=== PATIENT | male | born 1965 | race Caucasian/White ===

== ENCOUNTER → 2020-03-18 10:10 | Outpatient (BNVA) | payer MEDICARE, MEDICAID, SELFPAY | PROVIDERS: PCP Internal Medicine; Visit Provider Internal Medicine | DX: G47.33 Obstructive sleep apnea (adult) (pediatric) (principal); G47.34 Idiopathic sleep related nonobstructive alveolar hypoventilation; E66.9 Obesity, unspecified | CPT/HCPCS: 99212 ==

== ENCOUNTER → 2020-09-15 10:13 | Outpatient (BNVA) | payer MEDICARE, MEDICAID, SELFPAY | PROVIDERS: PCP Internal Medicine; Visit Provider Internal Medicine | DX: G47.34 Idiopathic sleep related nonobstructive alveolar hypoventilation (principal); G47.33 Obstructive sleep apnea (adult) (pediatric); E66.9 Obesity, unspecified | CPT/HCPCS: 99212 ==

== ENCOUNTER 2020-12-09 20:39 | Observation (INO) | payer MEDICARE, MEDICAID, SELFPAY ==
--- NOTE | 2020-12-09 | ECG_ITS ---
Test Reason : SOB Blood Pressure : / mmHG Vent. Rate : 066 BPM Atrial Rate : 066 BPM P-R Int : 150 ms QRS Dur : 092 ms QT Int : 414 ms P-R-T Axes : 001 -05 008 degrees QTc Int : 434 ms Normal sinus rhythm Normal ECG When compared with ECG of 29-JUN-2016 08:23, No significant change was found Referred By: Generic ED Physician Electronically Signed By:HAKAN HOLLAND
--- NOTE | ~2020-12-09 | CT_ITS ---
EXAMINATION: CT CHEST WITHOUT CONTRAST CLINICAL INFORMATION: Hypoxia COMPARISON: Chest radiograph 12/09/2020 TECHNIQUE: Multidetector volumetric CT imaging of the chest was done. Axial MIP volume rendering provided. Sagittal and coronal reformatted images were obtained. This CT examination was performed using dose optimization techniques as appropriate, variously including the following: *Automated exposure control *Adjustment of mA and/or kV according to patient size (this includes techniques or standardized protocols for targeted exams where dose is matched to indication/reason for exam; i.e. extremities or head) *Use of iterative reconstruction technique There is considerable motion artifact from respiration. DLP: 448 mGy-cm FINDINGS: LUNGS: Bibasilar atelectasis is present. The lungs are otherwise clear with no evidence of inflammation or nodules. MEDIASTINUM: The mediastinum is normal. PLEURA: There is no pleural effusion. No pleural mass or thickening. AXILLA: No lymphadenopathy. UPPER ABDOMEN: Unremarkable. OSSEOUS STRUCTURES: Unremarkable. CT/CT chest wo con IMPRESSION: No acute intrathoracic disease. No significant intrathoracic abnormality is detected.
--- NOTE | ~2020-12-09 | XR_ITS ---
EXAMINATION: XR CHEST CLINICAL INFORMATION: Shortness of breath. COMPARISON: 06/29/2016 TECHNIQUE: Frontal view of the chest was obtained. FINDINGS: Lungs are well expanded. Minimal linear opacity of atelectasis or minimal scarring at each base. No evidence of pulmonary edema, consolidation or pleural effusion. No pneumothorax. Cardiac silhouette has normal size and contour. The visualized bones are intact. XR/XR chest 1V IMPRESSION: No acute pulmonary disease compared to 06/29/2016.
[2020-12-09 20:41] VITALS: BP 151/79; PULSE 69; O2SAT 90
[2020-12-09 20:46] VITALS: BP 154/78; PULSE 72; RESP 16; TEMP 36.6; O2SAT 94; BMI 35.7
[2020-12-09 21:21] LABS: MANUAL DIFF FLAG NO
[2020-12-09 21:23] LABS: Basophils Percent Auto 0.4 % (0-2); Eosinophils Absolute Auto 0.1 X10*3/uL (0.0-0.4); Eosinophils Percent Auto 1.8 % (0-4); Hematocrit 39.1 % (42-52); Imm Gran Abs Auto 0.07 X10*3/uL (0.00-0.03); Imm Gran Pct Auto 0.9 % (0.0-0.4); Lymphocytes Percent Auto 26.5 % (20-40); Mean Corpuscular HGB Conc 33.2 g/dl (31.0-36.0); Mean Corpuscular Hemoglobin 29.5 pg (27.0-33.0); Mean Corpuscular Volume 88.9 fL (80-98); Mean Platelet Volume 8.4 fL (9.4-12.4); Monocytes Absolute Auto 0.7 X10*3/uL (0.1-1.2); Monocytes Percent Auto 9.7 % (2-11); Neutrophils Absolute Auto 4.7 X10*3/uL (2.0-8.3); Neutrophils Percent Auto 60.7 % (45-73); Platelet Count 267 X10*3/uL (160-400); Red Cell Distribution Width 12.6 % (11.0-16.0); White Blood Count 7.7 X10*3/uL (4.8-10.8)
[2020-12-09 21:37] LABS: Anion Gap 15 (12-20); Blood Urea Nitrogen 10 mg/dL (9-16); Calcium 9.5 mg/dL (8.4-10.2); Carbon Dioxide 28 mmol/L (22-29); Chloride 103 mmol/L (96-108); Creatinine Clr Calc Pharmacy 89.4; Estimated Glomerular Filt Rate > 60; Glucose Random 174 mg/dL (60-115); Potassium 4.4 mmol/L (3.3-5.1); Sodium 142 mmol/L (135-145)
[2020-12-09 21:38] LABS: COVID-19 Test Negative (Negative); IDNOW Serial# 9DD0AD1C
--- NOTE | 2020-12-09 21:39 | ED.SOB ---
HPI - SOB/Dyspnea General Chief Complaint: Dyspnea Stated Complaint: SOB Time Seen by Provider: 12/09/20 21:39 Source: patient and other Mode of arrival: EMS History of Present Illness HPI Narrative: 55-year-old male with history of diabetes and nocturnal hypoxemia for which he is on supplemental nasal cannula at night is brought in by EMS after staff members notice that he appeared to be short of breath with lip discoloration for approximately 2 hours prior to calling EMS. As per EMS patient was 88% on room air and so patient was transported on 3 L nasal cannula. Patient denies any current discomfort to include denying any shortness of breath, chest pain/palpitations, nausea, vomiting, diarrhea, abdominal pain. As per patient he has not had COVID-19 vaccination and is followed by Dr. Fenrando of pulmonology. Patient has healthcare aide at the bedside. Related Data Home Medications Medication Instructions Recorded Confirmed acetaminophen 325 mg tablet (Mapap 650 mg PO Q6H PRN 03/02/20 07/07/20 (acetaminophen)) bacitracin 500 unit/gram topical 1 appl TOPICAL DAILY 03/02/20 07/07/20 ointment emollient combination no.92 1 appl TOPICAL DAILY 03/02/20 09/24/20 (Lubriderm Daily Moisture) peg [id number] 1 1 drp OPHTHALMIC (EYE) BID-QID PRN 03/02/20 07/07/20 %-0.2 %-0.2 % eye drops (Visine Tears) risperidone 4 mg tablet (Risperdal) 4 mg PO BID 03/02/20 09/24/20 escitalopram oxalate 20 mg tablet 30 mg PO DAILY tab 03/18/20 07/07/20 (Lexapro) flu vac qs 2019(4 yr up)CD(PF) ml IM 03/18/20 07/07/20 blood sugar diagnostic #10 ea 09/15/20 09/24/20 Previous Rx's Medication Instructions Recorded aspirin 81 mg tablet,delayed 81 mg PO QAM #30 tab 02/13/20 release alcohol swabs 1 pad TOPICAL QIDACHS #100 ea 02/15/20 ketoconazole 2 % shampoo 1 appl TOPICAL 2XW #120 ml 03/05/20 atorvastatin 80 mg tablet 80 mg PO BEDTIME #30 tab 04/30/20 ascorbate calcium (vitamin C) 500 500 mg PO DAILY #90 tab 05/07/20 mg tablet insulin degludec 100 unit/mL (3 10 unit SUBCUT DAILY #15 ml 08/19/20 mL) subcutaneous pen (Tresiba FlexTouch U-100 insulin) ferrous fumarate 324 mg (106 mg 324 mg PO DAILY 90 Days #90 tab 08/25/20 iron) tablet pen needle, diabetic 31 gauge x #1200 ea 09/14/2008/16 cephalexin 500 mg capsule 500 mg PO QID 7 Days #28 cap 09/24/20 prednisone 20 mg tablet 20 mg PO .COMPLEX #18 tab 09/24/20 cholecalciferol (vitamin D3) 25 25 mcg PO DAILY 90 Days #90 cap 11/11/20 mcg (1,000 unit) capsule omeprazole 20 mg capsule,delayed 20 mg PO DAILY #90 cap 11/11/20 release multivitamin-iron 9 mg-folic acid 1 tab PO DAILY #90 tab 11/19/20 400 mcg-calcium and minerals tablet lancets 30 gauge #100 ea 12/09/20 albuterol sulfate 90 mcg/actuation 2 puff INHALATION Q4-6H PRN #6.7 g 12/10/20 aerosol inhaler (Ventolin HFA) Allergies Allergy/AdvReac Type Severity Reaction Status Date / Time lisinopril [LISINOPRIL] Allergy Intermediate HYPOTENSION Verified 09/24/20 13:58 Review of Systems Review of Systems: Pertinent positives and negatives as stated in HPI 10 point review of systems is otherwise negative. [facility] Past Medical History Source: nursing notes reviewed Medical History Anxiety and depression Fatty liver GERD (gastroesophageal reflux disease) Hypercholesterolemia Hypoventilation syndrome Insomnia Mental and behavioral problem Nocturnal hypoxemia Obesity (BMI 30-39.9) Obstructive sleep apnea Type 2 diabetes mellitus with hyperglycemia Vitamin D deficiency Surgical History H/O basal cell carcinoma excision History of cataract surgery Family History Family History Father Medical history unknown Mother Lung cancer Brain aneurysm Maternal Grandmother Uterine cancer Maternal Grandfather Lung cancer Social History Social History Alcohol intake: never Advance Directives: No Advance Directives Information Provided: Yes Physical Exam Vital Signs: Vital Signs: Last Vital Signs Temp 97.8 F 12/10/20 01:01 Pulse 72 12/10/20 01:01 Resp 16 12/10/20 01:01 BP 115/68 12/10/20 01:01 Pulse Ox 96 12/10/20 01:01 Oxygen Flow Rate 3 12/09/20 20:46 Body Mass Index 35.7 VITAL SIGNS: Reviewed. GENERAL: Well developed, well nourished, in no acute distress. HEAD: Normocephalic/atraumatic EYES: PERRLA, EOMI intact without pain OROPHARYNX: no oral lesions noted, posterior pharynx clear, moist mucosa NECK: Supple, no adenopathy LUNGS: Normal breath sounds. No adventitious sounds or accessory muscle use. SpO2<97> on 3 L nasal cannula CARDIOVASCULAR: Regular rate and rhythm without noted murmurs, no JVD or lower extremity edema. ABDOMEN: Obese, Soft, non-tender, non-distended with bowel sounds. MUSCULOSKELETAL: No tenderness, deformities, or effusions noted on gross inspection. EXTREMITIES: No cyanosis, clubbing or edema. SKIN: Inspection of the skin reveals no rashes NEUROLOGIC: Alert and oriented x 4. Strength and sensation to light touch were grossly intact x 4. Course Course Course Narrative: 55-year-old male with history and clinical presentation suggestive of possible COVID-19 infection as patient does not have any apparent respiratory distress, there is no evidence of central cyanosis and he is oxygenating at 97% on 3 L of nasal cannula. As there are no other clinical or objective findings noted will evaluate for possible pneumonia/CHF/viral infection. Low clinical suspicion for PE and no history of COPD. Review of all investigations negative for acute findings to better demonstrate patient's etiology for hypoxia, however on obtaining a VBG it was noted that patient's pCO2 was elevated suggesting the possibility of an obstructive respiratory pattern. On ambulation without oxygen patient was noted to dip down into the low 80s. Patient received DuoNeb, Solu-Medrol, and albuterol. COVID-19 is negative and patient will be admitted to the hospitalist team for undifferentiated hypoxia. Remaining investigations reviewed without acute findings and case was discussed with inpatient hospitalist who accepts admission. MDM - SOB/Dyspnea Lab Data Result diagrams: 12/09/20 21:14 12/09/20 21:14 Labs: Lab Results 12/09/20 12/09/20 12/09/20 Range/Units 21:14 21:14 21:14 WBC 7.7 (4.8-10.8) X10*3/uL RBC 4.40 L (4.60-5.80) X10*6/uL Hgb 13.0 L (14.0-18.0) g/dl Hct 39.1 L (42-52) % MCV 88.9 (80-98) fL MCH 29.5 (27.0-33.0) pg MCHC 33.2 (31.0-36.0) g/dl RDW 12.6 (11.0-16.0) % Plt Count 267 (160-400) X10*3/uL MPV 8.4 L (9.4-12.4) fL Immature Gran % (Auto) 0.9 H (0.0-0.4) % Neut % (Auto) 60.7 (45-73) % Lymph % (Auto) 26.5 (20-40) % [place] % (Auto) 9.7 (2-11) % Eos % (Auto) 1.8 (0-4) % Baso % (Auto) 0.4 (0-2) % Lymph # (Auto) 2.0 (1.2-4.9) X10*3/uL [place] # (Auto) 0.7 (0.1-1.2) X10*3/uL Eos # (Auto) 0.1 (0.0-0.4) X10*3/uL Baso # (Auto) 0.0 (0.0-0.2) X10*3/uL Abs Immat Gran (auto) 0.07 H (0.00-0.03) X10*3/uL Absolute Neuts (auto) 4.7 (2.0-8.3) X10*3/uL Absolute Nucleated RBC 0.000 (0.0-0.012) X10*3/uL Nucleated RBC % (auto) 0.0 (0.0-0.2) /100WBC VBG pH (7.32-7.43) VBG pCO2 mmHg VBG pO2 mmHg VBG HCO3 (22-26) mmol/L VBG O2 Saturation % VBG Base Excess mmol/L Sodium 142 (135-145) mmol/L Potassium 4.4 (3.3-5.1) mmol/L Chloride 103 (96-108) mmol/L Carbon Dioxide 28 (22-29) mmol/L Anion Gap 15 (12-20) BUN 10 (9-16) mg/dL Creatinine 1.16 (0.5-1.4) mg/dL Estim Creat Clear Calc 89.4 Estimated GFR > 60 Random Glucose 174 H (60-115) mg/dL Calcium 9.5 (8.4-10.2) mg/dL Troponin I High Sens < 3.5 (<3.5-35.0) ng/L B-Natriuretic Peptide 19 (<100) pg/mL Urine Color Urine Appearance Urine pH (5.0-8.0) Ur Specific [place] (1.005-1.025) Urine Protein (NEG-TRACE) MG/DL Urine Glucose (UA) (NEG) MG/DL Urine Ketones (NEG) MG/DL Urine Blood (NEG) Urine Nitrite (NEG) Ur Leukocyte Esterase (NEG) COVID-19 ([facility]) (Negative) COVID-19 Clin Com 12/09/20 12/09/20 12/09/20 Range/Units 21:14 21:49 21:54 WBC (4.8-10.8) X10*3/uL RBC (4.60-5.80) X10*6/uL Hgb (14.0-18.0) g/dl Hct (42-52) % MCV (80-98) fL MCH (27.0-33.0) pg MCHC (31.0-36.0) g/dl RDW (11.0-16.0) % Plt Count (160-400) X10*3/uL MPV (9.4-12.4) fL Immature Gran % (Auto) (0.0-0.4) % Neut % (Auto) (45-73) % Lymph % (Auto) (20-40) % [place] % (Auto) (2-11) % Eos % (Auto) (0-4) % Baso % (Auto) (0-2) % Lymph # (Auto) (1.2-4.9) X10*3/uL [place] # (Auto) (0.1-1.2) X10*3/uL Eos # (Auto) (0.0-0.4) X10*3/uL Baso # (Auto) (0.0-0.2) X10*3/uL Abs Immat Gran (auto) (0.00-0.03) X10*3/uL Absolute Neuts (auto) (2.0-8.3) X10*3/uL Absolute Nucleated RBC (0.0-0.012) X10*3/uL Nucleated RBC % (auto) (0.0-0.2) /100WBC VBG pH 7.31 L (7.32-7.43) VBG pCO2 62 mmHg VBG pO2 40 mmHg VBG HCO3 31 H (22-26) mmol/L VBG O2 Saturation 51.0 % VBG Base Excess 3.6 mmol/L Sodium (135-145) mmol/L Potassium (3.3-5.1) mmol/L Chloride (96-108) mmol/L Carbon Dioxide (22-29) mmol/L Anion Gap (12-20) BUN (9-16) mg/dL Creatinine (0.5-1.4) mg/dL Estim Creat Clear Calc Estimated GFR Random Glucose (60-115) mg/dL Calcium (8.4-10.2) mg/dL Troponin I High Sens (<3.5-35.0) ng/L B-Natriuretic Peptide (<100) pg/mL Urine Color YELLOW Urine Appearance CLEAR Urine pH 7.0 (5.0-8.0) Ur Specific [place] <= 1.005 (1.005-1.025) Urine Protein NEG (NEG-TRACE) MG/DL Urine Glucose (UA) NEG (NEG) MG/DL Urine Ketones NEG (NEG) MG/DL Urine Blood NEG (NEG) Urine Nitrite NEG (NEG) Ur Leukocyte Esterase NEG (NEG) COVID-19 ([facility]) Negative (Negative) COVID-19 Clin Com See Note Discharge Plan Discharge Clinical Impression: Dyspnea, Elevated pCO2 on arterial blood gas, Hypoxemia Patient Disposition: Admitted As Inpatient
[2020-12-09 21:42] LABS: B Type Natriuretic Peptide 19 pg/mL (<100); Troponin-I High Sensitivity < 3.5 ng/L (<3.5-35.0)
[2020-12-09 21:59] LABS: Appearance Urine CLEAR; Color Urine YELLOW; Glucose Urine UA NEG (NEG); Leukocyte Esterase Urine NEG (NEG); Nitrite Urine NEG (NEG); Specific Gravity - Urine <= 1.005 (1.005-1.025); Urine Blood NEG (NEG); Urine Ketones NEG (NEG); Urine Protein NEG (NEG-TRACE); Venous Blood Gas Refer to POC result
[2020-12-09 22:00] LABS: VBG Base Excess 3.6 mmol/L; VBG HCO3 31 mmol/L (22-26); VBG pCO2 62 mmHg; VBG pH 7.31 (7.32-7.43); VBG pO2 40 mmHg
[2020-12-09 22:22] VITALS: BP 126/73; PULSE 73; RESP 16; O2SAT 92
[2020-12-10] VITALS (10 sets, daily range): BP systolic 97–143; BP diastolic 52–74; PULSE 64–93; RESP 15–20; TEMP 36.1–37.4; O2SAT 91–96
[2020-12-10] MEDS: Albuterol/Iprat 2.5/0.5MG 3 ML AMPUL.NEB INHALE (00:11)
--- NOTE | 2020-12-10 01:05 | PC.NURSE ---
patient had a ham sandwich and a carton of milk .
--- NOTE | 2020-12-10 01:06 | PC.NURSE ---
patient out put is 1000ml
[2020-12-10] MEDS: methylPREDNISolone Sod Succ 125 MG/2 ML VIAL IVPUSH (02:08)
--- NOTE | 2020-12-10 03:07 | PC.NURSE ---
Walk test, pt destats into the 80's. provider is aware. Respiratory in to assess pt. no sign of distress or retractions.
[2020-12-10] MEDS: Albuterol Sulfate (0.083%) 2.5 MG/3 ML VIAL.NEB 5 MG INHALE (04:20)
--- NOTE | 2020-12-10 06:35 | P.HPHOSP_ITS ---
History of Present Illness Date of Service: 12/10/20 Chief Complaint: Hypoxic 55-year-old male with past medical history type 2 diabetes, HLD, anxiety and depression, mental and behavioral problems?, insomnia, nocturnal hypoxemia on 2 L of oxygen at night pre ECT, obstructive sleep apnea on CPAP who presents to [facility] because his environmental monitoring specialist noted him to have a drop in oxygen from 92% to 90%. When I ask questions from patient he refers me to his caregiver and denies any symptoms at this time. Recruiter Coordinator reports that she has not noticed patient coughing, she is no sputum production, but has seemed to have trouble breathing otherwise no headache, no change in vision, she has no chest pain, no palpitatio ns, no abdominal pain. He denies any diarrhea or constipation. No urinary symptoms and no lower extremity edema. According to the ED staff patient desats to the mid to high 80s on ambulation and has a habit of holding his breath but when asked to take deep breaths his oxygen does,. Patient is currently on non-rebreather satting 95% Vitals on arrival unremarkable VBG on arrival shows a pH of 7.31 with a CO2 of 62 and a bicarb of 28. Labs Otherwise unremarkable Chest CT showed no acute intrathoracic disease Review of Systems Review of Systems: Yes all other systems are reviewed and are negative [facility] Medical History Anxiety and depression Fatty liver GERD (gastroesophageal reflux disease) Hypercholesterolemia Hypoventilation syndrome Insomnia Mental and behavioral problem Nocturnal hypoxemia Obesity (BMI 30-39.9) Obstructive sleep apnea Type 2 diabetes mellitus with hyperglycemia Vitamin D deficiency Family History Father Medical history unknown Mother Lung cancer Brain aneurysm Maternal Grandmother Uterine cancer Maternal Grandfather Lung cancer Surgical History H/O basal cell carcinoma excision History of cataract surgery Social History Alcohol intake: never Advance Directives: No Advance Directives Information Provided: Yes Meds Allergies Allergy/AdvReac Type Severity Reaction Status Date / Time lisinopril [LISINOPRIL] Allergy Intermediate HYPOTENSION Verified 09/24/20 13:58 Home Medications Medication Instructions Recorded Confirmed Last Taken Type acetaminophen 325 mg tablet (Mapap 650 mg PO Q6H PRN 03/02/20 12/10/20 Unknown History (acetaminophen)) emollient combination no.92 1 appl TOPICAL DAILY 03/02/20 12/10/20 Unknown History (Lubriderm Daily Moisture) flu vac qs 2019(4 yr up)CD(PF) ml IM 03/18/20 07/07/20 Unknown History aspirin 81 mg tablet,delayed 1 tab PO DAILY 12/10/20 12/10/20 Unknown History release atorvastatin 80 mg tablet 1 tab PO DAILY 12/10/20 12/10/20 Unknown History blood sugar diagnostic (Contour 12/10/20 12/10/20 Unknown History Next Test Strips) cephalexin 500 mg capsule 1 cap PO QID 12/10/20 12/10/20 Unknown History escitalopram oxalate 10 mg tablet 1 tab PO DAILY 12/10/20 12/10/20 Unknown History escitalopram oxalate 10 mg tablet 1 tab PO QAM 12/10/20 12/10/20 Unknown History (Lexapro) escitalopram oxalate 20 mg tablet 1 tab PO DAILY 12/10/20 12/10/20 Unknown History escitalopram oxalate 20 mg tablet 1 tab PO QAM 12/10/20 12/10/20 Unknown History (Lexapro) insulin degludec 100 unit/mL (3 10 unit SUBCUT QAM 12/10/20 12/10/20 Unknown History mL) subcutaneous pen (Tresiba FlexTouch U-100 insulin) ketoconazole 2 % shampoo 1 applic TOPICAL 2XW 12/10/20 12/10/20 Unknown History lancets 30 gauge (TRUEplus Lancets) 12/10/20 12/10/20 Unknown History multivitamin-iron 9 mg-folic acid 1 tab PO DAILY 12/10/20 12/10/20 Unknown History 400 mcg-calcium and minerals tablet (Thera-M) omeprazole 20 mg capsule,delayed 1 cap PO DAILY 12/10/20 12/10/20 Unknown History release pen needle, diabetic 31 gauge x 12/10/20 12/10/20 Unknown History 16 (Advocate Pen Needle) prednisone 20 mg tablet 1 tab PO BID 12/10/20 12/10/20 Unknown History risperidone 4 mg tablet 1 tab PO BEDTIME 12/10/20 12/10/20 Unknown History Physical Exam Vital Signs and Narrative: Vital Signs: Last Vital Signs Temp 99.4 F 12/10/20 06:09 Pulse 91 12/10/20 06:09 Resp 15 12/10/20 06:09 BP 128/63 12/10/20 06:09 Pulse Ox 95 12/10/20 06:09 Oxygen Flow Rate 3 12/09/20 20:46 Body Mass Index 35.7 Const: General: cooperative and no acute distress Orientation/consciousness: patient oriented x3 Eyes: General: appearance normal, both eyes and all related structures Pupils: Equal, round and reactive pupils present Resp: Effort & Inspection: normal respiratory effort Auscultation: clear to auscultation bilaterally Cardio: Rate: regular rate Rhythm: regular rhythm GI: Palpation (GI): Soft to palpation Auscultation: normal bowel sounds Skin: General skin exam: no rashes or lesions noted Neuro: General: patient oriented x3 Cranial nerves: Yes Equal, round and reactive pupils present Cognition (Neuro): normal cognition Extrem: General: Yes normal to inspection and Yes no pedal edema Results Labs CBC and Chem 7: 12/09/20 21:14 12/09/20 21:14 Labs: Laboratory Results - last 24 hr 12/09/20 12/09/20 12/09/20 21:14 21:14 21:14 MCV 88.9 MCH 29.5 MCHC 33.2 RDW 12.6 Plt Count 267 MPV 8.4 L Immature Gran % (Auto) 0.9 H Neut % (Auto) 60.7 Lymph % (Auto) 26.5 [place] % (Auto) 9.7 Eos % (Auto) 1.8 Baso % (Auto) 0.4 Lymph # (Auto) 2.0 [place] # (Auto) 0.7 Eos # (Auto) 0.1 Baso # (Auto) 0.0 Abs Immat Gran (auto) 0.07 H Absolute Neuts (auto) 4.7 Absolute Nucleated RBC 0.000 Nucleated RBC % (auto) 0.0 VBG pH VBG pCO2 VBG pO2 VBG HCO3 VBG O2 Saturation VBG Base Excess Anion Gap 15 Estim Creat Clear Calc 89.4 Estimated GFR > 60 Random Glucose 174 H Calcium 9.5 Troponin I High Sens < 3.5 B-Natriuretic Peptide 19 Urine Color Urine Appearance Urine pH Ur Specific [place] Urine Protein Urine Glucose (UA) Urine Ketones Urine Blood Urine Nitrite Ur Leukocyte Esterase COVID-19 ([facility]) COVID-19 Clin Com 12/09/20 12/09/20 12/09/20 21:14 21:49 21:54 MCV MCH MCHC RDW Plt Count MPV Immature Gran % (Auto) Neut % (Auto) Lymph % (Auto) [place] % (Auto) Eos % (Auto) Baso % (Auto) Lymph # (Auto) [place] # (Auto) Eos # (Auto) Baso # (Auto) Abs Immat Gran (auto) Absolute Neuts (auto) Absolute Nucleated RBC Nucleated RBC % (auto) VBG pH 7.31 L VBG pCO2 62 VBG pO2 40 VBG HCO3 31 H VBG O2 Saturation 51.0 VBG Base Excess 3.6 Anion Gap Estim Creat Clear Calc Estimated GFR Random Glucose Calcium Troponin I High Sens B-Natriuretic Peptide Urine Color YELLOW Urine Appearance CLEAR Urine pH 7.0 Ur Specific [place] <= 1.005 Urine Protein NEG Urine Glucose (UA) NEG Urine Ketones NEG Urine Blood NEG Urine Nitrite NEG Ur Leukocyte Esterase NEG COVID-19 ([facility]) Negative COVID-19 Clin Com See Note Imaging Radiologist's Impressions: Impressions Chest X-Ray 12/09/20 21:09 IMPRESSION: No acute pulmonary disease compared to 06/29/2016. Chest CT 12/10/20 01:55 IMPRESSION: No acute intrathoracic disease. No significant intrathoracic abnormality is detected. Assessment and Plan (1) Dyspnea: Status: Acute (2) Elevated pCO2 on arterial blood gas: Status: Acute (3) Hypoxemia: Status: Acute This is a 55-year-old male with past medical history of sleep apnea as well as nocturnal hypoxia on 2 L at bedtime presents to the hospital with complaints of dyspnea as well as hypoxia # dyspnea with hypoxia - unclear etiology possibly secondary to his sleep apnea as well as underlying obesity hypoventilation syndrome - patient denies history of COPD , denies any cough or sputum production - at this time will admit for monitoring - start Solu-Medrol 40 IV b.i.d. # respiratory acidosis - has elevated CO2 with pH of 7.31 no history of COPD - at this time will treat for COPD with Solu-Medrol IV b.i.d. - monitor for any change in mentation, repeat VBG if necessary and placed on BiPAP # sleep after - CPAP at bedtime # diabetes - continue home insulin - will add low sliding scales - diabetic diet # hyperlipidemia - continue statin # mood disorder - continue home medications DVT prophylaxis: Lovenox Quality Stroke Does the patient have a stroke diagnosis?: No VTE Prior VTE?: No VTE Risk Level:: Medical - moderate - high VTE Device Contraindication: Treatment Not Indicated VTE Drug Contraindication: N/A - Med Ordered
[2020-12-10 07:00] LABS: Glucose, Whole Blood 274 mg/dL (60-115)
--- NOTE | 2020-12-10 07:01 | PC.NURSE ---
Called Pharmacy to verify medications. pt is in be in respiratory.
[2020-12-10] MEDS: Insulin Lispro 100 UNIT/ML 3 ML VIAL SUBCUT ×4 (08:08→22:14)
[2020-12-10] MEDS: Insulin Glargine,Hum.rec.anlog 100 UNIT/ML 10 ML VIAL 7 UNIT SUBCUT (08:10)
[2020-12-10] MEDS: Cholecalciferol (Vitamin D3) 25 MCG TABLET PO (08:13)
[2020-12-10] MEDS: Aspirin Enteric Coated 81 MG TABLET.DR PO (08:13)
[2020-12-10] MEDS: Omeprazole 20 MG CAPSULE.DR PO (08:13)
[2020-12-10] MEDS: Escitalopram Oxalate 20 MG TABLET PO (08:13)
[2020-12-10] MEDS: Escitalopram Oxalate 10 MG TABLET PO (08:13)
[2020-12-10] MEDS: Ascorbic Acid 500 MG TABLET PO (08:13)
--- NOTE | 2020-12-10 09:00 | PC.NURSE ---
lungs - diminished all lobes.
--- NOTE | 2020-12-10 09:35 | PC.NURSE ---
hosp at bedside, pt aware of plan of care.
[2020-12-10 11:38] LABS: Glucose, Whole Blood 278 mg/dL (60-115)
--- NOTE | 2020-12-10 11:58 | PC.NURSE ---
darrel wilburn) from pt's custodial called for an update on pt status. pt/darrel marcum (cara) is aware of plan of care for admission.
--- NOTE | 2020-12-10 11:59 | PC.NURSE ---
darrel marcum (rn, longterm) [phone].
--- NOTE | 2020-12-10 14:16 | PC.NURSE ---
pt ate 100% of lunch
--- NOTE | 2020-12-10 16:57 | PC.NURSE ---
PT HAS BEEN RESTING QUIETLY ON STRETCHER. NO DISTRESS NOTED. RESP EVEN, EASY AND UNLABORED. SATS MAINTAINING 93-94% ON 3LNC. DENIES PAIN. PT AWARE AND AGREEABLE TO PLAN
[2020-12-10 17:47] LABS: Glucose, Whole Blood 266 mg/dL (60-115)
[2020-12-10] MEDS: 0.9 % Sodium Chloride Flush 3 ML SYRINGE IVFLUSH ×2 (17:53→22:18)
[2020-12-10] MEDS: Enoxaparin Sodium 40 MG/0.4 ML SYRINGE SUBCUT (17:53)
[2020-12-10] MEDS: methylPREDNISolone Sod Succ 40 MG/ML VIAL IVPUSH (19:49)
[2020-12-10 20:42] LABS: Glucose, Whole Blood 266 mg/dL (60-115)
[2020-12-10] MEDS: Atorvastatin Calcium 80 MG TABLET PO (22:13)
[2020-12-10] MEDS: risperiDONE 2 MG TABLET 4 MG PO (22:13)
[2020-12-11 03:48] VITALS: BP 118/58; PULSE 63; RESP 16; TEMP 37; O2SAT 94
[2020-12-11] MEDS: methylPREDNISolone Sod Succ 40 MG/ML VIAL IVPUSH (06:10)
[2020-12-11] MEDS: Omeprazole 20 MG CAPSULE.DR PO (06:10)
[2020-12-11 06:26] LABS: MANUAL DIFF FLAG NO
[2020-12-11 06:39] LABS: Basophils Percent Auto 0.1 % (0-2); Hematocrit 39.7 % (42-52); Hemoglobin 13.1 g/dl (14.0-18.0); Imm Gran Abs Auto 0.08 X10*3/uL (0.00-0.03); Imm Gran Pct Auto 0.6 % (0.0-0.4); Lymphocytes Percent Auto 7.9 % (20-40); Mean Corpuscular Hemoglobin 29.7 pg (27.0-33.0); Mean Platelet Volume 8.8 fL (9.4-12.4); Monocytes Absolute Auto 0.5 X10*3/uL (0.1-1.2); Monocytes Percent Auto 3.7 % (2-11); Neutrophils Absolute Auto 11.3 X10*3/uL (2.0-8.3); Neutrophils Percent Auto 87.7 % (45-73); Platelet Count 289 X10*3/uL (160-400); Red Blood Count 4.41 X10*6/uL (4.60-5.80); Red Cell Distribution Width 12.9 % (11.0-16.0); White Blood Count 12.9 X10*3/uL (4.8-10.8)
[2020-12-11 06:48] LABS: Anion Gap 15 (12-20); Blood Urea Nitrogen 15 mg/dL (9-16); Calcium 9.7 mg/dL (8.4-10.2); Carbon Dioxide 27 mmol/L (22-29); Chloride 104 mmol/L (96-108); Creatinine Clr Calc Pharmacy 109.2; Estimated Glomerular Filt Rate > 60; Glucose Random 227 mg/dL (60-115); Potassium 4.6 mmol/L (3.3-5.1); Sodium 141 mmol/L (135-145)
[2020-12-11 08:00] VITALS: BP 147/56; PULSE 64; RESP 18; TEMP 36.3; O2SAT 93
[2020-12-11 08:08] LABS: Glucose, Whole Blood 309 mg/dL (60-115)
[2020-12-11 08:15] VITALS: BP 118/58; PULSE 63; O2SAT 94
[2020-12-11] MEDS: Insulin Lispro 100 UNIT/ML 3 ML VIAL SUBCUT ×2 (08:35→12:01)
[2020-12-11] MEDS: Insulin Glargine,Hum.rec.anlog 100 UNIT/ML 10 ML VIAL 7 UNIT SUBCUT (08:35)
[2020-12-11] MEDS: 0.9 % Sodium Chloride Flush 3 ML SYRINGE IVFLUSH (08:35)
[2020-12-11] MEDS: Cholecalciferol (Vitamin D3) 25 MCG TABLET PO (08:36)
[2020-12-11] MEDS: Ascorbic Acid 500 MG TABLET PO (08:36)
[2020-12-11] MEDS: Escitalopram Oxalate 20 MG TABLET PO (08:36)
[2020-12-11] MEDS: Aspirin Enteric Coated 81 MG TABLET.DR PO (08:36)
[2020-12-11] MEDS: Escitalopram Oxalate 10 MG TABLET PO (08:36)
--- NOTE | 2020-12-11 10:27 | PC.NURSE ---
skin assessment completed today. No skin issues noted at this time.
[2020-12-11 11:20] VITALS: BP 121/63; PULSE 62; RESP 18; TEMP 36.1; O2SAT 96
--- NOTE | 2020-12-11 11:21 | P.DS_ITS ---
DS: Providers Provider Date of Service: 12/11/20 Date of admission: 12/10/20 06:53 Primary care physician: Unknown Physician DS: Diagnosis Discharge Diagnosis (1) Dyspnea: Status: Acute (2) Obstructive sleep apnea: Status: Acute DS: Summary Hospital Course Hospital Course: Admission note HPI 55-year-old male with past medical history type 2 diabetes, HLD, anxiety and depression, mental and behavioral problems?, insomnia, nocturnal hypoxemia on 2 L of oxygen at night pre ECT, obstructive sleep apnea on CPAP who presents to the hospital because his liquor tester noted him to have a drop in oxygen from 92% to 90%.? When I ask questions from patient he refers me to his caregiver and denies any symptoms at this time.? Mathematical Technician reports that she has not noticed patient coughing, she is no sputum production, but has seemed to have trouble breathing otherwise no headache, no change in vision, she has no chest pain, no palpitations, no abdominal pain.? He denies any diarrhea or constipation.? No urinary symptoms and no lower extremity edema. According to the ED staff patient desats to the mid to high 80s on ambulation and has a habit of holding his breath but when asked to take deep breaths his oxygen does,.? Patient is currently on non-rebreather satting 95% Vitals on arrival unremarkable VBG on arrival shows a pH of 7.31 with a CO2 of 62 and a bicarb of 28. Labs Otherwise unremarkable Chest CT showed no acute intrathoracic disease Hospital course The patient was admitted to the hospital for evaluation of difficulty breathing. Images were done including chest x-ray and CT scan were both negative for any acute findings. His oxygen level remained stable on 2 L of oxygen. Blood work was consistent with very mild respiratory acidosis improved with usage of CPAP. Treated with steroids and placed on CPAP for history of sleep apnea with good response as he maintain his oxygen level stable on 2 L of oxygen. Evaluated by physical therapy team and was able to ambulate with assistance. Will need to use oxygen during daytime with exercise/activity as well as night time. To start albuterol inhaler as needed Time Spent with Patient Time attestation: Total time spent providing and/or coordinating discharge services: Discharge coordination time: Greater than 30 minutes Quality: Stroke Does the patient have a stroke diagnosis?: No Physical Exam Vital Signs: Vital Signs: Last Vital Signs Temp 97.3 F 12/11/20 08:00 Pulse 63 12/11/20 08:15 Resp 18 12/11/20 08:00 BP 118/58 L 12/11/20 08:15 Pulse Ox 94 12/11/20 08:15 Oxygen Flow Rate 3 12/09/20 20:46 Body Mass Index 35.7 Const: Other: Constitutional : Alert, oriented, not in distress Neck : Normal inspection, Supple Cardiovascular : RRR, S1 S2, no lower extremity edema Respiratory : Decrease bilateral air entry, no crackles, wheezes or rhonchi Gastrointestinal: soft, lax, Normal bowel sounds, Non tender Skin : Warm, Dry Neurological : Alert & oriented x3, No focal deficit DS: Data Data Completed and Pending Labs on day of discharge: Laboratory Results - last 24 hr 12/10/20 12/10/20 12/10/20 11:33 17:44 20:32 WBC RBC Hgb Hct MCV MCH MCHC RDW Plt Count MPV Immature Gran % (Auto) Neut % (Auto) Lymph % (Auto) [place] % (Auto) Eos % (Auto) Baso % (Auto) Lymph # (Auto) [place] # (Auto) Eos # (Auto) Baso # (Auto) Abs Immat Gran (auto) Absolute Neuts (auto) Absolute Nucleated RBC Nucleated RBC % (auto) Sodium Potassium Chloride Carbon Dioxide Anion Gap BUN Creatinine Estim Creat Clear Calc Estimated GFR POC Glucose 278 H 266 H 266 H Random Glucose Calcium 12/11/20 12/11/20 12/11/20 06:02 06:02 07:57 WBC 12.9 H RBC 4.41 L Hgb 13.1 L Hct 39.7 L MCV 90.0 MCH 29.7 MCHC 33.0 RDW 12.9 Plt Count 289 MPV 8.8 L Immature Gran % (Auto) 0.6 H Neut % (Auto) 87.7 H Lymph % (Auto) 7.9 L [place] % (Auto) 3.7 Eos % (Auto) 0.0 Baso % (Auto) 0.1 Lymph # (Auto) 1.0 L [place] # (Auto) 0.5 Eos # (Auto) 0.0 Baso # (Auto) 0.0 Abs Immat Gran (auto) 0.08 H Absolute Neuts (auto) 11.3 H Absolute Nucleated RBC 0.000 Nucleated RBC % (auto) 0.0 Sodium 141 Potassium 4.6 Chloride 104 Carbon Dioxide 27 Anion Gap 15 BUN 15 Creatinine 0.95 Estim Creat Clear Calc 109.2 Estimated GFR > 60 POC Glucose 309 H Random Glucose 227 H Calcium 9.7 Discharge Plan Discharge Patient Disposition: Home, Self-Care Discharge Diagnosis: Dyspnea Referrals: Toan Fernando MD [Physician] - 2 days (Evaluation for possible development of COPD, VBG with PCO2-62 and staff stating that patient appeared to be hypoxemic. Staff report 90% oxygenation on room air while up walking around, otherwise workup was negative. Discharged with Ventolin inhaler.) Physician,Unknown [Primary Care Provider] - 1 Week Discharge Medications: New albuterol sulfate [Ventolin HFA] 90 mcg/actuation HFA aerosol inhaler 2 puff inhalation Q4-6H PRN (Reason: shortness of breath or wheezing) Qty: 6.7 RF: 0 Continued ascorbate calcium (vitamin C) 500 mg tablet 500 mg PO DAILY Qty: 90 RF: 3 cholecalciferol (vitamin D3) 25 mcg (1,000 unit) capsule 25 mcg PO DAILY 90 Days Qty: 90 RF: 3 (DME) Contour Next Test Strips Strip MISCELLANEOUS Qty: 300 RF: 3 Tresiba FlexTouch U-100 100 unit/mL (3 mL) insulin pen 10 unit subcut QAM RF: 0 atorvastatin 80 mg tablet 1 tab PO DAILY RF: 0 ketoconazole 2 % shampoo 1 applic topical 2XW RF: 0 risperidone 4 mg tablet 1 tab PO BEDTIME RF: 0 aspirin 81 mg tablet,delayed release (DR/EC) 1 tab PO DAILY RF: 0 omeprazole 20 mg capsule,delayed release(DR/EC) 1 cap PO DAILY RF: 0 (DME) pen needle, diabetic [Advocate Pen Needle] 31 gauge x 5/16 needle MISCELLANEOUS RF: 0 escitalopram oxalate 10 mg tablet 1 tab PO DAILY RF: 0 escitalopram oxalate 20 mg tablet 1 tab PO DAILY RF: 0 Thera-M 9 mg iron-400 mcg tablet 1 tab PO DAILY RF: 0 (DME) lancets [TRUEplus Lancets] 30 gauge misc MISCELLANEOUS RF: 0 Lubriderm Daily Moisture Lotion 1 appl topical DAILY RF: 0 acetaminophen [Mapap (acetaminophen)] 325 mg tablet 650 mg PO Q6H PRN (Reason: Pain) RF: 0 Discharge Orders: Discharge Order (Routine); Ordered 12/11/20 Ordered By: Huber Fleming Diet: advance to usual diet Activity on Discharge: As tolerated Stand Alone Forms: Patient Portal Discharge page Care Plan Goals: Read below Health Concerns: Read below Plan of Treatment: Admitted for evaluation and treatment of difficulties breathing. Images were negative for any acute findings. treated with steroids with fair response as your oxygen level remained stable on 2L O2 at rest. Assessment: You will need Oxygen supplement with activities Use Albuterol inhalor as needed Discharge Date/Time: 12/11/20 15:55
[2020-12-11 11:46] VITALS: PULSE 65; O2SAT 89
[2020-12-11 11:55] LABS: Glucose, Whole Blood 312 mg/dL (60-115)
--- NOTE | 2020-12-11 13:02 | MHC.CM.PN ---
PT DISCHARGING BACK TO [place] [facility], AND NEW O2 2L NC W/EXERCISE AND RESUMP OF 2L O2 AT [facility], STAFF HAS FAXED ORDER FORMS FOR HOSPITALIST TO SIGN AND STAFF WILL BE HERE AT 4PM TO TRANSPORT PT. ARGUELLES 12/11/20, EMR REVIEWED, PT ADMITTED W/DYSPNEA, PT LIVES AT A [facility] AND HAS ASSISTANCE W/CARE, PT USES O2 VIA NC AT [facility], PER STAFF HE DOES NOT TOLERATE CPAP, PT HAS 24HR CARE AT [facility], PT ANXIOUS ABOUT HIS BREATHING AND WAS INITIALLY REPORTING HE DID NOT WANT TO GO HOME HOWEVER CM SPOKE W/PT AND REVIEWED HIS PLAN AND PT OK W/D/C HOME TODAY, PER [facility] NURSE AND STAFF PT IS ANXIOUS/NERVOUS AT BASELINE. PCP IS PATTI MENDOZA, PT DOES NOT HAVE A HCP HOWEVER PT DOES HAVE A GUARDIAN ATTYusra HERRMANN [phone]. PT NOT INTERESTED IN HCP AT THIS TIME. O2 COMPANY- [employer]
== END 2020-12-11 15:55 | disposition home or self-care (01) ==
LOC: HO.ED 12-10 02:53 → HO.EDOVER 12-10 10:25 → HO.S3 12-10 15:52
PROVIDERS: Admitting Provider Internal Medicine; Emergency Provider Student in an Organized Health Care Education/Training Program; Visit Provider Student in an Organized Health Care Education/Training Program
DX: R06.00 Dyspnea, unspecified (principal); G47.33 Obstructive sleep apnea (adult) (pediatric); R79.81 Abnormal blood-gas level; R09.02 Hypoxemia; E11.9 Type 2 diabetes mellitus without complications; E78.5 Hyperlipidemia, unspecified; F41.8 Other specified anxiety disorders; Z99.81 Dependence on supplemental oxygen; Z99.89 Dependence on other enabling machines and devices; Z79.4 Long term (current) use of insulin; Z79.899 Other long term (current) drug therapy; Z20.822 Contact with and (suspected) exposure to COVID-19
CPT/HCPCS: 36415; 71045; 71250; 80048; 81003; 82803; 82947; 83880; 84484; 85025; 87635; 93005; 94640; 96372; 96374; 96375; 96376; 97162; 99218; 99285; J1650; J2920; J2930

== ENCOUNTER → 2020-12-23 13:07 | Outpatient (BNVA) | payer MEDICARE, MEDICAID, SELFPAY | PROVIDERS: PCP Internal Medicine; Visit Provider Internal Medicine | DX: E66.9 Obesity, unspecified (principal); G47.33 Obstructive sleep apnea (adult) (pediatric); G47.34 Idiopathic sleep related nonobstructive alveolar hypoventilation | CPT/HCPCS: 99212 ==

== ENCOUNTER → 2021-01-19 10:46 | Outpatient (BNVA) | payer MEDICARE, MEDICAID, SELFPAY | PROVIDERS: PCP Internal Medicine; Visit Provider Internal Medicine | DX: E66.9 Obesity, unspecified (principal); G47.33 Obstructive sleep apnea (adult) (pediatric); G47.34 Idiopathic sleep related nonobstructive alveolar hypoventilation; Z68.37 Body mass index [BMI] 37.0-37.9, adult | CPT/HCPCS: 99212 ==

== ENCOUNTER → 2021-06-22 09:17 | Outpatient (BNVA) | payer MEDICARE, MEDICAID, SELFPAY | PROVIDERS: PCP Internal Medicine; Visit Provider Internal Medicine | DX: G47.33 Obstructive sleep apnea (adult) (pediatric) (principal); G47.34 Idiopathic sleep related nonobstructive alveolar hypoventilation; E66.9 Obesity, unspecified; Z68.36 Body mass index [BMI] 36.0-36.9, adult | CPT/HCPCS: 99212 ==

== ENCOUNTER 2021-10-06 15:50 | Outpatient (REF) | payer MEDICARE, MEDICAID, SELFPAY ==
[2021-10-06 16:04] LABS: MANUAL DIFF FLAG NO
[2021-10-06 16:14] LABS: Basophils Percent Auto 0.4 % (0-2); Eosinophils Absolute Auto 0.1 X10*3/uL (0.0-0.4); Eosinophils Percent Auto 1.3 % (0-4); Hemoglobin 14.2 g/dl (14.0-18.0); Imm Gran Abs Auto 0.06 X10*3/uL (0.00-0.03); Imm Gran Pct Auto 0.8 % (0.0-0.4); Lymphocytes Absolute Auto 2.1 X10*3/uL (1.2-4.9); Lymphocytes Percent Auto 26.6 % (20-40); Mean Corpuscular HGB Conc 33.8 g/dl (31.0-36.0); Mean Corpuscular Volume 88.8 fL (80.0-98.0); Mean Platelet Volume 8.5 fL (9.4-12.4); Monocytes Absolute Auto 0.7 X10*3/uL (0.1-1.2); Monocytes Percent Auto 8.3 % (2-11); Neutrophils Absolute Auto 4.9 x10*3/uL (2.0-8.3); Neutrophils Percent Auto 62.6 % (45-73); Platelet Count 296 X10*3/uL (160-400); Red Blood Count 4.73 X10*6/uL (4.60-5.80); Red Cell Distribution Width 12.6 % (11.0-16.0); White Blood Count 7.9 X10*3/uL (4.8-10.8)
[2021-10-06 16:36] LABS: Alanine Aminotransferase 49 U/L (0-40); Albumin Level 4.5 g/dL (3.5-5.0); Alkaline Phosphatase 81 U/L (39-117); Anion Gap 12 (12-20); Aspartate Amino Transferase 22 U/L (5-37); Bilirubin Total 0.5 mg/dL (0.0-1.0); Blood Urea Nitrogen 12 mg/dL (9-16); Calcium 9.5 mg/dL (8.4-10.2); Carbon Dioxide 31 mmol/L (22-29); Chloride 103 mmol/L (96-108); Cholesterol 159 mg/dL; Estimated Glomerular Filt Rate > 60; Glucose Random 109 mg/dL (60-115); HDL Cholesterol 35 mg/dL; LDL Cholesterol Calculated 93 mg/dl; Potassium 4.2 mmol/L (3.3-5.1); Sodium 142 mmol/L (135-145); Total Protein 7.3 g/dL (6.5-8.0); Triglycerides 156 mg/dL
[2021-10-06 16:59] LABS: Free T4 (Free Thyroxine) 0.91 ng/dL (0.71-1.85); Prostate Specific Antigen 0.14 ng/mL (<0.05-4.0); Thyroid Stimulating Hormone 3.65 uIU/mL (0.32-4.0)
[2021-10-06 17:15] LABS: Folate > 20.0 ng/mL (> or = 4.0); Vitamin B12 373 pg/mL (200-900)
[2021-10-06 18:28] LABS: Microalbumin Urine < 5.0 mg/L
[2021-10-07 05:36] LABS: Estimated Average Glucose 146 mg/dL; Hemoglobin A1c % 6.7 %
== END 2021-10-06 15:51 | disposition home or self-care (01) ==
LOC: HO.LAB 15:50
PROVIDERS: PCP Internal Medicine; Visit Provider Internal Medicine
DX: Z12.5 Encounter for screening for malignant neoplasm of prostate (principal); E11.65 Type 2 diabetes mellitus with hyperglycemia; E78.00 Pure hypercholesterolemia, unspecified; Z79.4 Long term (current) use of insulin
CPT/HCPCS: 36415; 80053; 80061; 82043; 82607; 82746; 83036; 84153; 84439; 84443; 85025

== ENCOUNTER → 2021-12-20 13:45 | Outpatient (BNVA) | payer MEDICARE, MEDICAID, SELFPAY | PROVIDERS: PCP Internal Medicine; Visit Provider Internal Medicine | DX: E66.9 Obesity, unspecified (principal); G47.33 Obstructive sleep apnea (adult) (pediatric); G47.34 Idiopathic sleep related nonobstructive alveolar hypoventilation; Z68.37 Body mass index [BMI] 37.0-37.9, adult | CPT/HCPCS: 99212 ==

== ENCOUNTER → 2022-06-27 13:52 | Outpatient (BNVA) | payer MEDICARE, MEDICAID, SELFPAY | PROVIDERS: PCP Internal Medicine; Visit Provider Internal Medicine | DX: G47.33 Obstructive sleep apnea (adult) (pediatric) (principal); G47.34 Idiopathic sleep related nonobstructive alveolar hypoventilation; E66.9 Obesity, unspecified | CPT/HCPCS: 99212 ==

== ENCOUNTER 2022-12-19 13:15 | Outpatient (AMB) | payer MEDICARE, MEDICAID, SELFPAY ==
[2022-12-19 13:19] VITALS: BP 110/70; PULSE 80; O2SAT 93; BMI 36.0
--- NOTE | 2022-12-19 13:19 | A.OFFVIS_ITS ---
Intake Vital Signs 12/19/22 13:19 Height 5 ft 10 in Weight 251 lb BMI 36.0 BP 110/70 Blood Pressure Location Lt brachial Position Sitting Pulse 80 Pulse Source Pulse Oximeter Pulse Oximetry (%) 93 Oxygen Delivery Method Room Air Intake Visit Reasons: griselda Intake Note: pt is here for follow up and states he is just tired. 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 Required: No Allergies lisinopril [LISINOPRIL] Allergy (Intermediate, Verified 12/19/22 13:33) HYPOTENSION Medication List - Last Reconciled 12/19/22 by Toan Fernando MD acetaminophen (Mapap (acetaminophen)) 650 mg (2 x 325 mg) PO Q6H PRN ascorbate calcium (vitamin C) 500 mg PO DAILY atorvastatin 80 mg PO QPM blood sugar diagnostic (Contour Next Test Strips) Check blood sugar 3 times a day cholecalciferol (vitamin D3) 25 mcg PO DAILY 90 days clotrimazole 1% 1 appl topical BID 4 weeks escitalopram oxalate 1 tab PO DAILY escitalopram oxalate 1 tab PO DAILY ferrous fumarate 324 mg PO DAILY inhalational spacing device (Aerochamber MV spacer) As directed insulin degludec (Tresiba FlexTouch U-100 insulin) 10 units (0.1 mL) subcut QAM ketoconazole 2% 1 appl topical 2XW lancets (TRUEplus Lancets) Check blood sugars metformin 500 mg PO BIDWMEAL miconazole nitrate 2% (Zeasorb AF) 1 appl topical BID 3 months qpidjzue-gliv-LS-calcium-mins 9 mg iron-400 mcg (Thera-M) 1 tab PO DAILY 90 days omeprazole 20 mg PO DAILY pen needle, diabetic (Advocate Pen Needle) Use as directed risperidone 1 tab PO BEDTIME Do you need a note to return to daycare/school/sports/work: No HPI griselda HPI Details Humphrey is the 57 years old gentleman a case of bipolar disorder , lives in a fci, he is grossly obese, has diagnosis of obstructive sleep apnea/nocturnal hypoxemia. He could not tolerate the CPAP so basically being treated with oxygen 2 L/minute at night. His sleep is interrupted because he watches TV late at night, and wakes up frequently. But anyway he does catch up with sleep for about 6-7 hours every day. He remains grossly obese. Not physically very active. Complains of getting tired easily. But has no specific symptoms such as cough or wheezing. [facility] Medical History Adult general medical exam Screening for prostate cancer Folliculitis Nocturnal hypoxemia Hypoventilation syndrome Obstructive sleep apnea Type 2 diabetes mellitus with hyperglycemia Fatty liver GERD (gastroesophageal reflux disease) Insomnia Hypercholesterolemia Anxiety and depression Obesity (BMI 30-39.9) Vitamin D deficiency Mental and behavioral problem Surgical History History of colonoscopy H/O basal cell carcinoma excision History of cataract surgery Family History Father Medical history unknown Myocardial infarct Mother Lung cancer Brain aneurysm Maternal Grandmother Uterine cancer Maternal Grandfather Lung cancer Social History Housing: House Housing Other:: [facility] Alcohol intake: never Patient Tobacco Use Status: Never used Tobacco e-Cigarette/Vaping Use: Never Used Second Hand Smoke Exposure: No service: No Current occupational status: unemployed and disabled Cognitive needs: Yes Hearing needs: No Vision needs: No Review of Systems Const All systems reviewed & are unremarkable except as noted in HPI and below Eyes Reports no additional complaints ENT Reports no additional complaints Card Denies chest pain, Denies irregular heart rhythm and Denies leg edema Resp Reports as per HPI GI Reports no additional complaints Reports no additional complaints Musc Reports no additional complaints and Reports abnormal gait (Slow, but steady) Skin/Breast Reports system reviewed and no additional complaints, except as documented Neuro Reports abnormal gait (Slow, but steady) Psych Details: Chronic Schizophrenic Disorder Endo Reports no additional complaints Physical Exam Vital Signs: Last Vital Signs Pulse 80 12/19/22 13:19 BP 110/70 12/19/22 13:19 Pulse Ox 93 12/19/22 13:19 Oxygen Delivery Method Room Air 12/19/22 13:19 BMI result Body Mass Index 36.0 Const Other: Grossly obese. General: comfortable, no acute distress, alert and awake Orientation/consciousness: patient oriented x3 HEENT Head: Yes normal to inspection General nose exam: No nasal polyps present and No nasal discharge present Face and sinus: Yes sinuses nontender Mouth: oropharynx normal Throat: Yes posterior oropharynx normal Eyes General: appearance normal, both eyes and all related structures Neck Neck: Yes normal visual inspection, Yes no lymphadenopathy, Yes trachea midline and Yes no JVD Thyroid: Thyroid normal Chest Chest palpation & inspection: normal inspection of the chest, normal palpation of entire chest wall and no tenderness Resp Other: Percussion note resonant, breath sounds are slightly distant but equal on both sides. No wheezes rhonchi or crepitations are heard. Cardio Palpation: normal PMI Rate: regular rate Rhythm: regular rhythm Heart sounds: no gallops and no murmurs GI Palpation (GI): Soft to palpation, nontender, No hepatosplenomegaly present, no masses and Other GI palpation findings present (Abdomen is grossly obese and protuberant) Auscultation: normal bowel sounds Back/Spine/Pelvis Thoracic/Lumbar Spine: thoracic and lumbar spine normal to inspection and thoraco-lumbar ROM limited Skin General skin exam: no rashes or lesions noted and Excoriation (Multiple on the scalp due to self scratching) Neuro General: patient oriented x3 and no focal motor deficits Cranial nerves: Yes CN's II-XII intact bilaterally Extrem General: Yes normal to inspection, Yes no clubbing, cyanosis or edema and Yes no calf tenderness Psych Appearance: grossly normal and other (Slow in answering questions) Speech and movement: Normal speech and movement present Assessment & Plan Assessment & Plan (1) Obesity (BMI 30-39.9): Comment: This is a chronic problem. Considering his chronic , mental disorder, it is difficult to expect any weight reduction in his case. Code(s): E66.9 - Obesity, unspecified (2) Obstructive sleep apnea: Comment: PER sleep study , GRISELDA was mild, patient is not able to use CPAP. Just using O 2 at night. Code(s): G47.33 - Obstructive sleep apnea (adult) (pediatric) (3) Nocturnal hypoxemia: Comment: Nocturnal hypoxemia is part of obstructive sleep apnea and sleep-related hypoventilation syndrome. [place]: O2 2 L/MT AT NIGHT . Advised to use regularly. * patient does not need to use oxygen during the daytime. He is advised to do deep breathing exercises 2 or 3 times a day. This is difficult for him to comply because of his challenged mental status. Code(s): G47.34 - Idiopathic sleep related nonobstructive alveolar hypoventilation Coding Level of Care Code Est Pt Level 3 (38963) Diagnoses Obesity (BMI 30-39.9) E66.9 Obstructive sleep apnea G47.33 Nocturnal hypoxemia G47.34
== END 2022-12-19 13:34 | disposition home or self-care (01) ==
PROVIDERS: PCP Internal Medicine; Visit Provider Internal Medicine
DX: E66.9 Obesity, unspecified (principal); G47.33 Obstructive sleep apnea (adult) (pediatric); G47.34 Idiopathic sleep related nonobstructive alveolar hypoventilation
CPT/HCPCS: 99213

== ENCOUNTER → 2022-12-19 13:15 | Outpatient (BNVA) | payer MEDICARE, MEDICAID, SELFPAY | PROVIDERS: PCP Internal Medicine; Visit Provider Internal Medicine | DX: G47.33 Obstructive sleep apnea (adult) (pediatric) (principal); G47.34 Idiopathic sleep related nonobstructive alveolar hypoventilation; E66.9 Obesity, unspecified; Z68.36 Body mass index [BMI] 36.0-36.9, adult | CPT/HCPCS: 99212 ==

== ENCOUNTER 2022-12-23 10:45 | Outpatient (REF) | payer MEDICARE, MEDICAID, SELFPAY ==
[2022-12-23 11:21] LABS: MANUAL DIFF FLAG NO
[2022-12-23 11:45] LABS: Basophils Percent Auto 0.4 % (0-2); Eosinophils Absolute Auto 0.1 X10*3/uL (0.0-0.4); Eosinophils Percent Auto 1.5 % (0-4); Hematocrit 41.3 % (42.0-52.0); Hemoglobin 13.8 g/dl (14.0-18.0); Imm Gran Abs Auto 0.03 X10*3/uL (0.00-0.03); Imm Gran Pct Auto 0.4 % (0.0-0.4); Lymphocytes Absolute Auto 1.3 X10*3/uL (1.2-4.9); Lymphocytes Percent Auto 19.1 % (20-40); Mean Corpuscular HGB Conc 33.4 g/dl (31.0-36.0); Mean Corpuscular Hemoglobin 29.9 pg (27.0-33.0); Mean Corpuscular Volume 89.6 fL (80.0-98.0); Mean Platelet Volume 8.9 fL (9.4-12.4); Monocytes Absolute Auto 0.6 X10*3/uL (0.1-1.2); Monocytes Percent Auto 9.2 % (2-11); Neutrophils Absolute Auto 4.8 x10*3/uL (2.0-8.3); Neutrophils Percent Auto 69.4 % (45-73); Platelet Count 281 X10*3/uL (160-400); Red Blood Count 4.61 X10*6/uL (4.60-5.80); Red Cell Distribution Width 12.4 % (11.0-16.0); White Blood Count 6.9 X10*3/uL (4.8-10.8)
[2022-12-23 11:53] LABS: Estimated Average Glucose 126 mg/dL
[2022-12-23 12:34] LABS: Alanine Aminotransferase 27 U/L (0-40); Albumin Level 4.3 g/dL (3.5-5.0); Alkaline Phosphatase 76 U/L (39-117); Anion Gap 13 (12-20); Aspartate Amino Transferase 17 U/L (5-37); Bilirubin Total 0.3 mg/dL (0.0-1.0); Blood Urea Nitrogen 14 mg/dL (9-16); Calcium 9.6 mg/dL (8.4-10.2); Carbon Dioxide 28 mmol/L (22-29); Chloride 105 mmol/L (96-108); Cholesterol 145 mg/dL (<200); Estimated Glomerular Filt Rate > 60; Folate 17.8 ng/mL (> or = 4.0); Free T4 (Free Thyroxine) 0.76 ng/dL (0.71-1.85); Glucose Random 123 mg/dL (60-115); HDL Cholesterol 32 mg/dL (>40); LDL Cholesterol Calculated 82 mg/dL (<100); Potassium 4.2 mmol/L (3.3-5.1); Sodium 142 mmol/L (135-145); Thyroid Stimulating Hormone 3.92 uIU/mL (0.32-4.0); Total Protein 7.1 g/dL (6.5-8.0); Triglycerides 155 mg/dL (<150); Vitamin B12 385 pg/mL (200-900)
[2022-12-23 14:30] LABS: Creatinine Urine 16.99 mg/dL; Microalbumin Urine < 5.0 mg/L
== END 2022-12-23 10:46 | disposition home or self-care (01) ==
LOC: HO.LAB 10:45
PROVIDERS: PCP Internal Medicine; Visit Provider Internal Medicine
DX: E11.65 Type 2 diabetes mellitus with hyperglycemia (principal); E78.00 Pure hypercholesterolemia, unspecified; Z79.4 Long term (current) use of insulin
CPT/HCPCS: 36415; 80053; 80061; 82043; 82570; 82607; 82746; 83036; 84439; 84443; 85025

== ENCOUNTER 2022-12-26 14:39 | Outpatient (AMB) | payer MEDICARE, MEDICAID, SELFPAY ==
--- NOTE | 2022-12-26 14:45 | A.OFFPC_ITS ---
Vital Signs 12/26/22 14:46 Height 5 ft 10 in Weight 253 lb BMI 36.3 BP 116/64 Blood Pressure Location Lt brachial Position Sitting Pulse 64 Pulse Source Pulse Oximeter Temp Source Skin Pulse Oximetry (%) 94 Oxygen Delivery Method Room Air Intake Visit Reasons: Diabetes mellitus, hypercholesterolemia Allergies lisinopril [LISINOPRIL] Allergy (Intermediate, Verified 12/19/22 13:33) HYPOTENSION Tobacco use date assessed: 06/08/22 Dental Screening Dental Screen Date: 12/26/22 Did you have a dental visit in the last 12 months?: Yes Did you have a dental problem in the last 6 months where you did not have access to dental care?: No Was dental information given to patient?: Patient has dentist HPI Diabetes mellitus, hypercholesterolemia HPI Details 57-year-old obese male with mental and b ehavioral problem having diagnosis of diabetes mellitus GERD hypercholesterolemia coming in for follow- up. Last seen in June 2022 review of the notes follows up with Pulmonary for the obstructive sleep apnea but this is mild. Has hypoventilation syndrome and was on O2 [facility] Medical History Adult general medical exam Screening for prostate cancer Folliculitis Nocturnal hypoxemia Hypoventilation syndrome Obstructive sleep apnea Type 2 diabetes mellitus with hyperglycemia Fatty liver GERD (gastroesophageal reflux disease) Insomnia Hypercholesterolemia Anxiety and depression Obesity (BMI 30-39.9) Vitamin D deficiency Mental and behavioral problem Surgical History History of colonoscopy H/O basal cell carcinoma excision History of cataract surgery Family History Father Medical history unknown Myocardial infarct Mother Lung cancer Brain aneurysm Maternal Grandmother Uterine cancer Maternal Grandfather Lung cancer Social History Housing: House Housing Other:: [facility] Alcohol intake: never Patient Tobacco Use Status: Never used Tobacco e-Cigarette/Vaping Use: Never Used Second Hand Smoke Exposure: No service: No Current occupational status: unemployed and disabled Cognitive needs: Yes Hearing needs: No Vision needs: No Questionnaire Thrive Questionnaire Date Thrive assessed: 06/08/22 AUDIT C Alcohol Use Questionnaire (AUDIT-C) 1. How often do you have a drink containing alcohol?: Never 3. How often do you have six or more drinks on one occasion?: Never Total Score: 0 Score Reviewed/Action Taken: No AMBER-7 AMB Questionnaire AMBER-7 Date AMBER - 7 assessed: 06/08/22 Source: Developed by Drs. Oleg Torres, Tomeka Bacon, Ranjan Jacob and colleagues, with an educational javier from [employer]. Physical exam (Primary Care) Vital Signs: Last Vital Signs Pulse 64 12/26/22 14:46 BP 116/64 12/26/22 14:46 Pulse Ox 94 12/26/22 14:46 Oxygen Delivery Method Room Air 12/26/22 14:46 BMI result Body Mass Index 36.3 Tobacco/Smoking Status: Tobacco use Status Tobacco use date assessed 06/08/22 12/26/22 14:46 Patient Tobacco Use Status Never used Tobacco 12/26/22 14:46 e-Cigarette/Vaping Use Never Used 12/26/22 14:46 Thrive Assessment: Date of Thrive Assessment Date Thrive assessed 06/08/22 12/26/22 14:46 Const General: alert; No acute distress Eyes Conjunctivae: conjunctivae normal Resp Auscultation: clear to auscultation bilaterally Cardio Rate: regular rate Rhythm: regular rhythm GI Inspection: Yes normal to inspection Extrem General: Yes normal to inspection and No edema Assessment and Plan Assessment & Plan (1) Mental and behavioral problem: Comment: Impulse control disorder Code(s): F48.9 - Nonpsychotic mental disorder, unspecified; F69 - Unspecified disorder of adult personality and behavior Plan: Continue with psychiatry follow-up (2) Obesity (BMI 30-39.9): Comment: This is a chronic problem. Considering his chronic , mental disorder, it is difficult to expect any weight reduction in his case. Code(s): E66.9 - Obesity, unspecified Plan: Diet and exercise (3) Hypercholesterolemia: Code(s): E78.00 - Pure hypercholesterolemia, unspecified Plan: Avoid fried foods, chicken skin, eggs, butter margarine, pastries and meat. Be it pork or beef they have a lot of cholesterol LDL goal of less than 100 and triglyceride of less than 150 patient is on atorvastatin 80 mg once a day (4) Type 2 diabetes mellitus with hyperglycemia: Code(s): E11.65 - Type 2 diabetes mellitus with hyperglycemia Qualifiers: Diabetes mellitus assisted insulin use: with equipment operator intermodal yard use Qualified Code(s): E11.65 - Type 2 diabetes mellitus with hyperglycemia; Z79.4 - MCFP (current) use of insulin Plan: Decrease the amount of carbohydrate intake, pasta, bread, rice and potatoes are all sugar and that is aside from all the sweet stuff, remember that fruits are good but they are Sweet also. Hemoglobin A1c goal of less than 6.5 patient takes insulin Tresiba 10 units once a day metformin 500 mg twice a day (5) Nocturnal hypoxemia: Comment: Nocturnal hypoxemia is part of obstructive sleep apnea and sleep-related hypoventilation syndrome. [place]: O2 2 L/MT AT NIGHT . Advised to use regularly. * patient does not need to use oxygen during the daytime. He is advised to do deep breathing exercises 2 or 3 times a day. This is difficult for him to comply because of his challenged mental status. Code(s): G47.34 - Idiopathic sleep related nonobstructive alveolar hypoventilation Plan: Continue with O2 follows up with Pulmonary (6) GERD (gastroesophageal reflux disease): Code(s): K21.9 - Gastro-esophageal reflux disease without esophagitis Qualifiers: Esophagitis presence: without esophagitis Qualified Code(s): K21.9 - Gastro-esophageal reflux disease without esophagitis Plan: Avoid the foods that causes that usually spicy foods, tomato products, juices, coffee, soda and foods that your sensitive to. After eating do not lie down, allow 3-4 hours before in lie down. And keep the head of bed above 30 degrees to avoid the acid from going up. Medications: New glucose (Dex4 Glucose) until symptoms of low blood sugar are controlled BS < 80 4 grams PO Q15M PRN 60 tabs 0RF hypoglycemia Coding Level of Care Code Est Pt Level 4 (95997) Diagnoses Mental and behavioral problem F48.9; F69 Obesity (BMI 30-39.9) E66.9 Hypercholesterolemia E78.00 Type 2 diabetes mellitus with hyperglycemia, with long-term current use of insulin E11.65; Z79.4 Diabetes mellitus equipment operator intermodal yard insulin use: with equipment operator intermodal yard use Nocturnal hypoxemia G47.34 Gastroesophageal reflux disease without esophagitis K21.9 Esophagitis presence: without esophagitis
[2022-12-26 14:46] VITALS: BP 116/64; PULSE 64; O2SAT 94; BMI 36.3
== END 2022-12-26 15:58 | disposition home or self-care (01) ==
PROVIDERS: PCP Internal Medicine; Visit Provider Internal Medicine
DX: E11.65 Type 2 diabetes mellitus with hyperglycemia (principal); Z79.4 Long term (current) use of insulin; K21.9 Gastro-esophageal reflux disease without esophagitis; F48.9 Nonpsychotic mental disorder, unspecified; F69 Unspecified disorder of adult personality and behavior; E66.9 Obesity, unspecified; E78.00 Pure hypercholesterolemia, unspecified; G47.34 Idiopathic sleep related nonobstructive alveolar hypoventilation
CPT/HCPCS: 99214

== ENCOUNTER 2023-01-24 15:56 | Outpatient (AMB) | payer MEDICARE, MEDICAID, SELFPAY ==
[2023-01-24 16:12] VITALS: BP 120/62; PULSE 69; O2SAT 89; BMI 35.7
--- NOTE | 2023-01-24 16:12 | MHC.PC.OV ---
Vital Signs 01/24/23 16:12 Height 5 ft 10 in Weight 249 lb BMI 35.7 BP 120/62 Blood Pressure Location Lt brachial Position Sitting Pulse 69 Pulse Source Pulse Oximeter Pulse Oximetry (%) 89 L Oxygen Delivery Method Room Air Intake Visit Reasons: physical Intake Note: Patient is here today for a physical. Head Operator Sulfide Required: No Allergies lisinopril [LISINOPRIL] Allergy (Intermediate, Verified 01/24/23 16:27) HYPOTENSION Medication List - Last Reconciled 01/24/23 by Lindsay Archibald MD acetaminophen (Mapap (acetaminophen)) 650 mg (2 x 325 mg) PO Q6H PRN ascorbate calcium (vitamin C) 500 mg PO DAILY atorvastatin 80 mg PO QPM blood sugar diagnostic (Contour Next Test Strips) Check blood sugar 3 times a day cholecalciferol (vitamin D3) 25 mcg PO DAILY 90 days clotrimazole 1% 1 appl topical BID 4 weeks dextromethorphan polistirex ER (Delsym 12 hour) 10 mL PO Q12H PRN escitalopram oxalate 1 tab PO DAILY escitalopram oxalate 1 tab PO DAILY ferrous fumarate 324 mg PO DAILY glucose (Dex4 Glucose) 4 grams PO Q15M PRN inhalational spacing device (Aerochamber MV spacer) As directed insulin degludec (Tresiba FlexTouch U-100 insulin) 10 units (0.1 mL) subcut QAM ketoconazole 2% 1 appl topical 2XW lancets (TRUEplus Lancets) Check blood sugars metformin 500 mg PO BIDWMEAL miconazole nitrate 2% (Zeasorb AF) 1 appl topical BID 3 months djprttzl-ilsw-WS-calcium-mins 9 mg iron-400 mcg (Thera-M) 1 tab PO DAILY 90 days omeprazole 20 mg PO DAILY pen needle, diabetic (Advocate Pen Needle) Use as directed risperidone (Risperdal) 3 mg PO DAILY Tobacco use date assessed: 01/24/23 Dental Screening Dental Screen Date: 01/24/23 Did you have a dental visit in the last 12 months?: Yes Did you have a dental problem in the last 6 months where you did not have access to dental care?: No Was dental information given to patient?: Patient has dentist HPI physical HPI Details 57-year-old obese male with mental and behavioral problem having GERD hypercholesterolemia obstructive sleep apnea coming in for follow-up. Patient last seen in December 2022. Patient's colonoscopy 2019 tubular adenoma 3-5 years. Patient just had blood work done December 2019 [facility] Medical History (Updated 01/24/23 @ 17:20 by Lindsay Archibald MD) Hypoxemia Adult general medical exam Screening for prostate cancer Folliculitis Nocturnal hypoxemia Hypoventilation syndrome Obstructive sleep apnea Type 2 diabetes mellitus with hyperglycemia Fatty liver GERD (gastroesophageal reflux disease) Insomnia Hypercholesterolemia Anxiety and depression Obesity (BMI 30-39.9) Vitamin D deficiency Mental and behavioral problem Surgical History History of colonoscopy H/O basal cell carcinoma excision History of cataract surgery Family History Father Medical history unknown Myocardial infarct Mother Lung cancer Brain aneurysm Maternal Grandmother Uterine cancer Maternal Grandfather Lung cancer Social History Housing: House Housing Other:: retirement Alcohol intake: never Patient Tobacco Use Status: Never used Tobacco e-Cigarette/Vaping Use: Never Used Second Hand Smoke Exposure: No service: No Current occupational status: unemployed and disabled Cognitive needs: Yes Hearing needs: No Vision needs: No Questionnaire PHQ-9 Over the last 2 weeks, how often have you been bothered by any of the following problems? 1. Little interest or pleasure in doing things: not at all 2. Feeling down, depressed, or hopeless: not at all 3. Trouble falling or staying asleep, or sleeping too much: not at all 4. Feeling tired or having little energy: not at all 5. Poor appetite or overeating: not at all 6. Feeling bad about yourself - or that you are a failure or have let yourself or your family down: not at all 7. Trouble concentrating on things, such as reading the newspaper or watching television: not at all 8. Moving or speaking so slowly that other people could have noticed. Or the opposite - being so fidgety or restless that you have been moving around a lot more than usual: more than half the days 9. Thoughts that you would be better off or of hurting yourself in some way: not at all Total score: 2 Depression Screening Interpretation: Positive Depression Screening Done: Yes Source: Developed by Drs. Oleg Torres, Tomeka Bacon, Ranjan Jacob and colleagues, with an educational javier from [employer]. Thrive Questionnaire Date Thrive assessed: 06/08/22 AUDIT C Alcohol Use Questionnaire (AUDIT-C) 1. How often do you have a drink containing alcohol?: Never 3. How often do you have six or more drinks on one occasion?: Never Total Score: 0 AMBER-7 AMB Questionnaire AMBER-7 Date AMBER - 7 assessed: 01/24/23 Feeling nervous, anxious, or on edge: 0 = Not at all Not being able to stop or control worryin = Not at all Worrying too much about different things: 0 = Not at all Trouble relaxin = Not at all Being so restless that it is hard to sit still: 0 = Not at all Becoming easily annoyed or irritable: 0 = Not at all Feeling afraid as if something awful might happen: 0 = Not at all Total AMBER-7 score (0-4 normal; 5-9 mild; 10-14 moderate; 15-21 severe): 0 Source: Developed by Drs. Oleg Torres, Tomeka Bacon, Ranjan Jacob and colleagues, with an educational javier from [employer]. Review of Systems Const Denies poor appetite and Denies weakness Eyes Denies no additional complaints ENT Reports Normal hearing present, Denies dizziness, Denies nasal congestion, Denies tinnitus and Denies sore throat Card Denies chest pain, Denies syncope, Denies rapid heart rate and Denies dyspnea Resp Denies cough and Denies dyspnea GI Denies change in stool character, Reports constipation, Denies diarrhea, Denies nausea and Denies vomiting Denies dysuria and Denies urinary frequency Neuro Reports Normal hearing present, Denies confusion, Denies dizziness, Denies syncope and Denies weakness Psych Denies confusion Physical exam (Primary Care) Vital Signs: Last Vital Signs Pulse 69 01/24/23 16:12 BP 120/62 01/24/23 16:12 Pulse Ox 89 L 01/24/23 16:12 Oxygen Delivery Method Room Air 01/24/23 16:12 BMI result Body Mass Index 35.7 Tobacco/Smoking Status: Tobacco use Status Tobacco use date assessed 01/24/23 01/24/23 16:15 Patient Tobacco Use Status Never used Tobacco 01/24/23 16:15 e-Cigarette/Vaping Use Never Used 01/24/23 16:15 PHQ-9: PHQ-9 Score PHQ-9: Total score 2 01/24/23 16:32 Depression Screening Interpretation: Positive Thrive Assessment: Date of Thrive Assessment Date Thrive assessed 06/08/22 01/24/23 16:15 Const General: No confusion Orientation/consciousness: No confusion HENMT Head: Yes normocephalic Ears: external ears normal and TM's normal bilaterally Face and sinus: Yes normal facial exam Mouth: moist mucous membranes Throat: Yes tonsils normal Eyes Conjunctivae: conjunctivae normal Pupils: Equal, round and reactive pupils present and Pupil accommodation reflex normal Direct Ophthalmoscopy: normal light reflex Neck Neck: No lymphadenopathy Thyroid: Thyroid normal Chest Chest palpation & inspection: normal inspection of the chest Resp Effort & Inspection: normal respiratory effort and no audible wheezes Auscultation: clear to auscultation bilaterally, no crackles, no wheezes and lung sounds not diminished Cardio Rate: regular rate Rhythm: regular rhythm Peripheral pulses: radial pulses present and dorsalis pedis present GI Other: declined Palpation (GI): no masses Auscultation: normal bowel sounds and normoactive bowel sounds Rectal Exam - Male: Yes deferred Other: xdeclined Skin Other: pedal pulse good but the pin prick states cannot feel General skin exam: no rashes or lesions noted Rashes: no rashes Neuro General: No confusion Cranial nerves: Yes Equal, round and reactive pupils present and Yes Normal hearing present Cognition (Neuro): normal cognition Gait exam (Neuro): Normal gait present Motor exam (neuro): 5/5 motor strength present throughout Deep tendon reflexes (DTR's): Right brachioradialis reflex intensity grade: 2+, Left brachioradialis reflex intensity grade: 2+, Right patellar reflex intensity grade: 2+ and Left patellar reflex intensity grade: 2+ Extrem General: No edema Assessment and Plan Assessment & Plan (1) Annual physical exam: Code(s): Z00.00 - Encounter for general adult medical examination without abnormal findings (2) Obesity (BMI 30-39.9): Comment: This is a chronic problem. Considering his chronic , mental disorder, it is difficult to expect any weight reduction in his case. Code(s): E66.9 - Obesity, unspecified Plan: Diet and exercise (3) Type 2 diabetes mellitus with hyperglycemia: Code(s): E11.65 - Type 2 diabetes mellitus with hyperglycemia Qualifiers: Diabetes mellitus exterminator helper insulin use: with alf use Qualified Code(s): E11.65 - Type 2 diabetes mellitus with hyperglycemia; Z79.4 - parts counterman (current) use of insulin Plan: Decrease the amount of carbohydrate intake, pasta, bread, rice and potatoes are all sugar and that is aside from all the sweet stuff, remember that fruits are good but they are Sweet also. Hemoglobin A1c goal of less than 6.5. December 2022 hemoglobin A1c of 6.0 (4) Hypercholesterolemia: Code(s): E78.00 - Pure hypercholesterolemia, unspecified Plan: Avoid fried foods, chicken skin, eggs, butter margarine, pastries and meat. Be it pork or beef they have a lot of cholesterol LDL goal of less than 100 and triglyceride [id number] patient is on atorvastatin 80 mg once a day (5) GERD (gastroesophageal reflux disease): Code(s): K21.9 - Gastro-esophageal reflux disease without esophagitis Qualifiers: Esophagitis presence: without esophagitis Qualified Code(s): K21.9 - Gastro-esophageal reflux disease without esophagitis Plan: Avoid the foods that causes that usually spicy foods, tomato products, juices, coffee, soda and foods that your sensitive to. After eating do not lie down, allow 3-4 hours before in lie down. And keep the head of bed above 30 degrees to avoid the acid from going up. (6) Mental and behavioral problem: Comment: Impulse control disorder Code(s): F48.9 - Nonpsychotic mental disorder, unspecified; F69 - Unspecified disorder of adult personality and behavior Plan: Continue to follow up psychiatry and counseling (7) Hypoxemia: Code(s): R09.02 - Hypoxemia Plan: Concern about O2 sat measured in office. Patient is sitting comfortably and the O2 sat is going to 88-89. Patient was encouraged to breathe deep and the sats would go to 93. advised to do chest xray and remind about deep breathing (8) Impacted cerumen of both ears: Code(s): H61.23 - Impacted cerumen, bilateral Plan: Can make a schedule for ear flushing p.r.n. (9) Tinea pedis: Code(s): B35.3 - Tinea pedis Plan: Continue with the use of anti fungal specially in the interdigital areas Orders: Orders XR chest 2V Today G47.34 - Idiopathic sleep related nonobstructive alveolar hypoventilation Prostate Specific Antigen Scr Today G47.34 - Idiopathic sleep related nonobstructive alveolar hypoventilation Coding Level of Care Code Est Pt Prev Care 40-64y(60593) Diagnoses Annual physical exam Z00.00 Obesity (BMI 30-39.9) E66.9 Type 2 diabetes mellitus with hyperglycemia, with long-term current use of insulin E11.65; Z79.4 Diabetes mellitus exterminator helper insulin use: with exterminator helper use Hypercholesterolemia E78.00 Gastroesophageal reflux disease without esophagitis K21.9 Esophagitis presence: without esophagitis Mental and behavioral problem F48.9; F69 Hypoxemia R09.02 Impacted cerumen of both ears H61.23 Tinea pedis B35.3
== END 2023-01-24 17:35 | disposition home or self-care (01) ==
PROVIDERS: Visit Provider Internal Medicine
DX: Z00.00 Encounter for general adult medical examination without abnormal findings (principal); E11.65 Type 2 diabetes mellitus with hyperglycemia; Z79.4 Long term (current) use of insulin; E66.9 Obesity, unspecified; Z68.35 Body mass index [BMI] 35.0-35.9, adult; E78.00 Pure hypercholesterolemia, unspecified; K21.9 Gastro-esophageal reflux disease without esophagitis; F48.9 Nonpsychotic mental disorder, unspecified; F69 Unspecified disorder of adult personality and behavior; R09.02 Hypoxemia; H61.23 Impacted cerumen, bilateral; B35.3 Tinea pedis
CPT/HCPCS: 99396

== ENCOUNTER 2023-02-22 10:54 | Outpatient (REF) | payer MEDICARE, MEDICAID, SELFPAY ==
--- NOTE | ~2023-02-22 | XR_ITS ---
EXAMINATION: XR CHEST CLINICAL INFORMATION: Idiopathic sleep related nonobstructive alveolar hypoventilation COMPARISON: Chest radiograph from 12/09/2020, CT chest from 12/10/2020 TECHNIQUE: 2 views of the chest were obtained. FINDINGS: Streaky opacities of the bilateral lung bases may reflect atelectasis, right greater than left. No pneumothorax. Trachea is midline. Cardiac mediastinal silhouette is stable. No large pleural effusion. Degenerative changes of the thoracolumbar spine. Soft tissues are unremarkable. XR/XR chest 2V IMPRESSION: Streaky opacities of the bilateral lung bases may reflect atelectasis, right greater than left.
== END 2023-02-22 10:55 | disposition home or self-care (01) ==
LOC: HO.XRAY 10:54
PROVIDERS: PCP Internal Medicine; Visit Provider Internal Medicine
DX: G47.34 Idiopathic sleep related nonobstructive alveolar hypoventilation (principal)
CPT/HCPCS: 71046

== ENCOUNTER 2023-06-19 10:32 | Outpatient (AMB) | payer MEDICARE, MEDICAID, SELFPAY ==
[2023-06-19 10:38] VITALS: BP 110/68; PULSE 61; O2SAT 94; BMI 34.3
--- NOTE | 2023-06-19 10:38 | A.OFFVIS_ITS ---
Intake Vital Signs 06/19/23 10:38 Height 5 ft 10 in Weight 239 lb 3.225 oz BMI 34.3 BP 110/68 Blood Pressure Location Lt brachial Position Sitting Pulse 61 Pulse Source Pulse Oximeter Pulse Oximetry (%) 94 Oxygen Delivery Method Room Air Intake Visit Reasons: griselda Intake Note: pt is here for follow up and states he is using the oxygen at night, and he states he feels okay. Allergies lisinopril [LISINOPRIL] Allergy (Intermediate, Verified 06/19/23 10:55) HYPOTENSION Medication List - Last Reconciled 06/19/23 by Toan Fernando MD acetaminophen (Mapap (acetaminophen)) 650 mg (2 x 325 mg) PO Q6H PRN ascorbate calcium (vitamin C) 500 mg PO DAILY atorvastatin 80 mg PO QPM blood sugar diagnostic (Contour Next Test Strips) Check blood sugar 3 times a day cholecalciferol (vitamin D3) 25 mcg PO DAILY 90 days clotrimazole 1% 1 appl topical BID 4 weeks dextromethorphan polistirex ER (Delsym 12 hour) 10 mL PO Q12H PRN escitalopram oxalate 1 tab PO DAILY escitalopram oxalate 1 tab PO DAILY ferrous fumarate 324 mg PO DAILY glucose (Dex4 Glucose) 4 grams PO Q15M PRN inhalational spacing device (Aerochamber MV spacer) As directed insulin glargine (Lantus Solostar U-100 Insulin) 10 units (0.1 mL) subcut QAM ketoconazole 2% 1 appl topical 2XW lancets (TRUEplus Lancets) Check blood sugars metformin 500 mg PO BIDWMEAL miconazole nitrate 2% (Zeasorb AF) 1 appl topical BID 3 months bwslmaoj-snat-QE-calcium-mins 9 mg iron-400 mcg (Thera-M) 1 tab PO DAILY 90 days omeprazole 20 mg PO DAILY pen needle, diabetic (Advocate Pen Needle) Use as directed risperidone (Risperdal) 1 mg PO DAILY Do you need a note to return to daycare/school/sports/work: No HPI griselda HPI Details 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 HE HAS NOT BEEN ABLE TO USE CPAP BUT USES OXYGEN 2 L/MINUTE AT NIGHT. HE CLAIMS THAT HE SLEEPS WELL. HE DENIES ANY DAYTIME SLEEPINESS. HE DENIES COUGH OR WHEEZING, DOES NOT HAVE TO USE ANY INHALERS. HE IS HAPPY TO TELL ME THAT HE LOST ABOUT 10 LB OF WEIGHT IN THE LAST 6 MONTHS. [facility] Medical History Hypoxemia Adult general medical exam Screening for prostate cancer Folliculitis Nocturnal hypoxemia Hypoventilation syndrome Obstructive sleep apnea Type 2 diabetes mellitus with hyperglycemia Fatty liver GERD (gastroesophageal reflux disease) Insomnia Hypercholesterolemia Anxiety and depression Obesity (BMI 30-39.9) Vitamin D deficiency Mental and behavioral problem Surgical History History of colonoscopy H/O basal cell carcinoma excision History of cataract surgery Family History Father Medical history unknown Myocardial infarct Mother Lung cancer Brain aneurysm Maternal Grandmother Uterine cancer Maternal Grandfather Lung cancer Social History Housing: House Housing Other:: penitentiary Alcohol intake: never Patient Tobacco Use Status: Never used Tobacco e-Cigarette/Vaping Use: Never Used Second Hand Smoke Exposure: No service: No Current occupational status: unemployed and disabled Cognitive needs: Yes Hearing needs: No Vision needs: No Review of Systems Const All systems reviewed & are unremarkable except as noted in HPI and below Eyes Reports no additional complaints ENT Reports no additional complaints Card Denies chest pain, Denies irregular heart rhythm and Denies leg edema Resp Reports as per HPI GI Reports no additional complaints Reports no additional complaints Musc Reports no additional complaints and Reports abnormal gait (Slow, but steady) Skin/Breast Reports system reviewed and no additional complaints, except as documented Neuro Reports abnormal gait (Slow, but steady) Psych Details: Chronic Schizophrenic Disorder Endo Reports no additional complaints Physical Exam Vital Signs: Last Vital Signs Pulse 61 06/19/23 10:38 BP 110/68 06/19/23 10:38 Pulse Ox 94 06/19/23 10:38 Oxygen Delivery Method Room Air 06/19/23 10:38 BMI result Body Mass Index 34.3 Const Other: Grossly obese. General: comfortable, no acute distress, alert and awake Orientation/consciousness: patient oriented x3 HEENT Head: Yes normal to inspection General nose exam: No nasal polyps present and No nasal discharge present Face and sinus: Yes sinuses nontender Mouth: oropharynx normal Throat: Yes posterior oropharynx normal Eyes General: appearance normal, both eyes and all related structures Neck Neck: Yes normal visual inspection, Yes no lymphadenopathy, Yes trachea midline and Yes no JVD Thyroid: Thyroid normal Chest Chest palpation & inspection: normal inspection of the chest, normal palpation of entire chest wall and no tenderness Resp Other: Percussion note resonant, breath sounds are slightly distant but equal on both sides. No wheezes rhonchi or crepitations are heard. Cardio Palpation: normal PMI Rate: regular rate Rhythm: regular rhythm Heart sounds: no gallops and no murmurs GI Palpation (GI): Soft to palpation, nontender, No hepatosplenomegaly present, no masses and Other GI palpation findings present (Abdomen is grossly obese and protuberant) Auscultation: normal bowel sounds Back/Spine/Pelvis Thoracic/Lumbar Spine: thoracic and lumbar spine normal to inspection and thoraco-lumbar ROM limited Skin General skin exam: no rashes or lesions noted and Excoriation (Multiple on the scalp due to self scratching) Neuro General: patient oriented x3 and no focal motor deficits Cranial nerves: Yes CN's II-XII intact bilaterally Extrem General: Yes normal to inspection, Yes no clubbing, cyanosis or edema and Yes no calf tenderness Psych Appearance: grossly normal and other (Slow in answering questions) Speech and movement: Normal speech and movement present Assessment & Plan Assessment & Plan (1) Nocturnal hypoxemia: Comment: Nocturnal hypoxemia is part of obstructive sleep apnea and sleep-related hypoventilation syndrome. TX: O2 2 L/MT AT NIGHT . Code(s): G47.34 - Idiopathic sleep related nonobstructive alveolar hypoventilation Plan: Advised to continue using O2 2 L/minute at night. He does not need to use oxygen during the daytime. He is advised to do deep breathing exercises 2 or 3 times a day. This is difficult for him to comply because of his challenged mental status. (2) Obstructive sleep apnea: Comment: PER sleep study , GRISELDA was mild, patient is not able to use CPAP. Code(s): G47.33 - Obstructive sleep apnea (adult) (pediatric) Plan: Just keep on using O2 2 L/minute at night (3) Obesity (BMI 30-39.9): Comment: This is a chronic problem. Considering his chronic , mental disorder, it is difficult to expect any weight reduction in his case. Yet he has lost 10 lb in the last 6 months. Code(s): E66.9 - Obesity, unspecified Plan: Commended for losing weight. Advised to continue watching his diet and also continue walking during the daytime. Coding Level of Care Code Est Pt Level 3 (18831) Diagnoses Nocturnal hypoxemia G47.34 Obstructive sleep apnea G47.33 Obesity (BMI 30-39.9) E66.9
== END 2023-06-19 10:55 | disposition home or self-care (01) ==
LOC: HO.HPS 10:45
PROVIDERS: PCP Internal Medicine; Visit Provider Internal Medicine
DX: G47.34 Idiopathic sleep related nonobstructive alveolar hypoventilation (principal); G47.33 Obstructive sleep apnea (adult) (pediatric); E66.9 Obesity, unspecified
CPT/HCPCS: 99213

== ENCOUNTER → 2023-06-19 10:45 | Outpatient (BNVA) | payer MEDICARE, MEDICAID, SELFPAY | PROVIDERS: PCP Internal Medicine; Visit Provider Internal Medicine | DX: G47.34 Idiopathic sleep related nonobstructive alveolar hypoventilation (principal); G47.33 Obstructive sleep apnea (adult) (pediatric); E66.9 Obesity, unspecified | CPT/HCPCS: 99212 ==

== ENCOUNTER 2024-01-03 13:17 | Outpatient (AMB) | payer MEDICARE, MEDICAID, SELFPAY ==
[2024-01-03 13:21] VITALS: BP 110/54; PULSE 87; O2SAT 92; BMI 33.8
--- NOTE | 2024-01-03 13:21 | MHC.OFFVIS ---
Vital Signs 01/03/24 13:21 Height 5 ft 10 in Weight 235 lb 7.259 oz BMI 33.8 BP 110/54 L Blood Pressure Location Lt brachial Position Sitting Pulse 87 Pulse Source Pulse Oximeter Pulse Oximetry (%) 92 Oxygen Delivery Method Room Air Intake Visit Reasons: maciej Intake Note: pt is here for follow up and states he is feeling good. using oxygen at night. 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 Allergies lisinopril [LISINOPRIL] Allergy (Intermediate, Verified 01/03/24 13:36) HYPOTENSION Medication List - Last Reconciled 01/03/24 by Toan Fernando MD acetaminophen 650 mg (2 x 325 mg) PO Q6H PRN ascorbate calcium (vitamin C) 500 mg PO DAILY atorvastatin 80 mg PO QPM blood sugar diagnostic (Contour Next Test Strips) Check blood sugar 3 times a day cholecalciferol (vitamin D3) 25 mcg PO DAILY 90 days clotrimazole 1% 1 appl topical BID 4 weeks dextromethorphan polistirex ER (Delsym 12 hour) 10 mL PO Q12H PRN escitalopram oxalate 1 tab PO DAILY escitalopram oxalate 1 tab PO DAILY ferrous fumarate 324 mg PO DAILY glucose (Dex4 Glucose) 4 grams PO Q15M PRN inhalational spacing device (Aerochamber MV spacer) As directed insulin glargine (Lantus Solostar U-100 Insulin) 10 units (0.1 mL) subcut QAM ketoconazole 2% 1 appl topical 2XW lancets (TRUEplus Lancets) Check blood sugars metformin 500 mg PO BIDWMEAL miconazole nitrate 2% (Zeasorb AF) 1 appl topical BID 3 months dlhkymgx-kquk-YR-calcium-mins 9 mg iron-400 mcg (Thera-M) 1 tab PO DAILY 90 days omeprazole 20 mg PO DAILY pen needle, diabetic (Advocate Pen Needle) Use as directed risperidone (Risperdal) 1 mg PO DAILY Do you need a note to return to daycare/school/sports/work: No HPI HPI maciej: Details: This 58 years old gentleman with chronic behavior/mental disorder in [facility] and depression, is grossly obese, and has sleep apnea with nocturnal hypoxemia. He was not able to use CPAP but does use O2 2 L/minute at nighttime. He claims to be sleeping very well and wakes refreshed. He denies daytime sleepiness. He gets short of breath which is mainly due to his obesity. He has been watching his diet and has been gradually losing some weight. [facility] Medical History Hypoxemia Adult general medical exam Screening for prostate cancer Folliculitis Nocturnal hypoxemia Hypoventilation syndrome Obstructive sleep apnea Type 2 diabetes mellitus with hyperglycemia Fatty liver GERD (gastroesophageal reflux disease) Insomnia Hypercholesterolemia Anxiety and depression Obesity (BMI 30-39.9) Vitamin D deficiency Mental and behavioral problem Surgical History History of colonoscopy H/O basal cell carcinoma excision History of cataract surgery Family History Father Medical history unknown Myocardial infarct Mother Lung cancer Brain aneurysm Maternal Grandmother Uterine cancer Maternal Grandfather Lung cancer Social History Housing: House Housing Other:: jail Alcohol intake: never Patient Tobacco Use Status: Never used Tobacco e-Cigarette/Vaping Use: Never Used Second Hand Smoke Exposure: No service: No Current occupational status: unemployed and disabled Cognitive needs: Yes Hearing needs: No Vision needs: No Review of Systems Const All systems reviewed & are unremarkable except as noted in HPI and below Eyes Reports no additional complaints ENT Reports no additional complaints Card Denies chest pain, Denies irregular heart rhythm and Denies leg edema Resp Reports as per HPI GI Reports no additional complaints Reports no additional complaints Musc Reports no additional complaints and Reports abnormal gait (Slow, but steady) Skin/Breast Reports system reviewed and no additional complaints, except as documented Neuro Reports abnormal gait (Slow, but steady) Psych Details: Chronic Schizophrenic Disorder Endo Reports no additional complaints Physical Exam Vital Signs: Last Vital Signs Pulse 87 01/03/24 13:21 BP 110/54 L 01/03/24 13:21 Pulse Ox 92 01/03/24 13:21 Oxygen Delivery Method Room Air 01/03/24 13:21 BMI result Body Mass Index 33.8 Const Other: Grossly obese. General: comfortable, no acute distress, alert and awake Orientation/consciousness: patient oriented x3 HEENT Head: Yes normal to inspection General nose exam: No nasal polyps present and No nasal discharge present Face and sinus: Yes sinuses nontender Mouth: oropharynx normal Throat: Yes posterior oropharynx normal Eyes General: appearance normal, both eyes and all related structures Neck Neck: Yes normal visual inspection, Yes no lymphadenopathy, Yes trachea midline and Yes no JVD Thyroid: Thyroid normal Chest Chest palpation & inspection: normal inspection of the chest, normal palpation of entire chest wall and no tenderness Resp Other: Percussion note resonant, breath sounds are slightly distant but equal on both sides. No wheezes rhonchi or crepitations are heard. Cardio Palpation: normal PMI Rate: regular rate Rhythm: regular rhythm Heart sounds: no gallops and no murmurs GI Palpation (GI): Soft to palpation, nontender, No hepatosplenomegaly present, no masses and Other GI palpation findings present (Abdomen is grossly obese and protuberant) Auscultation: normal bowel sounds Back/Spine/Pelvis Thoracic/Lumbar Spine: thoracic and lumbar spine normal to inspection and thoraco-lumbar ROM limited Skin General skin exam: no rashes or lesions noted and Excoriation (Multiple on the scalp due to self scratching) Neuro General: patient oriented x3 and no focal motor deficits Cranial nerves: Yes CN's II-XII intact bilaterally Extrem General: Yes normal to inspection, Yes no clubbing, cyanosis or edema and Yes no calf tenderness Psych Appearance: grossly normal and other (Slow in answering questions) Speech and movement: Normal speech and movement present Assessment & Plan Assessment & Plan (1) Obstructive sleep apnea: Comment: PER sleep study , MACIEJ was mild, patient is not able to use CPAP. Code(s): G47.33 - Obstructive sleep apnea (adult) (pediatric) Category: Medical Plan: Continue using O2 2 L/minute at nighttime (2) Nocturnal hypoxemia: Comment: Nocturnal hypoxemia is part of obstructive sleep apnea and sleep-related hypoventilation syndrome. He is doing well with use of O2 at night. Code(s): G47.34 - Idiopathic sleep related nonobstructive alveolar hypoventilation Category: Medical Plan: O2 2 L/minute at night, while sleeping. (3) Obesity (BMI 30-39.9): Comment: This is a chronic problem. Considering his chronic , mental disorder, it is difficult to expect any weight reduction in his case. Yet he has lost another 4 lb in the last 6 months. Code(s): E66.9 - Obesity, unspecified Category: Medical Plan: Commended for losing weight and encouraged to keep on doing physical exercise as well as deep breathing exercises. Coding Level of Care Code Est Pt Level 3 (81647) Diagnoses Obstructive sleep apnea G47.33 Nocturnal hypoxemia G47.34 Obesity (BMI 30-39.9) E66.9
== END 2024-01-03 13:38 | disposition home or self-care (01) ==
PROVIDERS: PCP Internal Medicine; Visit Provider Internal Medicine
DX: G47.33 Obstructive sleep apnea (adult) (pediatric) (principal); G47.34 Idiopathic sleep related nonobstructive alveolar hypoventilation; E66.9 Obesity, unspecified
CPT/HCPCS: 99213

== ENCOUNTER → 2024-01-03 13:17 | Outpatient (BNVA) | payer MEDICARE, MEDICAID, SELFPAY | PROVIDERS: PCP Internal Medicine; Visit Provider Internal Medicine | DX: G47.33 Obstructive sleep apnea (adult) (pediatric) (principal); G47.34 Idiopathic sleep related nonobstructive alveolar hypoventilation; E66.9 Obesity, unspecified; Z68.33 Body mass index [BMI] 33.0-33.9, adult | CPT/HCPCS: 99212 ==

== ENCOUNTER 2024-01-22 06:38 | Outpatient (REF) | payer MEDICARE, MEDICAID, SELFPAY ==
[2024-01-22 06:49] LABS: MANUAL DIFF FLAG NO
[2024-01-22 07:42] LABS: Basophils Percent Auto 0.2 % (0-2); Eosinophils Absolute Auto 0.1 X10*3/uL (0.0-0.4); Eosinophils Percent Auto 1.4 % (0-4); Hematocrit 40.5 % (42.0-52.0); Hemoglobin 13.7 g/dl (14.0-18.0); Imm Gran Abs Auto 0.04 X10*3/uL (0.00-0.03); Imm Gran Pct Auto 0.5 % (0.0-0.4); Lymphocytes Absolute Auto 1.8 X10*3/uL (1.2-4.9); Lymphocytes Percent Auto 21.9 % (20-40); Mean Corpuscular HGB Conc 33.8 g/dl (31.0-36.0); Mean Corpuscular Hemoglobin 30.3 pg (27.0-33.0); Mean Corpuscular Volume 89.6 fL (80.0-98.0); Monocytes Absolute Auto 0.6 X10*3/uL (0.1-1.2); Monocytes Percent Auto 7.8 % (2-11); Neutrophils Absolute Auto 5.5 x10*3/uL (2.0-8.3); Neutrophils Percent Auto 68.2 % (45-73); Platelet Count 318 X10*3/uL (160-400); Red Blood Count 4.52 X10*6/uL (4.60-5.80); White Blood Count 8.1 X10*3/uL (4.8-10.8)
[2024-01-22 07:50] LABS: Estimated Average Glucose 117 mg/dL; Hemoglobin A1C 138.6094 umol/L; Hemoglobin A1c % 5.7 % (<6.0); Total Hemoglobin (HGBA1C) 3541.0161 umol/L
[2024-01-22 08:13] LABS: Alanine Aminotransferase 27 U/L (0-40); Albumin Level 4.3 g/dL (3.5-5.0); Alkaline Phosphatase 74 U/L (39-117); Anion Gap 11 (12-20); Aspartate Amino Transferase 16 U/L (5-37); Bilirubin Total 0.5 mg/dL (0.0-1.0); Blood Urea Nitrogen 9 mg/dL (9-16); Calcium 9.4 mg/dL (8.4-10.2); Carbon Dioxide 31 mmol/L (22-29); Chloride 104 mmol/L (96-108); Cholesterol 120 mg/dL (<200); Estimated Glomerular Filt Rate > 60; Glucose Random 126 mg/dL (60-115); HDL Cholesterol 34 mg/dL (>40); LDL Cholesterol Calculated 72 mg/dL (<100); Potassium 3.7 mmol/L (3.3-5.1); Sodium 142 mmol/L (135-145); Total Protein 6.9 g/dL (6.5-8.0); Triglycerides 72 mg/dL (<150)
[2024-01-22 08:15] LABS: Creatinine Urine 60.09 mg/dL; Microalbumin Urine < 5.0 mg/L
[2024-01-22 08:31] LABS: Free T4 (Free Thyroxine) 0.84 ng/dL (0.71-1.85); Thyroid Stimulating Hormone 3.84 uIU/mL (0.32-4.0)
[2024-01-22 08:39] LABS: Folate 14.7 ng/mL (> or = 4.0); Prostate Specific Antigen Scr 0.23 ng/mL (<0.05-4.0); Vitamin B12 477 pg/mL (200-900)
== END 2024-01-22 06:39 | disposition home or self-care (01) ==
LOC: HO.LAB 06:38
PROVIDERS: PCP Internal Medicine; Visit Provider Internal Medicine
DX: E11.65 Type 2 diabetes mellitus with hyperglycemia (principal); Z79.4 Long term (current) use of insulin; E78.00 Pure hypercholesterolemia, unspecified; G47.34 Idiopathic sleep related nonobstructive alveolar hypoventilation; Z12.5 Encounter for screening for malignant neoplasm of prostate
CPT/HCPCS: 36415; 80053; 80061; 82043; 82570; 82607; 82746; 83036; 84153; 84439; 84443; 85025

== ENCOUNTER 2024-01-26 16:15 | Outpatient (AMB) | payer MEDICARE, MEDICAID, SELFPAY ==
[2024-01-26 16:45] VITALS: BP 142/86; PULSE 73; O2SAT 97; BMI 32.7
--- NOTE | 2024-01-26 16:45 | MHC.PC.OV ---
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: No Accompanied by: Self / Same As Patient Allergies lisinopril [LISINOPRIL] Allergy (Intermediate, Verified 01/26/24 16:47) HYPOTENSION Medication List - Last Reconciled 01/26/24 by Lindsay Archibald MD acetaminophen 650 mg (2 x 325 mg) PO Q6H PRN ascorbate calcium (vitamin C) 500 mg PO DAILY atorvastatin 80 mg PO QPM blood sugar diagnostic (Contour Next Test Strips) Check blood sugar 3 times a day cholecalciferol (vitamin D3) 25 mcg PO DAILY 90 days clotrimazole 1% 1 appl topical BID 4 weeks dextromethorphan polistirex ER (Delsym 12 hour) 10 mL PO Q12H PRN escitalopram oxalate 40 mg PO DAILY ferrous fumarate 324 mg PO DAILY glucose (Dex4 Glucose) 4 grams PO Q15M PRN inhalational spacing device (Aerochamber MV spacer) As directed insulin glargine (Lantus Solostar U-100 Insulin) 10 units (0.1 mL) subcut QAM ketoconazole 2% 1 appl topical 2XW lancets (TRUEplus Lancets) Check blood sugars metformin 500 mg PO BIDWMEAL miconazole nitrate 2% (Zeasorb AF) 1 appl topical BID 3 months ttyveisi-zyvv-WQ-calcium-mins 9 mg iron-400 mcg (Thera-M) 1 tab PO DAILY 90 days omeprazole 20 mg PO DAILY Oxygen Home Use As directed peg 400-propylene glycol (PF) 0.4-0.3 % (Systane (PF)) 2 drps ophthalmic (eye) QID PRN pen needle, diabetic (Advocate Pen Needle) Use as directed promethazine 25 mg orally pre med PRN; risperidone (Risperdal) 2 mg PO DAILY Tobacco use date assessed: 01/26/24 Dental Screening Dental Screen Date: 01/26/24 Did you have a dental visit in the last 12 months?: Yes Did you have a dental problem in the last 6 months where you did not have access to dental care?: No Was dental information given to patient?: Patient has dentist HPI pe HPI Details 58-year-old obese male(noted 7 lb weight loss) with diabetes mellitus hypercholesterolemia GERD hypoxemia on oxygen coming in for physical exam patient has a mental behavioral problem. Patient's colonoscopy 2020 and advised to repeat in 3-5 years. Patient has seen Pulmonary in January 02 for obstructive sleep apnea mild not on CPAP nocturnal hypoxemia and advised oxygen 2 L nasal cannula at nighttime sleep-related hypoventilation syndrome PFSH Medical History Hypoxemia Adult general medical exam Screening for prostate cancer Folliculitis Nocturnal hypoxemia Hypoventilation syndrome Obstructive sleep apnea Type 2 diabetes mellitus with hyperglycemia Fatty liver GERD (gastroesophageal reflux disease) Insomnia Hypercholesterolemia Anxiety and depression Obesity (BMI 30-39.9) Vitamin D deficiency Mental and behavioral problem Surgical History History of colonoscopy H/O basal cell carcinoma excision History of cataract surgery Family History Father Medical history unknown Myocardial infarct Mother Lung cancer Brain aneurysm Maternal Grandmother Uterine cancer Maternal Grandfather Lung cancer Social History Housing: House Housing Other:: shelter Alcohol intake: never Patient Tobacco Use Status: Never used Tobacco Tobacco use type: Cigarette e-Cigarette/Vaping Use: Never Used Second Hand Smoke Exposure: No service: No Current occupational status: unemployed and disabled Cognitive needs: Yes Hearing needs: No Vision needs: No Questionnaire PHQ-9 Over the last 2 weeks, how often have you been bothered by any of the following problems? 1. Little interest or pleasure in doing things: more than half the days 2. Feeling down, depressed, or hopeless: more than half the days 3. Trouble falling or staying asleep, or sleeping too much: more than half the days 4. Feeling tired or having little energy: nearly every day 5. Poor appetite or overeating: not at all 6. Feeling bad about yourself - or that you are a failure or have let yourself or your family down: nearly every day 7. Trouble concentrating on things, such as reading the newspaper or watching television: not at all 8. Moving or speaking so slowly that other people could have noticed. Or the opposite - being so fidgety or restless that you have been moving around a lot more than usual: not at all 9. Thoughts that you would be better off or of hurting yourself in some way: not at all Total score: 12 Source: Developed by Drs. Oleg Torres, Tomeka Bacon, Ranjan Jacob and colleagues, with an educational javier from [employer]. Thrive Questionnaire Date Thrive assessed: 01/26/24 I am a: Patient What is your living situation today?: I choose not to answer this question Within the past 12 months, did the food you bought not last and you didn't have the money to get more?: Never true Within the past 12 months, did you worry whether your food would run out before you got money to buy more?: Never true Do you have trouble paying for medicines?: No Do you have trouble getting transportation to medical appointments?: No Do you have trouble paying your heating and electricity bill?: No Do you have trouble taking care of your child, family member or friend?: I choose not to answer this question Do you have trouble with day-to-day activities such as bathing, preparing meals, shopping, managing finances, etc.?: I choose not to answer this question Are you currently unemployed and looking for a job?: No Are you interested in more education?: I choose not to answer this question Please select the resources that you would like help with: None Currently or been in a relationship where the following occur: I choose not to answer THRIVE Score: 0 AUDIT C Alcohol Use Questionnaire (AUDIT-C) 1. How often do you have a drink containing alcohol?: Never Total Score: 0 AMBER-7 AMB Questionnaire AMBER-7 Date AMBER - 7 assessed: 01/26/24 Feeling nervous, anxious, or on edge: 0 = Not at all Not being able to stop or control worryin = More than half the days Worrying too much about different things: 1 = Several days Trouble relaxin = Several days Being so restless that it is hard to sit still: 0 = Not at all Becoming easily annoyed or irritable: 1 = Several days Feeling afraid as if something awful might happen: 2 = More than half the days Total AMBER-7 score (0-4 normal; 5-9 mild; 10-14 moderate; 15-21 severe): 7 Source: Developed by Drs. Oleg Torres, Tomeka Bacon, Ranjan Jacob and colleagues, with an educational javier from [employer]. Review of Systems Const Denies poor appetite and Denies weakness Eyes Denies no additional complaints ENT Reports Normal hearing present, Denies dizziness, Denies nasal congestion, Denies tinnitus and Denies sore throat Card Denies chest pain, Denies syncope, Denies rapid heart rate and Denies dyspnea Resp Denies cough and Denies dyspnea GI Denies change in stool character, Reports constipation, Denies diarrhea, Denies nausea and Denies vomiting Denies dysuria and Denies urinary frequency Neuro Reports Normal hearing present, Denies confusion, Denies dizziness, Denies syncope and Denies weakness Psych Denies confusion Physical exam (Primary Care) Vital Signs: Last Vital Signs Pulse 73 01/26/24 16:45 BP 142/86 H 01/26/24 16:45 Pulse Ox 97 01/26/24 16:45 Oxygen Delivery Method Room Air 01/26/24 16:45 BMI result Body Mass Index 32.7 Tobacco/Smoking Status: Tobacco use Status Tobacco use date assessed 01/26/24 01/26/24 16:51 Patient Tobacco Use Status Never used Tobacco 01/26/24 16:47 Tobacco use type Cigarette 01/26/24 16:51 e-Cigarette/Vaping Use Never Used 01/26/24 16:47 PHQ-9: PHQ-9 Score PHQ-9: Total score 12 01/26/24 17:04 Thrive Assessment: Date of Thrive Assessment Date Thrive assessed 01/26/24 01/26/24 16:51 Currently or been in a relationship where the following occur: I choose not to answer Const General: No confusion Orientation/consciousness: No confusion HENMT Other: scaly skin on the scalp and face, impacted cerumen bilateral Head: Yes normocephalic Ears: external ears normal Face and sinus: Yes normal facial exam Mouth: moist mucous membranes Throat: Yes tonsils normal Eyes Conjunctivae: conjunctivae normal Pupils: Equal, round and reactive pupils present and Pupil accommodation reflex normal Direct Ophthalmoscopy: normal light reflex Neck Neck: No lymphadenopathy Thyroid: Thyroid normal Chest Chest palpation & inspection: normal inspection of the chest Resp Effort & Inspection: normal respiratory effort and no audible wheezes Auscultation: clear to auscultation bilaterally, no crackles, no wheezes and lung sounds not diminished Cardio Rate: regular rate Rhythm: regular rhythm Peripheral pulses: radial pulses present and dorsalis pedis present GI Palpation (GI): no masses Auscultation: normal bowel sounds and normoactive bowel sounds Rectal Exam - Male: Yes deferred Skin General skin exam: no rashes or lesions noted Rashes: no rashes Neuro General: No confusion Cranial nerves: Yes Equal, round and reactive pupils present and Yes Normal hearing present Cognition (Neuro): normal cognition Gait exam (Neuro): Normal gait present Motor exam (neuro): 5/5 motor strength present throughout Deep tendon reflexes (DTR's): Right brachioradialis reflex intensity grade: 2+, Left brachioradialis reflex intensity grade: 2+, Right patellar reflex intensity grade: 2+ and Left patellar reflex intensity grade: 2+ Extrem General: No edema Office Procedures Flu Questionnaire Does the patient have a severe egg allergy?: No Does the patient have severe life threatening allergies?: No Does the patient have a fever or illness today?: No Has the patient ever had Guillain-Murrieta Syndrome?: No Has the patient ever had any past reaction to a flu shot?: No Immunizations Fluarix Triv 3557-7870 (PF) 45 mcg (15 mcg x 3)/0.5 mL IM syringe Performing Provider: Lindsay Archibald MD [facility] Administered by: Andreia Soliman LPN on 01/26/24 17:03 Dose Route Admin Location Dispensed Lot Number Expiration Date NDC Catering Chef 0.5 mL IM Left Deltoid 0.5 mL [id number] 09/30/24 82726-719-17 [employer] VIS Given Date VIS Provided VIS Publication Date 01/26/24 Single Vaccine 20 Eligibility Eligibility Date Funding Source Not [facility] Eligible 01/26/24 Private Coding Level of Care Code Est Pt Prev Care 40-64y(78981) Diagnoses Annual physical exam Z00.00 Nocturnal hypoxemia G47.34 Type 2 diabetes mellitus with hyperglycemia, with long-term current use of insulin E11.65; Z79.4 Diabetes mellitus [facility] insulin use: with [facility] use Gastroesophageal reflux disease without esophagitis K21.9 Esophagitis presence: without esophagitis Hypercholesterolemia E78.00 Obesity (BMI 30-39.9) E66.9 Mental and behavioral problem F48.9; F69 Tubular adenoma of colon D12.6 Oropharyngeal dysphagia R13.12 Dysphagia type: oropharyngeal phase Tinea pedis of both feet B35.3 Laterality: bilateral Seborrhea L21.9 Impacted cerumen of both ears H61.23 Assessment & Plan Assessment & Plan (1) Annual physical exam: Code(s): Z00.00 - Encounter for general adult medical examination without abnormal findings Category: Medical Plan: Patient is advised to eat healthy, keep well hydrated, keep active and have adequate sleep. (2) Nocturnal hypoxemia: Comment: Nocturnal hypoxemia is part of obstructive sleep apnea and sleep-related hypoventilation syndrome. He is doing well with use of O2 at night. 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 Hemoglobin A1c goal of less than 6.5. Patient is on Lantus 10 units once a day metformin 500 mg twice a day (4) GERD (gastroesophageal reflux disease): Code(s): K21.9 - Gastro-esophageal reflux disease without esophagitis Category: Medical Qualifiers: Esophagitis presence: without esophagitis Qualified Code(s): K21.9 - Gastro-esophageal reflux disease without esophagitis Plan: Avoid the foods that causes that usually spicy foods, tomato products, juices, coffee, soda and foods that your sensitive to. After eating do not lie down, allow 3-4 hours before in lie down. And keep the head of bed above 30 degrees to avoid the acid from going up. (5) Hypercholesterolemia: Code(s): E78.00 - Pure hypercholesterolemia, unspecified Category: Medical Plan: Avoid fried foods, chicken skin, eggs, butter margarine, pastries and meat. Be it pork or beef they have a lot of cholesterol LDL goal of less than 100 and triglyceride of less than 150 patient on atorvastatin 80 mg at bedtime (6) Obesity (BMI 30-39.9): Comment: This is a chronic problem. Considering his chronic , mental disorder, it is difficult to expect any weight reduction in his case. Yet he has lost another 4 lb in the last 6 months. Code(s): E66.9 - Obesity, unspecified Category: Medical Plan: Diet and exercise (7) Mental and behavioral problem: Comment: Impulse control disorder Code(s): F48.9 - Nonpsychotic mental disorder, unspecified; F69 - Unspecified disorder of adult personality and behavior Category: Medical Plan: Continue to follow-up with psychiatry (8) Tubular adenoma of colon: Comment: 2019 3-5 years Code(s): D12.6 - Benign neoplasm of colon, unspecified Category: Medical Plan: Patient is reminded about colonoscopy (9) Dysphagia: Code(s): R13.10 - Dysphagia, unspecified Category: Medical Qualifiers: Dysphagia type: oropharyngeal phase Qualified Code(s): R13.12 - Dysphagia, oropharyngeal phase Plan: Barium swallow requested (10) Tinea pedis: Code(s): B35.3 - Tinea pedis Category: Medical Qualifiers: Laterality: bilateral Qualified Code(s): B35.3 - Tinea pedis Plan: Clotrimazole prescription sent in advised to place the cream specially in the interdigital area of the feet (11) Seborrhea: Code(s): L21.9 - Seborrheic dermatitis, unspecified Category: Medical Plan: Referral to dermatology done (12) Impacted cerumen of both ears: Code(s): H61.23 - Impacted cerumen, bilateral Category: Medical Plan: Will schedule for ear irrigation Orders: Orders Influenza [id number] Immunization Today Z23 - Encounter for immunization [place] barium swallow Today R13.10 - Dysphagia, unspecified [place] upper GI series Today R13.10 - Dysphagia, unspecified Referrals Gastroenterology Referral D12.6 - Benign neoplasm of colon, unspecified Dermatology Referral L21.9 - Seborrheic dermatitis, unspecified Nutrition/Dietitian Referral E11.65 - Type 2 diabetes mellitus with hyperglycemia, Z79.4 - group home (current) use of insulin Medications: New clotrimazole 1% apply to feet especially interdigital area 1 appl topical BID 4 weeks 45 grams 2RF B35.3 - Tinea pedis
[2024-01-26 17:12] VITALS: BP 110/70
== END 2024-01-26 18:04 | disposition home or self-care (01) ==
PROVIDERS: PCP Internal Medicine; Visit Provider Internal Medicine
DX: Z00.00 Encounter for general adult medical examination without abnormal findings (principal); E11.65 Type 2 diabetes mellitus with hyperglycemia; Z79.4 Long term (current) use of insulin; G47.34 Idiopathic sleep related nonobstructive alveolar hypoventilation; K21.9 Gastro-esophageal reflux disease without esophagitis; E78.00 Pure hypercholesterolemia, unspecified; E66.9 Obesity, unspecified; F48.9 Nonpsychotic mental disorder, unspecified; F69 Unspecified disorder of adult personality and behavior; D12.6 Benign neoplasm of colon, unspecified; R13.12 Dysphagia, oropharyngeal phase; Z23 Encounter for immunization

== ENCOUNTER → 2024-01-26 16:15 | Outpatient (BNVA) | payer MEDICARE, MEDICAID, SELFPAY | PROVIDERS: PCP Internal Medicine; Visit Provider Internal Medicine | DX: Z00.01 Encounter for general adult medical examination with abnormal findings (principal); Z23 Encounter for immunization; G47.34 Idiopathic sleep related nonobstructive alveolar hypoventilation; E11.65 Type 2 diabetes mellitus with hyperglycemia; K21.9 Gastro-esophageal reflux disease without esophagitis; E78.00 Pure hypercholesterolemia, unspecified; E66.9 Obesity, unspecified; F48.9 Nonpsychotic mental disorder, unspecified; F69 Unspecified disorder of adult personality and behavior; D12.6 Benign neoplasm of colon, unspecified; B35.3 Tinea pedis; L21.9 Seborrheic dermatitis, unspecified; H61.23 Impacted cerumen, bilateral; Z79.4 Long term (current) use of insulin | CPT/HCPCS: 90471; 90656; 96127; 99396 ==

== ENCOUNTER 2024-02-09 09:32 | Outpatient (AMB) | payer MEDICARE, MEDICAID, SELFPAY ==
[2024-02-09 09:35] VITALS: BP 112/64; BMI 32.3
--- NOTE | 2024-02-09 09:35 | MHC.PC.OV ---
Vital Signs 02/09/24 09:35 Height 5 ft 10 in Weight 225 lb BMI 32.3 BP 112/64 Blood Pressure Location Lt brachial Position Sitting Pulse Source Pulse Oximeter Oxygen Delivery Method Room Air Intake Visit Reasons: ear cleaning Allergies lisinopril [LISINOPRIL] Allergy (Intermediate, Verified 02/09/24 09:38) HYPOTENSION Tobacco use date assessed: 01/26/24 Dental Screening Dental Screen Date: 01/26/24 HPI ear cleaning HPI Details 58-year-old male with diabetes mellitus, hypercholesterolemia, GERD, and mental behavioral problem last seen by Dr. Archibald coming in for ear cleaning. [facility] Medical History (Updated 01/26/24 @ 18:02 by Lindsay Archibald MD) Tinea pedis Hypoxemia Adult general medical exam Screening for prostate cancer Folliculitis Nocturnal hypoxemia Hypoventilation syndrome Obstructive sleep apnea Type 2 diabetes mellitus with hyperglycemia Fatty liver GERD (gastroesophageal reflux disease) Insomnia Hypercholesterolemia Anxiety and depression Obesity (BMI 30-39.9) Vitamin D deficiency Mental and behavioral problem Surgical History History of colonoscopy H/O basal cell carcinoma excision History of cataract surgery Family History Father Medical history unknown Myocardial infarct Mother Lung cancer Brain aneurysm Maternal Grandmother Uterine cancer Maternal Grandfather Lung cancer Social History Housing: House Housing Other:: longterm Alcohol intake: never Patient Tobacco Use Status: Never used Tobacco Tobacco use type: Cigarette e-Cigarette/Vaping Use: Never Used Second Hand Smoke Exposure: No service: No Current occupational status: unemployed and disabled Cognitive needs: Yes Hearing needs: No Vision needs: No Questionnaire Thrive Questionnaire Date Thrive assessed: 01/26/24 I am a: Patient What is your living situation today?: I choose not to answer this question Within the past 12 months, did the food you bought not last and you didn't have the money to get more?: Never true Within the past 12 months, did you worry whether your food would run out before you got money to buy more?: Never true Do you have trouble paying for medicines?: No Do you have trouble getting transportation to medical appointments?: No Do you have trouble paying your heating and electricity bill?: No Do you have trouble taking care of your child, family member or friend?: I choose not to answer this question Do you have trouble with day-to-day activities such as bathing, preparing meals, shopping, managing finances, etc.?: I choose not to answer this question Are you currently unemployed and looking for a job?: No Are you interested in more education?: I choose not to answer this question Please select the resources that you would like help with: None Currently or been in a relationship where the following occur: I choose not to answer THRIVE Score: 0 AUDIT C Alcohol Use Questionnaire (AUDIT-C) 1. How often do you have a drink containing alcohol?: Never 3. How often do you have six or more drinks on one occasion?: Never Total Score: 0 AMBER-7 AMB Questionnaire AMBER-7 Date AMBER - 7 assessed: 01/26/24 Source: Developed by Drs. Oleg Torres, Tomeka Bacon, Ranjan Jacob and colleagues, with an educational javier from [employer]. Review of Systems Const Denies body aches, Denies chills and Denies fever(s) ENT Details: Blocked ear sensation and decreased hearing Card Reports no additional complaints Resp Reports no additional complaints Physical exam (Primary Care) Vital Signs: Last Vital Signs BP 112/64 02/09/24 09:35 Oxygen Delivery Method Room Air 02/09/24 09:35 BMI result Body Mass Index 32.3 Tobacco/Smoking Status: Tobacco use Status Tobacco use date assessed 01/26/24 02/09/24 09:39 Patient Tobacco Use Status Never used Tobacco 02/09/24 09:39 Tobacco use type Cigarette 02/09/24 09:39 e-Cigarette/Vaping Use Never Used 02/09/24 09:39 Thrive Assessment: Date of Thrive Assessment Date Thrive assessed 01/26/24 02/09/24 09:39 Currently or been in a relationship where the following occur: I choose not to answer Const General: cooperative, healthy appearing, comfortable and no acute distress HENMT Head: Yes normocephalic Ears: hearing grossly normal bilaterally and Abnormal EAC present cerumen impaction bilateral General nose exam: Normal external nose present Resp Effort & Inspection: normal respiratory effort Psych Affect: normal affect Attitude: cooperative Insight: Good insight present (Psych) Judgement: Good judgement present (Psych) Coding Level of Care Code Est Pt Level 3 (12526) Diagnoses Impacted cerumen of both ears H61.23 Assessment & Plan Assessment & Plan (1) Impacted cerumen of both ears: Code(s): H61.23 - Impacted cerumen, bilateral Category: Medical Plan: Cerumen was successfully reviewed with irrigation and lighted curette. Patient tolerated procedure well both ear canals were clear and TMs visualized as intact with well aerated middle ear spaces. Advised patient to follow up as needed for this concern. Plan This note was constructed using voice recognition software. While every effort has been made to ensure accuracy and ball racker, still areas may have been included sometimes these areas may affect the content or meeting of the given symptoms. Total time spent caring for the patient today was 20 minutes. This includes time spent before the visit reviewing the chart, time spent during the visit, and time spent after the visit and documentation.
== END 2024-02-09 10:02 | disposition home or self-care (01) ==
PROVIDERS: PCP Internal Medicine
DX: H61.23 Impacted cerumen, bilateral (principal)

== ENCOUNTER → 2024-02-09 09:32 | Outpatient (BNVA) | payer MEDICARE, MEDICAID, SELFPAY | PROVIDERS: PCP Internal Medicine | DX: H61.23 Impacted cerumen, bilateral (principal) | CPT/HCPCS: 99212 ==

== ENCOUNTER 2024-02-15 10:04 | Outpatient (AMB) | payer MEDICARE, MEDICAID, SELFPAY ==
[2024-02-15 10:06] VITALS: BMI 32.6
--- NOTE | 2024-02-15 10:06 | A.OFFVIS_ITS ---
VS Expanded 02/15/24 10:06 02/15/24 10:16 Height 5 ft 10 in 5 ft 10 in Weight 227 lb 8.273 oz 227 lb BMI 32.6 32.6 Intake Visit Reasons: T2DM/LVM Allergies lisinopril [LISINOPRIL] Allergy (Intermediate, Verified 02/09/24 09:38) HYPOTENSION Nutrition Presentation Details: Pt presents for MNT for T2DM on long acting insulinonce a da y. Pt was referred by PCP [facility] and [facility] with [facility] staff Pt reports starting walking program, 15 min , 3 times a week Pt working on reducing on donut or sugary foods. food frequency water: 4 x/d fruits: 3+ vegetables 3/d starches >20 /d protein: 4 oz 2x/d BS Monitoring Most Recent Diabetes Results: Microalb/Creat Ratio TNP 01/22/24 Cholesterol 120 mg/dL (<200) 01/22/24 HDL Cholesterol 34 mg/dL (>40) L 01/22/24 Triglycerides 72 mg/dL (<150) 01/22/24 Creatinine 0.86 mg/dL (0.5-1.4) 01/22/24 Blood Urea Nitrogen 9 mg/dL (9-16) 01/22/24 Sodium 142 mmol/L (135-145) 01/22/24 Potassium 3.7 mmol/L (3.3-5.1) 01/22/24 Chloride 104 mmol/L (96-108) 01/22/24 Carbon Dioxide 31 mmol/L (22-29) H 01/22/24 Calcium 9.4 mg/dL (8.4-10.2) 01/22/24 AST 16 U/L (5-37) 01/22/24 ALT 27 U/L (0-40) 01/22/24 Total Protein 6.9 g/dL (6.5-8.0) 01/22/24 Albumin 4.3 g/dL (3.5-5.0) 01/22/24 TEA-Mictofv-Aw.Jeor Equation Height: 5 ft 10 in Weight: 227 lb Resting Metabolic Rate: 1854.60 Calculated Activity Level: Sedentary Calories Needed to Maintain Weight: 2225.52 Diagnosis Nutrition problem #1: excessive energy intake and food nutri know defi As related to (etiology) #1: diagnosis As evidenced by (sign/symptom) #1: high BMI (32.6 (02/24)) and knowledge deficit of diet [facility] Medical History (Updated 01/26/24 @ 18:02 by Lindsay Archibald MD) Tinea pedis Hypoxemia Adult general medical exam Screening for prostate cancer Folliculitis Nocturnal hypoxemia Hypoventilation syndrome Obstructive sleep apnea Type 2 diabetes mellitus with hyperglycemia Fatty liver GERD (gastroesophageal reflux disease) Insomnia Hypercholesterolemia Anxiety and depression Obesity (BMI 30-39.9) Vitamin D deficiency Mental and behavioral problem Surgical History History of colonoscopy H/O basal cell carcinoma excision History of cataract surgery Family History Father Medical history unknown Myocardial infarct Mother Lung cancer Brain aneurysm Maternal Grandmother Uterine cancer Maternal Grandfather Lung cancer Social History Housing: House Housing Other:: intermediate Alcohol intake: never Patient Tobacco Use Status: Never used Tobacco Tobacco use type: Cigarette e-Cigarette/Vaping Use: Never Used Second Hand Smoke Exposure: No service: No Current occupational status: unemployed and disabled Cognitive needs: Yes Hearing needs: No Vision needs: No Assessment & Plan Assessment & Plan (1) Type 2 diabetes mellitus with hyperglycemia: Code(s): E11.65 - Type 2 diabetes mellitus with hyperglycemia Category: Medical Qualifiers: Diabetes mellitus fdc insulin use: with [facility] use Qualified Code(s): E11.65 - Type 2 diabetes mellitus with hyperglycemia; Z79.4 - residential (current) use of insulin Plan: Wt: 103 Kg ( 02/24 ) Est kcal needs as per MSJ: 2200 (40% carb, 30% protein/fat) Est fluid needs as per 25-30 ml/d: 3100 Est prot per day as per 1 g/kg bw: 103 Recommend fiber intake : 8-10 g per day and gradually increase to 25-28 g per day for women and 35-38 g for men or as tolerated Recommend sodium intake per day : l less than 2300 mg Educated patient on: ( R = reviewed V = verbalizes understanding N/R = needs review N/A = not applicable * Food sources of carbohydrate, adequate serving sizes and its role in various health conditions: R V N/R * Differences between complex carbohydrates a simple carbohydrates, role of fiber in diet: R * Lean protein sources of foods: R * Differences between types of fats and role in diet (mono on saturated fat fatty acids, saturated fatty acids, trans fats): R V N/R * Food sources of sodium in salt and healthy modifications for heart health in kidney health: R V R/V * Vitamins and minerals: R V N/R * Healthy plate method concept: R V N/R * Physical activity: Benefits a precaution: R * Hypoglycemia protocol (rule of 15): R V N/R * Dietary prevention of Hyperglycemia: R Patient Instructions: Work on reducing sugary foods (pastries/cookies ice cream and the like ) and sugary beverages Reduce portion of starches at dinner to 1 cup serving , include a cup o milk , 1/2 cup of fruit, 3-4 oz of lean protein , non starchy vegetables Coding Level of Care Code Nutr Indiv Intake (88838) Diagnoses Type 2 diabetes mellitus with hyperglycemia, with long-term current use of insulin E11.65; Z79.4 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
[2024-02-15 10:16] VITALS: BMI 32.6
== END 2024-02-15 10:43 | disposition home or self-care (01) ==
PROVIDERS: PCP Internal Medicine; Visit Provider Dietitian, Registered
DX: E11.65 Type 2 diabetes mellitus with hyperglycemia (principal); Z79.4 Long term (current) use of insulin

== ENCOUNTER → 2024-02-15 10:04 | Outpatient (BNVA) | payer MEDICARE, MEDICAID, SELFPAY | PROVIDERS: PCP Internal Medicine; Visit Provider Dietitian, Registered | DX: E11.65 Type 2 diabetes mellitus with hyperglycemia (principal); Z79.4 Long term (current) use of insulin | CPT/HCPCS: 97802 ==

== ENCOUNTER 2024-03-20 11:39 | Outpatient (AMB) | payer MEDICARE, MEDICAID, SELFPAY ==
[2024-03-20 11:43] VITALS: BMI 32.0
--- NOTE | 2024-03-20 11:43 | A.OFFVIS_ITS ---
VS Expanded 03/20/24 11:43 Height 5 ft 10 in Weight 223 lb 1.725 oz BMI 32.0 Intake Visit Reasons: Obesity/T2DM/Confirmed Allergies lisinopril [LISINOPRIL] Allergy (Intermediate, Verified 02/09/24 09:38) HYPOTENSION Nutrition Presentation Details: Pt presents for MNT f/u for T2DM, obesity Pt reports walking on treadmill at 2.5 and gets tired and thus stops at 10 min Eats out 2-3 x/wk and choosing the larger portion offered when eating out BS Monitoring Most Recent Diabetes Results: Microalb/Creat Ratio TNP 01/22/24 Cholesterol 120 mg/dL (<200) 01/22/24 HDL Cholesterol 34 mg/dL (>40) L 01/22/24 Triglycerides 72 mg/dL (<150) 01/22/24 Creatinine 0.86 mg/dL (0.5-1.4) 01/22/24 Blood Urea Nitrogen 9 mg/dL (9-16) 01/22/24 Sodium 142 mmol/L (135-145) 01/22/24 Potassium 3.7 mmol/L (3.3-5.1) 01/22/24 Chloride 104 mmol/L (96-108) 01/22/24 Carbon Dioxide 31 mmol/L (22-29) H 01/22/24 Calcium 9.4 mg/dL (8.4-10.2) 01/22/24 AST 16 U/L (5-37) 01/22/24 ALT 27 U/L (0-40) 01/22/24 Total Protein 6.9 g/dL (6.5-8.0) 01/22/24 Albumin 4.3 g/dL (3.5-5.0) 01/22/24 [facility] Medical History (Updated 01/26/24 @ 18:02 by Lindsay Archibald MD) Tinea pedis Hypoxemia Adult general medical exam Screening for prostate cancer Folliculitis Nocturnal hypoxemia Hypoventilation syndrome Obstructive sleep apnea Type 2 diabetes mellitus with hyperglycemia Fatty liver GERD (gastroesophageal reflux disease) Insomnia Hypercholesterolemia Anxiety and depression Obesity (BMI 30-39.9) Vitamin D deficiency Mental and behavioral problem Surgical History History of colonoscopy H/O basal cell carcinoma excision History of cataract surgery Family History Father Medical history unknown Myocardial infarct Mother Lung cancer Brain aneurysm Maternal Grandmother Uterine cancer Maternal Grandfather Lung cancer Social History Housing: House Housing Other:: [facility] Alcohol intake: never Patient Tobacco Use Status: Never used Tobacco Tobacco use type: Cigarette e-Cigarette/Vaping Use: Never Used Second Hand Smoke Exposure: No service: No Current occupational status: unemployed and disabled Cognitive needs: Yes Hearing needs: No Vision needs: No Assessment & Plan Assessment & Plan (1) Type 2 diabetes mellitus with hyperglycemia: Code(s): E11.65 - Type 2 diabetes mellitus with hyperglycemia Category: Medical Qualifiers: Diabetes mellitus 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 insulin use: with [facility] use Qualified Code(s): E11.65 - Type 2 diabetes mellitus with hyperglycemia; Z79.4 - custodial (current) use of insulin Plan: Wt: 103 Kg ( 02/24 ), 101 kg (03/26) Est kcal needs as per MSJ: 2200 (40% carb, 30% protein/fat) Est fluid needs as per 25-30 ml/d: 3100 Est prot per day as per 1 g/kg bw: 103 Recommend fiber intake : 8-10 g per day and gradually increase to 25-28 g per day for women and 35-38 g for men or as tolerated Recommend sodium intake per day : l less than 2300 mg Educated patient on: ( R = reviewed V = verbalizes understanding N/R = needs review N/A = not applicable * Food sources of carbohydrate, adequate serving sizes and its role in various health conditions: R * Differences between complex carbohydrates a simple carbohydrates, role of fiber in diet: R * Lean protein sources of foods: R * Differences between types of fats and role in diet (mono on saturated fat fatty acids, saturated fatty acids, trans fats): R V N/R * Food sources of sodium in salt and healthy modifications for heart health in kidney health: R V R/V * Vitamins and minerals: R V N/R * Healthy plate method concept: R V N/R * Physical activity: Benefits a precaution: R * Hypoglycemia protocol (rule of 15): R V N/R * Dietary prevention of Hyperglycemia: R Patient Instructions: Walk 20 minutes at a speed you can tolerate try (2 vs 2.5) Do not ask for supersize (decline supersize) at fast foods , Ask for smaller portion of starch (noodles, rice) at restaurants Get 6 napper grinder with chips and diet soda instead of 12 inch, chips and diet soda Coding Level of Care Code Nutr Indiv Subseq (25776) Diagnoses Type 2 diabetes mellitus with hyperglycemia, with long-term current use of insulin E11.65; Z79.4 Diabetes mellitus 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 insulin use: with 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 use Time Spent (min) 30
== END 2024-03-20 12:15 | disposition home or self-care (01) ==
PROVIDERS: PCP Internal Medicine; Visit Provider Dietitian, Registered
DX: E11.65 Type 2 diabetes mellitus with hyperglycemia (principal); Z79.4 Long term (current) use of insulin

== ENCOUNTER → 2024-03-20 11:39 | Outpatient (BNVA) | payer MEDICARE, MEDICAID, SELFPAY | PROVIDERS: PCP Internal Medicine; Visit Provider Dietitian, Registered | DX: E11.65 Type 2 diabetes mellitus with hyperglycemia (principal); Z79.4 Long term (current) use of insulin | CPT/HCPCS: 97803 ==

== ENCOUNTER 2024-04-18 11:22 | Outpatient (AMB) | payer MEDICARE, MEDICAID, SELFPAY ==
[2024-04-18 11:33] VITALS: BP 128/78; PULSE 65; O2SAT 98; BMI 32.9
--- NOTE | 2024-04-18 11:33 | A.OFFPC_ITS ---
Vital Signs 04/18/24 11:33 Height 5 ft 10 in Weight 229 lb BMI 32.9 BP 128/78 Blood Pressure Location Lt brachial Position Sitting Pulse 65 Pulse Source Pulse Oximeter Pulse Oximetry (%) 98 Oxygen Delivery Method Room Air Intake Visit Reasons: Diabetes mellitus Allergies lisinopril [LISINOPRIL] Allergy (Intermediate, Verified 04/18/24 11:33) HYPOTENSION Tobacco use date assessed: 04/18/24 Dental Screening Dental Screen Date: 04/18/24 Did you have a dental visit in the last 12 months?: Yes Did you have a dental problem in the last 6 months where you did not have access to dental care?: No Was dental information given to patient?: Patient has dentist HPI Diabetes mellitus HPI Details 58-year-old obese male noted weight gain of 6 lb with mental and behavioral problem generalized anxiety disorder hypercholesterolemia GERD diabetes mellitus obstructive sleep apnea seborrheic dermatitis coming in for follow-up. Review of the notes last colonoscopy was done in 2019 and was advised to have a repeat. This is due. February 13 received a note blood work was done in 04/22/2023 revealing mild anemia at 13.7 and 40.5. Electrolytes are normal with normal renal function blood sugar at that time was 01:26 but hemoglobin A1c is normal at 5.6. Patient's liver function is good LDL is 72 prostate numbers normal folic PFSH Medical History (Updated 01/26/24 @ 18:02 by Lindsay Archibald MD) Tinea pedis Hypoxemia Adult general medical exam Screening for prostate cancer Folliculitis Nocturnal hypoxemia Hypoventilation syndrome Obstructive sleep apnea Type 2 diabetes mellitus with hyperglycemia Fatty liver GERD (gastroesophageal reflux disease) Insomnia Hypercholesterolemia Anxiety and depression Obesity (BMI 30-39.9) Vitamin D deficiency Mental and behavioral problem Surgical History History of colonoscopy H/O basal cell carcinoma excision History of cataract surgery Family History Father Medical history unknown Myocardial infarct Mother Lung cancer Brain aneurysm Maternal Grandmother Uterine cancer Maternal Grandfather Lung cancer Social History Housing: House 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 1. Little interest or pleasure in doing things: more than half the days 2. Feeling down, depressed, or hopeless: more than half the days 3. Trouble falling or staying asleep, or sleeping too much: more than half the days 4. Feeling tired or having little energy: nearly every day 5. Poor appetite or overeating: not at all 6. Feeling bad about yourself - or that you are a failure or have let yourself or your family down: nearly every day 7. Trouble concentrating on things, such as reading the newspaper or watching television: not at all 8. Moving or speaking so slowly that other people could have noticed. Or the opposite - being so fidgety or restless that you have been moving around a lot more than usual: not at all 9. Thoughts that you would be better off or of hurting yourself in some way: not at all Total score: 12 Depression Screening Interpretation: Positive Depression Screening Done: Yes Source: Developed by Drs. Oleg Torres, Tomeka Bacon, Ranjan Jacob and colleagues, with an educational javier from [employer]. Thrive Questionnaire Date Thrive assessed: 04/18/24 I am a: Parent/Caregiver What is your living situation today?: I choose not to answer this question Within the past 12 months, did the food you bought not last and you didn't have the money to get more?: Never true Within the past 12 months, did you worry whether your food would run out before you got money to buy more?: Never true Do you have trouble paying for medicines?: No Do you have trouble getting transportation to medical appointments?: No Do you have trouble paying your heating and electricity bill?: No Do you have trouble taking care of your child, family member or friend?: I choose not to answer this question Do you have trouble with day-to-day activities such as bathing, preparing meals, shopping, managing finances, etc.?: I choose not to answer this question Are you currently unemployed and looking for a job?: No Are you interested in more education?: I choose not to answer this question Please select the resources that you would like help with: None Currently or been in a relationship where the following occur: I choose not to answer THRIVE Score: 0 AUDIT C Alcohol Use Questionnaire (AUDIT-C) 1. How often do you have a drink containing alcohol?: Never 3. How often do you have six or more drinks on one occasion?: Never Total Score: 0 AMBER-7 AMB Questionnaire AMBER-7 Date AMBER - 7 assessed: 04/18/24 Feeling nervous, anxious, or on edge: 0 = Not at all Not being able to stop or control worryin = Not at all Worrying too much about different things: 0 = Not at all Trouble relaxin = Not at all Being so restless that it is hard to sit still: 0 = Not at all Becoming easily annoyed or irritable: 0 = Not at all Feeling afraid as if something awful might happen: 0 = Not at all Total AMBER-7 score (0-4 normal; 5-9 mild; 10-14 moderate; 15-21 severe): 0 Source: Developed by Drs. Oleg Torres, Tomeka Bacon, Ranjan Jacob and colleagues, with an educational javier from [employer]. Physical exam (Primary Care) Vital Signs: Last Vital Signs Pulse 65 04/18/24 11:33 BP 128/78 04/18/24 11:33 Pulse Ox 98 04/18/24 11:33 Oxygen Delivery Method Room Air 04/18/24 11:33 BMI result Body Mass Index 32.9 Tobacco/Smoking Status: Tobacco use Status Tobacco use date assessed 04/18/24 04/18/24 11:34 Patient Tobacco Use Status Never used Tobacco 04/18/24 11:34 Tobacco use type Cigarette 04/18/24 11:34 e-Cigarette/Vaping Use Never Used 04/18/24 11:34 PHQ-9: PHQ-9 Score PHQ-9: Total score 12 04/18/24 11:57 Depression Screening Interpretation: Positive Thrive Assessment: Date of Thrive Assessment Date Thrive assessed 04/18/24 04/18/24 11:34 Currently or been in a relationship where the following occur: I choose not to answer Const General: alert; No acute distress Eyes Conjunctivae: conjunctivae normal Resp Auscultation: clear to auscultation bilaterally Cardio Rate: regular rate Rhythm: regular rhythm GI Inspection: Yes normal to inspection Extrem General: Yes normal to inspection and No edema Results AMB Hemoglobin A1c AMB Hemoglobin A1c 5.6 % Last Edit by Sondra Steve CMA on 04/18/24 11 :58 Results Reviewed Results Reviewed: Laboratory Last Values Hgb A1c (Clinic) 5.6 % (4.0-6.0) 04/18/24 11:34 Coding Level of Care Code Est Pt Level 4 (32950) Complex EM visit Add On G2211 Diagnoses Type 2 diabetes mellitus with hyperglycemia, with long-term current use of insulin E11.65; Z79.4 Diabetes mellitus terminal operations supervisor insulin use: with terminal operations supervisor use Hypercholesterolemia E78.00 Obesity (BMI 30-39.9) E66.9 Tubular adenoma of colon D12.6 Assessment & Plan Assessment & Plan (1) Type 2 diabetes mellitus with hyperglycemia: Code(s): E11.65 - Type 2 diabetes mellitus with hyperglycemia Category: Medical Qualifiers: Diabetes mellitus detention insulin use: with detention use Qualified Code(s): E11.65 - Type 2 diabetes mellitus with hyperglycemia; Z79.4 - intermediate card tender (current) use of insulin Plan: Decrease the amount of carbohydrate intake, pasta, bread, rice and potatoes are all sugar and that is aside from all the sweet stuff, remember that fruits are good but they are Sweet also. Hemoglobin A1c goal of less than 6.5. Patient is on Lantus at 8 units once a day with metformin 500 mg twice a day (2) Hypercholesterolemia: Code(s): E78.00 - Pure hypercholesterolemia, unspecified Category: Medical Plan: Avoid fried foods, chicken skin, eggs, butter margarine, pastries and meat. Be it pork or beef they have a lot of cholesterol LDL goal of less than 100 and triglyceride of less than 150. Blood work done (3) Obesity (BMI 30-39.9): Comment: This is a chronic problem. Considering his chronic , mental disorder, it is difficult to expect any weight reduction in his case. Yet he has lost another 4 lb in the last 6 months. Code(s): E66.9 - Obesity, unspecified Category: Medical Plan: In January at goal. Diet and exercise (4) Tubular adenoma of colon: Comment: 2019 3-5 years Code(s): D12.6 - Benign neoplasm of colon, unspecified Category: Medical Plan: Reminded about colon cancer screening that patient is due Orders: Orders Ferritin 3 Months E11.65 - Type 2 diabetes mellitus with hyperglycemia, Z79.4 - intermediate card tender (current) use of insulin Reticulocyte Count 3 Months E11.65 - Type 2 diabetes mellitus with hyperglycemia, Z79.4 - detention (current) use of insulin Vitamin B12 and Folate 3 Months E11.65 - Type 2 diabetes mellitus with hyperglycemia, Z79.4 - intermediate card tender (current) use of insulin Free T4 (Free Thyroxine) 3 Months E11.65 - Type 2 diabetes mellitus with hyperglycemia, Z79.4 - detention (current) use of insulin Creatinine Urine 3 Months E11.65 - Type 2 diabetes mellitus with hyperglycemia, Z79.4 - detention (current) use of insulin Prostate Specific Antigen Scr 3 Months E11.65 - Type 2 diabetes mellitus with hyperglycemia, Z79.4 - detention (current) use of insulin Uric Acid 3 Months E11.65 - Type 2 diabetes mellitus with hyperglycemia, Z79.4 - detention (current) use of insulin AMB Hemoglobin A1c Today Z13.9 - Encounter for screening, unspecified Complete Blood Count Auto Diff 3 Months E11.65 - Type 2 diabetes mellitus with hyperglycemia, Z79.4 - intermediate card tender (current) use of insulin Comprehensive Met. Panel 3 Months E11.65 - Type 2 diabetes mellitus with hyperglycemia, Z79.4 - intermediate card tender (current) use of insulin Lipid Panel 3 Months E11.65 - Type 2 diabetes mellitus with hyperglycemia, E78.00 - Pure hypercholesterolemia, unspecified, Z79.4 - detention (current) use of insulin IRON PROFILE 3 Months E11.65 - Type 2 diabetes mellitus with hyperglycemia, Z79.4 - intermediate card tender (current) use of insulin Thyroid Stimulating Hormone 3 Months E11.65 - Type 2 diabetes mellitus with hyperglycemia, Z79.4 - detention (current) use of insulin Hemoglobin A1c 3 Months E11.65 - Type 2 diabetes mellitus with hyperglycemia, Z79.4 - detention (current) use of insulin Microalbumin, Random (w Creat) 3 Months E11.65 - Type 2 diabetes mellitus with hyperglycemia, Z79.4 - intermediate card tender (current) use of insulin
== END 2024-04-18 12:31 | disposition home or self-care (01) ==
PROVIDERS: PCP Internal Medicine; Visit Provider Internal Medicine
DX: E11.65 Type 2 diabetes mellitus with hyperglycemia (principal); Z79.4 Long term (current) use of insulin; E66.811 Obesity, class 1; Z68.32 Body mass index [BMI] 32.0-32.9, adult; E78.00 Pure hypercholesterolemia, unspecified; D12.6 Benign neoplasm of colon, unspecified

== ENCOUNTER → 2024-04-18 11:22 | Outpatient (BNVA) | payer MEDICARE, MEDICAID, SELFPAY | PROVIDERS: PCP Internal Medicine; Visit Provider Internal Medicine | DX: E11.65 Type 2 diabetes mellitus with hyperglycemia (principal); E78.00 Pure hypercholesterolemia, unspecified; E66.9 Obesity, unspecified; D12.6 Benign neoplasm of colon, unspecified; Z79.4 Long term (current) use of insulin | CPT/HCPCS: 83036; 99212 ==

== ENCOUNTER 2024-05-01 09:33 | Outpatient (AMB) | payer MEDICARE, MEDICAID, SELFPAY ==
--- NOTE | 2024-05-01 09:37 | A.OFFVIS_ITS ---
VS Expanded 05/01/24 09:38 Height 5 ft 10 in Weight 225 lb 8.526 oz BMI 32.4 Intake Visit Reasons: t2dm Allergies lisinopril [LISINOPRIL] Allergy (Intermediate, Verified 04/18/24 11:33) HYPOTENSION Nutrition Presentation Details: Pt presents for MNT f/u for T2DM Pt reports walking 20 minutes 3 times a week (treadmill ) Today will discuss meal choices when eating out - comparing calories , nutrients BS Monitoring Most Recent Diabetes Results: No Data to Display [facility] Medical History (Updated 01/26/24 @ 18:02 by Lindsay Archibald MD) Tinea pedis Hypoxemia Adult general medical exam Screening for prostate cancer Folliculitis Nocturnal hypoxemia Hypoventilation syndrome Obstructive sleep apnea Type 2 diabetes mellitus with hyperglycemia Fatty liver GERD (gastroesophageal reflux disease) Insomnia Hypercholesterolemia Anxiety and depression Obesity (BMI 30-39.9) Vitamin D deficiency Mental and behavioral problem Surgical History History of colonoscopy H/O basal cell carcinoma excision History of cataract surgery Family History Father Medical history unknown Myocardial infarct Mother Lung cancer Brain aneurysm Maternal Grandmother Uterine cancer Maternal Grandfather Lung cancer Social History Housing: House Housing Other:: half-way Alcohol intake: never Patient Tobacco Use Status: Never used Tobacco Tobacco use type: Cigarette e-Cigarette/Vaping Use: Never Used Second Hand Smoke Exposure: No service: No Current occupational status: unemployed and disabled Cognitive needs: Yes Hearing needs: No Vision needs: No Assessment & Plan Assessment & Plan (1) Type 2 diabetes mellitus with hyperglycemia: Code(s): E11.65 - Type 2 diabetes mellitus with hyperglycemia Category: Medical Qualifiers: Diabetes mellitus mcfp insulin use: with terminal make up operator use Qualified Code(s): E11.65 - Type 2 diabetes mellitus with hyperglycemia; Z79.4 - jail (current) use of insulin Plan: Wt: 103 Kg ( 02/24 ), 101 kg (03/26), 102 kg (04/27) Est kcal needs as per MSJ: 2200 (40% carb, 30% protein/fat) Est fluid needs as per 25-30 ml/d: 3100 Est prot per day as per 1 g/kg bw: 103 Recommend fiber intake : 8-10 g per day and gradually increase to 25-28 g per day for women and 35-38 g for men or as tolerated Recommend sodium intake per day : l less than 2300 mg Educated patient on: ( R = reviewed V = verbalizes understanding N/R = needs review N/A = not applicable * Food sources of carbohydrate, adequate serving sizes and its role in various health conditions: R * Differences between complex carbohydrates a simple carbohydrates, role of fiber in diet: R * Lean protein sources of foods: R * Differences between types of fats and role in diet (mono on saturated fat fatty acids, saturated fatty acids, trans fats): R * EAting out food choices (choosing protein , lower calorie option) : R * Food sources of sodium in salt and healthy modifications for heart health in kidney health: R V R/V * Vitamins and minerals: R V N/R * Healthy plate method concept: R V N/R * Physical activity: Benefits a precaution: R * Hypoglycemia protocol (rule of 15): R V N/R * Dietary prevention of Hyperglycemia: R Patient Instructions: Choose chicken and salad (700 anita) vs 2000 anita for fried vegetables (cactus blossom ) Choose burger meal option from [employer] walk 30 minutes, 3 times a week Coding Level of Care Code Nutr Indiv Subseq (66213) Diagnoses Type 2 diabetes mellitus with hyperglycemia, with long-term current use of insulin E11.65; Z79.4 Diabetes mellitus terminal make up operator insulin use: with mcfp use Time Spent (min) 30
[2024-05-01 09:38] VITALS: BMI 32.4
--- OUTSIDE RECORDS SUMMARY | 2024-05-01 11:07 | XMS_ITS | Clinical Summary ---
Author Organization [address] [facility] Address [address] [place] [address] Phone Care Team Providers Care Liner Installer Name Role Phone Lindsay Archibald MD Primary Care Provider [phone] Allergies Active Allergy Reactions Criticality Noted Date Comments Lisinopril 01/05/2024 [facility] staff unsure how long he has had a reaction to the medication Medications Medication Sig Dispensed Refills Start Date End Date Status miconazole (Lotrimin AF) 2 % powder Apply powder to feet daily for 12 weeks 11/23/2022 Active escitalopram (LEXAPRO) 10 mg tablet Take 1 tablet (10 mg total) by mouth 1 (one) time each day. Active atorvastatin (LIPITOR) 80 mg tablet Take 1 tablet (80 mg total) by mouth 1 (one) time each day. Active metFORMIN (GLUCOPHAGE) 500 mg tablet Take 1 tablet (500 mg total) by mouth 2 (two) times a day with meals. Active insulin glargine (LANTUS) 100 unit/mL injection Inject 15 Units under the skin 1 (one) time each day in the morning. Active aspirin 81 mg EC tablet Take 1 tablet (81 mg total) by mouth 1 (one) time each day. Active omeprazole (PriLOSEC) [address] capsule Take 1 capsule (20 mg total) by mouth 1 (one) time each day. Active escitalopram (LEXAPRO) 20 mg tablet Take 2 tablets (40 mg total) by mouth 1 (one) time each day. Active cholecalciferol (VITAMIN D-3) 25 mcg (1,000 unit) tablet Take 2 Tabs by mouth every morning. Active peg 400/hypromellose/glyc willie (VISINE TEARS OPHT) apply 1 Drop to the eye 4 times daily as needed. In each eye Active ketoconazole (NIZORAL) 2 % shampoo Apply topically. 2x per week Active multivitamin liquid TAKE ONE TABLET BY MOUTH AT 8 AM DAILY 01/26/2007 Active insulin syringe-needle U-100 1/2 mL 28 gauge syringe 120 07/18/2006 Active risperiDONE (RisperDAL) 4 mg tablet 1 tab daily Active bismuth subsalicylate (KAOPECTATE, BISMUTH SUBSALICY, ORAL) 20 mg prn Active acetaminophen (TylenoL) 325 mg tablet 2 TABLETS EVERY 4 HOURS NEEDED Active simethicone (MAALOX ANTI-GAS ORAL) take 1 to 2 teaspoonfuls before meals prn acidity Active gly/oat/hb103/peg-6/p etrolatum (LUBRIDERM SKIN NOURISHING TOP) apply to damp skin bid Active FreeStyle Test test strip test tid 01/23/2006 Active FREESTYLE LANCETS MISC test tid 01/23/2006 Active Active Problems Problem Noted Date Diagnosed Date Basal cell carcinoma of left side of neck 2018 Type 1 diabetes mellitus with vascular disease 0 10/10/2017 Obesity, unspecified 03/31/2006 Schizophreniform disorder in remission 5 Overview (01/05/2024): IMO update Type 1 diabetes mellitus 02/23/2005 Encounters Date Type Department Care Team Description 02/14/2024 3:30 PM EST Office Visit Orthopedic Surgery - [address] [address] Ross Rosenbaum, DPM Dermatophytosis of nail (Primary Dx); Tinea pedis of both feet; Type II diabetes mellitus with peripheral circulatory disorder (CMS/HCC); Acquired hammer toe of right foot from Last 3 Months Immunizations Name Administration Dates Next Due Influenza trivalent, with pr eservative (Fluzone; Afluria) 6mo and older 02/12/2005 Pneumococcal polysaccharide 23 valent (Pneumovax 23) 2yo and older 01/15/2003 Td Tetanus diptheria (Tdvax) 7yo and older 04/08 Social History Tobacco Use Types Packs/Day Years Used Date Smoking Tobacco: Never Smokeless Tobacco: Never Alcohol Use Standard Drinks/Week Comments No 0 (1 standard drink = 0.6 oz pur e alcohol) Sex and Gender Information Value Date Recorded Sex Assigned at Not on file Gender Identity Not on file Sexual Orientation Not on file Job Start Date Occupation Industry Not on file Not on file Not on file Obstetrics History Last Filed Vital Signs Vital Sign Reading Time Taken Comments Blood Pressure 130/76 03/23/2022 2:22 PM EST Pulse 85 03/23/2022 2:22 PM EST Temperature - - Respiratory Rate - - Oxygen Saturation - - Inhaled Oxygen Concentration - - Weight 121 kg (267 lb) 02/14/2024 3:30 PM EST Height 177.8 cm (5' 10 ) 11/14/2023 3:21 PM EDT Body Mass Index 38.31 11/14/2023 3:21 PM EDT Plan of Treatment Upcoming Encounters Date Type Department Care Team (Late st Contact Info) Description 05/16/2024 3:30 PM EST Office Visit Orthopedic Surgery - [place] [id number] [address] Ross Rosenbaum, DPM [address] [address] Health Maintenance Due Date Last Done Comments Diabetes: Annual Foot Exam 1974 Diabetes: Annual Retina Eye Exam 1974 Hepatitis B Vaccines (1 of 3 - 19+ 3-dose series) 08/21/1983 Zoster Vaccines (1 of 2) 08/21/1983 Diabetes: Annual GFR (Glomerular Filtration Rate) 06/27/2006 06/27/2005 DTaP,Tdap,and Td Vaccines (2 - Td or Tdap) 04/08/2013 04/08/2003 Pneumococcal Vaccine: Pediatrics (0 to 5 Years) and At-Risk Patients (6 to 64 Years) (3 of 3 - PCV) 04/14/2017 04/14/2016, 01/15/2003 Cholesterol Screening (Lipid Panel) 03/13/2022 06/27/2005 Colorectal Cancer Screening: Colonoscopy 03/13/2022 Depression Screening 03/13/2022 HIV Screening 03/13/2022 Hepatitis C Screening 03/13/2022 Medicare Annual Wellness Visit 03/13/2022 Social Influencers of Health Screening 03/13/2022 Diabetes: Annual Urine Albumin-Creatinine Ratio (uACR) 03/17/2022 08/04/2004 Diabetes: Blood Sugar Control Test (HGBA1C) 03/17/2022 02/24/2005 COVID-19 Vaccine ( season) 2023 05/12/2023, 08/26/2021, 05/08/2020, Additional history exists RSV Immunization Patients 60+ Years Old (1 - 1-dose 75+ series) 08/21/2039 Influenza Vaccine Completed 01/26/2024, , 01/03/2022, Additional history exists HIB Vaccines Aged Out No longer eligi ble based on patient's age to complete this topic HPV Vaccines Aged Out No longer eligi ble based on patient's age to complete this topic Hepatitis A Vaccines Aged Out No long er eligible based on patient's age to complete this topic IPV Vaccines Aged Out No longer eligi ble based on patient's age to complete this topic MMR Vaccines Aged Out No longer eligi ble based on patient's age to complete this topic Meningococcal ACWY Vaccine Aged Out N o longer eligible based on patient's age to complete this topic RSV Immunization Patients Under 20 months Aged Out No longer eligible based on patient's age to complete this topic Varicella Vaccines Aged Out No longer eligible based on patient's age to complete this topic Procedures Procedure Name Priority Date/Time Associated Diagnosis Comments ANNUAL BMP BLOOD TEST Routine 06/27/2005 LIPID PANEL Routine 06/27/2005 HEMOGLOBIN A1C Routine 02/24/2005 URINE ALBUMIN CREATININE RATIO Routine 08/04/2004 from Last 3 Months or Most Recently Relevant to Health Maintenance Results * Annual BMP Blood Test (06/27/2005) Pathologist [facility] Annual BMP Blood Test abstracted Historical Provider MD KIA Powers * (ABNORMAL) Lipid panel (06/27/2005) Pathologist [facility] LDL/HDL Ratio 4 0 - 4 Triglycerides 223(A) 0 - 150 mg/dL Cholesterol 192 0 - 200 mg/dL HDL 44 40 mg/dL LDL Cholesterol 104(A) 0 - 100 mg/dL Blood Venous blood specimen / Unknown Historical Provider LAB BLOOD ORDERAB LES * Hemoglobin A1c (02/24/2005) Hemoglobin A1C 5.5 4.0 - 6.0 % Blood Venous blood specimen / Unknown Historical Provider LAB BLOOD ORDERAB LES * HM Urine Albumin Creatinine Ratio (08/04/2004) HM Urine Albumin Creatinine Ratio abstracted Historical Provider HEALTH MAINTENANC E from Last 3 Months or Most Recently Relevant to Health Maintenance Care Teams Liner Installer Relationship Specialty Start Date End Date Lindsay Archibald MD [address] [place] [address] [address] [facility] [place] [address] PCP - General Internal Medicine 01/29/16
== END 2024-05-01 10:15 | disposition home or self-care (01) ==
PROVIDERS: PCP Internal Medicine; Visit Provider Dietitian, Registered
DX: E11.65 Type 2 diabetes mellitus with hyperglycemia (principal); Z79.4 Long term (current) use of insulin

== ENCOUNTER → 2024-05-01 09:33 | Outpatient (BNVA) | payer MEDICARE, MEDICAID, SELFPAY | PROVIDERS: PCP Internal Medicine; Visit Provider Dietitian, Registered | DX: E11.65 Type 2 diabetes mellitus with hyperglycemia (principal); Z79.4 Long term (current) use of insulin | CPT/HCPCS: 97803 ==

== ENCOUNTER 2024-05-16 11:45 | Outpatient (AMB) | payer MEDICARE, MEDICAID, SELFPAY ==
[2024-05-16 11:51] VITALS: BP 114/62; PULSE 74; O2SAT 97; BMI 34.1
--- NOTE | 2024-05-16 11:51 | A.OFFPC_ITS ---
Vital Signs 05/16/24 11:51 Height 5 ft 8 in Weight 224 lb BMI 34.1 BP 114/62 Blood Pressure Location Lt brachial Position Sitting Pulse 74 Pulse Source Pulse Oximeter Pulse Oximetry (%) 97 Oxygen Delivery Method Room Air Intake Visit Reasons: Headache and Cough Allergies lisinopril [LISINOPRIL] Allergy (Intermediate, Verified 05/16/24 11:51) HYPOTENSION Tobacco use date assessed: 04/18/24 Dental Screening Dental Screen Date: 04/18/24 HPI Headache and Cough HPI Details 2 days sickcough,no chills, , runny nose ,, no sobThe patient is a 58-year-old male presenting with a follow-up visit for the management of chronic conditions and preventive care scheduling. He has a history of obesity and generalized anxiety disorder. His hypercholesterolemia is managed with atorvasta tin at 80 mg daily, achieving an LDL cholesterol level of 72 mg/dL. His GERD is currently stable. The patient's Type 2 Diabetes Mellitus is controlled with a regimen of Lantus 8 units in the morning and metformin twice daily, achieving a hemoglobin A1c of 5.6% as measured in April 2022. He has obstructive sleep apnea with associated mild nocturnal hypoxemia and uses supplemental oxygen as part of his management. Anemia was noted as mild and chronic based on the patient's last bloodwork completed in January 2022, with normal sodium and potassium levels and good renal function. The patient was last seen in April 2022, and his most recent colonoscopy was in December 2019. He is scheduled for a gastroenterology appointment in June 2024 for further evaluation. The patient's thyroid function is normal. There are no recent reports of coronary artery disease or electrolyte imbalance. [facility] Medical History (Updated 05/16/24 @ 12:18 by Lindsay Archibald MD) Tinea pedis Hypoxemia Adult general medical exam Screening for prostate cancer Folliculitis Nocturnal hypoxemia Hypoventilation syndrome Obstructive sleep apnea Type 2 diabetes mellitus with hyperglycemia Fatty liver GERD (gastroesophageal reflux disease) Insomnia Hypercholesterolemia Anxiety and depression Obesity (BMI 30-39.9) Vitamin D deficiency Mental and behavioral problem Surgical History History of colonoscopy H/O basal cell carcinoma excision History of cataract surgery Family History Father Medical history unknown Myocardial infarct Mother Lung cancer Brain aneurysm Maternal Grandmother Uterine cancer Maternal Grandfather Lung cancer Social History Housing: House Housing Other:: [facility] Alcohol intake: never Patient Tobacco Use Status: Never used Tobacco Tobacco use type: Cigarette e-Cigarette/Vaping Use: Never Used Second Hand Smoke Exposure: No service: No Current occupational status: unemployed and disabled Cognitive needs: Yes Hearing needs: No Vision needs: No Questionnaire PHQ-9 Over the last 2 weeks, how often have you been bothered by any of the following problems? 1. Little interest or pleasure in doing things: more than half the days 2. Feeling down, depressed, or hopeless: more than half the days 3. Trouble falling or staying asleep, or sleeping too much: more than half the days 4. Feeling tired or having little energy: nearly every day 5. Poor appetite or overeating: not at all 6. Feeling bad about yourself - or that you are a failure or have let yourself or your family down: nearly every day 7. Trouble concentrating on things, such as reading the newspaper or watching television: not at all 8. Moving or speaking so slowly that other people could have noticed. Or the opposite - being so fidgety or restless that you have been moving around a lot more than usual: not at all 9. Thoughts that you would be better off or of hurting yourself in some way: not at all Total score: 12 Depression Screening Interpretation: Positive Depression Screening Done: Yes Source: Developed by Drs. Oleg Torres, Tomeka Bacon, Ranjan Jacob and colleagues, with an educational javier from [employer]. Thrive Questionnaire Date Thrive assessed: 04/18/24 AMBER-7 AMB Questionnaire AMBER-7 Date AMBER - 7 assessed: 04/18/24 Source: Developed by Drs. Oleg Torres, Tomeka Bacon, Ranjan Jacob and colleagues, with an educational javier from [employer]. Physical exam (Primary Care) Vital Signs: Last Vital Signs Pulse 74 05/16/24 11:51 BP 114/62 05/16/24 11:51 Pulse Ox 97 05/16/24 11:51 Oxygen Delivery Method Room Air 05/16/24 11:51 BMI result Body Mass Index 34.1 Tobacco/Smoking Status: Tobacco use Status Tobacco use date assessed 04/18/24 05/16/24 11:56 Patient Tobacco Use Status Never used Tobacco 05/16/24 11:56 Tobacco use type Cigarette 05/16/24 11:56 e-Cigarette/Vaping Use Never Used 05/16/24 11:56 PHQ-9: PHQ-9 Score PHQ-9: Total score 12 05/16/24 11:56 Depression Screening Interpretation: Positive Thrive Assessment: Date of Thrive Assessment Date Thrive assessed 04/18/24 05/16/24 11:56 Const General: alert; No acute distress Eyes Conjunctivae: conjunctivae normal Resp Auscultation: clear to auscultation bilaterally Cardio Rate: regular rate Rhythm: regular rhythm GI Inspection: Yes normal to inspection Extrem General: Yes normal to inspection and No edema Coding Level of Care Code Est Pt Level 4 (35715) Complex EM visit Add On G2211 Diagnoses Type 2 diabetes mellitus with hyperglycemia, with long-term current use of insulin E11.65; Z79.4 Diabetes mellitus manager intermediate insulin use: with manager intermediate use Gastroesophageal reflux disease without esophagitis K21.9 Esophagitis presence: without esophagitis Insomnia G47.00 Hypercholesterolemia E78.00 Obesity (BMI 30-39.9) E66.9 Tubular adenoma of colon D12.6 Nocturnal hypoxemia G47.34 Upper respiratory infection J06.9 Assessment & Plan Assessment & Plan (1) Type 2 diabetes mellitus with hyperglycemia: Code(s): E11.65 - Type 2 diabetes mellitus with hyperglycemia Category: Medical Qualifiers: Diabetes mellitus longterm insulin use: with longterm use Qualified Code(s): E11.65 - Type 2 diabetes mellitus with hyperglycemia; Z79.4 - termination clerk (current) use of insulin Plan: Decrease the amount of carbohydrate intake, pasta, bread, rice and potatoes are all sugar and that is aside from all the sweet stuff, remember that fruits are good but they are Sweet also. Hemoglobin A1c goal of less than 6.5 patient is on Lantus at 8 units in the morning metformin 500 mg twice a day (2) GERD (gastroesophageal reflux disease): Code(s): K21.9 - Gastro-esophageal reflux disease without esophagitis Category: Medical Qualifiers: Esophagitis presence: without esophagitis Qualified Code(s): K21.9 - Gastro-esophageal reflux disease without esophagitis Plan: Avoid the foods that causes that usually spicy foods, tomato products, juices, coffee, soda and foods that your sensitive to. After eating do not lie down, allow 3-4 hours before in lie down. And keep the head of bed above 30 degrees to avoid the acid from going up. (3) Insomnia: Code(s): G47.00 - Insomnia, unspecified Category: Medical (4) Hypercholesterolemia: Code(s): E78.00 - Pure hypercholesterolemia, unspecified Category: Medical Plan: Avoid fried foods, chicken skin, eggs, butter margarine, pastries and meat. Be it pork or beef they have a lot of cholesterol LDL goal of less than 100 and triglyceride of less than 150 on atorvastatin 80 mg once a day (5) Obesity (BMI 30-39.9): Comment: This is a chronic problem. Considering his chronic , mental disorder, it is difficult to expect any weight reduction in his case. Yet he has lost another 4 lb in the last 6 months. Code(s): E66.9 - Obesity, unspecified Category: Medical Plan: Diet and exercise (6) Tubular adenoma of colon: Comment: 2020 3-5 years Code(s): D12.6 - Benign neoplasm of colon, unspecified Category: Medical Plan: Patient's colonoscopy is due and has a schedule in June to see the core man. (7) Nocturnal hypoxemia: Comment: Nocturnal hypoxemia is part of obstructive sleep apnea and sleep-related hypoventilation syndrome. He is doing well with use of O2 at night. Code(s): G47.34 - Idiopathic sleep related nonobstructive alveolar hypoventilation Category: Medical Plan: Patient has nocturnal hypoxemia and is supposed to be on oxygen. (8) Upper respiratory infection: Code(s): J06.9 - Acute upper respiratory infection, unspecified Category: Medical Plan: resolved Plan - Continue the current dosage of atorvastatin to manage hypercholesterolemia. - Maintain the diabetes management regimen with Lantus and metformin. - Encourage continuation of the current treatment for obstructive sleep apnea, including the usage of supplemental oxygen. - Follow-up with gastroenterology in June 2024 for colonoscopy scheduling. - Continue monitoring anemia, with further evaluation if necessary. Hematol ogical parameters should be re-assessed periodically. - Support ongoing management and monitoring of generalized anxiety disorder as per previous interventions. Adjustments will be made based on subsequent evaluations. - Promote weight management strategies and lifestyle modifications to address obesity. - Monitor GERD symptoms and adjust treatment if any exacerbations occur. - Reinforce adherence to health maintenance schedules and preventive care recommendations. Medications: Changed From insulin glargine (Lantus Solostar U-100 Insulin) 8 units (0.08 mL) subcut QAM 15 mL 3RF E11.65 - Type 2 diabetes mellitus with hyperglycemia, Z79.4 - termination clerk (current) use of insulin To insulin glargine (Lantus Solostar U-100 Insulin) 5 units (0.05 mL) subcut QAM 15 mL 3RF E11.65 - Type 2 diabetes mellitus with hyperglycemia, Z79.4 - termination clerk (current) use of insulin
--- OUTSIDE RECORDS SUMMARY | 2024-05-16 12:13 | XMS_ITS | Clinical Summary ---
Author Organization 175 [facility] Address [address] [place] [address] Phone Care Team Providers Care Rn Or Lpn Name Role Phone Lindsay Archibald MD Primary Care Provider [phone] Allergies Active Allergy Reactions Criticality Noted Date Comments Lisinopril 01/05/2024 [facility] staff unsure how long he has had a reaction to the medication Medications miconazole (Lotrimin AF) 2 % powder Apply powder to feet daily for 12 weeks 11/24/19 23 Active escitalopram (LEXAPRO) 10 mg tablet Take [...] Tabs by mouth every morning. Active peg 400/hypromellose/ glycerin (VISINE TEARS OPHT) apply 1 Drop to the eye 4 times daily as needed. In each eye Active ketoconazole (NIZORAL) 2 % shampoo Apply topically. 2x per week Active multivitamin liquid TAKE ONE TABLET BY MOUTH AT 8 AM DAILY 01/27/20 07 Active insulin syringe-needle U-100 1/2 mL 28 gauge syringe 120 07/19/19 07 Active risperiDONE (RisperDAL) 4 mg tablet 1 tab daily Active bismuth subsalicylate (KAOPECTATE, BISMUTH SUBSALICY, ORAL) 20 mg prn Act harmeet acetaminophen (TylenoL) 325 mg tablet 2 TABLETS EVERY 4 HOURS NEEDED Active simethicone (MAALOX ANTI-GAS ORAL) take 1 to 2 teaspoonfuls before meals prn acidity Active gly/oat/hb103/peg -6/petrolatum (LUBRIDERM SKIN NOURISHING TOP) apply to damp skin bid Active FreeStyle Test test strip test tid 01/24/20 06 Active FREESTYLE LANCETS MISC test tid 01/24/20 06 Active Active Problems Problem Noted Date Diagnosed Date Basal cell carcinoma of left side of neck 2018 Type 1 diabetes mellitus with vascular disease 0 10/10/2017 Obesity, unspecified 03/31/2006 Schizophreniform disorder in remission 5 Overview (01/05/2024): IMO update Type 1 diabetes mellitus 02/23/2005 Encounters Date Type Department Care Team Description 02/14/2024 3:30 PM EST Office Visit Orthopedic Surgery - [address] [address] Ross Rosenbaum, DPM Dermatophytosis of [...] Recorded Sex Assigned at Not on file Legal Sex Male 5:51 PM EST Gender Identity Not on file Sexual Orientation Not on file Obstetrics History Last Filed [...] PM EST Office Visit Orthopedic Surgery - [place] [address] [address] Ross Rosenbaum, DPM [address] [address] Health Maintenance Due Date Last Done Comments Diabetes: Annual Foot Exam 1974 Diabetes: Annual Retina Eye Exam 1974 Hepatitis B Vaccines (1 of 3 - 19+ 3-dose series) 08/21/1983 Zoster Vaccines (1 of 2) 08/21/1983 DTaP,Tdap,and Td Vaccines (2 - Td or Tdap) 05/06/2003 04/08/2003 Diabetes: Annual GFR (Glomerular Filtration Rate) 06/27/2006 06/27/2005 Pneumococcal Vaccine: 50+ Years (3 of 3 - PCV) 04/14/2017 04/14/2016, 01/15/2003 Pneumococcal Vaccine: Pediatrics (0 to 5 Years) [...] patient's age to complete this topic Meningococcal B Vacine Aged Out No lo nger eligible based on patient's age to complete [...] Results * Annual BMP Blood Test (06/27/2005) Annual BMP Blood Test abstracted us Historical Provider HEALTH MAINTENANCE Final Result * (ABNORMAL) Lipid panel (06/27/2005) LDL/HDL Ratio 4 0 - 4 Triglycerides 223(A) 0 - 150 mg/dL Cholesterol 192 0 - 200 mg/dL HDL 44 >=40 mg/dL LDL Cholesterol 104(A) 0 - 100 mg/dL Blood Venous blood specimen / Unknown Result [facility] Historical Provider LAB BLOOD ORDERABLES Carito l Result * Hemoglobin A1c (02/24/2005) Hemoglobin A1C 5.5 4.0 - 6.0 % Blood Venous blood specimen / Unknown Result [facility] Provider LAB BLOOD ORDERABLES Carito l Result * HM Urine Albumin Creatinine Ratio (08/04/2004) HM Urine Albumin Creatinine Ratio abstracted Result [facility] Provider HEALTH MAINTENANCE Final Result from Last 3 Months or Most Recently Relevant to Health Maintenance Insurance [place]ICA[place] - [place] MEDICARE Care Teams Rn Or Lpn Relationship Specialty Start Date End Date Lindsay Archibald MD [address] [place] [address] [address] [facility] [place] [address] PCP - General Internal Medicine 01/29/16
== END 2024-05-16 12:20 | disposition home or self-care (01) ==
PROVIDERS: PCP Internal Medicine; Visit Provider Internal Medicine
DX: E11.65 Type 2 diabetes mellitus with hyperglycemia (principal); Z79.4 Long term (current) use of insulin; E66.9 Obesity, unspecified; Z68.34 Body mass index [BMI] 34.0-34.9, adult; K21.9 Gastro-esophageal reflux disease without esophagitis; G47.00 Insomnia, unspecified; E78.00 Pure hypercholesterolemia, unspecified; D12.6 Benign neoplasm of colon, unspecified; G47.34 Idiopathic sleep related nonobstructive alveolar hypoventilation; J06.9 Acute upper respiratory infection, unspecified

== ENCOUNTER → 2024-05-16 11:45 | Outpatient (BNVA) | payer MEDICARE, MEDICAID, SELFPAY | PROVIDERS: PCP Internal Medicine; Visit Provider Internal Medicine | DX: E11.65 Type 2 diabetes mellitus with hyperglycemia (principal); K21.9 Gastro-esophageal reflux disease without esophagitis; G47.00 Insomnia, unspecified; E66.9 Obesity, unspecified; D12.6 Benign neoplasm of colon, unspecified; G47.34 Idiopathic sleep related nonobstructive alveolar hypoventilation; J06.9 Acute upper respiratory infection, unspecified; Z79.4 Long term (current) use of insulin | CPT/HCPCS: 99212 ==

== ENCOUNTER 2024-06-19 09:30 | Outpatient (AMB) | payer MEDICARE, MEDICAID, SELFPAY ==
[2024-06-19 09:39] VITALS: BMI 33.4
--- NOTE | 2024-06-19 09:39 | A.OFFVIS_ITS ---
VS Expanded 06/19/24 09:39 Height 5 ft 8 in Weight 219 lb 12.814 oz BMI 33.4 Intake Visit Reasons: t2dm Allergies lisinopril [LISINOPRIL] Allergy (Intermediate, Verified 05/16/24 11:51) HYPOTENSION Nutrition Presentation Details: Pt presents for MNT f/u Pt reports walking 1.8 on treadmill for 20 min everyoother day (Sat, Tues/Thurs) (takes breaks in between) Working on chooing lower calorie options when eating out Has 3 meals/day and sometimes has snacks in between B: sausage/lopez/waffles, coffeewith cream L/D; starches/veg/prot fruits in between BS Monitoring Most Recent Diabetes Results: No Data to Display [facility] Medical History (Updated 05/16/24 @ 12:18 by Lindsay Archibald MD) Tinea pedis Hypoxemia Adult general medical exam Screening for prostate cancer Folliculitis Nocturnal hypoxemia Hypoventilation syndrome Obstructive sleep apnea Type 2 diabetes mellitus with hyperglycemia Fatty liver GERD (gastroesophageal reflux disease) Insomnia Hypercholesterolemia Anxiety and depression Obesity (BMI 30-39.9) Vitamin D deficiency Mental and behavioral problem Surgical History History of colonoscopy H/O basal cell carcinoma excision History of cataract surgery Family History Father Medical history unknown Myocardial infarct Mother Lung cancer Brain aneurysm Maternal Grandmother Uterine cancer Maternal Grandfather Lung cancer Social History Housing: House Housing Other:: [facility] Alcohol intake: never Patient Tobacco Use Status: Never used Tobacco Tobacco use type: Cigarette e-Cigarette/Vaping Use: Never Used Second Hand Smoke Exposure: No service: No Current occupational status: unemployed and disabled Cognitive needs: Yes Hearing needs: No Vision needs: No Assessment & Plan Assessment & Plan (1) Type 2 diabetes mellitus with hyperglycemia: Code(s): E11.65 - Type 2 diabetes mellitus with hyperglycemia Category: Medical Qualifiers: Diabetes mellitus half-way insulin use: with half-way use Qualified Code(s): E11.65 - Type 2 diabetes mellitus with hyperglycemia; Z79.4 - termite control servicer (current) use of insulin Plan: Wt: 103 Kg ( 11/24 ), 101 kg (03/26), 102 kg (04/27), 100 kg (06/25) Est kcal needs as per MSJ: 2200 (40% carb, 30% protein/fat) Est fluid needs as per 25-30 ml/d: 3100 Est prot per day as per 1 g/kg bw: 103 Recommend fiber intake : 8-10 g per day and gradually increase to 25-28 g per day for women and 35-38 g for men or as tolerated Recommend sodium intake per day : l less than 2300 mg Educated patient on: ( R = reviewed V = verbalizes understanding N/R = needs review N/A = not applicable * Food sources of carbohydrate, adequate serving sizes and its role in various health conditions: R * Differences between complex carbohydrates a simple carbohydrates, role of fiber in diet: R * Lean protein sources of foods: R * Differences between types of fats and role in diet (mono on saturated fat fatty acids, saturated fatty acids, trans fats): R * EAting out food choices (choosing protein , lower calorie option) : R * Food sources of sodium in salt and healthy modifications for heart health in kidney health: R V R/V * Vitamins and minerals: R V N/R * Healthy plate method concept: R V N/R * Physical activity: Benefits a precaution: R * Hypoglycemia protocol (rule of 15): R V N/R * Dietary prevention of Hyperglycemia: R Patient Instructions: Have a meal replacement (3 times a week ) with a fruit at breakfast Coding Level of Care Code Nutr Indiv Subseq (37647) Diagnoses Type 2 diabetes mellitus with hyperglycemia, with long-term current use of insulin E11.65; Z79.4 Diabetes mellitus bed bug exterminator insulin use: with bed bug exterminator use Time Spent (min) 20
--- OUTSIDE RECORDS SUMMARY | 2024-06-19 10:31 | XMS_ITS | Clinical Summary ---
Author Organization 175 [facility] Address [address] [place] [address] Phone Care Team Providers Care Servicer Travel Trailers Name Role Phone Lindsay Archibald MD Primary Care Provider [phone] Allergies Active Allergy Reactions Criticality Noted Date [...] IMO update Type 1 diabetes mellitus 02/23/2005 Immunizations Name Administration Dates Next Due Influenza [...] 11/14/2023 3:21 PM EDT Plan of Treatment Health Maintenance Due Date Last Done Comments Diabetes: Annual Foot Exam 1974 Diabetes: Annual Retina Eye Exam 1974 Hepatitis B Vaccines (1 of 3 - 19+ 3-dose series) 08/21/1983 Zoster Vaccines (1 of 2) 08/21/1983 Diabetes: Annual GFR (Glomerular Filtration Rate) 06/27/2006 06/27/2005 DTaP,Tdap,and Td Vaccines (2 - Td or Tdap) 04/08/2013 04/08/2003 Pneumococcal Vaccine: 50+ Years (3 of 3 [...] BMP Blood Test (06/27/2005) Pathologist [facility] Annual BMP Blood Test abstracted [facility] Provider HEALTH MAINTENANCE Final Result * (ABNORMAL) Lipid panel (06/27/2005) Pathologist [facility] LDL/HDL Ratio 4 0 - 4 Triglycerides 223(A) 0 - 150 mg/dL Cholesterol 192 0 - 200 mg/dL HDL 44 >=40 mg/dL LDL Cholesterol 104(A) 0 - 100 mg/dL Blood Venous blood specimen / Unknown Historical Provider LAB BLOOD ORDERABLES Carito l Result * Hemoglobin A1c (02/24/2005) [facility] Hemoglobin A1C 5.5 4.0 - 6.0 % Blood Venous blood specimen / Unknown Historical Provider LAB BLOOD ORDERABLES Carito l Result * Urine Albumin Creatinine Ratio (08/04/2004) Urine Albumin Creatinine Ratio abstracted us Historical Provider HEALTH MAINTENANCE Final Result from Last 3 Months or Most Recently Relevant to Health Maintenance Insurance [place] - [place]ICARE Care Teams Servicer Travel Trailers Relationship Specialty Start Date End Date Lindsay Archibald MD [address] [place] [address] [address] [facility] [place] [address] PCP - General Internal Medicine 01/29/16
== END 2024-06-19 10:07 | disposition home or self-care (01) ==
LOC: HO.ENCR 09:31
PROVIDERS: PCP Internal Medicine; Visit Provider Dietitian, Registered
DX: E11.65 Type 2 diabetes mellitus with hyperglycemia (principal); Z79.4 Long term (current) use of insulin

== ENCOUNTER → 2024-06-19 09:30 | Outpatient (BNVA) | payer MEDICARE, MEDICAID, SELFPAY | PROVIDERS: PCP Internal Medicine; Visit Provider Dietitian, Registered | DX: E11.65 Type 2 diabetes mellitus with hyperglycemia (principal); Z79.4 Long term (current) use of insulin | CPT/HCPCS: 97803 ==

== ENCOUNTER 2024-06-26 10:24 | Outpatient (AMB) | payer MEDICARE, MEDICAID, SELFPAY ==
--- NOTE | 2024-06-26 10:31 | A.OFFVIS_ITS ---
Vital Signs 06/26/24 10:34 Height 5 ft 10 in Weight 219 lb 2.232 oz BMI 31.4 BP 115/61 Blood Pressure Location Rt brachial Position Sitting Pulse 74 Intake Visit Reasons: Benign neoplasm of colon Intake Note: Patient in office today for colonoscopy screening. CC: He denies having any GI symptoms or concerns today. Loop Cutter Required: No Accompanied by: [employer] security program specialist Allergies lisinopril [LISINOPRIL] Allergy (Intermediate, Verified 06/26/24 10:37) HYPOTENSION HPI HPI Benign neoplasm of colon: Details: 58-year-old male here for preprocedural meeting to discuss a screening colonoscopy. He is referred by Lindsay Archibald. PMX Obesity GRISELDA Diabetes High cholesterol Hepatic steatosis Dysphagia Anxiety/depression/insomnia/impulse control disorder GERD Seborrhea * SURGICAL HISTORY Colonoscopy-2019= TA Basal cell carcinoma excision Cataract surgery * ALLERGIES Lisinopril * [employer] LABS: None since 01/2024 TODAY'S VISIT He is here today with a staff member who is supportive. He had a prior scope in 2019 with a TAOdin. He denies any upper stomach or stooling problems. He has GRISELDA but not other respiratory problems and no cardiac problems. No prior problems with anesthesia or sedation. No ID problems. FHX is unknown as he is from a snf and has some developmental delay. [facility] Medical History Tinea pedis Hypoxemia Adult general medical exam Screening for prostate cancer Folliculitis Nocturnal hypoxemia Hypoventilation syndrome Obstructive sleep apnea Type 2 diabetes mellitus with hyperglycemia Fatty liver GERD (gastroesophageal reflux disease) Insomnia Hypercholesterolemia Anxiety and depression Obesity (BMI 30-39.9) Vitamin D deficiency Mental and behavioral problem Surgical History History of colonoscopy H/O basal cell carcinoma excision History of cataract surgery Family History Father Medical history unknown Myocardial infarct Mother Lung cancer Brain aneurysm Maternal Grandmother Uterine cancer Maternal Grandfather Lung cancer Social History Housing: House Housing Other:: longterm Alcohol intake: never Patient Tobacco Use Status: Never used Tobacco Tobacco use type: Cigarette e-Cigarette/Vaping Use: Never Used Second Hand Smoke Exposure: No service: No Current occupational status: unemployed and disabled Cognitive needs: Yes Hearing needs: No Vision needs: No Review of Systems Const Denies fatigue, Denies fever(s), Denies night sweats, Denies poor appetite and Denies weight loss ENT Reports Normal hearing present, Denies dental pain, Denies dysphagia, Denies hearing loss, Denies mouth pain, Denies odynophagia, Denies throat swelling, Denies tongue swelling and Reports other (Dentition adequate) Card Reports no additional complaints Resp Reports no additional complaints GI Details: Denies abdominal pain, Denies melena, Denies bloating, Denies hematochezia, Denies constipation, Denies GI cramping, Denies dysphagia, Denies excessive flatus, Denies early satiety, Denies heartburn, Denies diarrhea, Denies nausea, Denies odynophagia, Denies vomiting and Denies hematemesis Skin/Breast Denies pruritus, Denies lesions, Denies rash and Denies jaundice Neuro Reports Normal hearing present and Denies Abnormal speech present Psych Reports anxiety Endo Denies fatigue Aller/Immun Denies throat swelling and Denies tongue swelling Physical Exam Vital Signs: Last Vital Signs Pulse 74 06/26/24 10:34 BP 115/61 06/26/24 10:34 BMI result Body Mass Index 31.4 Const General: cooperative, no acute distress, well developed and well groomed Nutritional Appearance: well nourished and obese Orientation/consciousness: oriented to person, oriented to place and oriented to time Limitations: No language barrier and other limitations HEENT Head: Yes normocephalic and Yes atraumatic Eyes General: appearance normal, both eyes and all related structures Pupils: Equal, round and reactive pupils present Neck Neck: Yes normal visual inspection and Yes no lymphadenopathy Thyroid: Thyroid normal Resp Effort & Inspection: normal respiratory effort and able to speak in complete sentences Auscultation: clear to auscultation bilaterally Cardio Rate: regular rate Rhythm: regular rhythm Heart sounds: Normal, physiologic split S2 sound present Peripheral pulses: radial pulses present and posterior tibial pulses present GI Inspection: No distended, No Abdominal panniculus present and Yes obesity Palpation (GI): Soft to palpation, nontender, no guarding, not rigid and No he patosplenomegaly present Percussion: Yes normal to percussion Auscultation: normal bowel sounds Rectal Exam - Male: Yes deferred Skin General skin exam: no rashes or lesions noted, turgor normal, skin not dry, no jaundice, No spider nevi and no striae Rashes: no rashes Nails: normal Neuro General: oriented to person, oriented to place and oriented to time Cranial nerves: Yes Equal, round and reactive pupils present and Yes Normal hearing present Speech: No Abnormal speech present Extrem General: Yes normal to inspection, No clubbing, No cyanosis and No edema Psych Appearance: grossly normal and well kempt Mental Status: mental status grossly normal Speech and movement: Normal speech and movement present Affect: normal affect Attitude: cooperative Thought process: not confabulating and Loose association thought process present Thought content: Normal thought content present Insight: Limited insight present (Psych) Judgement: Limited judgement present (Psych) Assessment & Plan Assessment & Plan (1) Tubular adenoma of colon: Comment: 2019 3-5 years Code(s): D12.6 - Benign neoplasm of colon, unspecified Category: Medical (2) Pre-op examination: Code(s): Z01.818 - Encounter for other preprocedural examination Category: Medical Plan He is here today with a staff member who is supportive. He had a prior scope in 2019 with a Odin CLEMONS. He denies any upper stomach or stooling problems. He has GRISELDA but not other respiratory problems and no cardiac problems. No prior problems with anesthesia or sedation. No ID problems. FHX is unknown as he is from a snf and has some developmental delay. Orders: Orders Colonoscopy - GI Use Only Today D12.6 - Benign neoplasm of colon, unspecified, Z01.818 - Encounter for other preprocedural examination Comprehensive Met. Panel Today D12.6 - Benign neoplasm of colon, unspecified, Z01.818 - Encounter for other preprocedural examination Complete Blood Count Auto Diff Today D12.6 - Benign neoplasm of colon, unspecified, Z01.818 - Encounter for other preprocedural examination Medications: New peg 3350-electrolytes 236-22.74-6.74 -5.86 gram (Golytely) until fecal effluent is clear; do not exceed a total volume of 2,000 mL 240 mL PO Q10M 1 day 4,000 mL 0RF Z12.11 - Encounter for screening for malignant neoplasm of colon bisacodyl (Dulcolax (bisacodyl)) 10 mg (2 x 5 mg) PO BEDTIME 2 days 4 tabs 0RF Coding Level of Care Code New Pt Level 3 (22968) Diagnoses Tubular adenoma of colon D12.6 Pre-op examination Z01.818
[2024-06-26 10:34] VITALS: BP 115/61; PULSE 74; BMI 31.4
--- OUTSIDE RECORDS SUMMARY | 2024-06-26 12:12 | XMS_ITS | Clinical Summary ---
Author Organization [address] [facility] Address [address] [place] [address] Phone Care Team Providers Care Toolman Name Role Phone Lindsay Archibald MD Primary Care Provider [phone] Allergies Active Allergy Reactions Criticality Noted Date Comments Lisinopril 01/05/2024 custodial staff unsure how long he has had [...] * Annual BMP Blood Test (06/27/2005) Pathologist [facility] Annual BMP Blood Test abstracted [facility] Provider HEALTH MAINTENANCE Final Result * (ABNORMAL) Lipid panel (06/27/2005) Pathologist [facility] LDL/HDL Ratio 4 0 - 4 Triglycerides 223(A) 0 - 150 mg/dL Cholesterol 192 0 - 200 mg/dL HDL 44 >=40 mg/dL LDL Cholesterol 104(A) 0 - 100 mg/dL Blood Venous blood specimen / Unknown Historical Provider LAB BLOOD ORDERABLES Carito l Result * Hemoglobin A1c (02/24/2005) [facility] Hemoglobin A1C 5.5 4.0 - 6.0 % Blood Venous blood specimen / Unknown Historical Provider LAB BLOOD ORDERABLES Carito l Result * Urine Albumin Creatinine Ratio (08/04/2004) Urine Albumin Creatinine Ratio abstracted us Historical Provider HEALTH MAINTENANCE Final Result from Last 3 Months or Most Recently Relevant to Health Maintenance Insurance MEDICAID - [place] MEDICARE Care Teams Toolman Relationship Specialty Start Date End Date Lindsay Archibald MD [address] [place] [address] [address] [facility] [place] [address] PCP - General Internal Medicine 01/29/16
== END 2024-06-26 11:06 | disposition home or self-care (01) ==
LOC: HO.HGI 10:25
PROVIDERS: PCP Internal Medicine; Visit Provider Nurse Practitioner
DX: Z01.818 Encounter for other preprocedural examination (principal); Z12.11 Encounter for screening for malignant neoplasm of colon; Z86.0101 Personal history of adenomatous and serrated colon polyps
CPT/HCPCS: 99024

== ENCOUNTER 2024-06-26 10:24 | Outpatient (REF) | payer MEDICARE, MEDICAID, SELFPAY ==
[2024-06-26 11:42] LABS: MANUAL DIFF FLAG NO
[2024-06-26 12:07] LABS: Basophils Absolute Auto 0.1 X10*3/uL (0.0-0.2); Basophils Percent Auto 0.7 % (0-2); Eosinophils Absolute Auto 0.1 X10*3/uL (0.0-0.4); Eosinophils Percent Auto 1.6 % (0-4); Hematocrit 40.6 % (42.0-52.0); Hemoglobin 13.5 g/dl (14.0-18.0); Imm Gran Abs Auto 0.02 X10*3/uL (0.00-0.03); Imm Gran Pct Auto 0.3 % (0.0-0.4); Lymphocytes Absolute Auto 1.7 X10*3/uL (1.2-4.9); Lymphocytes Percent Auto 24.2 % (20-40); Mean Corpuscular HGB Conc 33.3 g/dl (31.0-36.0); Mean Corpuscular Hemoglobin 29.7 pg (27.0-33.0); Mean Corpuscular Volume 89.4 fL (80.0-98.0); Monocytes Absolute Auto 0.7 X10*3/uL (0.1-1.2); Monocytes Percent Auto 9.5 % (2-11); Neutrophils Absolute Auto 4.4 x10*3/uL (2.0-8.3); Neutrophils Percent Auto 63.7 % (45-73); Platelet Count 267 X10*3/uL (160-400); Red Blood Count 4.54 X10*6/uL (4.60-5.80); Red Cell Distribution Width 12.4 % (11.0-16.0)
[2024-06-26 12:34] LABS: Alanine Aminotransferase 31 U/L (0-40); Albumin Level 4.3 g/dL (3.5-5.0); Anion Gap 9 (12-20); Aspartate Amino Transferase 19 U/L (5-37); Bilirubin Total 0.4 mg/dL (0.0-1.0); Blood Urea Nitrogen 12 mg/dL (9-16); Calcium 9.5 mg/dL (8.4-10.2); Carbon Dioxide 31 mmol/L (22-29); Chloride 105 mmol/L (96-108); Estimated Glomerular Filt Rate > 60; Glucose Random 92 mg/dL (60-115); Potassium 4.2 mmol/L (3.3-5.1); Sodium 141 mmol/L (135-145); Total Protein 6.9 g/dL (6.5-8.0)
[2024-06-26 12:54] LABS: Alkaline Phosphatase 76 U/L (39-117)
== END 2024-06-26 10:25 | disposition home or self-care (01) ==
LOC: HO.LAB 10:24
PROVIDERS: PCP Internal Medicine; Visit Provider Nurse Practitioner
DX: Z01.818 Encounter for other preprocedural examination (principal); D12.6 Benign neoplasm of colon, unspecified
CPT/HCPCS: 36415; 80053; 85025; 99212

== ENCOUNTER 2024-07-09 15:15 | Outpatient (AMB) | payer MEDICARE, MEDICAID, SELFPAY ==
--- NOTE | 2024-07-09 15:21 | A.OFFPC_ITS ---
Vital Signs 07/09/24 15:23 Height 5 ft 10 in Weight 223 lb 6 oz BMI 32.0 BP 130/66 Blood Pressure Location Lt brachial Position Sitting Pulse 76 Pulse Source Pulse Oximeter Temp 97.5 F Temp Source Temporal Artery Scan Pulse Oximetry (%) 95 Oxygen Delivery Method Room Air Intake Visit Reasons: (R) thigh pain Intake Note: Patient is here to follow up on Right thigh pain. Complaint of right outer ear pain Special Events Assistant Required: No Filling Technician: Present Accompanied by: Staff Allergies lisinopril [LISINOPRIL] Allergy (Intermediate, Verified 07/09/24 15:49) HYPOTENSION Medication List - Last Reconciled 07/09/24 by Ashley Bowling PA-C acetaminophen 650 mg (2 x 325 mg) PO Q6H PRN ascorbate calcium (vitamin C) 500 mg PO DAILY atorvastatin 80 mg PO QPM bisacodyl (Dulcolax (bisacodyl)) 10 mg (2 x 5 mg) PO BEDTIME 2 days blood sugar diagnostic (Contour Next Test Strips) Check blood sugar 3 times a day cholecalciferol (vitamin D3) 25 mcg PO DAILY 90 days dextromethorphan polistirex ER (Delsym 12 hour) 60 mg orally every 12 hours PRN; emollient combination no.92 (Lubriderm Daily Moisture lotion) 1 appl topical DAILY escitalopram oxalate 40 mg PO DAILY ferrous fumarate 324 mg PO DAILY glucose (Dex4 Glucose) 4 grams PO Q15M PRN inhalational spacing device (Aerochamber MV spacer) As directed insulin glargine (Lantus Solostar U-100 Insulin) 5 units (0.05 mL) subcut QAM ketoconazole 2% 1 appl topical 2XW lancets (TRUEplus Lancets) Check blood sugars metformin 500 mg PO BIDWMEAL miconazole nitrate 2% (Zeasorb AF) 1 appl topical BID 3 months omeprazole 20 mg PO DAILY Oxygen Home Use As directed peg 3350-electrolytes 236-22.74-6.74 -5.86 gram (Golytely) 240 mL PO Q10M 1 day peg 400-propylene glycol (PF) 0.4-0.3 % (Systane (PF)) 2 drps ophthalmic (eye) QID PRN pen needle, diabetic (Advocate Pen Needle) Use as directed promethazine 25 mg orally pre med PRN; risperidone (Risperdal) 2 mg PO DAILY Tobacco use date assessed: 07/09/24 Dental Screening Dental Screen Date: 04/18/24 HPI (R) thigh pain HPI Details 58-year-old male with diabetes mellitus, hypercholesterolemia, GERD, and mental behavioral problem last seen by Dr. Archibald coming in for acute problem. Presenting with thigh pain and dry skin. Thigh pain, identified as muscular, initiated about a year prior, originally without any known cause. The pain is described as persistent yet consistent without exacerbation due to external activities, other than gym workouts, and stays localized primarily to the leg area. The patient reports no accompanying knee or back pain and denies any ass ociated swelling or prior trauma to the affected leg. Dry skin is noted on the facial and ear regions, with itching and occasional scabbing being predominant issues. The condition lacks any noted pattern for exacerbation, but there is a recommendation to avoid prolonged exposure to hot water during showers to prevent further drying. [facility] Medical History Tinea pedis Hypoxemia Adult general medical exam Screening for prostate cancer Folliculitis Nocturnal hypoxemia Hypoventilation syndrome Obstructive sleep apnea Type 2 diabetes mellitus with hyperglycemia Fatty liver GERD (gastroesophageal reflux disease) Insomnia Hypercholesterolemia Anxiety and depression Obesity (BMI 30-39.9) Vitamin D deficiency Mental and behavioral problem Surgical History History of colonoscopy H/O basal cell carcinoma excision History of cataract surgery Family History Father Medical history unknown Myocardial infarct Mother Lung cancer Brain aneurysm Maternal Grandmother Uterine cancer Maternal Grandfather Lung cancer Social History Housing: House Housing Other:: retirement Alcohol intake: never Patient Tobacco Use Status: Never used Tobacco Tobacco use type: Cigarette e-Cigarette/Vaping Use: Never Used Second Hand Smoke Exposure: No service: No Current occupational status: unemployed and disabled Cognitive needs: Yes Hearing needs: No Vision needs: No Questionnaire Thrive Questionnaire Date Thrive assessed: 04/18/24 AMBER-7 AMB Questionnaire AMBER-7 Date AMBER - 7 assessed: 04/18/24 Source: Developed by Drs. Oleg Torres, Tomeka Bacon, Ranjan Jacob and colleagues, with an educational javier from [employer]. Review of Systems Const Denies body aches, Denies chills and Denies fever(s) Eyes Reports no additional complaints ENT Denies dizziness Card Denies chest pain and Denies dyspnea Resp Denies dyspnea Reports no additional complaints Musc Details: Right lower extremity pain Skin/Breast Details: Dry skin and itching right ear Reports system reviewed and no additional complaints, except as documented Neuro Denies dizziness Psych Reports no additional complaints Physical exam (Primary Care) Vital Signs: Last Vital Signs Temp 97.5 F 07/09/24 15:23 Pulse 76 07/09/24 15:23 BP 130/66 07/09/24 15:23 Pulse Ox 95 07/09/24 15:23 Oxygen Delivery Method Room Air 07/09/24 15:23 BMI result Body Mass Index 32.0 Tobacco/Smoking Status: Tobacco use Status Tobacco use date assessed 07/09/24 07/09/24 15:30 Patient Tobacco Use Status Never used Tobacco 07/09/24 15:22 Tobacco use type Cigarette 07/09/24 15:22 e-Cigarette/Vaping Use Never Used 07/09/24 15:22 Thrive Assessment: Date of Thrive Assessment Date Thrive assessed 04/18/24 07/09/24 15:22 Const General: cooperative, healthy appearing, comfortable and no acute distress Orientation/consciousness: patient oriented x3 HENMT Head: Yes normocephalic Ears: hearing grossly normal bilaterally General nose exam: Normal external nose present Eyes General: appearance normal, both eyes and all related structures Conjunctivae: conjunctivae normal Neck Neck: Yes full ROM and Yes no lymphadenopathy Resp Effort & Inspection: normal respiratory effort Auscultation: clear to auscultation bilaterally, no crackles, no rales, no rhonchi and no wheezes Cardio Rate: regular rate Rhythm: regular rhythm Skin Other: Dry, flaky skin on bilateral ears. Small excoriation of the posterior aspect of the right ear without signs of infection. Neuro General: patient oriented x3 Gait exam (Neuro): Normal gait present Extrem Other: Pain to palpation over the lower, anterior aspect of the right lower extremity. No tenderness to palpation over the right knee, right thigh or right calf. No swelling, warmth or erythema of right calf. General: Yes normal to inspection, Yes full ROM and No edema Psych Affect: normal affect Attitude: cooperative Insight: Good insight present (Psych) Judgement: Good judgement present (Psych) Coding Level of Care Code Est Pt Level 3 (33877) Diagnoses Right leg pain M79.604 Dry skin dermatitis L85.3 Assessment & Plan Assessment & Plan (1) Right leg pain: Code(s): M79.604 - Pain in right leg Category: Medical Plan: Patient having anterior lower extremity pain without pain or swelling to the calf. No swelling on exam and tenderness to palpation over anterior aspect of right lower extremity. Likely muscular in nature as there was no inciting injury or event. Recommend warm compress, Tylenol as needed and gentle stretching. Continue to monitor symptoms at this time and can consider physical therapy or x-ray for further workup if symptoms persist. (2) Dry skin dermatitis: Code(s): L85.3 - Xerosis cutis Category: Medical Plan: Patient having dry flaking skin on the scalp and behind the ears. Recommended use of Lubriderm daily primarily after showers. Avoid hot showers as this can dry out the skin and avoid strongly sent in creams or shampoos. At this time no sign of infection advised patient to avoid scratching the area. Plan This note was constructed using voice recognition software. While every effort has been made to ensure accuracy and plastic worker, still areas may have been included sometimes these areas may affect the content or meeting of the given symptoms. Total time spent caring for the patient today was 20 minutes. This includes time spent before the visit reviewing the chart, time spent during the visit, and time spent after the visit and documentation. Patient was informed and verbally consented to the use of an ambient scribe for clinic note documentation during this visit. Medications: Refilled acetaminophen 650 mg (2 x 325 mg) PO Q6H PRN 90 tabs 4RF Pain
[2024-07-09 15:23] VITALS: BP 130/66; PULSE 76; TEMP 36.4; O2SAT 95; BMI 32.0
--- OUTSIDE RECORDS SUMMARY | 2024-07-09 18:14 | XMS_ITS | Clinical Summary ---
Author Organization 175 [facility] Address [address] [place] [address] Phone Care Team Providers Care Pulp Roller Name Role Phone Lindsay Archibald MD Primary Care Provider [phone] Allergies Active Allergy Reactions Criticality Noted Date Comments Lisinopril 01/05/2024 half-way staff unsure how long he has had [...] 08/26/2021, 05/08/2020, Additional history exists RSV Immunization Adult Patients (1 - 1-dose 75+ series) 08/21/2039 Influenza [...] age to complete this topic Meningococcal B Vaccine Aged Out No l onger eligible based on patient's age to complete [...] * Annual BMP Blood Test (06/27/2005) Pathologist [facility] Annual BMP Blood Test abstracted Result [facility] Provider HEALTH MAINTENANCE Final Result * (ABNORMAL) Lipid panel (06/27/2005) Pathologist [facility] LDL/HDL Ratio 4 0 - 4 Triglycerides 223(A) 0 - 150 mg/dL Cholesterol 192 0 - 200 mg/dL HDL 44 >=40 mg/dL LDL Cholesterol 104(A) 0 - 100 mg/dL Blood Venous blood specimen / Unknown Historical Provider LAB BLOOD ORDERABLES Carito l Result * Hemoglobin A1c (02/24/2005) Pathologist [facility] Hemoglobin A1C 5.5 4.0 - 6.0 % Blood Venous blood specimen / Unknown Historical Provider LAB BLOOD ORDERABLES Carito l Result * Urine Albumin Creatinine Ratio (08/04/2004) Urine Albumin Creatinine Ratio abstracted Historical Provider HEALTH MAINTENANCE Final Result from Last 3 Months or Most Recently Relevant to Health Maintenance Insurance MEDICA[place] - [place] MEDICARE Care Teams Pulp Roller Relationship Specialty Start Date End Date Lindsay Archibald MD [address] [place] [address] [address] [facility] [place] [address] PCP - General Internal Medicine 01/29/16
== END 2024-07-09 16:11 | disposition home or self-care (01) ==
LOC: HO.HMCH 15:17
PROVIDERS: PCP Internal Medicine
DX: M79.604 Pain in right leg (principal); L85.3 Xerosis cutis

== ENCOUNTER → 2024-07-09 15:15 | Outpatient (BNVA) | payer MEDICARE, MEDICAID, SELFPAY | PROVIDERS: PCP Internal Medicine | DX: M79.604 Pain in right leg (principal); L85.3 Xerosis cutis | CPT/HCPCS: 99212 ==

== ENCOUNTER 2024-07-12 13:24 | Outpatient (AMB) | payer MEDICARE, MEDICAID, SELFPAY ==
--- NOTE | 2024-07-12 13:28 | A.OFFPC_ITS ---
Vital Signs 07/12/24 13:29 Height 5 ft 10 in Weight 224 lb 4 oz BMI 32.2 BP 100/64 Blood Pressure Location Lt brachial Position Sitting Pulse 70 Pulse Source Pulse Oximeter Temp 97.5 F Temp Source Temporal Artery Scan Pulse Oximetry (%) 94 Oxygen Delivery Method Room Air Intake Visit Reasons: Right leg pain Intake Note: Patient complains of right leg pain. Electrical Maintenance Engineer Required: No Records And Tape Recordings Engineer: Present Accompanied by: automobile club membership sales agent Allergies lisinopril [LISINOPRIL] Allergy (Intermediate, Verified 07/12/24 13:31) HYPOTENSION Medication List - Last Reconciled 07/12/24 by Ashley Bowling PA-C acetaminophen 650 mg (2 x 325 mg) PO Q6H PRN ascorbate calcium (vitamin C) 500 mg PO DAILY atorvastatin 80 mg PO QPM bisacodyl (Dulcolax (bisacodyl)) 10 mg (2 x 5 mg) PO BEDTIME 2 days blood sugar diagnostic (Contour Next Test Strips) Check blood sugar 3 times a day cholecalciferol (vitamin D3) 25 mcg PO DAILY 90 days dextromethorphan polistirex ER (Delsym 12 hour) 60 mg orally every 12 hours PRN; emollient combination no.92 (Lubriderm Daily Moisture lotion) 1 appl topical DAILY escitalopram oxalate 40 mg PO DAILY ferrous fumarate 324 mg PO DAILY glucose (Dex4 Glucose) 4 grams PO Q15M PRN inhalational spacing device (Aerochamber MV spacer) As directed insulin glargine (Lantus Solostar U-100 Insulin) 5 units (0.05 mL) subcut QAM ketoconazole 2% 1 appl topical 2XW lancets (TRUEplus Lancets) Check blood sugars metformin 500 mg PO BIDWMEAL miconazole nitrate 2% (Zeasorb AF) 1 appl topical BID 3 months omeprazole 20 mg PO DAILY Oxygen Home Use As directed peg 3350-electrolytes 236-22.74-6.74 -5.86 gram (Golytely) 240 mL PO Q10M 1 day peg 400-propylene glycol (PF) 0.4-0.3 % (Systane (PF)) 2 drps ophthalmic (eye) QID PRN pen needle, diabetic (Advocate Pen Needle) Use as directed promethazine 25 mg orally pre med PRN; risperidone (Risperdal) 2 mg PO DAILY Tobacco use date assessed: 07/09/24 Dental Screening Dental Screen Date: 04/18/24 HPI Right leg pain HPI Details 58-year-old male with past medical histo ry of diabetes mellitus, hypercholesterolemia, GERD and mental behavior problems last seen 07/09/2024 coming in for acute problem. Presenting with musculoskeletal pain in the thigh region. The complaint started roughly two weeks ago following gym exercise. The pain is specific to one leg with no history of injury or fall. No associated symptoms such as redness, swelling, or warmth are reported. Experiences no pain during gym activities but does report pain at rest. Tylenol has relieved the pain, and there have been no known precipitating factors related to any changes in medication or recent activity. No involvement of the hip or knee in terms of pain or discomfort. [facility] Medical History Tinea pedis Hypoxemia Adult general medical exam Screening for prostate cancer Folliculitis Nocturnal hypoxemia Hypoventilation syndrome Obstructive sleep apnea Type 2 diabetes mellitus with hyperglycemia Fatty liver GERD (gastroesophageal reflux disease) Insomnia Hypercholesterolemia Anxiety and depression Obesity (BMI 30-39.9) Vitamin D deficiency Mental and behavioral problem Surgical History History of colonoscopy H/O basal cell carcinoma excision History of cataract surgery Family History Father Medical history unknown Myocardial infarct Mother Lung cancer Brain aneurysm Maternal Grandmother Uterine cancer Maternal Grandfather Lung cancer Social History Housing: House Housing Other:: assisted Alcohol intake: never Patient Tobacco Use Status: Never used Tobacco Tobacco use type: Cigarette e-Cigarette/Vaping Use: Never Used Second Hand Smoke Exposure: No service: No Current occupational status: unemployed and disabled Cognitive needs: Yes Hearing needs: No Vision needs: No Questionnaire Thrive Questionnaire Date Thrive assessed: 04/18/24 AMBER-7 AMB Questionnaire AMBER-7 Date AMBER - 7 assessed: 04/18/24 Source: Developed by Drs. Oleg Torres, Tomeka Bacon, Ranjan Jacob and colleagues, with an educational javier from [employer]. Review of Systems Const Denies body aches, Denies chills and Denies fever(s) Eyes Reports no additional complaints ENT Denies dizziness Card Denies chest pain and Denies dyspnea Resp Denies dyspnea Reports no additional complaints Musc Details: Right lower extremity pain Skin/Breast Details: Dry skin and itching right ear Reports system reviewed and no additional complaints, except as documented Neuro Denies dizziness Psych Reports no additional complaints Physical exam (Primary Care) Tobacco/Smoking Status: Tobacco use Status Tobacco use date assessed 07/09/24 07/09/24 15:30 Patient Tobacco Use Status Never used Tobacco 07/09/24 15:22 Tobacco use type Cigarette 07/09/24 15:22 e-Cigarette/Vaping Use Never Used 07/09/24 15:22 Thrive Assessment: Date of Thrive Assessment Date Thrive assessed 04/18/24 07/09/24 15:22 Const General: cooperative, healthy appearing, comfortable and no acute distress Orientation/consciousness: patient oriented x3 HENMT Head: Yes normocephalic Ears: hearing grossly normal bilaterally General nose exam: Normal external nose present Eyes General: appearance normal, both eyes and all related structures Conjunctivae: conjunctivae normal Neck Neck: Yes full ROM and Yes no lymphadenopathy Resp Effort & Inspection: normal respiratory effort Auscultation: clear to auscultation bilaterally, no crackles, no rales, no rhonchi and no wheezes Cardio Rate: regular rate Rhythm: regular rhythm Skin Other: Dry, flaky skin on bilateral ears. Small excoriation of the posterior aspect of the right ear without signs of infection. Neuro General: patient oriented x3 Gait exam (Neuro): Normal gait present Extrem Other: Pain to palpation over the anterior aspect of the right lower extremity. No tenderness to palpation over the right knee, right hip, right thigh or right calf. No swelling, warmth or erythema of right calf. No visualized rashes General: Yes normal to inspection, Yes full ROM and No edema Psych Affect: normal affect Attitude: cooperative Insight: Good insight present (Psych) Judgement: Good judgement present (Psych) Coding Level of Care Code Est Pt Level 3 (60665) Diagnoses Right leg pain M79.604 Assessment & Plan Assessment & Plan (1) Right leg pain: Code(s): M79.604 - Pain in right leg Category: Medical Plan: Management of the patient's thigh muscle pain is centered on conservative treatment and symptomatic relief. We are holding off on obtaining an x-ray of the femur, based on the current assessment indicating a muscular rather than a skeletal issue. The patient is directed to start a tailored physical therapy regimen aimed at strengthening and stretching the muscle, thereby reducing discomfort. In addition, lidocaine patches are prescribed to provide localized analgesia. Follow-up with Dr. Archibald is scheduled to evaluate the effectiveness of the treatment and adjust the management plan as necessary. Plan This note was constructed using voice recognition software. While every effort has been made to ensure accuracy and switchboard troubleshooter, still areas may have been included sometimes these areas may affect the content or meeting of the given symptoms. Total time spent caring for the patient today was 20 minutes. This includes time spent before the visit reviewing the chart, time spent during the visit, and time spent after the visit and documentation. Patient was informed and verbally consented to the use of an ambient scribe for clinic note documentation during this visit. Orders: Orders PT Evaluation and Treatment Today M79.604 - Pain in right leg Medications: New lidocaine 5% leave on most painful area for up to 12 hrs 1 patch topical DAILY 15 ea 1RF
[2024-07-12 13:29] VITALS: BP 100/64; PULSE 70; TEMP 36.4; O2SAT 94; BMI 32.2
--- OUTSIDE RECORDS SUMMARY | 2024-07-12 13:45 | XMS_ITS | Clinical Summary ---
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 ([facility] V24, [facility] V28) 10/10/2017 Obesity, unspecified 03/31/2006 Schizophreniform disorder in remission ([facility] V24, [facility] V28) 02/23/2005 Overview (01/05/2024): IMO update Type 1 diabetes mellitus ([facility] V24, [facility] V 28) 02/23/2005 Immunizations Name Administration Dates Next Due [...] Results * Annual BMP Blood Test (06/27/2005) [facility] Annual BMP Blood Test abstracted Historical Provider HEALTH MAINTENANCE Final Result * (ABNORMAL) Lipid panel (06/27/2005) [facility] LDL/HDL Ratio 4 0 - 4 Triglycerides 223(A) 0 - 150 mg/dL Cholesterol 192 0 - 200 mg/dL HDL 44 >=40 mg/dL LDL Cholesterol 104(A) 0 - 100 mg/dL Blood Venous blood specimen / Unknown Historical Provider LAB BLOOD ORDERABLES Carito l Result * Hemoglobin A1c (02/24/2005) [facility] Hemoglobin A1C 5.5 4.0 - 6.0 % Blood Venous blood specimen / Unknown Historical Provider LAB BLOOD ORDERABLES Carito l Result * Urine Albumin Creatinine Ratio (08/04/2004) Urine Albumin Creatinine Ratio abstracted Historical Provider HEALTH MAINTENANCE Final Result from Last 3 Months or Most Recently Relevant to Health Maintenance Insurance MEDICAID - [place] MEDICARE Care Teams Field Clinical Engineer Relationship Specialty Start Date End Date Lindsay Archibald MD [address] [place] [address] Dr [phone] [facility] [place] [address] PCP - General Internal Medicine 01/29/16
== END 2024-07-12 13:51 | disposition home or self-care (01) ==
LOC: HO.HMCH 13:25
PROVIDERS: PCP Internal Medicine
DX: M79.604 Pain in right leg (principal)

== ENCOUNTER → 2024-07-12 13:24 | Outpatient (BNVA) | payer MEDICARE, MEDICAID, SELFPAY | PROVIDERS: PCP Internal Medicine | DX: M79.651 Pain in right thigh (principal); K21.9 Gastro-esophageal reflux disease without esophagitis; E78.00 Pure hypercholesterolemia, unspecified | CPT/HCPCS: 99212 ==

== ENCOUNTER 2024-07-18 09:19 | Outpatient (AMB) | payer MEDICARE, MEDICAID, SELFPAY ==
--- NOTE | 2024-07-18 09:32 | MHC.PC.OV ---
Vital Signs 07/18/24 09:34 Height 5 ft 10 in Weight 223 lb BMI 32.0 BP 112/62 Blood Pressure Location Lt brachial Position Sitting Pulse 84 Pulse Source Pulse Oximeter Pulse Oximetry (%) 98 Oxygen Delivery Method Room Air Intake Visit Reasons: 3 month f/u Intake Note: right ear discomfort Allergies lisinopril [LISINOPRIL] Allergy (Intermediate, Verified 07/18/24 09:34) HYPOTENSION Medication List - Last Reconciled 07/18/24 by Lindsay Archibald MD acetaminophen 650 mg (2 x 325 mg) PO Q6H PRN ascorbate calcium (vitamin C) 500 mg PO DAILY atorvastatin 80 mg PO QPM bacitracin zinc (Antibiotic (bacitracin zinc)) 1 appl topical TID 7 days bisacodyl (Dulcolax (bisacodyl)) 10 mg (2 x 5 mg) PO BEDTIME 2 days blood sugar diagnostic (Contour Next Test Strips) Check blood sugar 3 times a day cholecalciferol (vitamin D3) 25 mcg PO DAILY 90 days dextromethorphan polistirex ER (Delsym 12 hour) 60 mg orally every 12 hours PRN; emollient combination no.92 (Lubriderm Daily Moisture lotion) 1 appl topical DAILY escitalopram oxalate 40 mg PO DAILY ferrous fumarate 324 mg PO DAILY glucose (Dex4 Glucose) 4 grams PO Q15M PRN inhalational spacing device (Aerochamber MV spacer) As directed insulin glargine (Lantus Solostar U-100 Insulin) 5 units (0.05 mL) subcut QAM ketoconazole 2% 1 appl topical 2XW lancets (TRUEplus Lancets) Check blood sugars lidocaine 5% 1 patch topical DAILY metformin 500 mg PO BIDWMEAL miconazole nitrate 2% (Zeasorb AF) 1 appl topical BID 3 months omeprazole 20 mg PO DAILY Oxygen Home Use As directed peg 3350-electrolytes 236-22.74-6.74 -5.86 gram (Golytely) 240 mL PO Q10M 1 day peg 400-propylene glycol (PF) 0.4-0.3 % (Systane (PF)) 2 drps ophthalmic (eye) QID PRN pen needle, diabetic (Advocate Pen Needle) Use as directed promethazine 25 mg orally pre med PRN; risperidone (Risperdal) 2 mg PO DAILY Tobacco use date assessed: 07/09/24 Dental Screening Dental Screen Date: 04/18/24 [facility] Medical History Tinea pedis Hypoxemia Adult general medical exam Screening for prostate cancer Folliculitis Nocturnal hypoxemia Hypoventilation syndrome Obstructive sleep apnea Type 2 diabetes mellitus with hyperglycemia Fatty liver GERD (gastroesophageal reflux disease) Insomnia Hypercholesterolemia Anxiety and depression Obesity (BMI 30-39.9) Vitamin D deficiency Mental and behavioral problem Surgical History History of colonoscopy H/O basal cell carcinoma excision History of cataract surgery Family History Father Medical history unknown Myocardial infarct Mother Lung cancer Brain aneurysm Maternal Grandmother Uterine cancer Maternal Grandfather Lung cancer Social History Housing: House Housing Other:: detention Alcohol intake: never Patient Tobacco Use Status: Never used Tobacco Tobacco use type: Cigarette e-Cigarette/Vaping Use: Never Used Second Hand Smoke Exposure: No service: No Current occupational status: unemployed and disabled Cognitive needs: Yes Hearing needs: No Vision needs: No Questionnaire PHQ-9 Over the last 2 weeks, how often have you been bothered by any of the following problems? 1. Little interest or pleasure in doing things: more than half the days 2. Feeling down, depressed, or hopeless: more than half the days 3. Trouble falling or staying asleep, or sleeping too much: more than half the days 4. Feeling tired or having little energy: nearly every day 5. Poor appetite or overeating: not at all 6. Feeling bad about yourself - or that you are a failure or have let yourself or your family down: nearly every day 7. Trouble concentrating on things, such as reading the newspaper or watching television: not at all 8. Moving or speaking so slowly that other people could have noticed. Or the opposite - being so fidgety or restless that you have been moving around a lot more than usual: not at all 9. Thoughts that you would be better off or of hurting yourself in some way: not at all Total score: 12 Depression Screening Interpretation: Positive Depression Screening Done: Yes Source: Developed by Drs. Oleg Torres, Ranjan Batista and colleagues, with an educational javier from [employer]. Thrive Questionnaire Date Thrive assessed: 04/18/24 AUDIT C Alcohol Use Questionnaire (AUDIT-C) 1. How often do you have a drink containing alcohol?: Never 3. How often do you have six or more drinks on one occasion?: Never Total Score: 0 AMBER-7 AMB Questionnaire AMBER-7 Date AMBER - 7 assessed: 04/18/24 Source: Developed by Tomeka Bauman Kurt Kroenke and colleagues, with an educational javier from [employer]. Physical exam (Primary Care) Vital Signs: Last Vital Signs Pulse 84 07/18/24 09:34 BP 112/62 07/18/24 09:34 Pulse Ox 98 07/18/24 09:34 Oxygen Delivery Method Room Air 07/18/24 09:34 BMI result Body Mass Index 32.0 Tobacco/Smoking Status: Tobacco use Status Tobacco use date assessed 07/09/24 07/18/24 09:35 Patient Tobacco Use Status Never used Tobacco 07/18/24 09:35 Tobacco use type Cigarette 07/18/24 09:35 e-Cigarette/Vaping Use Never Used 07/18/24 09:35 PHQ-9: PHQ-9 Score PHQ-9: Total score 12 07/18/24 09:52 Depression Screening Interpretation: Positive Thrive Assessment: Date of Thrive Assessment Date Thrive assessed 04/18/24 07/18/24 09:35 Const General: alert; No acute distress Eyes Conjunctivae: conjunctivae normal Resp Auscultation: clear to auscultation bilaterally Cardio Rate: regular rate Rhythm: regular rhythm GI Inspection: Yes normal to inspection Extrem General: Yes normal to inspection and No edema Results AMB Hemoglobin A1c AMB Hemoglobin A1c 5.8 % Last Edit by Sondra Steve CMA on 07/18/24 09:53 Results Reviewed Results Reviewed: Laboratory Last Values Hgb A1c (Clinic) 5.8 % (4.0-6.0) 07/18/24 09:36 Coding Level of Care Code Est Pt Level 4 (28644) Complex EM visit Add On G2211 Diagnoses Type 2 diabetes mellitus with hyperglycemia, with long-term current use of insulin E11.65; Z79.4 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 Hypercholesterolemia E78.00 Obesity (BMI 30-39.9) E66.9 Gastroesophageal reflux disease without esophagitis K21.9 Esophagitis presence: without esophagitis Obstructive sleep apnea G47.33 Tubular adenoma of colon D12.6 Open wound of right ear S01.301A Assessment & Plan Assessment & Plan (1) Type 2 diabetes mellitus with hyperglycemia: Code(s): E11.65 - Type 2 diabetes mellitus with hyperglycemia Category: Medical Qualifiers: 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 Hemoglobin A1c goal of less than 6.5. Patient on metformin Lantus at 5 units once a day. Controlled hemoglobin A1c (2) Hypercholesterolemia: Code(s): E78.00 - Pure hypercholesterolemia, unspecified Category: Medical Plan: Avoid fried foods, chicken skin, eggs, butter margarine, pastries and meat. Be it pork or beef they have a lot of cholesterol LDL goal of less than 100 and triglyceride of less than 150 patient on atorvastatin 80 mg once a day January last blood work (3) Obesity (BMI 30-39.9): Comment: This is a chronic problem. Considering his chronic , mental disorder, it is difficult to expect any weight reduction in his case. Yet he has lost another 4 lb in the last 6 months. Code(s): E66.9 - Obesity, unspecified Category: Medical Plan: Diet and exercise (4) GERD (gastroesophageal reflux disease): Code(s): K21.9 - Gastro-esophageal reflux disease without esophagitis Category: Medical Qualifiers: Esophagitis presence: without esophagitis Qualified Code(s): K21.9 - Gastro-esophageal reflux disease without esophagitis Plan: Avoid the foods that causes that usually spicy foods, tomato products, juices, coffee, soda and foods that your sensitive to. After eating do not lie down, allow 3-4 hours before in lie down. And keep the head of bed above 30 degrees to avoid the acid from going up. (5) Obstructive sleep apnea: Comment: PER sleep study , GRISELDA was mild, patient is not able to use CPAP. Code(s): G47.33 - Obstructive sleep apnea (adult) (pediatric) Category: Medical Plan: Patient follows up with Pulmonary and using the CPAP Q night and benefits patient (6) Tubular adenoma of colon: Comment: 2019 3-5 years Code(s): D12.6 - Benign neoplasm of colon, unspecified Category: Medical Plan: Patient has met with Gastroenterology and planned colonoscopy (7) Open wound of right ear: Comment: 5 mm scabbed on the ear pinna Code(s): S01.301A - Unspecified open wound of right ear, initial encounter Category: Medical Plan History of Present Illness The patient is a 58-year-old male presenting with chronic right leg pain. The pain reportedly began upon increased activity using a treadmill, associated with muscle strain in the right leg but not involving the knee. The patient denies having experienced any direct trauma or falls contributing to this condition. Increased physical activity exacerbates the pain, yet continued exercise is suggested for adaptation. The patient reports chronic conditions including Type 2 diabetes, for which he is currently managing with metformin and Lantus, resulting in a stable A1c of 5.8. Additionally, his GERD, hypercholesterolemia, and a history of tubular adenoma are noted. His hyperlipidemia is controlled with atorvastatin, and current levels are favorable. The patient experiences challenges with CPAP therapy for obstructive sleep apnea and has chronic anemia, with stable hemoglobin levels at 13.5. The report mentions foot swelling, recommending continued physical activity to alleviate symptoms. Health Maintenance - Anemia is being monitored with stable hemoglobin levels reported. - Cholesterol levels checked in January 2024, with LDL at 72, and management includes atorvastatin. - Hemoglobin A1c is 5.8, diabetes managed under target level with metformin and Lantus. - Gastroenterology follow-up planned for colonoscopy due to history of tubular adenoma. - Regular walking advised for weight management and addressing foot swelling. - CPAP use for obstructive sleep apnea is challenging; regular follow-up suggested. - Pneumonia and tetanus vaccinations are current. Consider shingles vaccine via pharmacy. - Nutritional counseling and exercise discussed for obesity management. Social History - Engages in physical exercise, including treadmill walking, with recent challenges due to pain. - Struggles with CPAP therapy compliance for sleep apnea management. - Family celebrates traditional holidays, which is a factor in nutritional habits. - Saw a shop supervisor for diabetes management guidance. - Recent weight management is an ongoing effort without recent substantial progress noted. Review of Systems - Musculoskeletal: Reports chronic right leg pain linked to physical activity, specifically treadmill use. Reports foot swelling. - Cardiovascular: Denies recent chest pain or palpitations. - Endocrine: Stable blood sugar levels; reports effective diabetes management. - Sleep: Difficulty using CPAP consistently for obstructive sleep apnea. - General: Reports no significant weight loss despite active efforts; discusses ongoing obesity management. - Gastrointestinal: Reports GERD; under management. - Hematological: Awareness of chronic anemia, stable without intervention. Physical Exam - Respiratory- Breath sounds clear, with regular pulse. - Cardiovascular- Regular pulse. - Extremities- Right foot swelling observed. - Skin- Noted lesions behind the ear and on the back of the head; scratching reported, advised use of topical antibiotics. Results - Labs: - Hemoglobin A1c at 5.8 - LDL cholesterol at 72 - Hemoglobin at 13.5 indicating stable anemia - Test for colon screening had poor prep in December 2019; follow-up in 5 years recommended. Plan To manage chronic right leg pain, I recommend adjusting physical activity, starting with short intervals to prevent pain exacerbation, aiming towards muscular adaptation. The current diabetes regimen with metformin and Lantus achieves good control, and I will continue this approach. The hyperlipidemia treatment with atorvastatin is effective, making cholesterol re-evaluation unnecessary immediately. The stable anemia requires no intervention presently but will be monitored. Despite obstructive sleep apnea device challenges, continued patient effort with CPAP is recommended. Topical antibiotics are advised for skin lesions noted. A three-month follow-up is provided to review exercise progress, weight, and anemia status. Patient was informed and verbally consented to the use of an ambient scribe for clinic note documentation during this visit. Discussion Notes During today's visit, the patient and I discussed the management of chronic right leg pain through a gradual increase in physical activity to mitigate exacerbation while promoting muscle strength. The patient understood the rationale and necessity of continued exercise within pain tolerance. Diabetes and hyperlipidemia management regimens are effectively maintaining target levels without the need for immediate changes; the risks of medication adherence were discussed. The need for vigilant monitoring of chronic anemia without current intervention was understood due to stable blood results. Difficulties with CPAP adherence were acknowledged, advising continued efforts for sleep apnea management. Suggested applying topical antibiotics. The anticipated follow-up in three months was agreed upon to assess progress and any needed adjustments. Patient Instructions - Gradually increase treadmill walking starting at five minutes, then move to ten minutes as tolerable without pain. - Continue taking metformin and Lantus as prescribed; maintain current diabetes management plan. - Maintain atorvastatin for cholesterol management; continue monitoring diet. - Apply topical antibiotics on skin lesions as instructed. - Make efforts to consistently use CPAP at night, even if challenging, for sleep apnea management. - Follow up in three months to assess improvements and adjustments in management plans. - Engage in regular physical activity and maintain a healthy diet for weight management. - Watch for any changes or non-healing lesions on the skin, and consult as needed. Orders: Orders AMB Hemoglobin A1c Today Z13.9 - Encounter for screening, unspecified Medications: New bacitracin zinc (Antibiotic (bacitracin zinc)) R ear wound and to the scalp wounds 1 appl topical TID 7 days 14 grams 0RF S01.301A - Unspecified open wound of right ear, initial encounter
[2024-07-18 09:34] VITALS: BP 112/62; PULSE 84; O2SAT 98; BMI 32.0
--- OUTSIDE RECORDS SUMMARY | 2024-07-18 10:30 | XMS_ITS | Clinical Summary ---
Author Organization [address] [facility] Address [address] [place] [address] Phone Care Team Providers Care Engineering And Scientific Programmer Name Role Phone Lindsay Archibald MD Primary Care Provider [phone] Allergies Active Allergy Reactions Criticality Noted Date Comments Lisinopril 01/05/2024 alf staff unsure how long he has had [...] 1 diabetes mellitus wit h vascular disease ([facility] V24, [facility] V28) 10/10/2017 Obesity, unspecified 03/31/2006 Schizophreniform disorder in remission ([facility] V24, [facility] V28) 02/23/2005 Overview (01/05/2024): IMO update Type 1 diabetes mellitus ([facility] V24, [facility] V 28) 02/23/2005 Immunizations Name Administration Dates [...] Results * Annual BMP Blood Test (06/27/2005) [facility] Annual BMP Blood Test abstracted Historical Provider HEALTH MAINTENANCE Final Result * (ABNORMAL) Lipid panel (06/27/2005) [facility] LDL/HDL Ratio 4 0 - 4 Triglycerides 223(A) 0 - 150 mg/dL Cholesterol 192 0 - 200 mg/dL HDL 44 >=40 mg/dL LDL Cholesterol 104(A) 0 - 100 mg/dL Blood Venous blood specimen / Unknown Historical Provider LAB BLOOD ORDERABLES Carito l Result * Hemoglobin A1c (02/24/2005) [facility] Hemoglobin A1C 5.5 4.0 - 6.0 % Blood Venous blood specimen / Unknown Historical Provider LAB BLOOD ORDERABLES Carito l Result * Urine Albumin Creatinine Ratio (08/04/2004) Urine Albumin Creatinine Ratio abstracted Historical Provider HEALTH MAINTENANCE Final Result from Last 3 Months or Most Recently Relevant to Health Maintenance Insurance MEDICAID - [place] MEDICARE Care Teams Engineering And Scientific Programmer Relationship Specialty Start Date End Date Lindsay Archibald MD [address] [place] [address] [address] [facility] [place] [address] PCP - General Internal Medicine 01/29/16
== END 2024-07-18 10:17 | disposition home or self-care (01) ==
LOC: HO.HMCH 09:20
PROVIDERS: PCP Internal Medicine; Visit Provider Internal Medicine
DX: E11.65 Type 2 diabetes mellitus with hyperglycemia (principal); Z79.4 Long term (current) use of insulin; E66.9 Obesity, unspecified; Z68.32 Body mass index [BMI] 32.0-32.9, adult; E78.00 Pure hypercholesterolemia, unspecified; K21.9 Gastro-esophageal reflux disease without esophagitis; G47.33 Obstructive sleep apnea (adult) (pediatric); D12.6 Benign neoplasm of colon, unspecified; S01.301A Unspecified open wound of right ear, initial encounter

== ENCOUNTER → 2024-07-18 09:19 | Outpatient (BNVA) | payer MEDICARE, MEDICAID, SELFPAY | PROVIDERS: PCP Internal Medicine; Visit Provider Internal Medicine | DX: E11.65 Type 2 diabetes mellitus with hyperglycemia (principal); E78.00 Pure hypercholesterolemia, unspecified; E66.9 Obesity, unspecified; Z68.32 Body mass index [BMI] 32.0-32.9, adult; K21.9 Gastro-esophageal reflux disease without esophagitis; G47.33 Obstructive sleep apnea (adult) (pediatric); S01.301D Unspecified open wound of right ear, subsequent encounter; Z86.0101 Personal history of adenomatous and serrated colon polyps; Z79.4 Long term (current) use of insulin | CPT/HCPCS: 83036; 96127; 99212 ==

== ENCOUNTER 2024-07-29 09:53 | Outpatient (AMB) | payer MEDICARE, MEDICAID, SELFPAY ==
[2024-07-29 09:57] VITALS: BP 114/68; PULSE 72; O2SAT 94; BMI 31.6
--- NOTE | 2024-07-29 09:57 | MHC.PC.OV ---
Vital Signs 07/29/24 09:57 Height 5 ft 10 in Weight 220 lb BMI 31.6 BP 114/68 Blood Pressure Location Lt brachial Position Sitting Pulse 72 Pulse Source Pulse Oximeter Pulse Oximetry (%) 94 Oxygen Delivery Method Room Air Intake Visit Reasons: 6 month-needs 30 mins Allergies lisinopril [LISINOPRIL] Allergy (Intermediate, Verified 07/29/24 09:58) HYPOTENSION Tobacco use date assessed: 07/09/24 Dental Screening Dental Screen Date: 04/18/24 [facility] Medical History Tinea pedis Hypoxemia Adult general medical exam Screening for prostate cancer Folliculitis Nocturnal hypoxemia Hypoventilation syndrome Obstructive sleep apnea Type 2 diabetes mellitus with hyperglycemia Fatty liver GERD (gastroesophageal reflux disease) Insomnia Hypercholesterolemia Anxiety and depression Obesity (BMI 30-39.9) Vitamin D deficiency Mental and behavioral problem Surgical History History of colonoscopy H/O basal cell carcinoma excision History of cataract surgery Family History Father Medical history unknown Myocardial infarct Mother Lung cancer Brain aneurysm Maternal Grandmother Uterine cancer Maternal Grandfather Lung cancer Social History Housing: House Housing Other:: penitentiary Alcohol intake: never Patient Tobacco Use Status: Never used Tobacco Tobacco use type: Cigarette e-Cigarette/Vaping Use: Never Used Second Hand Smoke Exposure: No service: No Current occupational status: unemployed and disabled Cognitive needs: Yes Hearing needs: No Vision needs: No Questionnaire PHQ-9 Over the last 2 weeks, how often have you been bothered by any of the following problems? 1. Little interest or pleasure in doing things: more than half the days 2. Feeling down, depressed, or hopeless: more than half the days 3. Trouble falling or staying asleep, or sleeping too much: more than half the days 4. Feeling tired or having little energy: nearly every day 5. Poor appetite or overeating: not at all 6. Feeling bad about yourself - or that you are a failure or have let yourself or your family down: nearly every day 7. Trouble concentrating on things, such as reading the newspaper or watching television: not at all 8. Moving or speaking so slowly that other people could have noticed. Or the opposite - being so fidgety or restless that you have been moving around a lot more than usual: not at all 9. Thoughts that you would be better off or of hurting yourself in some way: not at all Total score: 12 Depression Screening Interpretation: Positive Depression Screening Done: Yes Source: Developed by Drs. Oleg Torres, Tomeka Bacon, Ranjan Jacob and colleagues, with an educational javier from [employer]. Thrive Questionnaire Date Thrive assessed: 04/18/24 AUDIT C Alcohol Use Questionnaire (AUDIT-C) 3. How often do you have six or more drinks on one occasion?: Never Total Score: 0 AMBER-7 AMB Questionnaire AMBER-7 Date AMBER - 7 assessed: 04/18/24 Source: Developed by Drs. Oleg Torres, Tomeka Bacon, Ranjan Jacob and colleagues, with an educational javier from [employer]. Physical exam (Primary Care) Vital Signs: Last Vital Signs Pulse 72 07/29/24 09:57 BP 114/68 07/29/24 09:57 Pulse Ox 94 07/29/24 09:57 Oxygen Delivery Method Room Air 07/29/24 09:57 BMI result Body Mass Index 31.6 Tobacco/Smoking Status: Tobacco use Status Tobacco use date assessed 07/09/24 07/18/24 09:35 Patient Tobacco Use Status Never used Tobacco 07/18/24 09:35 Tobacco use type Cigarette 07/18/24 09:35 e-Cigarette/Vaping Use Never Used 07/18/24 09:35 Depression Screening Interpretation: Positive Thrive Assessment: Date of Thrive Assessment Date Thrive assessed 04/18/24 07/22/24 22:52 Const General: alert; No acute distress Eyes Conjunctivae: conjunctivae normal Resp Auscultation: clear to auscultation bilaterally Cardio Rate: regular rate Rhythm: regular rhythm GI Inspection: Yes normal to inspection Extrem General: Yes normal to inspection and No edema Coding Level of Care Code Est Pt Level 4 (24173) Diagnoses Type 2 diabetes mellitus with hyperglycemia, with long-term current use of insulin E11.65; Z79.4 Diabetes mellitus superintendent container terminal insulin use: with superintendent container terminal use Gastroesophageal reflux disease without esophagitis K21.9 Esophagitis presence: without esophagitis Hypercholesterolemia E78.00 Obesity (BMI 30-39.9) E66.9 Tubular adenoma of colon D12.6 Assessment & Plan Assessment & Plan (1) Type 2 diabetes mellitus with hyperglycemia: Code(s): E11.65 - Type 2 diabetes mellitus with hyperglycemia Category: Medical Qualifiers: Diabetes mellitus long-term insulin use: with long-term use Qualified Code(s): E11.65 - Type 2 diabetes mellitus with hyperglycemia; Z79.4 - superintendent container terminal (current) use of insulin Plan: Decrease the amount of carbohydrate intake, pasta, bread, rice and potatoes are all sugar and that is aside from all the sweet stuff, remember that fruits are good but they are Sweet also. Hemoglobin A1c goal of less than 6.5. Patient on insulin at 5 units in the morning metformin 500 mg twice a day (2) GERD (gastroesophageal reflux disease): Code(s): K21.9 - Gastro-esophageal reflux disease without esophagitis Category: Medical Qualifiers: Esophagitis presence: without esophagitis Qualified Code(s): K21.9 - Gastro-esophageal reflux disease without esophagitis Plan: Avoid the foods that causes that usually spicy foods, tomato products, juices, coffee, soda and foods that your sensitive to. After eating do not lie down, allow 3-4 hours before in lie down. And keep the head of bed above 30 degrees to avoid the acid from going up. (3) Hypercholesterolemia: Code(s): E78.00 - Pure hypercholesterolemia, unspecified Category: Medical Plan: Avoid fried foods, chicken skin, eggs, butter margarine, pastries and meat. Be it pork or beef they have a lot of cholesterol LDL goal of less than 100 and triglyceride of less than 150 patient on atorvastatin 80 mg once a day (4) Obesity (BMI 30-39.9): Comment: This is a chronic problem. Considering his chronic , mental disorder, it is difficult to expect any weight reduction in his case. Yet he has lost another 4 lb in the last 6 months. Code(s): E66.9 - Obesity, unspecified Category: Medical Plan: Diet and exercise (5) Tubular adenoma of colon: Comment: 2020 3-5 years Code(s): D12.6 - Benign neoplasm of colon, unspecified Category: Medical Plan: Patient has a scheduled colonoscopy in September 2024 Plan History of Present Illness The patient is a 58-year-old male presenting with a need for follow-up regarding his chronic conditions and scheduled screenings. Last evaluated in July 2024, the patient had reported leg pain. His medical history includes diabetes mellitus, hypercholesterolemia, GERD, and insomnia. Blood work in June showed anemia but no issues with platelets, electrolytes, or liver and renal functions. Hemoglobin A1c was well-managed at 5.8, indicating effective diabetes control. The target ranges for blood glucose levels are set to prevent hypoglycemia, especially given insulin use. The ophthalmologic assessment in June 2024 showed no diabetic retinopathy, indicating stable eye health under current diabetes treatment. The patient is on atorvastatin for cholesterol management with recent LDL levels at 72 mg/dL, aligning with treatment goals. He is unable to use CPAP effectively, impacting his insomnia management. The patient is working on weight management, having lost 3 pounds recently. Health maintenance includes a scheduled colonoscopy in September 2024. Overall, the patient?s conditions are being managed with medications and lifestyle adjustments with regular monitoring and adjustments to therapy as needed. Health Maintenance - Scheduled colonoscopy in September 2024 - Blood work indicating Anemia in June 2024 - Last ophthalmology visit in June 2024: No retinopathy detected - Cholesterol management: LDL goal <100 mg/dL, most recent level 72 mg/dL - Diabetes management plan aiming for HbA1c <6.5%; recent HbA1c of 5.8 - Weight management encouraged alongside diet and exercise Social History - Difficulty using CPAP for sleep apnea, impacting compliance - Weight management effort ongoing; recent weight loss of 3 pounds Review of Systems - General: Reports weight being slightly high; recent weight loss of 3 pounds - Cardiovascular: Denies recent low blood sugars - Endocrine: Reports diabetes mellitus; current treatment includes insulin and metformin - Psychiatric: Reports insomnia difficulty related to the CPAP use - Gastrointestinal: Reports GERD; involved in active management Physical Exam Results - Labs: Anemia identified in June 2024; Hemoglobin A1c 5.8; LDL 72 mg/dL as of January 2024 - Tests and Diagnostics: Ophthalmology evaluation: No retinopathy as of June 2024 Plan During this visit, I have focused on optimizing the management of the patient's chronic conditions, with a particular emphasis on diabetes and cholesterol regulation. The patient's insulin and metformin dosage continue as current management ensures hemoglobin A1c targets are effectively met. Hypoglycemia prevention is prioritized due to insulin therapy. For hypercholesterolemia, treatment with atorvastatin remains unchanged due to favorable LDL levels. Attention to GERD maintenance and insomnia, particularly around CPAP usage challenges, was advised. Encouragement towards effective weight management is provided, recognizing the recent loss of 3 pounds. Upcoming cholesterol re-assessment and a colonoscopy are planned, underlining the importance of continued health surveillance. Patient was informed and verbally consented to the use of an ambient scribe for clinic note documentation during this visit. Discussion Notes During our discussion, I emphasized the importance of maintaining diabetes and cholesterol under control while addressing potential medication side effects like hypoglycemia. We reviewed the continued use of insulin and metformin, understanding their role in achieving hemoglobin A1c goals. The discussion included the benefits of preventing episodes of low blood sugar and maintaining safe blood glucose levels. I advised on the necessity of atorvastatin for hypercholesterolemia despite the lack of recent cholesterol testing, considering the patient's LDL levels were last optimal. The patient voiced concerns regarding CPAP tolerability for sleep apnea, and we discussed its implications on heart health. Weight management efforts were noted, and I endorsed further efforts to ensure better overall health. A follow-up blood test for lipid profile and a planned colonoscopy were reviewed for upcoming health maintenance. The patient agreed to this comprehensive management plan. Patient Instructions - Continue using insulin and metformin as prescribed to manage diabetes. - Take atorvastatin daily for cholesterol management. - Monitor blood sugar levels regularly, especially for signs of low blood sugar. - Engage in regular physical activity and maintain a balanced diet to aid weight management. - Make an effort to use CPAP to improve sleep-related health. - Prepare for the scheduled colonoscopy in September. - Follow up for routine blood work before the next appointment in January. Orders: Orders Complete Blood Count Auto Diff 6 Months E11.65 - Type 2 diabetes mellitus with hyperglycemia, Z79.4 - [facility] (current) use of insulin Comprehensive Met. Panel 6 Months E11.65 - Type 2 diabetes mellitus with hyperglycemia, Z79.4 - [facility] (current) use of insulin Prostate Specific Antigen Scr 6 Months E11.65 - Type 2 diabetes mellitus with hyperglycemia, Z79.4 - superintendent container terminal (current) use of insulin Vitamin B12 and Folate 6 Months E11.65 - Type 2 diabetes mellitus with hyperglycemia, Z79.4 - [facility] (current) use of insulin Lipid Panel 6 Months E11.65 - Type 2 diabetes mellitus with hyperglycemia, E78.00 - Pure hypercholesterolemia, unspecified, Z79.4 - [facility] (current) use of insulin IRON PROFILE 6 Months E11.65 - Type 2 diabetes mellitus with hyperglycemia, Z79.4 - superintendent container terminal (current) use of insulin Free T4 (Free Thyroxine) 6 Months E11.65 - Type 2 diabetes mellitus with hyperglycemia, Z79.4 - superintendent container terminal (current) use of insulin Hemoglobin A1c 6 Months E11. - Type 2 diabetes mellitus with hyperglycemia, Z79.4 - superintendent container terminal (current) use of insulin Thyroid Stimulating Hormone 6 Months E11. - Type 2 diabetes mellitus with hyperglycemia, Z79.4 - [facility] (current) use of insulin Creatinine Urine 6 Months E11. - Type 2 diabetes mellitus with hyperglycemia, Z79.4 - [facility] (current) use of insulin Microalbumin, Random (w Creat) 6 Months E11. - Type 2 diabetes mellitus with hyperglycemia, Z79.4 - superintendent container terminal (current) use of insulin Reticulocyte Count 6 Months E11. - Type 2 diabetes mellitus with hyperglycemia, Z79.4 - superintendent container terminal (current) use of insulin UA CC w/rflx Micro + Cult 6 Months E11.65 - Type 2 diabetes mellitus with hyperglycemia, R30.0 - Dysuria, Z79.4 - [facility] (current) use of insulin
--- OUTSIDE RECORDS SUMMARY | 2024-07-29 11:21 | XMS_ITS | Clinical Summary ---
Author Organization 175 [facility] Address [address] [place] [address] Phone Care Team Providers Care Tire Sorter Name Role Phone Lindsay Archibald MD Primary Care Provider [phone] Allergies Active Allergy Reactions Criticality Noted Date Comments Lisinopril 01/05/2024 care home staff unsure how long he has had [...] 1 diabetes mellitus wit h vascular disease ([facility] V24, [facility] V28) 10/10/2017 Obesity, unspecified 03/31/2006 Schizophreniform disorder in remission ([facility] V24, [facility] V28) 02/23/2005 Overview (01/05/2024): IMO update Type 1 diabetes mellitus ([facility] V24, [facility] V 28) 02/23/2005 Immunizations Name Administration Dates [...] Results * Annual BMP Blood Test (06/27/2005) [facility] Annual BMP Blood Test abstracted Historical Provider HEALTH MAINTENANCE Final Result * (ABNORMAL) Lipid panel (06/27/2005) [facility] LDL/HDL Ratio 4 0 - 4 Triglycerides 223(A) 0 - 150 mg/dL Cholesterol 192 0 - 200 mg/dL HDL 44 >=40 mg/dL LDL Cholesterol 104(A) 0 - 100 mg/dL Blood Venous blood specimen / Unknown Historical Provider LAB BLOOD ORDERABLES Carito l Result * Hemoglobin A1c (02/24/2005) [facility] Hemoglobin A1C 5.5 4.0 - 6.0 % Blood Venous blood specimen / Unknown Historical Provider LAB BLOOD ORDERABLES Carito l Result * Urine Albumin Creatinine Ratio (08/04/2004) Urine Albumin Creatinine Ratio abstracted Historical Provider HEALTH MAINTENANCE Final Result from Last 3 Months or Most Recently Relevant to Health Maintenance Insurance MEDICAID - [place] MEDICARE Care Teams Tire Sorter Relationship Specialty Start Date End Date Lindsay Archibald MD [address] [place] [address] [address] [facility] [place] [address] PCP - General Internal Medicine 01/29/16
== END 2024-07-29 13:41 | disposition home or self-care (01) ==
LOC: HO.HMCH 09:54
PROVIDERS: PCP Internal Medicine; Visit Provider Internal Medicine
DX: E11.65 Type 2 diabetes mellitus with hyperglycemia (principal); Z79.4 Long term (current) use of insulin; E66.9 Obesity, unspecified; Z68.31 Body mass index [BMI] 31.0-31.9, adult; K21.9 Gastro-esophageal reflux disease without esophagitis; E78.00 Pure hypercholesterolemia, unspecified; D12.6 Benign neoplasm of colon, unspecified

== ENCOUNTER → 2024-07-29 09:53 | Outpatient (BNVA) | payer MEDICARE, MEDICAID, SELFPAY | PROVIDERS: PCP Internal Medicine; Visit Provider Internal Medicine | DX: E11.65 Type 2 diabetes mellitus with hyperglycemia (principal); K21.9 Gastro-esophageal reflux disease without esophagitis; E78.00 Pure hypercholesterolemia, unspecified; E66.9 Obesity, unspecified; D12.6 Benign neoplasm of colon, unspecified; Z79.4 Long term (current) use of insulin | CPT/HCPCS: 99212 ==

== ENCOUNTER 2024-07-31 08:44 | Outpatient (AMB) | payer MEDICARE, MEDICAID, SELFPAY ==
--- OUTSIDE RECORDS SUMMARY | 2024-07-31 09:01 | XMS_ITS | Clinical Summary ---
Author Organization 175 [facility] Address [address] [place] [address] Phone Care Team Providers Care Dry Cleaner Name Role Phone Lindsay Archibald MD Primary Care Provider [phone] Allergies Active Allergy Reactions Criticality Noted Date Comments Lisinopril 01/05/2024 [facility] staff unsure how long he has had [...] 1 diabetes mellitus wit h vascular disease ([facility] V24, [facility] V28) 10/10/2017 Obesity, unspecified 03/31/2006 Schizophreniform disorder in remission ([facility] V24, [facility] V28) 02/23/2005 Overview (01/05/2024): IMO update Type 1 diabetes mellitus ([facility] V24, [facility] V 28) 02/23/2005 Immunizations Name Administration [...] Results * Annual BMP Blood Test (06/27/2005) [facility] Annual BMP Blood Test abstracted Historical Provider HEALTH MAINTENANCE Final Result * (ABNORMAL) Lipid panel (06/27/2005) [facility] LDL/HDL Ratio 4 0 - 4 Triglycerides 223(A) 0 - 150 mg/dL Cholesterol 192 0 - 200 mg/dL HDL 44 >=40 mg/dL LDL Cholesterol 104(A) 0 - 100 mg/dL Blood Venous blood specimen / Unknown Historical Provider LAB BLOOD ORDERABLES Carito l Result * Hemoglobin A1c (02/24/2005) [facility] Hemoglobin A1C 5.5 4.0 - 6.0 % Blood Venous blood specimen / Unknown Historical Provider LAB BLOOD ORDERABLES Carito l Result * Urine Albumin Creatinine Ratio (08/04/2004) Urine Albumin Creatinine Ratio abstracted Historical Provider HEALTH MAINTENANCE Final Result from Last 3 Months or Most Recently Relevant to Health Maintenance Insurance [place] - [place] Care Teams Dry Cleaner Relationship Specialty Start Date End Date Lindsay Archibald MD [address] [place] [address] [address] [facility] [place] [address] PCP - General Internal Medicine 01/29/16
[2024-07-31 09:11] VITALS: BMI 31.6
--- NOTE | 2024-07-31 09:11 | MHC.AMNUTRGE ---
VS Expanded 07/31/24 09:11 Height 5 ft 10 in Weight 220 lb 7.396 oz BMI 31.6 Intake Visit Reasons: T2DM Allergies lisinopril [LISINOPRIL] Allergy (Intermediate, Verified 08/05/24 07:37) HYPOTENSION Nutrition Presentation Details: Pt presents for MNT f/u for T2DM Pt reports doing well having 3 meals/day, following healthy plate method noted A1c at 5.8% on 07/26 Pt reports no signs or symptoms of hypoglycemia. BS Monitoring Most Recent Diabetes Results: Microalb/Creat Ratio 16.6 ug/mg cr (<30) 08/03/24 Cholesterol 120 mg/dL (<200) 08/03/24 HDL Cholesterol 39 mg/dL (>40) L 08/03/24 Triglycerides 74 mg/dL (<150) 08/03/24 Creatinine 0.84 mg/dL (0.5-1.4) 08/05/24 Blood Urea Nitrogen 13 mg/dL (9-16) 08/05/24 Sodium 144 mmol/L (135-145) 08/05/24 Potassium 3.8 mmol/L (3.3-5.1) 08/05/24 Chloride 106 mmol/L (96-108) 08/05/24 Carbon Dioxide 29 mmol/L (22-29) 08/05/24 Calcium 9.3 mg/dL (8.4-10.2) 08/05/24 AST 36 U/L (5-37) 08/05/24 ALT 32 U/L (0-40) 08/05/24 Total Protein 6.8 g/dL (6.5-8.0) 08/05/24 Albumin 4.2 g/dL (3.5-5.0) 08/05/24 [facility] Medical History Tinea pedis Hypoxemia Adult general medical exam Screening for prostate cancer Folliculitis Nocturnal hypoxemia Hypoventilation syndrome Obstructive sleep apnea Type 2 diabetes mellitus with hyperglycemia Fatty liver GERD (gastroesophageal reflux disease) Insomnia Hypercholesterolemia Anxiety and depression Obesity (BMI 30-39.9) Vitamin D deficiency Mental and behavioral problem Surgical History History of colonoscopy H/O basal cell carcinoma excision History of cataract surgery Family History Father Medical history unknown Myocardial infarct Mother Lung cancer Brain aneurysm Maternal Grandmother Uterine cancer Maternal Grandfather Lung cancer Social History Housing: House Housing Other:: [facility] Alcohol intake: never Patient Tobacco Use Status: Never used Tobacco Tobacco use type: Cigarette e-Cigarette/Vaping Use: Never Used Second Hand Smoke Exposure: No service: No Current occupational status: unemployed and disabled Cognitive needs: Yes Hearing needs: No Vision needs: No Assessment & Plan Assessment & Plan (1) Type 2 diabetes mellitus with hyperglycemia: Code(s): E11.65 - Type 2 diabetes mellitus with hyperglycemia Category: Medical Qualifiers: Diabetes mellitus long term care phlebotomist insulin use: with nursing home use Qualified Code(s): E11.65 - Type 2 diabetes mellitus with hyperglycemia; Z79.4 - detention (current) use of insulin Plan: Wt: 103 Kg ( 02/24 ), 101 kg (03/26), 102 kg (04/27), 100 kg (06/25), 07/26 Est kcal needs as per MSJ: 2200 (40% carb, 30% protein/fat) Est fluid needs as per 25-30 ml/d: 3100 Est prot per day as per 1 g/kg bw: 103 Recommend fiber intake : 8-10 g per day and gradually increase to 25-28 g per day for women and 35-38 g for men or as tolerated Recommend sodium intake per day : l less than 2300 mg Educated patient on: ( R = reviewed V = verbalizes understanding N/R = needs review N/A = not applicable Food sources of carbohydrate, adequate serving sizes and its role in various health conditions: R Differences between complex carbohydrates a simple carbohydrates, role of fiber in diet: R Lean protein sources of foods: R Differences between types of fats and role in diet (mono on saturated fat fatty acids, saturated fatty acids, trans fats): R EAting out food choices (choosing protein , lower calorie option) : R Food sources of sodium in salt and healthy modifications for heart health in kidney health: R V R/V Vitamins and minerals: R V N/R Healthy plate method concept: R V N/R Physical activity: Benefits a precaution: R Hypoglycemia protocol (rule of 15): R V , education material was given Dietary prevention of Hyperglycemia: R Patient Instructions: Continue working on following healthy plate method Check your blood sugar if you have symptoms of low blood sugar , if blood sugar is less than 70 then treat it by having 1/2 cup of juice, wait 15 minutes and re check your blood sugar. Notify your doctor if having symptoms of low blood sugar for further assessment Education material with information on hypoglycemia treatment was provided Coding Level of Care Code Nutr Indiv Subseq (09364) Diagnoses Type 2 diabetes mellitus with hyperglycemia, with long-term current use of insulin E11.65; Z79.4 Diabetes mellitus nursing home insulin use: with long term care phlebotomist use Time Spent (min) 30
== END 2024-07-31 09:42 | disposition home or self-care (01) ==
LOC: HO.ENCR 08:45
PROVIDERS: PCP Internal Medicine; Visit Provider Dietitian, Registered
DX: E11.65 Type 2 diabetes mellitus with hyperglycemia (principal); Z79.4 Long term (current) use of insulin

== ENCOUNTER → 2024-07-31 08:44 | Outpatient (BNVA) | payer MEDICARE, MEDICAID, SELFPAY | PROVIDERS: PCP Internal Medicine; Visit Provider Dietitian, Registered | DX: E11.65 Type 2 diabetes mellitus with hyperglycemia (principal); Z79.4 Long term (current) use of insulin | CPT/HCPCS: 97803 ==

== ENCOUNTER 2024-08-03 09:56 | Outpatient (REF) | payer MEDICARE, MEDICAID, SELFPAY ==
[2024-08-03 10:09] LABS: MANUAL DIFF FLAG NO
[2024-08-03 10:52] LABS: Basophils Percent Auto 0.3 % (0-2); Eosinophils Absolute Auto 0.1 X10*3/uL (0.0-0.4); Eosinophils Percent Auto 0.6 % (0-4); Hematocrit 41.4 % (42.0-52.0); Hemoglobin 13.8 g/dl (14.0-18.0); Imm Gran Abs Auto 0.02 X10*3/uL (0.00-0.03); Imm Gran Pct Auto 0.2 % (0.0-0.4); Immature Retic Fraction 4.2 % (2.3-13.4); Lymphocytes Absolute Auto 1.3 X10*3/uL (1.2-4.9); Lymphocytes Percent Auto 14.6 % (20-40); Mean Corpuscular HGB Conc 33.3 g/dl (31.0-36.0); Mean Corpuscular Hemoglobin 29.7 pg (27.0-33.0); Mean Corpuscular Volume 89.2 fL (80.0-98.0); Mean Platelet Volume 9.1 fL (9.4-12.4); Monocytes Absolute Auto 0.7 X10*3/uL (0.1-1.2); Monocytes Percent Auto 7.6 % (2-11); Neutrophils Absolute Auto 6.8 x10*3/uL (2.0-8.3); Neutrophils Percent Auto 76.7 % (45-73); Platelet Count 270 X10*3/uL (160-400); Red Blood Count 4.64 X10*6/uL (4.60-5.80); Red Cell Distribution Width 12.4 % (11.0-16.0); Retic HGB Equivalent 35.3 pg (30.0-35.0); Reticulocyte Percent 0.9 % (0.5-1.8); Reticulocytes Absolute 0.043 X10*6/uL (0.026-0.095); White Blood Count 8.8 X10*3/uL (4.8-10.8)
[2024-08-03 11:07] LABS: Appearance Urine Clear; Color Urine Yellow; Glucose Urine UA Negative (Negative); Leukocyte Esterase Urine Negative (Negative); Nitrite Urine Negative (Negative); PH 6.5 (5.0-9.0); Specific Gravity - Urine 1.015 (1.005-1.025); Urine Blood Negative (Negative); Urine Ketones Negative (Negative); Urine Protein Negative (Neg-Trace)
[2024-08-03 11:10] LABS: Estimated Average Glucose 120 mg/dL; Hemoglobin A1C 144.7312 umol/L; Hemoglobin A1c % 5.8 % (<6.0); Total Hemoglobin (HGBA1C) 3649.8114 umol/L
[2024-08-03 11:32] LABS: Creatinine Urine 143.72 mg/dL; Microalbum/Creatinine Ratio Ur 16.6 ug/mg cr (<30)
[2024-08-03 11:40] LABS: Alanine Aminotransferase 23 U/L (0-40); Albumin Level 4.6 g/dL (3.5-5.0); Anion Gap 14 (12-20); Aspartate Amino Transferase 27 U/L (5-37); Bilirubin Total 0.7 mg/dL (0.0-1.0); Blood Urea Nitrogen 17 mg/dL (9-16); Calcium 9.6 mg/dL (8.4-10.2); Carbon Dioxide 27 mmol/L (22-29); Chloride 105 mmol/L (96-108); Cholesterol 120 mg/dL (<200); Estimated Glomerular Filt Rate > 60; Glucose Random 124 mg/dL (60-115); HDL Cholesterol 39 mg/dL (>40); Iron 112 mcg/dL (45-160); LDL Cholesterol Calculated 67 mg/dL (<100); Percent Iron Saturation 45 % (15-50); Potassium 3.9 mmol/L (3.3-5.1); Sodium 142 mmol/L (135-145); Total Iron Binding Capacity 248 mcg/dL (228-428); Total Protein 7.3 g/dL (6.5-8.0); Triglycerides 74 mg/dL (<150); Unsaturated Iron Binding 136 ug/dL; Uric Acid 6.5 mg/dL (3.4-7.0)
[2024-08-03 12:00] LABS: Folate 15.1 ng/mL (> or = 4.0); Prostate Specific Antigen Scr 0.27 ng/mL (<0.05-4.0); Vitamin B12 414 pg/mL (200-900)
[2024-08-03 12:01] LABS: Free T4 (Free Thyroxine) 0.91 ng/dL (0.71-1.85); Thyroid Stimulating Hormone 2.34 uIU/mL (0.32-4.0)
[2024-08-03 13:17] LABS: Alkaline Phosphatase 74 U/L (39-117)
[2024-08-03 13:40] LABS: Ferritin 428 ng/mL (20-250)
== END 2024-08-03 09:57 | disposition home or self-care (01) ==
LOC: HO.LAB 09:56
PROVIDERS: PCP Internal Medicine; Visit Provider Internal Medicine
DX: R41.0 Disorientation, unspecified (principal); E78.00 Pure hypercholesterolemia, unspecified; R30.0 Dysuria; Z79.4 Long term (current) use of insulin; E11.65 Type 2 diabetes mellitus with hyperglycemia; Z12.5 Encounter for screening for malignant neoplasm of prostate
CPT/HCPCS: 36415; 80053; 80061; 81003; 82043; 82570; 82607; 82728; 82746; 83036; 83540; 84153; 84439; 84443; 84550; 85025; 85045

== ENCOUNTER 2024-08-05 07:23 | Emergency (ER) | payer MEDICARE, MEDICAID, SELFPAY ==
--- NOTE | ~2024-08-05 | XR_ITS ---
EXAMINATION: XR ABDOMEN KUB CLINICAL INDICATION: constipation COMPARISON: None available. TECHNIQUE: AP view of the abdomen. FINDINGS: Bowel gas pattern demonstrates numerous minimally distended loops of gas-filled:, And some loops of gas-filled small bowel throughout the abdomen. There is a moderate amount of fecal material seen throughout the colon and rectum, consistent with mild to moderate constipation. No indirect evidence of free air. No organomegaly. No abnormal soft tissue calcifications identified. Osseous structures demonstrate no acute bony abnormalities. Mild degenerative changes of the spine, with partial sacralization of the L5 vertebral body noted. XR/XR KUB IMPRESSION: Moderate constipation. No definite bowel obstruction. Electronically signed by: Tirstian Merida MD 08/06/2024 12:50 PM EDT
[2024-08-05 07:35] VITALS: BP 118/64; BP 122/76; PULSE 71; PULSE 74; RESP 18; TEMP 36.9; O2SAT 93; O2SAT 94; BMI 31.3
--- NOTE | 2024-08-05 07:36 | MHC.EDTECH ---
Patient BIBA,changed into hospital attire,vitals taken,pt is calm and cooperative,fpc staff at bedside,call morrissey in reach
--- NOTE | 2024-08-05 07:46 | ECG_ITS ---
Test Reason : weakness Blood Pressure : */* mmHG Vent. Rate : 69 BPM Atrial Rate : 69 BPM P-R Int : 142 ms QRS Dur : 96 ms QT Int : 404 ms P-R-T Axes : -7 -2 3 degrees QTcB Int : 432 ms Normal sinus rhythm Normal ECG When compared with ECG of 09-Dec-2020 21:15, No significant change was found Referred By: Hanane Morel Electronically Signed By: KIM LARA
--- OUTSIDE RECORDS SUMMARY | 2024-08-05 07:59 | XMS_ITS | Clinical Summary ---
Author Organization [address] [facility] Address [address] [place] [address] Phone Care Team Providers Care Securities And Real Estate Director Name Role Phone Lindsay Archibald MD Primary Care Provider [phone] Allergies Active Allergy Reactions Criticality Noted Date Comments Lisinopril 01/05/2024 longterm staff unsure how long he has had [...] h vascular disease ([facility] V24, [facility] V28) 10/10/2017 Obesity, unspecified 03/31/2006 Schizophreniform disorder in remission ([facility] V24, [facility] V28) 02/23/2005 Overview (01/05/2024): IMO update Type 1 diabetes mellitus ([facility] V24, [facility] V 28) 02/23/2005 Immunizations Name Administration Dates [...] Care Team (Late st Contact Info) Description 10/31/2024 10:00 AM EDT Office Visit Orthopedic Surgery - [place] [address] [phone] Ross Rosenbaum, DPLaura [address] [address] Health Maintenance Due Date Last Done Comments [...] BMP Blood Test (06/27/2005) Pathologist [facility] Annual BMP Blood Test abstracted us Historical Provider MD HEALTH MAINTENANCE Final Result * (ABNORMAL) Lipid [...] (08/04/2004) HM Urine Albumin Creatinine Ratio abstracted [facility] Provider HEALTH MAINTENANCE Final Result from Last 3 Months or Most Recently Relevant to Health Maintenance Insurance MEDICAID - [place] MEDICARE Care Teams Securities And Real Estate Director Relationship Specialty Start Date End Date Lindsay Archibald MD [address] [place] [address] Dr [address] [facility] [place] [address] PCP - General Internal Medicine 01/29/16
--- NOTE | 2024-08-05 08:10 | ED.GENADULT ---
HPI - General Adult General Chief complaint: General Medical Stated complaint: VERB AGGRESIVE @GRP HM,REFU MED/EAT,TRIED TO [facility] Time Seen by Provider: 08/05/24 07:45 Source: patient, EMS, old records reviewed and other (caregiver) Mode of arrival: EMS Limitations: no limitations History of Present Illness ED Provider: LILLI HPI narrative: 58 yo male with PMH of HTN, DM, GERD, anxiety and depression, developmental delay, HLD who resides in a skilled nursing. Per skilled nursing staff they report refusal to eat or take medications since last week. They feel he is talking to himself which is new. He denies any pain, n/v, diarrhea or anything and states he is fine. On arrival to the room he asked for food. MD complaint: FTT/speaking to himself Onset (ago): day(s) (5) Radiation: non-radiation Severity: mild Relieving factors: none Exacerbating factors: none Associated symptoms: denies other symptoms Treatments prior to arrival: none Related Data Home Medications ?Medication ?Instructions ?Recorded ?Confirmed Oxygen Home Use 01/26/24 07/18/24 escitalopram oxalate 20 mg tablet 40 mg PO DAILY 01/26/24 08/05/24 peg 400-propylene glycol (PF) 0.4 2 drp ophthalmic (eye) QID PRN Dry 01/26/24 08/05/24 %-0.3 % eye drops in a dropperette Eyes (Systane (PF)) promethazine 25 mg tablet 25 mg PO DAILY PRN 1 hour prior to 01/26/24 08/05/24 to dental appointments risperidone 2 mg tablet (Risperdal) 2 mg PO BEDTIME 01/26/24 08/05/24 atorvastatin 80 mg tablet 80 mg PO BEDTIME 08/05/24 08/05/24 dextromethorphan HBr 15 mg/5 mL 30 mg PO Q12H PRN Cough 08/05/24 08/05/24 oral syrup insulin glargine 100 unit/mL (3 10 unit subcut DAILY 08/05/24 08/05/24 mL) subcutaneous pen (Lantus Solostar U-100 Insulin) lanolin-mineral oil-NaCl-w.pet 1 ea topical BID 08/05/24 08/05/24 lotion multivitamin 1 tab PO DAILY 08/05/24 08/05/24 omeprazole 20 mg capsule,delayed 20 mg PO DAILY@0630 08/05/24 08/05/24 release Previous Rx's ?Medication ?Instructions ?Recorded inhalational spacing device #1 ea 12/25/20 (Aerochamber MV spacer) cholecalciferol (vitamin D3) 25 25 mcg PO DAILY 90 days #90 caps 10/03/23 mcg (1,000 unit) capsule metformin 500 mg tablet 500 mg PO BIDWMEAL #180 tabs 11/01/23 glucose 4 gram chewable tablet 4 g PO Q15M PRN hypoglycemia #60 11/08/23 (Dex4 Glucose) tabs ferrous fumarate 324 mg (106 mg 324 mg PO DAILY #90 tabs 11/17/23 iron) tablet blood sugar diagnostic (Contour #300 ea 12/07/23 Next Test Strips) lancets 30 gauge (TRUEplus Lancets) #100 ea 01/03/24 ascorbate calcium (vitamin C) 500 500 mg PO DAILY #90 tabs 03/26/24 mg tablet ketoconazole 2 % shampoo 1 appl topical 2XW #120 mL 05/24/24 acetaminophen 325 mg tablet 650 mg (2 x 325 mg) PO Q6H PRN 07/09/24 Pain #90 tabs pen needle, diabetic 31 gauge x #100 ea 07/24/24/ (Advocate Pen Needle) escitalopram oxalate 20 mg tablet 20 mg PO DAILY #30 tabs 08/06/24 (Lexapro) polyethylene glycol 3350 17 17 g PO DAILY Constipation 2 weeks 08/06/24 gram/dose oral powder (Miralax) #238 grams risperidone 1 mg tablet (Risperdal) 1 mg PO DAILY #30 tabs 08/06/24 Allergies Allergy/AdvReac Type Severity Reaction Status Date / Time lisinopril [LISINOPRIL] Allergy Intermediate HYPOTENSION Verified 08/05/24 07:37 Review of Systems Review of Systems: Constitutional : No Fever, No Chills, No Fatigue ENT/Mouth : No sore throat, No Rhinorrhea Eyes: No Eye Pain, No Swelling, No Redness Cardiovascular : No Chest Pain, No SOB, No Dyspnea on Exertion Respiratory : No Cough, No Sputum Gastrointestinal : No Nausea, No Vomiting, No Diarrhea, No abdominal Pain Genitourinary : No Dysuria, No Urinary Frequency, No Hematuria, Musculoskeletal : No joint pain, No Myalgias, No Joint Swelling Skin : No Skin Lesions, No rash Neuro : No Weakness, No Numbness, No Dizziness, no Headache Psych : No Anxiety/Panic, No Depression All other systems reviewed and are negative [facility] Past Medical History Attestation statement: The following information was validated with the patient. Source: old records reviewed Medical History Tinea pedis Hypoxemia Adult general medical exam Screening for prostate cancer Folliculitis Nocturnal hypoxemia Hypoventilation syndrome Obstructive sleep apnea Type 2 diabetes mellitus with hyperglycemia Fatty liver GERD (gastroesophageal reflux disease) Insomnia Hypercholesterolemia Anxiety and depression Obesity (BMI 30-39.9) Vitamin D deficiency Mental and behavioral problem Surgical History History of colonoscopy H/O basal cell carcinoma excision History of cataract surgery Family History Family History Father Medical history unknown Myocardial infarct Mother Lung cancer Brain aneurysm Maternal Grandmother Uterine cancer Maternal Grandfather Lung cancer Social History Social History Housing: House Housing Other:: [facility] Alcohol intake: never Patient Tobacco Use Status: Never used Tobacco Tobacco use type: Cigarette e-Cigarette/Vaping Use: Never Used Second Hand Smoke Exposure: No service: No Current occupational status: unemployed and disabled Cognitive needs: Yes Hearing needs: No Vision needs: No Physical Exam ED Vital Signs: Vital Signs - 24 hr 08/06/24 12:00 08/06/24 14:57 08/06/24 16:13 Temperature 97.1 F 98.0 F 98.0 F Pulse Rate 88 86 86 Respiratory Rate 18 16 16 Blood Pressure 133/68 111/52 L 111/52 L Pulse Oximetry 92 94 94 Oxygen Delivery Method Room Air Room Air Room Air BMI result Body Mass Index 31.3 Appearance: Alert. Oriented X3. No acute distress. Eyes: Pupils equal, round and reactive to light. ENT: Pharynx normal. Neck: Normal inspection. Neck supple. CVS: Normal heart rate and rhythm. Pulses normal. Respiratory: No respiratory distress. Breath sounds normal. Abdomen: Soft and nontender. Skin: Skin warm and dry. pale skin color. Normal skin turgor. Extremities: No lower extremity edema. No calf ttp Neuro: Oriented X 3. No motor deficit. No sensory deficit. CN2-12 intact Course Course Course Narrative: Time: 21:41 Date: 08/05/24 Provider: Marco Antonio Jauregui MD Patient in physician observation for psychiatric evaluation.? Patient was evaluated by the care team and a disposition was not determined today. The plan was to keep the patient in the emergency department, reassess the patient in the morning and get a psychiatric consult to determine disposition. The nurse reports that the patient is seeing snakes and has been having visual hallucinations all day. Patient is in a skilled nursing and there is no reported alcohol use. I did ask the nurse to do a CIWA scale. Patient's visual hallucinations were treated with Ativan 1 mg orally and Haldol 5 mg orally. Patient will remain in physician observation until disposition can be determined. Time: 08:10 Date: 08/06/24 Provider: CHRISTIAN Cook Patient in physician observation for psychiatric evaluation.? And treated with Ativan and Haldol overnight for hallucinations and CIWA of 10. He is sleeping comfortably this morning. No current complaints. VS stable.? Patient is pending CARE team evaluation. Will continue to monitor. Reevaluation(s) Reevaluation #1: Time: 16:00 Date: 08/06/24 Provider: Hanane Morel DO Physician observation ended at 1600Patient has been cleared for discharge by the CARE team/early intervention school psychologist. Will follow up as an outpatient. Medications Administered Discontinued Medications Generic Name Dose Route Start Last Admin Trade Name Prakash PRN Reason Stop Dose Admin Ascorbic Acid 500 mg 08/06/24 09:00 08/06/24 08:22 Ascorbic Acid 500 Mg Tablet PO 500 mg DAILY LANA Administration Escitalopram Oxalate 40 mg 08/06/24 09:00 08/06/24 08:22 Escitalopram Oxalate 20 Mg Tablet PO 40 mg DAILY LANA Administration Haloperidol 5 mg 08/05/24 21:35 08/05/24 21:47 Haloperidol 5 Mg Tablet PO 08/05/24 21:36 5 mg ONCE ONE Administration Insulin Glargine 10 unit 08/06/24 09:00 08/06/24 08:23 Insulin Glargine,Hum.Rec.Anlog 100 Unit/Ml 10 Ml Vial SUBCUT 10 unit DAILY LANA Administration Ketoconazole 1 appl 08/06/24 08:00 08/06/24 08:25 Ketoconazole 2 % Shampoo 120 Ml Btl TOPICAL Not Given [facility] Protocol Lorazepam 1 mg 08/05/24 21:35 08/05/24 21:47 Lorazepam 1 Mg Tablet PO 08/05/24 21:36 1 mg ONCE ONE Administration Lorazepam 1 mg 08/06/24 10:47 08/06/24 12:06 Lorazepam 1 Mg Tablet PO 08/06/24 10:48 1 mg ONCE ONE Administration Metformin HCl 500 mg 08/06/24 08:00 08/06/24 08:22 Metformin Hcl 500 Mg Tablet PO 500 mg BIDWM LANA Administration Multivitamins/Vitamin C 1 tab 08/06/24 09:00 08/06/24 08:22 Multivitamin Tablet PO 1 tab DAILY LANA Administration Omeprazole 20 mg 08/06/24 08:00 08/06/24 08:21 Omeprazole 20 Mg Capsule. PO 20 mg DAILY@0630 LANA Administration Risperidone 1 mg 08/06/24 11:35 08/06/24 12:06 Risperidone 1 Mg Tablet PO 1 mg DAILY LANA Administration Vitamin D 25 mcg 08/06/24 09:00 08/06/24 08:22 Cholecalciferol (Vitamin D3) 25 Mcg Tablet PO 25 mcg DAILY LANA Administration Medical Decision Making Medical Decision Making [facility] Narrative: 58 yo male with PMH of HTN, DM, GERD, anxiety and depression, developmental delay, HLD here with poor PO intake and behavioral changes at this time will obtain basic labs, UA and refer to CARE team as requested by the skilled nursing for concerning change in behaviors. No focal deficits and no head trauma seen on exam. The patient is a 58 years old with a past medical history of hypertension diabetes GERD history of being mentally challenged. Patient was seen by care team. Psychiatry recommended for patient to have some medication changes. Currently in stable condition. Requested for an x-ray patient has moderate amount of constipation. Will discharge patient home. MiraLax as needed for constipation. In stable condition. Differential Diagnosis Differential Diagnoses: The differential diagnosis associated with the presentation includes FTT, anemia, dehydration, behavioral issues Admission/Observation Consideration of admission/observation: Escalation of care including admission/observation considered physician observation started at 829am pending CARE team Consult Healthcare Provider Management of the patient was discussed with: Behavioral Health Provider Lab Data MDM Lab Attestation statement: I reviewed the patient's lab results. 08/05/24 08:07 08/05/24 08:07 Labs: Lab Results 08/05/24 08/05/24 08/06/24 Range/Units 08:07 11:40 08:19 WBC 7.1 (4.8-10.8) X10*3/uL RBC 4.32 L (4.60-5.80) X10*6/uL Hgb 13.0 L (14.0-18.0) g/dl Hct 38.1 L (42.0-52.0) % MCV 88.2 (80.0-98.0) fL MCH 30.1 (27.0-33.0) pg MCHC 34.1 (31.0-36.0) g/dl RDW 12.2 (11.0-16.0) % Plt Count 230 (160-400) X10*3/uL MPV 8.7 L (9.4-12.4) fL Immature Gran % (Auto) 0.3 (0.0-0.4) % Neut % (Auto) 77.8 H (45-73) % Lymph % (Auto) 15.3 L (20-40) % Morris % (Auto) 5.6 (2-11) % Eos % (Auto) 0.6 (0-4) % Baso % (Auto) 0.4 (0-2) % Lymph # (Auto) 1.1 L (1.2-4.9) X10*3/uL Morris # (Auto) 0.4 (0.1-1.2) X10*3/uL Eos # (Auto) 0.0 (0.0-0.4) X10*3/uL Baso # (Auto) 0.0 (0.0-0.2) X10*3/uL Abs Immat Gran (auto) 0.02 (0.00-0.03) X10*3/uL Absolute Neuts (auto) 5.5 (2.0-8.3) x10*3/uL Absolute Nucleated RBC 0.000 (0.0-0.012) X10*3/uL Nucleated RBC % (auto) 0.0 (0.0-0.2) /100WBC Sodium 144 (135-145) mmol/L Potassium 3.8 (3.3-5.1) mmol/L Chloride 106 (96-108) mmol/L Carbon Dioxide 29 (22-29) mmol/L Anion Gap 13 (12-20) BUN 13 (9-16) mg/dL Creatinine 0.84 (0.5-1.4) mg/dL Estim Creat Clear Calc 111.6 Estimated GFR > 60 POC Glucose 225 H (60-115) mg/dL Random Glucose 123 H (60-115) mg/dL Calcium 9.3 (8.4-10.2) mg/dL Magnesium 1.9 (1.6-2.6) mg/dL Total Bilirubin 0.5 (0.0-1.0) mg/dL Direct Bilirubin 0.2 (0.0-0.5) mg/dL AST 36 (5-37) U/L ALT 32 (0-40) U/L Alkaline Phosphatase 80 (39-117) U/L Total Protein 6.8 (6.5-8.0) g/dL Albumin 4.2 (3.5-5.0) g/dL Lipase 18 (8-78) U/L TSH 4.12 H (0.32-4.0) uIU/mL Free T4 0.99 (0.71-1.85) ng/dL Urine Color Yellow Urine Appearance Clear Urine pH 8.5 (5.0-9.0) Ur Specific Myton 1.015 (1.005-1.025) Urine Protein Negative (Neg-Trace) mg/dL Urine Glucose (UA) Negative (Negative) mg/dL Urine Ketones Negative (Negative) mg/dL Urine Blood Negative (Negative) Urine Nitrite Negative (Negative) Ur Leukocyte Esterase Negative (Negative) Urine Opiates Screen Not Detected (Not Detect) Ur Buprenorphine Scrn Not Detected (Not Detect) ng/mL Ur Oxycodone Screen Not Detected (Not Detect) ng/mL Urine Methadone Screen Not Detected (Not Detect) ng/mL Urine Fentanyl Screen Not Detected (Not Detect) Ur Barbiturates Screen Not Detected (Not Detect) Ur Phencyclidine Scrn Not Detected (Not Detect) Ur Amphetamines Screen Not Detected (Not Detect) U Benzodiazepines Scrn Not Detected (Not Detect) Urine Cocaine Screen Not Detected (Not Detect) U Marijuana (THC) Screen Not Detected (Not Detect) Ethyl Alcohol < 10 mg/dL Independent Interpretation I performed an independent interpretation of an: EKG Interpretation: Rate: 69 Rhythm: NSR [employer]: normal Normal P waves. Normal ARNIE. Normal QRS complex. ST T wave : no МАРИЯ, nonspecific ST T wave changes qTC: 432 prior studies: no acute ischemia The study has been interpreted contemporaneously by me. . Independent Historian Clinical information obtained from an independent historian. History obtained from or confirmed by: Other External Record Review External record reviewed: Outpatient record Prescription Management I considered prescription management with: Other Discharge Plan Discharge Clinical Impression: Adult failure to thrive, Constipation Patient Disposition: Home, Self-Care Instructions: Constipation (DC), Failure to Thrive in Older Adults (ED) Additional Instructions: Medication adjustment as per Psychiatry. May also take MiraLax 1 capful with 8 oz of liquid daily. Prescriptions: New polyethylene glycol 3350 [Miralax] 17 gram/dose powder 17 g PO DAILY 14 Days Qty: 238 0RF escitalopram oxalate [Lexapro] 20 mg tablet 20 mg PO DAILY Qty: 30 0RF risperidone [Risperdal] 1 mg tablet 1 mg PO DAILY Qty: 30 0RF No Action (DME) Aerochamber MV Spacer See Rx Instructions .Route Qty: 1 0RF Rx Instructions: As directed cholecalciferol (vitamin D3) 25 mcg (1,000 unit) capsule 25 mcg PO DAILY 90 Days Qty: 90 11RF metformin 500 mg tablet 500 mg PO BIDWMEAL Qty: 180 11RF glucose [Dex4 Glucose] 4 gram tablet,chewable 4 g PO Q15M PRN (Reason: hypoglycemia) Qty: 60 0RF Rx Instructions: until symptoms of low blood sugar are controlled BS < 80 ferrous fumarate 324 mg (106 mg iron) tablet 324 mg PO DAILY Qty: 90 11RF (DME) Contour Next Test Strips Strip MISCELLANEOUS Qty: 300 11RF Rx Instructions: Check blood sugar 3 times a day (DME) lancets [TRUEplus Lancets] 30 gauge misc MISCELLANEOUS Qty: 100 12RF Rx Instructions: Check blood sugars ascorbate calcium (vitamin C) 500 mg tablet 500 mg PO DAILY Qty: 90 11RF ketoconazole 2 % shampoo 1 appl topical 2XW Qty: 120 2RF (DME) pen needle, diabetic [Advocate Pen Needle] 31 gauge x 5/16 needle MISCELLANEOUS Qty: 100 3RF Rx Instructions: Use as directed multivitamin Tablet 1 tab PO DAILY dextromethorphan HBr 15 mg/5 mL Syrup 30 mg PO Q12H PRN (Reason: Cough) Lubriderm Lotion 1 ea TOPICAL BID atorvastatin 80 mg tablet 80 mg PO BEDTIME omeprazole 20 mg capsule,delayed release(DR/EC) 20 mg PO DAILY@0630 insulin glargine [Lantus Solostar U-100 Insulin] 100 unit/mL (3 mL) insulin pen 10 unit subcut DAILY acetaminophen 325 mg tablet 650 mg PO Q6H PRN (Reason: Pain) Qty: 90 4RF escitalopram oxalate 20 mg tablet 40 mg PO DAILY risperidone [Risperdal] 2 mg tablet 2 mg PO BEDTIME promethazine 25 mg tablet 25 mg PO DAILY PRN (Reason: 1 hour prior to to dental appointments) (DME) Oxygen Home Use Kit See Rx Instructions .Route Rx Instructions: As directed Systane (PF) 0.4-0.3 % dropperette 2 drp ophthalmic (eye) QID PRN (Reason: Dry Eyes) Referrals: Thea Lam NP [Nurse Practitioner] - Po,Lindsay Mcdonald MD [Primary Care Provider] - Interventions: ED Discharge Assessment Last Done: 08/06/24 16:13 Discharge Date/Time: 08/06/24 16:16 Print Language: Scottish
[2024-08-05 08:11] LABS: MANUAL DIFF FLAG NO
[2024-08-05 08:14] LABS: Basophils Percent Auto 0.4 % (0-2); Eosinophils Percent Auto 0.6 % (0-4); Hematocrit 38.1 % (42.0-52.0); Imm Gran Abs Auto 0.02 X10*3/uL (0.00-0.03); Imm Gran Pct Auto 0.3 % (0.0-0.4); Lymphocytes Absolute Auto 1.1 X10*3/uL (1.2-4.9); Lymphocytes Percent Auto 15.3 % (20-40); Mean Corpuscular HGB Conc 34.1 g/dl (31.0-36.0); Mean Corpuscular Hemoglobin 30.1 pg (27.0-33.0); Mean Corpuscular Volume 88.2 fL (80.0-98.0); Mean Platelet Volume 8.7 fL (9.4-12.4); Monocytes Absolute Auto 0.4 X10*3/uL (0.1-1.2); Monocytes Percent Auto 5.6 % (2-11); Neutrophils Absolute Auto 5.5 x10*3/uL (2.0-8.3); Neutrophils Percent Auto 77.8 % (45-73); Platelet Count 230 X10*3/uL (160-400); Red Blood Count 4.32 X10*6/uL (4.60-5.80); Red Cell Distribution Width 12.2 % (11.0-16.0); White Blood Count 7.1 X10*3/uL (4.8-10.8)
[2024-08-05 08:28] LABS: Alanine Aminotransferase 32 U/L (0-40); Albumin Level 4.2 g/dL (3.5-5.0); Alkaline Phosphatase 80 U/L (39-117); Anion Gap 13 (12-20); Aspartate Amino Transferase 36 U/L (5-37); Bilirubin Direct 0.2 mg/dL (0.0-0.5); Bilirubin Total 0.5 mg/dL (0.0-1.0); Blood Urea Nitrogen 13 mg/dL (9-16); Calcium 9.3 mg/dL (8.4-10.2); Carbon Dioxide 29 mmol/L (22-29); Chloride 106 mmol/L (96-108); Creatinine Clr Calc Pharmacy 111.6; Estimated Glomerular Filt Rate > 60; Glucose Random 123 mg/dL (60-115); Lipase 18 U/L (8-78); Magnesium 1.9 mg/dL (1.6-2.6); Potassium 3.8 mmol/L (3.3-5.1); Sodium 144 mmol/L (135-145); Total Protein 6.8 g/dL (6.5-8.0)
--- NOTE | 2024-08-05 09:00 | PC.NURSE ---
pt NICK from snf with staff member who report that the pt has not been himself for a week. this RN spoke with consulting group analyst who reports that pt has not been eating/taking meds properly for a little over a week. consulting group analyst requesting basic lab work and care/psych consult. pt calm and cooperative upon arrival to ED rm 7. he answers questions appropriately and has been requesting food since arrival.
--- NOTE | 2024-08-05 11:18 | MHC.CARE ---
Pratima Sheffield DDS [phone]
--- NOTE | 2024-08-05 11:30 | PC.NURSE ---
58 yo male with PMH of HTN, DM, GERD, anxiety and depression, developmental delay, HLD who resides in a residential. Per residential staff they report refusal to eat or take medications since last week. They feel he is talking to himself which is new. He denies any pain, n/v, diarrhea or anything and states he is fine. On arrival to the room he asked for food. Patients developmentally delayed. Lungs clear bilat. Respirations even and non-labored. Abdomen soft, non-tender with positive bowel sounds. Positive pedal pulses with no edema. Pending care team assessment. prison staff at the bedside.
[2024-08-05 11:47] VITALS: BP 137/65; PULSE 69; RESP 18; TEMP 36.9; O2SAT 96
--- NOTE | 2024-08-05 11:53 | PHA.MEDREC ---
Pharmacy Consult ? Medication Reconciliation Pharmacy has completed the medication reconciliation, utilized list from [facility].
[2024-08-05 11:54] LABS: Appearance Urine Clear; Color Urine Yellow; Glucose Urine UA Negative (Negative); Leukocyte Esterase Urine Negative (Negative); Nitrite Urine Negative (Negative); PH 8.5 (5.0-9.0); Specific Gravity - Urine 1.015 (1.005-1.025); Urine Blood Negative (Negative); Urine Ketones Negative (Negative); Urine Protein Negative (Neg-Trace)
[2024-08-05 12:26] LABS: Amphetamine Screen Urine Not Detected (Not Detect); Barbiturates, Urine Not Detected (Not Detect); Benzodiazepines Screen Urine Not Detected (Not Detect); Buprenorphine Scr Not Detected (Not Detect); Cannabinoid Screen Urine Not Detected (Not Detect); Cocaine Screen Urine Not Detected (Not Detect); Fentanyl, urine Not Detected (Not Detect); Methadone Screen, Urine Not Detected (Not Detect); Opiate Screen Urine Not Detected (Not Detect); Oxycodone Screen Urine Not Detected (Not Detect); Phencyclidine Screen Urine Not Detected (Not Detect)
--- NOTE | 2024-08-05 14:57 | PC.NURSE ---
Care Team at the bedside to provide a consult.
[2024-08-05 16:00] VITALS: BP 129/67; PULSE 72; RESP 18; TEMP 36.4; O2SAT 90
--- NOTE | 2024-08-05 17:12 | MHC.CARE ---
Patient evaluated by the CARE Team, disposition not determined today. Plan is for a follow up assessment and psychiatry consult tomorrow. ED provider Dr. Maria Teresa vogel
[2024-08-05 19:56] VITALS: BP 142/65; PULSE 75; RESP 18; TEMP 36.7; O2SAT 93
[2024-08-05 21:18] VITALS: BP 131/89; PULSE 108; RESP 18; O2SAT 94
--- NOTE | 2024-08-05 21:38 | PC.NURSE ---
Patient noted to be standing at the side of the bed, asking me to take care of the snakes . Assured the patient there was no snakes in his room and offered him some medication. [facility] staff remains at the bedside.
[2024-08-05] MEDS: LORazepam 1 MG TABLET PO (21:47)
[2024-08-05] MEDS: HaloperidoL 5 MG TABLET PO (21:47)
[2024-08-05 22:03] LABS: Ethanol < 10 mg/dL
[2024-08-05 22:19] LABS: TSH reflex Free T4 4.12 uIU/mL (0.32-4.0)
--- NOTE | 2024-08-05 22:30 | PC.NURSE ---
Patient noted to have visual and auditory hallucinations. Patient noted to lock himself in the bathroom x 2. When asked to come out. Patient states I cant When asked him why. He stated I don't know . Patient moved from room 7 to room 9 in order to maintained better visualization and safety. half-way staff at the bedside.
[2024-08-05 22:53] LABS: Free T4 (Free Thyroxine) 0.99 ng/dL (0.71-1.85)
[2024-08-06 05:20] VITALS: BP 153/75; PULSE 67; RESP 18; TEMP 36.7; O2SAT 94
--- NOTE | 2024-08-06 06:07 | PC.NURSE ---
pt continues to sleep comfortably on stretcher in no apparent distress, respirations even and unlabored. pt within view of nurses station. plan to see psych in AM.
[2024-08-06] MEDS: Omeprazole 20 MG CAPSULE.DR PO (08:21)
[2024-08-06] MEDS: metFORMIN HCl 500 MG TABLET PO (08:22)
[2024-08-06] MEDS: Escitalopram Oxalate 20 MG TABLET 40 MG PO (08:22)
[2024-08-06] MEDS: Multivitamin TABLET 1 TAB PO (08:22)
[2024-08-06] MEDS: Cholecalciferol (Vitamin D3) 25 MCG TABLET PO (08:22)
[2024-08-06] MEDS: Ascorbic Acid 500 MG TABLET PO (08:22)
[2024-08-06 08:23] LABS: Glucose, Whole Blood 225 mg/dL (60-115)
[2024-08-06] MEDS: Insulin Glargine,Hum.rec.anlog 100 UNIT/ML 10 ML VIAL 10 UNIT SUBCUT (08:23)
[2024-08-06 08:55] VITALS: BP 130/65; PULSE 88; RESP 16; O2SAT 91
--- NOTE | 2024-08-06 11:36 | P.CNPS_ITS ---
History of Present Illness Date of Service: 08/06/2024 Chief Complaint: VERB AGGRESIVE @[facility] HM,REFU MED/EAT,TRIED TO [facility] Sources of Information: patient interviewed, chart reviewed and crisis/core team assessment reviewed HPI Narrative: Mr. Segura is a 58 year-old male with intellectual disability and schizophrenia who was brought via EMS from [facility] due to increase hallucinations, depression, decreased oral intake. Pt has been presenting with increase psychosis for the past month. Pertinent labs completed in the ED include CBC without leukocytosis, normocytic anemia, CMP without electrolyte abnormalities, BUN 13, Cr 0.82, creatinine clearance 111.6. Utox was negative. UA did not show signs of UTI. Pt seen in the ED. He presents as pleasant. He reports his depression started when staff at correction called 911 to bring him here to the hospital. He reports hearing voices, which reports talk about him but other times he is not able to understand what they are saying. While we were meeting few times, pt interrupted this filing writer to say see, they are talking now when this filing writer could not hear anyone else talking. He denied SI/HI. He does report he was seeing a snake and reports staff at the were putting snakes in his underwear. He reports he last saw snake last night. When asked about not eating, he reports he felt unwell to eat. He reported mild abdominal pain, denied any when meeting with this filing writer. He reports he does not remember when was the last time he had a BM but thinks it's been a while. He recently was seen by his OP psychiatrist Dr. Maddox. His risperidone was increased from 1mg to 2mg. His lexapro was also increased from 20mg po daily to 40mg po daily. No aggression while in the ED. Past Psychiatric History: OP: [facility] Dr. Maddox Medical Evaluation Reviewed: Yes [facility] Medical History Tinea pedis Hypoxemia Adult general medical exam Screening for prostate cancer Folliculitis Nocturnal hypoxemia Hypoventilation syndrome Obstructive sleep apnea Type 2 diabetes mellitus with hyperglycemia Fatty liver GERD (gastroesophageal reflux disease) Insomnia Hypercholesterolemia Anxiety and depression Obesity (BMI 30-39.9) Vitamin D deficiency Mental and behavioral problem Surgical History History of colonoscopy H/O basal cell carcinoma excision History of cataract surgery Social History: Pt [facility] for the past 17 years. No none family. Substance History: none Trauma History: none discussed Diagnostics Vital Signs (24Hr): Vital Signs - 24 hr 08/05/24 11:47 08/05/24 16:00 08/05/24 19:56 Temperature 98.4 F 97.5 F 98.0 F Pulse Rate 69 72 75 Respiratory Rate 18 18 18 Blood Pressure 137/65 129/67 142/65 H Pulse Oximetry 96 90 L 93 Oxygen Delivery Method Room Air Room Air Room Air 08/05/24 21:18 08/06/24 05:20 08/06/24 08:55 Temperature 98.0 F Pulse Rate 108 H 67 88 Respiratory Rate 18 18 16 Blood Pressure 131/89 153/75 H 130/65 Pulse Oximetry 94 94 91 L Oxygen Delivery Method Room Air Room Air Room Air BMI result Body Mass Index 31.3 Labs 08/05/24 08:07 08/05/24 08:07 Labs: Laboratory Results - last 48 hr 08/05/24 08/05/24 08/06/24 08:07 11:40 08:19 WBC 7.1 RBC 4.32 L Hgb 13.0 L Hct 38.1 L MCV 88.2 MCH 30.1 MCHC 34.1 RDW 12.2 Plt Count 230 MPV 8.7 L Immature Gran % (Auto) 0.3 Neut % (Auto) 77.8 H Lymph % (Auto) 15.3 L Christian % (Auto) 5.6 Eos % (Auto) 0.6 Baso % (Auto) 0.4 Lymph # (Auto) 1.1 L Christian # (Auto) 0.4 Eos # (Auto) 0.0 Baso # (Auto) 0.0 Abs Immat Gran (auto) 0.02 Absolute Neuts (auto) 5.5 Absolute Nucleated RBC 0.000 Nucleated RBC % (auto) 0.0 Sodium 144 Potassium 3.8 Chloride 106 Carbon Dioxide 29 Anion Gap 13 BUN 13 Creatinine 0.84 Estim Creat Clear Calc 111.6 Estimated GFR > 60 POC Glucose 225 H Random Glucose 123 H Calcium 9.3 Magnesium 1.9 Total Bilirubin 0.5 Direct Bilirubin 0.2 AST 36 ALT 32 Alkaline Phosphatase 80 Total Protein 6.8 Albumin 4.2 Lipase 18 TSH 4.12 H Free T4 0.99 Urine Color Yellow Urine Appearance Clear Urine pH 8.5 Ur Specific [place] 1.015 Urine Protein Negative Urine Glucose (UA) Negative Urine Ketones Negative Urine Blood Negative Urine Nitrite Negative Ur Leukocyte Esterase Negative Urine Opiates Screen Not Detected Ur Buprenorphine Scrn Not Detected Ur Oxycodone Screen Not Detected Urine Methadone Screen Not Detected Urine Fentanyl Screen Not Detected Ur Barbiturates Screen Not Detected Ur Phencyclidine Scrn Not Detected Ur Amphetamines Screen Not Detected U Benzodiazepines Scrn Not Detected Urine Cocaine Screen Not Detected U Marijuana (THC) Screen Not Detected Ethyl Alcohol < 10 Mental Status Exam Mental Status Exam Narrative: Appearance: wearing hospital gown, fair hygiene, in NAD Behavior: cooperative and friendly Psychomotor: no agitation or retardation noted Speech: clear, normal rate/rhythm/volume, spontaneous TP: linear TC: worried about staff calling police on him, somewhat suspicious about staff at . Mood: good, well, not so good Affect: congruent, constricted SI: denies HI: denies VH/AH: seeing snakes, hearing voices Delusions: paranoid delusions thinking staff are putting snakes on his underwear Insight/judgment: limited x 2. Memory/cog: alert, oriented to month, year, not situation. Medications Medications Current Medications Ascorbic Acid (Ascorbic Acid 500 Mg Tablet) 500 mg PO DAILY [facility] Last Admin: 08/06/24 08:22 Dose: 500 mg Atorvastatin Calcium (Atorvastatin Calcium 80 Mg Tablet) 80 mg PO BEDTIME [facility] Escitalopram Oxalate (Escitalopram Oxalate 20 Mg Tablet) 20 mg PO DAILY [facility] Glucose (Glucose Gel 15 Gm Gel..Gram.) 15 gm PO Q15M PRN PRN Reason: hypoglycemia Insulin Glargine (Insulin Glargine,Hum.Rec.Anlog 100 Unit/Ml 10 Ml Vial) 10 unit SUBCUT DAILY [facility] Last Admin: 08/06/24 08:23 Dose: 10 unit Ketoconazole (Ketoconazole 2 % Shampoo 120 Ml Btl) 1 appl TOPICAL MoTh [facility]; Protocol Last Admin: 08/06/24 08:25 Dose: Not Given Metformin HCl (Metformin Hcl 500 Mg Tablet) 500 mg PO BIDWM [facility] Last Admin: 08/06/24 08:22 Dose: 500 mg Multivitamins/Vitamin C (Multivitamin Tablet) 1 tab PO DAILY [facility] Last Admin: 08/06/24 08:22 Dose: 1 tab Omeprazole (Omeprazole 20 Mg Capsule.) 20 mg PO DAILY@0630 [facility] Last Admin: 08/06/24 08:21 Dose: 20 mg Promethazine HCl (Promethazine Hcl 25 Mg Tablet) 25 mg PO DAILY PRN PRN Reason: 1 hour prior to to dental appointments Risperidone (Risperidone 2 Mg Tablet) 2 mg PO BEDTIME LANA Risperidone (Risperidone 1 Mg Tablet) 1 mg PO DAILY [facility] Vitamin D (Cholecalciferol (Vitamin D3) 25 Mcg Tablet) 25 mcg PO DAILY [facility] Last Admin: 08/06/24 08:22 Dose: 25 mcg Allergies Allergies Allergy/AdvReac Type Severity Reaction Status Date / Time lisinopril [LISINOPRIL] Allergy Intermediate HYPOTENSION Verified 08/05/24 07:37 Assessment & Plan Assessment & Plan (1) Schizophrenia: Status: Acute Code(s): F20.9 - Schizophrenia, unspecified Plan Mr. Segura is a 58 year-old male with hx of schizophrenia, intellectual disability who resides at [facility] for the past 17 years. He was brought to [facility] ED due to increase psychosis, decreased oral intake. He presents with exacerbation of psychosis (both visual and auditory) and paranoid delusions. He does not present with any signs of imminent harm to self or others. I recommend increasing risperidone to 1mg po daily and 2mg po qhs. decreasing lexapro to 20mg po daily higher dose unusual, and may exacerbate psychosis. No need for inpatient level of care at this point. Discussed with [facility] director Yuval Lainez. He does seem to be constipated, no signs of obstruction. recommend miralax or senakot- follow up with PCP PLAN 1. Increase risperidone to 1mg po daily and 2mg po qhs. 2. decrease lexapro to 20mg po daily. 3. Follow up with Dr. Maddox- OP psychiatrist 4. Call 911 or come to nearest ED in event of emergency. 5. discharge back to . Total time managing care of this patient today ____ minutes.
[2024-08-06 12:00] VITALS: BP 133/68; PULSE 88; RESP 18; TEMP 36.2; O2SAT 92
[2024-08-06] MEDS: risperiDONE 1 MG TABLET PO (12:06)
[2024-08-06] MEDS: LORazepam 1 MG TABLET PO (12:06)
--- NOTE | 2024-08-06 12:12 | PC.NURSE ---
58 yo male with PMH of HTN, DM, GERD, anxiety and depression, developmental delay, HLD who resides in a [facility]. Per [facility] staff they report refusal to eat or take medications since last week. They feel he is talking to himself which is new. Patient continues to have visual and auditory hallucinations. Alert, pleasant and cooperative. Lungs clear bilat. Respirations even and non-labored. Abdomen distended, soft, non-tender with positive bowel sounds. Positive pedal pulses with LE edema noted.
[2024-08-06 14:57] VITALS: BP 111/52; PULSE 86; RESP 16; TEMP 36.7; O2SAT 94
[2024-08-06 16:13] VITALS: BP 111/52; PULSE 86; RESP 16; TEMP 36.7; O2SAT 94
== END 2024-08-06 16:16 | disposition home or self-care (01) ==
PROVIDERS: Emergency Medicine Emergency Medical Services; Emergency Provider Emergency Medicine; PCP Internal Medicine
DX: F20.9 Schizophrenia, unspecified (principal); R62.7 Adult failure to thrive; R10.2 Pelvic and perineal pain; K59.00 Constipation, unspecified; R45.6 Violent behavior; F33.1 Major depressive disorder, recurrent, moderate; E11.9 Type 2 diabetes mellitus without complications; Z68.31 Body mass index [BMI] 31.0-31.9, adult; Z79.899 Other long term (current) drug therapy; Z51.81 Encounter for therapeutic drug level monitoring; Z79.4 Long term (current) use of insulin
CPT/HCPCS: 36415; 74018; 80048; 80076; 80307; 81003; 82947; 83690; 83735; 84439; 84443; 85025; 93005; 99285; S9485

== ENCOUNTER → 2024-08-05 07:46 | Outpatient (BNV) | payer MEDICARE, MEDICAID, SELFPAY | PROVIDERS: Emergency Provider Emergency Medicine; PCP Internal Medicine; Visit Provider Internal Medicine | DX: R53.1 Weakness (principal) | CPT/HCPCS: 93010 ==

== ENCOUNTER → 2024-08-05 07:50 | Outpatient (BNV) | payer MEDICARE, MEDICAID, SELFPAY | PROVIDERS: Emergency Provider Emergency Medicine; PCP Internal Medicine; Visit Provider Social Worker | DX: F20.9 Schizophrenia, unspecified (principal) | CPT/HCPCS: 99285 ==

== ENCOUNTER → 2024-08-06 12:30 | Outpatient (BNV) | payer MEDICARE, MEDICAID, SELFPAY | PROVIDERS: Emergency Provider Emergency Medicine; PCP Internal Medicine; Visit Provider Radiology Diagnostic Radiology | DX: K59.00 Constipation, unspecified (principal) | CPT/HCPCS: 74018 ==

== ENCOUNTER 2024-08-07 13:32 | Outpatient (AMB) | payer MEDICARE, MEDICAID, SELFPAY ==
[2024-08-07 13:39] VITALS: BP 110/64; PULSE 75; O2SAT 94; BMI 31.3
--- NOTE | 2024-08-07 13:39 | A.OFFVIS_ITS ---
Vital Signs 08/07/24 13:39 Height 5 ft 10 in Weight 218 lb 4.122 oz BMI 31.3 BP 110/64 Blood Pressure Location Lt brachial Position Sitting Pulse 75 Pulse Source Pulse Oximeter Pulse Oximetry (%) 94 Oxygen Delivery Method Room Air Intake Visit Reasons: Obstructive sleep apnea Intake Note: pt is here for follow up and is feeling good,using oxygen at night with only forgetting a few times [address] Magistrate Required: No Allergies lisinopril [LISINOPRIL] Allergy (Intermediate, Verified 08/07/24 14:10) HYPOTENSION Medication List - Last Reconciled 08/07/24 by Toan Fernando MD acetaminophen 650 mg (2 x 325 mg) PO Q6H PRN ascorbate calcium (vitamin C) 500 mg PO DAILY atorvastatin 80 mg PO BEDTIME blood sugar diagnostic (Contour Next Test Strips) Check blood sugar 3 times a day cholecalciferol (vitamin D3) 25 mcg PO DAILY 90 days dextromethorphan HBr 30 mg PO Q12H PRN escitalopram oxalate (Lexapro) 20 mg PO DAILY escitalopram oxalate 40 mg PO DAILY ferrous fumarate 324 mg PO DAILY glucose (Dex4 Glucose) 4 grams PO Q15M PRN inhalational spacing device (Aerochamber MV spacer) As directed insulin glargine (Lantus Solostar U-100 Insulin) 10 units subcut DAILY ketoconazole 2% 1 appl topical 2XW lancets (TRUEplus Lancets) Check blood sugars lanolin-mineral oil-NaCl-w.pet 1 ea topical BID metformin 500 mg PO BIDWMEAL multivitamin 1 tab PO DAILY omeprazole 20 mg PO DAILY@0630 Oxygen Home Use As directed peg 400-propylene glycol (PF) 0.4-0.3 % (Systane (PF)) 2 drps ophthalmic (eye) QID PRN pen needle, diabetic (Advocate Pen Needle) Use as directed polyethylene glycol 3350 (Miralax) 17 grams PO DAILY 2 weeks promethazine 25 mg PO DAILY PRN risperidone (Risperdal) 1 mg PO DAILY risperidone (Risperdal) 2 mg PO BEDTIME Do you need a note to return to daycare/school/sports/work: No HPI HPI Obstructive sleep apnea: Details: THIS GENTLEMAN IS 58 YEARS OLD RESIDENT OF A [facility] WITH CHRONIC SCHIZOPHRENIA. HE IS A CASE OF OBSTRUCTIVE SLEEP APNEA WITH NOCTURNAL HYPOXEMIA. HE WAS NOT ABLE TO USE THE CPAP SO JUST USES OXYGEN 2 L/MINUTE EVERY NIGHT. ONLY OCCASIONALLY HE FORGETS TO PUT IT ON. DENIES ANY ISSUES WITH BREATHING. HAS NO COUGH OR WHEEZING. [facility] Medical History Tinea pedis Hypoxemia Adult general medical exam Screening for prostate cancer Folliculitis Nocturnal hypoxemia Hypoventilation syndrome Obstructive sleep apnea Type 2 diabetes mellitus with hyperglycemia Fatty liver GERD (gastroesophageal reflux disease) Insomnia Hypercholesterolemia Anxiety and depression Obesity (BMI 30-39.9) Vitamin D deficiency Mental and behavioral problem Surgical History History of colonoscopy H/O basal cell carcinoma excision History of cataract surgery Family History Father Medical history unknown Myocardial infarct Mother Lung cancer Brain aneurysm Maternal Grandmother Uterine cancer Maternal Grandfather Lung cancer Social History Housing: House Housing Other:: longterm Alcohol intake: never Patient Tobacco Use Status: Never used Tobacco Tobacco use type: Cigarette e-Cigarette/Vaping Use: Never Used Second Hand Smoke Exposure: No service: No Current occupational status: unemployed and disabled Cognitive needs: Yes Hearing needs: No Vision needs: No Review of Systems Const All systems reviewed & are unremarkable except as noted in HPI and below Eyes Reports no additional complaints ENT Reports no additional complaints Card Denies chest pain, Denies irregular heart rhythm and Denies leg edema Resp Reports as per HPI GI Reports no additional complaints Reports no additional complaints Musc Reports no additional complaints and Reports abnormal gait (Slow, but steady) Skin/Breast Reports system reviewed and no additional complaints, except as documented Neuro Reports abnormal gait (Slow, but steady) Psych Details: Chronic Schizophrenic Disorder Endo Reports no additional complaints Physical Exam Vital Signs: Last Vital Signs Pulse 75 08/07/24 13:39 BP 110/64 08/07/24 13:39 Pulse Ox 94 08/07/24 13:39 Oxygen Delivery Method Room Air 08/07/24 13:39 BMI result Body Mass Index 31.3 Const Other: Grossly obese. General: comfortable, no acute distress, alert and awake Orientation/consciousness: patient oriented x3 HEENT Head: Yes normal to inspection General nose exam: No nasal polyps present and No nasal discharge present Face and sinus: Yes sinuses nontender Mouth: oropharynx normal Throat: Yes posterior oropharynx normal Eyes General: appearance normal, both eyes and all related structures Neck Neck: Yes normal visual inspection, Yes no lymphadenopathy, Yes trachea midline and Yes no JVD Thyroid: Thyroid normal Chest Chest palpation & inspection: normal inspection of the chest, normal palpation of entire chest wall and no tenderness Resp Other: Percussion note resonant, breath sounds are slightly distant but equal on both sides. No wheezes rhonchi or crepitations are heard. Cardio Palpation: normal PMI Rate: regular rate Rhythm: regular rhythm Heart sounds: no gallops and no murmurs GI Palpation (GI): Soft to palpation, nontender, No hepatosplenomegaly present, no masses and Other GI palpation findings present (Abdomen is grossly obese and protuberant) Auscultation: normal bowel sounds Back/Spine/Pelvis Thoracic/Lumbar Spine: thoracic and lumbar spine normal to inspection and thoraco-lumbar ROM limited Skin General skin exam: no rashes or lesions noted and Excoriation (Multiple on the scalp due to self scratching) Neuro General: patient oriented x3 and no focal motor deficits Cranial nerves: Yes CN's II-XII intact bilaterally Extrem General: Yes normal to inspection, Yes no clubbing, cyanosis or edema and Yes no calf tenderness Psych Appearance: grossly normal and other (Slow in answering questions) Speech and movement: Normal speech and movement present Assessment & Plan Assessment & Plan (1) Obstructive sleep apnea: Comment: PER sleep study , GRISELDA was mild, patient is not able to use CPAP. Code(s): G47.33 - Obstructive sleep apnea (adult) (pediatric) Category: Medical Plan: PATIENT HAD NOCTURNAL HYPOXEMIA PART OF HIS OBSTRUCTIVE SLEEP APNEA. NOCTURNAL HYPOXEMIA IS TREATED WITH O2 2 L/MINUTE. (2) Nocturnal hypoxemia: Comment: Nocturnal hypoxemia is part of obstructive sleep apnea and sleep-related hypoventilation syndrome. He is doing well with use of O2 at night. Code(s): G47.34 - Idiopathic sleep related nonobstructive alveolar hypoventilation Category: Medical Plan: ADVISED TO CONTINUE USING O2 2 L/MINUTE Coding Level of Care Code Est Pt Level 3 (82151) Diagnoses Obstructive sleep apnea G47.33 Nocturnal hypoxemia G47.34
--- OUTSIDE RECORDS SUMMARY | 2024-08-07 14:52 | XMS_ITS | Clinical Summary ---
Author Organization [facility] Address [address] [place] [address] Phone Care Team Providers Care In Home Sales Representative Name Role Phone Lindsay Archibald MD Primary Care Provider [phone] Allergies Active Allergy Reactions Criticality Noted Date [...] 1 diabetes mellitus wit h vascular disease ([facility] V24, [facility] V28) 10/10/2017 Obesity, unspecified 03/31/2006 Schizophreniform disorder in remission ([facility] V24, [facility] V28) 02/23/2005 Overview (01/05/2024): IMO update Type 1 diabetes mellitus ([facility] V24, [facility] V 28) 02/23/2005 Immunizations Name [...] AM EDT Office Visit Orthopedic Surgery - [place] [address] [phone] Ross Rosenbaum, DPLaura [address] [address] Health Maintenance Due Date Last Done Comments [...] * Annual BMP Blood Test (06/27/2005) Pathologist [facility] Annual BMP Blood Test abstracted us Historical [...] (08/04/2004) HM Urine Albumin Creatinine Ratio abstracted [facility] Provider HEALTH MAINTENANCE Final Result from Last 3 Months or Most Recently Relevant to Health Maintenance Insurance MEDICAID - [place] MEDICARE Care Teams In Home Sales Representative Relationship Specialty Start Date End Date Lindsay Archibald MD [address] [place] [address] [address] [facility] [place] [address] PCP - General Internal Medicine 01/29/16
== END 2024-08-07 14:10 | disposition home or self-care (01) ==
LOC: HO.HPS 13:33
PROVIDERS: PCP Internal Medicine; Visit Provider Internal Medicine
DX: G47.33 Obstructive sleep apnea (adult) (pediatric) (principal); G47.34 Idiopathic sleep related nonobstructive alveolar hypoventilation
CPT/HCPCS: 99213

== ENCOUNTER → 2024-08-07 13:32 | Outpatient (BNVA) | payer MEDICARE, MEDICAID, SELFPAY | PROVIDERS: PCP Internal Medicine; Visit Provider Internal Medicine | DX: G47.33 Obstructive sleep apnea (adult) (pediatric) (principal); G47.34 Idiopathic sleep related nonobstructive alveolar hypoventilation | CPT/HCPCS: 99212 ==

== ENCOUNTER 2024-08-30 09:34 | Outpatient (AMB) | payer MEDICARE, MEDICAID, SELFPAY ==
[2024-08-30 09:37] VITALS: BP 116/82; PULSE 65; O2SAT 97; BMI 31.6
--- NOTE | 2024-08-30 09:37 | MHC.PC.OV ---
Vital Signs 08/30/24 09:37 Height 5 ft 10 in Weight 220 lb BMI 31.6 BP 116/82 Blood Pressure Location Lt brachial Position Sitting Pulse 65 Pulse Source Pulse Oximeter Pulse Oximetry (%) 97 Oxygen Delivery Method Room Air Intake Visit Reasons: [facility] 08/06 Detention Attendant Required: No Accompanied by: Self / Same As Patient Allergies lisinopril [LISINOPRIL] Allergy (Intermediate, Verified 08/30/24 09:46) HYPOTENSION Medication List - Last Reconciled 08/30/24 by CHRISTIAN Bennett-C acetaminophen 650 mg (2 x 325 mg) PO Q6H PRN ascorbate calcium (vitamin C) 500 mg PO DAILY atorvastatin 80 mg PO BEDTIME blood sugar diagnostic (Contour Next Test Strips) Check blood sugar 3 times a day cholecalciferol (vitamin D3) 25 mcg PO DAILY 90 days dextromethorphan HBr 30 mg PO Q12H PRN escitalopram oxalate (Lexapro) 20 mg PO DAILY escitalopram oxalate 20 mg PO DAILY ferrous fumarate 324 mg PO DAILY glucose (Dex4 Glucose) 4 grams PO Q15M PRN inhalational spacing device (Aerochamber MV spacer) As directed insulin glargine (Lantus Solostar U-100 Insulin) 10 units subcut DAILY ketoconazole 2% 1 appl topical 2XW lancets (TRUEplus Lancets) Check blood sugars lanolin-mineral oil-NaCl-w.pet 1 ea topical BID metformin 500 mg PO BIDWMEAL multivitamin 1 tab PO DAILY omeprazole 20 mg PO DAILY@0630 Oxygen Home Use As directed peg 400-propylene glycol (PF) 0.4-0.3 % (Systane (PF)) 2 drps ophthalmic (eye) QID PRN pen needle, diabetic (Advocate Pen Needle) Use as directed polyethylene glycol 3350 (Miralax) 17 grams PO DAILY 2 weeks promethazine 25 mg PO DAILY PRN risperidone (Risperdal) 2 mg PO BEDTIME Tobacco use date assessed: 08/30/24 Dental Screening Dental Screen Date: 08/30/24 Did you have a dental visit in the last 12 months?: Yes Did you have a dental problem in the last 6 months where you did not have access to dental care?: No Was dental information given to patient?: Patient has dentist HPI [facility] 08/06 HPI Details 59-year-old male with past medical history of diabetes mellitus, hypercholesterolemia, GERD and mental behavior problems last seen 07/29/[address] Archibald coming in for has been on discharge follow up.?In review of the notes, patient was seen in [facility] ED 08/05/2024 for refusal to eat or take medications medications were adjusted and patient was discharged home. Patient was seen by pulmonology 08/07/2024 continue to use oxygen at night. Presenting with depression and persistent auditory hallucinations. Evaluated initially in the ER for exacerbated depressive symptoms, resulting in medication adjustments. Risperdal dosage was incremented but did not provide relief from hallucinations. Lexapro was reduced due to possibly excessive dosing, and Trazodone was prescribed due to sleep disturbances. Symptoms include regular auditory hallucinations, with episodes of fear concerning them. No suicidal ideations at present, but history of self-harm thoughts. Patient has a scheduled psychiatric follow-up and is pending counseling services due to a waiting list. Denies any active auditory hallucinations. [facility] Medical History Tinea pedis Hypoxemia Adult general medical exam Screening for prostate cancer Folliculitis Nocturnal hypoxemia Hypoventilation syndrome Obstructive sleep apnea Type 2 diabetes mellitus with hyperglycemia Fatty liver GERD (gastroesophageal reflux disease) Insomnia Hypercholesterolemia Anxiety and depression Obesity (BMI 30-39.9) Vitamin D deficiency Mental and behavioral problem Surgical History History of colonoscopy H/O basal cell carcinoma excision History of cataract surgery Family History Father Medical history unknown Myocardial infarct Mother Lung cancer Brain aneurysm Maternal Grandmother Uterine cancer Maternal Grandfather Lung cancer Social History Housing: House Housing Other:: halfway Alcohol intake: never Patient Tobacco Use Status: Never used Tobacco Tobacco use type: Cigarette e-Cigarette/Vaping Use: Never Used Second Hand Smoke Exposure: No service: No Current occupational status: unemployed and disabled Current occupational exposures/hazards: No Cognitive needs: Yes Hearing needs: No Vision needs: No Questionnaire PHQ-9 Over the last 2 weeks, how often have you been bothered by any of the following problems? 1. Little interest or pleasure in doing things: nearly every day 2. Feeling down, depressed, or hopeless: nearly every day 3. Trouble falling or staying asleep, or sleeping too much: nearly every day 4. Feeling tired or having little energy: nearly every day 5. Poor appetite or overeating: not at all 6. Feeling bad about yourself - or that you are a failure or have let yourself or your family down: nearly every day 7. Trouble concentrating on things, such as reading the newspaper or watching television: nearly every day 8. Moving or speaking so slowly that other people could have noticed. Or the opposite - being so fidgety or restless that you have been moving around a lot more than usual: nearly every day 9. Thoughts that you would be better off or of hurting yourself in some way: nearly every day Total score: 24 Depression Screening Interpretation: Positive Depression Screening Follow-up: Existing condition and In treatment Depression Screening Done: Yes Source: Developed by Drs. Oleg Torres, Tomeka Bacon, Ranjan Jacob and colleagues, with an educational javier from [employer]. Thrive Questionnaire Date Thrive assessed: 08/30/24 I am a: Patient What is your living situation today?: I have a steady place to live Within the past 12 months, did the food you bought not last and you didn't have the money to get more?: Never true Within the past 12 months, did you worry whether your food would run out before you got money to buy more?: Never true Do you have trouble paying for medicines?: No Do you have trouble getting transportation to medical appointments?: No Do you have trouble paying your heating and electricity bill?: No Do you have trouble taking care of your child, family member or friend?: No Do you have trouble with day-to-day activities such as bathing, preparing meals, shopping, managing finances, etc.?: No Are you currently unemployed and looking for a job?: Yes Are you interested in more education?: Yes Please select the resources that you would like help with: Job search/training Currently or been in a relationship where the following occur: No concerns reported THRIVE Score: 0 AUDIT C Alcohol Use Questionnaire (AUDIT-C) 1. How often do you have a drink containing alcohol?: Never 3. How often do you have six or more drinks on one occasion?: Never Total Score: 0 AMBER-7 AMB Questionnaire AMBER-7 Date AMBER - 7 assessed: 08/30/24 Feeling nervous, anxious, or on edge: 2 = More than half the days Not being able to stop or control worryin = Nearly every day Worrying too much about different things: 3 = Nearly every day Trouble relaxin = Nearly every day Being so restless that it is hard to sit still: 2 = More than half the days Becoming easily annoyed or irritable: 3 = Nearly every day Feeling afraid as if something awful might happen: 0 = Not at all Total AMBER-7 score (0-4 normal; 5-9 mild; 10-14 moderate; 15-21 severe): 16 Source: Developed by Drs. Oleg Torres, Tomeka Bacon, Ranjan Jacob and colleagues, with an educational javier from [employer]. Review of Systems Const Denies fever(s) and Denies poor appetite Eyes Reports no additional complaints ENT Denies dizziness Card Denies chest pain, Denies lightheadedness and Denies dyspnea Resp Denies dyspnea GI Denies nausea and Denies vomiting Reports no additional complaints Musc Denies abnormal gait Skin/Breast Reports system reviewed and no additional complaints, except as documented Neuro Denies abnormal gait and Denies dizziness Psych Reports as per HPI Physical exam (Primary Care) Vital Signs: Last Vital Signs Pulse 65 08/30/24 09:37 BP 116/82 08/30/24 09:37 Pulse Ox 97 08/30/24 09:37 Oxygen Delivery Method Room Air 08/30/24 09:37 BMI result Body Mass Index 31.6 Tobacco/Smoking Status: Tobacco use Status Tobacco use date assessed 08/30/24 08/30/24 09:39 Patient Tobacco Use Status Never used Tobacco 08/30/24 09:39 Tobacco use type Cigarette 08/30/24 09:39 e-Cigarette/Vaping Use Never Used 08/30/24 09:39 PHQ-9: PHQ-9 Score PHQ-9: Total score 24 08/30/24 09:48 Depression Screening Interpretation: Positive Depression Screening Follow-up: Existing condition and In treatment Thrive Assessment: Date of Thrive Assessment Date Thrive assessed 08/30/24 08/30/24 09:46 Currently or been in a relationship where the following occur: No concerns reported Const General: cooperative, healthy appearing, comfortable and no acute distress Orientation/consciousness: patient oriented x3 HENMT Head: Yes normocephalic Ears: hearing grossly normal bilaterally General nose exam: Normal external nose present Eyes General: appearance normal, both eyes and all related structures Conjunctivae: conjunctivae normal Neck Neck: Yes full ROM and Yes no lymphadenopathy Resp Effort & Inspection: normal respiratory effort Auscultation: clear to auscultation bilaterally, no crackles, no rales, no rhonchi and no wheezes Cardio Rate: regular rate Rhythm: regular rhythm Skin General skin exam: no rashes or lesions noted Neuro General: patient oriented x3 Gait exam (Neuro): Normal gait present Extrem General: Yes normal to inspection, Yes full ROM and No edema Psych Affect: normal affect Attitude: cooperative Coding Level of Care Code Est Pt Level 3 (05765) Diagnoses Schizophrenia F20.9 Mental and behavioral problem F48.9; F69 Obesity (BMI 30-39.9) E66.9 Assessment & Plan Assessment & Plan (1) Schizophrenia: Code(s): F20.9 - Schizophrenia, unspecified Category: Medical Plan: The patient's current regimen includes an increased Risperdal dose to manage hallucinations, with a lowered Lexapro dosage for mood stabilization and introduced Trazodone for insomnia. A scheduled psychiatric follow-up is advised as soon as possible and mental health therapy is planned pending availability. The approach includes monitoring patient symptoms, modifying medications as needed, and ensuring access to emergency psychiatric care if conditions escalate. Community navigation was brought in on patient's case and had discussion regarding counseling options. Discussed red flag symptoms and when to present to ED. (2) Mental and behavioral problem: Comment: Impulse control disorder Code(s): F48.9 - Nonpsychotic mental disorder, unspecified; F69 - Unspecified disorder of adult personality and behavior Category: Medical Plan: See above (3) Obesity (BMI 30-39.9): Comment: This is a chronic problem. Considering his chronic , mental disorder, it is difficult to expect any weight reduction in his case. Yet he has lost another 4 lb in the last 6 months. Code(s): E66.9 - Obesity, unspecified Category: Medical Plan: Healthy diet and regular exercise is encouraged. Plan This note was constructed using voice recognition software. While every effort has been made to ensure accuracy and solar energy technician, still areas may have been included sometimes these areas may affect the content or meeting of the given symptoms. Total time spent caring for the patient today was 20 minutes. This includes time spent before the visit reviewing the chart, time spent during the visit, and time spent after the visit and documentation. Patient was informed and verbally consented to the use of an ambient scribe for clinic note documentation during this visit. Orders: Referrals Counseling Referral F20.9 - Schizophrenia, unspecified, F48.9 - Nonpsychotic mental disorder, unspecified, F69 - Unspecified disorder of adult personality and behavior
--- OUTSIDE RECORDS SUMMARY | 2024-08-30 09:55 | XMS_ITS | Clinical Summary ---
Author Organization [address] [facility] Address [address] [place] [address] Phone Care Team Providers Care Distribution Center Assistant Name Role Phone Lindsay Archibald MD Primary Care Provider [phone] Allergies Active Allergy Reactions Criticality Noted Date Comments Lisinopril 01/05/2024 snf staff unsure how long he has had [...] 1 diabetes mellitus wit h vascular disease ([facility] V24, [facility] V28) 10/10/2017 Obesity, unspecified 03/31/2006 Schizophreniform disorder in remission ([facility] V24, [facility] V28) 02/23/2005 Overview (01/05/2024): IMO update Type 1 diabetes mellitus ([facility] V24, [facility] V 28) 02/23/2005 Immunizations Name Administration Dates [...] AM EDT Office Visit Orthopedic Surgery - [place] [id number] [id number] Ross Rosenbaum, DPLaura [address] [address] Health Maintenance Due Date Last Done Comments Diabetes: Annual Foot Exam 1974 Diabetes: Annual Retina Eye Exam 1974 Zoster Vaccines (1 of 2) 08/21/1983 Diabetes: [...] exists RSV Immunization Adult Patients (1 - Risk 60-74 years 1-dose series) 2024 Influenza Vaccine Completed 01/26/2024, , 01/03/2022, Additional history exists HIB Vaccines Aged Out No longer eligi ble based on patient's age to complete this topic HPV Vaccines Aged Out No longer eligi ble based on patient's age to complete this topic Hepatitis A Vaccines Aged Out No long er eligible based on patient's age to complete this topic Hepatitis B Vaccines Aged Out No long er eligible [...] * Annual BMP Blood Test (06/27/2005) Pathologist [facility] Annual BMP Blood Test abstracted us Historical [...] (08/04/2004) HM Urine Albumin Creatinine Ratio abstracted [facility] Provider HEALTH MAINTENANCE Final Result from Last 3 Months or Most Recently Relevant to Health Maintenance Insurance MEDICAID - [place] MEDICARE Care Teams Distribution Center Assistant Relationship Specialty Start Date End Date Lindsay Archibald MD [address] [place] [address] Dr [facility] [place] [address] PCP - General Internal Medicine 01/29/16
== END 2024-08-30 10:10 | disposition home or self-care (01) ==
LOC: HO.HMCH 09:35
PROVIDERS: PCP Internal Medicine
DX: F20.9 Schizophrenia, unspecified (principal); F48.9 Nonpsychotic mental disorder, unspecified; E66.9 Obesity, unspecified; Z68.31 Body mass index [BMI] 31.0-31.9, adult; F69 Unspecified disorder of adult personality and behavior

== ENCOUNTER → 2024-08-30 09:34 | Outpatient (BNVA) | payer MEDICARE, MEDICAID, SELFPAY | PROVIDERS: PCP Internal Medicine | DX: F20.9 Schizophrenia, unspecified (principal); F48.9 Nonpsychotic mental disorder, unspecified; F69 Unspecified disorder of adult personality and behavior; E66.9 Obesity, unspecified; Z68.31 Body mass index [BMI] 31.0-31.9, adult; Z71.3 Dietary counseling and surveillance | CPT/HCPCS: 99212 ==

== ENCOUNTER 2024-10-15 06:45 | Day surgery (SDC) | payer MEDICARE, MEDICAID, SELFPAY ==
--- OUTSIDE RECORDS SUMMARY | 2024-07-30 07:51 | XMS_ITS | Clinical Summary ---
Author Organization 175 [facility] Address [address] [place] [address] Phone Care Team Providers Care Icu Registered Nurse Name Role Phone Lindsay Archibald MD Primary Care Provider [phone] Allergies Active Allergy Reactions Criticality Noted Date Comments Lisinopril 01/05/2024 [facility] staff unsure how long he has had [...] 1 diabetes mellitus wit h vascular disease ([facility] V24, [facility] V28) 10/10/2017 Obesity, unspecified 03/31/2006 Schizophreniform disorder in remission ([facility] V24, [facility] V28) 02/23/2005 Overview (01/05/2024): IMO update Type 1 diabetes mellitus ([facility] V24, [facility] V 28) 02/23/2005 [...] Results * Annual BMP Blood Test (06/27/2005) [facility] Annual BMP Blood Test abstracted Historical Provider HEALTH MAINTENANCE Final Result * (ABNORMAL) Lipid panel (06/27/2005) [facility] LDL/HDL Ratio 4 0 - 4 Triglycerides 223(A) 0 - 150 mg/dL Cholesterol 192 0 - 200 mg/dL HDL 44 >=40 mg/dL LDL Cholesterol 104(A) 0 - 100 mg/dL Blood Venous blood specimen / Unknown Historical Provider LAB BLOOD ORDERABLES Carito l Result * Hemoglobin A1c (02/24/2005) [facility] Hemoglobin A1C 5.5 4.0 - 6.0 % Blood Venous blood specimen / Unknown Historical Provider LAB BLOOD ORDERABLES Carito l Result * Urine Albumin Creatinine Ratio (08/04/2004) Urine Albumin Creatinine Ratio abstracted Historical Provider HEALTH MAINTENANCE Final Result from Last 3 Months or Most Recently Relevant to Health Maintenance Insurance [place] - [place] Care Teams Icu Registered Nurse Relationship Specialty Start Date End Date Lindsay Archibald MD [address] [place] [address] [address] [facility] [place] [address] PCP - General Internal Medicine 01/29/16
[2024-09-02 16:06] VITALS: BMI 31.6
--- NOTE | 2024-09-03 09:50 | P.CONAN_ITS ---
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 Mild GRISELDA/Nocturnal hypoxia - O2 @ 2L QHS PMFSH Active Problems Active Problems: All Active Problems Schizophrenia (Acute) Confusion (Acute) Open wound of right ear (Acute) Dry skin dermatitis (Acute) Right leg pain (Acute) Pre-op examination (Acute) Upper respiratory infection (Acute) Dysphagia (Acute) Tubular adenoma of colon (Acute) Annual physical exam (Acute) Impacted cerumen of both ears (Acute) Onychomycosis (Acute) Tinea pedis (Acute) Tinea cruris (Acute) Medicare annual wellness visit, initial (Acute) Seborrhea (Acute) Nocturnal hypoxemia (Acute) Obstructive sleep apnea (Acute) Type 2 diabetes mellitus with hyperglycemia (Acute) GERD (gastroesophageal reflux disease) (Acute) Insomnia (Acute) Hypercholesterolemia (Acute) Anxiety and depression (Acute) Obesity (BMI 30-39.9) (Acute) Vitamin D deficiency (Acute) Mental and behavioral problem (Acute) Past Medical History Medical History Tinea pedis Hypoxemia Adult general medical exam Screening for prostate cancer Folliculitis Nocturnal hypoxemia Hypoventilation syndrome Obstructive sleep apnea Type 2 diabetes mellitus with hyperglycemia Fatty liver GERD (gastroesophageal reflux disease) Insomnia Hypercholesterolemia Anxiety and depression Obesity (BMI 30-39.9) Vitamin D deficiency Mental and behavioral problem Family History Family History Father Medical history unknown Myocardial infarct Mother Lung cancer Brain aneurysm Maternal Grandmother Uterine cancer Maternal Grandfather Lung cancer Surgical History Surgical History History of colonoscopy H/O basal cell carcinoma excision History of cataract surgery Social History Social History Housing: House Housing Other:: [facility] Alcohol intake: never Patient Tobacco Use Status: Never used Tobacco Tobacco use type: Cigarette e-Cigarette/Vaping Use: Never Used Second Hand Smoke Exposure: No service: No Current occupational status: unemployed and disabled Current occupational exposures/hazards: No Cognitive needs: Yes Hearing needs: No Vision needs: No Meds Allergies Allergy/AdvReac Type Severity Reaction Status Date / Time lisinopril (LISINOPRIL) Allergy Intermediate HYPOTENSION Verified 08/30/24 09:46 Home Medications ?Medication ?Instructions ?Recorded ?Confirmed ?Last Taken ?Type Oxygen Home Use 01/26/24 08/30/24 Unknown H istory peg 400-propylene glycol (PF) 0.4 2 drp ophthalmic (ey e) QID PRN Dry 01/26/24 08/30/24 Unknown History %-0.3 % eye drops in a dropperette Eyes (Systane (PF)) promethazine 25 mg tablet 25 mg PO DAILY PRN 1 hour pr ior to 01/26/24 08/30/24 Unknown History to dental appointments risperidone 2 mg tablet (Risperdal) 2 mg PO BEDTIME 08/30/24 Unknown History atorvastatin 80 mg tablet 80 mg PO BEDTIME 08/05/24 Unknown History dextromethorphan HBr 15 mg/5 mL 30 mg PO Q12H PRN Coug h 08/05/24 08/30/24 Unknown History oral syrup insulin glargine 100 unit/mL (3 10 unit subcut DAILY 0 08/05/24 08/30/24 Unknown History mL) subcutaneous pen (Lantus Solostar U-100 Insulin) lanolin-mineral oil-NaCl-w.pet 1 ea topical BID 08/30/24 Unknown History lotion multivitamin 1 tab PO DAILY 08/05/2408/03 Unknown History escitalopram oxalate 20 mg tablet 20 mg PO DAILY 08/3008/30/24 Unknown History Exam Height,Weight and Vital Signs: Height 5 ft 10 in Weight 99.79 kg Pertinent Lab Results Pertinent Lab Results: Laboratory Tests 08/05/24 08:07 WBC 7.1 Hgb 13.0 L Hct 38.1 L Plt Count 230 Sodium 144 Potassium 3.8 Chloride 106 Carbon Dioxide 29 BUN 13 Creatinine 0.84 Narrative Narrative: EKG 08/2024 Vent. Rate : 69 BPM Atrial Rate : 69 BPM P-R Int : 142 ms QRS Dur : 96 ms QT Int : 404 ms P-R-T Axes : -7 -2 3 degrees QTcB Int : 432 ms Normal sinus rhythm Normal ECG When compared with ECG of 09-Dec-2020 21:15, No significant change was found Assessment and Plan Assessment Anesthesia Assessment: Chart Reviewed Documented by User: Rishabh Hardin MD 10/15/24 10:36 [facility] Past Medical History Medical History Tinea pedis Hypoxemia Adult general medical exam Screening for prostate cancer Folliculitis Nocturnal hypoxemia Hypoventilation syndrome Obstructive sleep apnea Type 2 diabetes mellitus with hyperglycemia Fatty liver GERD (gastroesophageal reflux disease) Insomnia Hypercholesterolemia Anxiety and depression Obesity (BMI 30-39.9) Vitamin D deficiency Mental and behavioral problem Family History Family History Father Medical history unknown Myocardial infarct Mother Lung cancer Brain aneurysm Maternal Grandmother Uterine cancer Maternal Grandfather Lung cancer Family history of problems with anesthesia: No Surgical History Surgical History History of colonoscopy H/O basal cell carcinoma excision History of cataract surgery History of Problems with Anesthesia: No Social History Social History Housing: House Housing Other:: [facility] Alcohol intake: never Patient Tobacco Use Status: Never used Tobacco Tobacco use type: Cigarette e-Cigarette/Vaping Use: Never Used Second Hand Smoke Exposure: No service: No Current occupational status: unemployed and disabled Current occupational exposures/hazards: No Cognitive needs: Yes Hearing needs: No Vision needs: No Meds Allergies Allergy/AdvReac Type Severity Reaction Status Date / Time lisinopril (LISINOPRIL) Allergy Intermediate HYPOTENSION Verified 08/30/24 09:46 Home Medications ?Medication ?Instructions ?Recorded ?Confirmed ?Last Taken ?Type Oxygen Home Use 01/26/24 08/30/24 Unknown H istory peg 400-propylene glycol (PF) 0.4 2 drp ophthalmic (ey e) QID PRN Dry 01/26/24 08/30/24 Unknown History %-0.3 % eye drops in a dropperette Eyes (Systane (PF)) promethazine 25 mg tablet 25 mg PO DAILY PRN 1 hour pr ior to 01/26/24 08/30/24 Unknown History to dental appointments risperidone 2 mg tablet (Risperdal) 2 mg PO BEDTIME 08/30/24 Unknown History atorvastatin 80 mg tablet 80 mg PO BEDTIME 08/05/24 Unknown History dextromethorphan HBr 15 mg/5 mL 30 mg PO Q12H PRN Coug h 08/05/24 08/30/24 Unknown History oral syrup insulin glargine 100 unit/mL (3 10 unit subcut DAILY 0 08/05/24 08/30/24 Unknown History mL) subcutaneous pen (Lantus Solostar U-100 Insulin) lanolin-mineral oil-NaCl-w.pet 1 ea topical BID 08/30/24 Unknown History lotion multivitamin 1 tab PO DAILY 08/05/2408/03 Unknown History escitalopram oxalate 20 mg tablet 20 mg PO DAILY 08/3008/30/24 Unknown History Assessment and Plan Assessment Anesthesia Assessment: Anesthesia Plan Discussed Final Anesthetic Review Family History of Problems with Anesthesia: No History of Problems with Anesthesia: No NPO: Yes ASA Class: III Final Preanesthetic Review: No Changes in Pt Med Stat, Meds/Allgs Chart Reviewed, Consent Obtained/Reviewed and Anes Risks/Benef Reviewed Patient Risk: Low Procedure Risk: Low Anesthetic Plan Anesthetic Plan: MAC: Disposition: Standard PACU
[2024-10-15 07:03] VITALS: BMI 32.0
--- NOTE | 2024-10-15 07:12 | PC.NURSE ---
Pt refusing to change at this time. Pt did do prp and has sl cloudy stools. Worker in with pt trying to convinve him to change and have procedure.
[2024-10-15 07:31] VITALS: BP 117/63; PULSE 62; RESP 16; TEMP 36.9; O2SAT 95
[2024-10-15] MEDS: Lactated Ringers 1,000 ML 100 ML IVCONT (07:31)
[2024-10-15 07:32] LABS: Glucose, Whole Blood 125 mg/dL (60-115)
--- NOTE | 2024-10-15 08:14 | MHC.SHP ---
Pre-Procedural Eval Section A - 24 Hr Update-Section A only Date of Service: 10/15/24 Section B - Complete if H&P > 30 days Chief Complaint: screening Relevant Family History (Specify if Yes): No Relevant Social History: None Present Medications: see Short Stay Collaborative assessment Medical History: Significant History (Obesity GRISELDA Diabetes High cholesterol Hepatic steatosis Dysphagia Anxiety/depression/insomnia/impulse control disorder GERD Seborrhea ) History of Previous Operations: Relevant previous surgery/procedure and date(s) (Colonoscopy-2019= TA Basal cell carcinoma excision Cataract surgery ) Allergies: Allergies Allergy/AdvReac Type Severity Reaction Status Date / Time lisinopril (LISINOPRIL) Allergy Intermediate HYPOTENSION Verified 08/30/24 09:46 Review of Systems Sugical H&P ROS: Negative: Constitution, Cardiovascular, Respiratory, Neurological, Psychiatric, Hem-Onc, Allergic/Immunologic, Gastrointestinal, Genitourinary, Musculoskeletal, Integumentary, Endocrine and Eyes/Ears/Nose/Throat Exam Surgical H&P Exam: Normal: HEENT, Normal: Heart, Normal: Lungs, Normal: Extremities, Normal: Abdomen and Normal: Neurological and Significant Findings: Skin (seberrhoea) Exam Comment: abn affect Plan Diagnosis/Plan: Unchanged I have reviewed the history and physical and performed a pertinent physical examination on my patient. No changes have occurred unless specified. Time Spent With Patient Time: Total time managing care of this patient today ____ minutes.
--- NOTE | 2024-10-15 09:00 | HO.OPN-COLON ---
Colonoscopy Operative Note Operative Note Date of Service: 10/15/24 Narrative: Operative Information Procedure Description: Colonoscopy Indication: screening Anesthesia: MAC COLONOSCOPY Instrument: Olympus variable stiffness adult scope 190L Colonoscopy Monitoring: Vital signs and clinical assessment, continuous EKG monitoring, Pulse oximetry, Carbon Dioxide monitoring and blood pressure monitoring were done throughout the procedure. Colon withdrawal time was 12 minutes. Procedure: The patient was placed in the left lateral decubitis position and pre-procedure medications were administered. After a digital rectal examination of the ano-rectum, the video colonoscope was inserted into the rectum and advanced through the colon to the cecum/TI. The colonoscope was slowly withdrawn in a retrograde panoramic fashion and the colon mucosa was carefully examined including a retroflexed view of the rectum. Findings and interventions are described below. Procedure Difficulty: moderate Findings: Terminal Ileum- superficial intubation, normal Cecum:normal right sided retroflexion- normal Ascending Colon: mild diverticulosis Transverse Colon -normal Descending Colon:normal Sigmoid Colon: moderate diverticulosis Rectum: Retroflexion with small internal hemorrhoids seen, grade I Anorectum - normal Intervention: none Colon preparation: Rumson Bowel Preparation Scale Right colon; 2 Transverse colon: 2 Left colon; 2 (0 = Unprepared colon segment with mucosa not seen due to solid stool that cannot be cleared. 1 = Portion of mucosa of the colon segment seen, but other areas of the colon segment not well seen due to staining, residual stool and/or opaque liquid. 2 = Minor amount of residual staining, small fragments of stool and/or opaque liquid, but mucosa of colon segment seen well. 3 = Entire mucosa of colon segment seen well with no residual staining, small fragments of stool or opaque liquid) Impression and Post Procedure Diagnosis: diverticulosis internal hemorrhoids Plan: High fiber diet leaflet Avoid straining at stool, epsom salts and sitz bath, anusol supps or cream Repeat Colonoscopy in 5 years due to prior hx of polyps or earlier if clinically indicated Above findings were reviewed with the patient and relevant handouts were provided if indicated.
[2024-10-15 09:08] VITALS: BP 97/56; PULSE 55; RESP 16; TEMP 36.1; O2SAT 91
[2024-10-15 09:23] VITALS: BP 132/72; PULSE 62; RESP 18; TEMP 36.2; O2SAT 95
== END 2024-10-15 10:05 | disposition home or self-care (01) ==
PROVIDERS: PCP Internal Medicine; Visit Provider Internal Medicine Gastroenterology
PROC: 0DJD8ZZ Inspection of Lower Intestinal Tract, Via Natural or Artificial Opening Endoscopic (ICD-10-PCS; CPT 45378; principal; 2024-10-15 08:30)
DX: Z12.11 Encounter for screening for malignant neoplasm of colon (principal); K57.30 Diverticulosis of large intestine without perforation or abscess without bleeding; K64.0 First degree hemorrhoids; Z86.0101 Personal history of adenomatous and serrated colon polyps; E11.9 Type 2 diabetes mellitus without complications; G47.34 Idiopathic sleep related nonobstructive alveolar hypoventilation; G47.33 Obstructive sleep apnea (adult) (pediatric); E78.00 Pure hypercholesterolemia, unspecified; K21.9 Gastro-esophageal reflux disease without esophagitis; F41.9 Anxiety disorder, unspecified; K76.0 Fatty (change of) liver, not elsewhere classified; E55.9 Vitamin D deficiency, unspecified; Z79.84 Long term (current) use of oral hypoglycemic drugs; Z79.02 Long term (current) use of antithrombotics/antiplatelets; Z79.4 Long term (current) use of insulin; Z79.899 Other long term (current) drug therapy
CPT/HCPCS: G0121; 82947; J2003; J2704

== ENCOUNTER → 2024-10-15 06:45 | Outpatient (BNV) | payer MEDICARE, MEDICAID, SELFPAY | PROVIDERS: PCP Internal Medicine; Visit Provider Internal Medicine Gastroenterology | DX: Z12.11 Encounter for screening for malignant neoplasm of colon (principal); Z86.0101 Personal history of adenomatous and serrated colon polyps; K57.90 Diverticulosis of intestine, part unspecified, without perforation or abscess without bleeding; K64.0 First degree hemorrhoids | CPT/HCPCS: G0121 ==

== ENCOUNTER 2024-11-14 09:03 | Outpatient (AMB) | payer MEDICARE, MEDICAID, SELFPAY ==
--- NOTE | 2024-11-14 09:17 | A.OFFPC_ITS ---
Vital Signs 11/14/24 09:18 Height 5 ft 10 in Weight 226 lb 6 oz BMI 32.5 BP 110/64 Blood Pressure Location Lt brachial Position Sitting Pulse 73 Pulse Source Pulse Oximeter Temp 97.3 F Temp Source Temporal Artery Scan Pulse Oximetry (%) 98 Oxygen Delivery Method Room Air Intake Visit Reasons: obesity, DM Intake Note: Patient is here to follow up on Obesity, DM. Meter Reader Required: No Sap Pi Architect: Present Accompanied by: Staff Allergies lisinopril (LISINOPRIL) Allergy (Intermediate, Verified 11/14/24 09:18) HYPOTENSION Tobacco use date assessed: 11/14/24 Dental Screening Dental Screen Date: 08/30/24 [facility] Medical History (Updated 11/14/24 @ 10:08 by Lindsay Archibald MD) Tinea pedis Hypoxemia Adult general medical exam Screening for prostate cancer Folliculitis Nocturnal hypoxemia Hypoventilation syndrome Obstructive sleep apnea Type 2 diabetes mellitus with hyperglycemia Fatty liver GERD (gastroesophageal reflux disease) Insomnia Hypercholesterolemia Anxiety and depression Obesity (BMI 30-39.9) Vitamin D deficiency Mental and behavioral problem Surgical History (Updated 11/14/24 @ 09:28 by RONY Diego) History of colonoscopy H/O basal cell carcinoma excision History of cataract surgery Family History Father Medical history unknown Myocardial infarct Mother Lung cancer Brain aneurysm Maternal Grandmother Uterine cancer Maternal Grandfather Lung cancer Social History Housing: House Housing Other:: [facility] Alcohol intake: never Patient Tobacco Use Status: Never used Tobacco Tobacco use type: Cigarette e-Cigarette/Vaping Use: Never Used Second Hand Smoke Exposure: No service: No Current occupational status: unemployed and disabled Current occupational exposures/hazards: No Cognitive needs: Yes Hearing needs: No Vision needs: No Questionnaire Thrive Questionnaire Date Thrive assessed: 08/30/24 I am a: Patient What is your living situation today?: I have a steady place to live Within the past 12 months, did the food you bought not last and you didn't have the money to get more?: Never true Within the past 12 months, did you worry whether your food would run out before you got money to buy more?: Never true Do you have trouble paying for medicines?: No Do you have trouble getting transportation to medical appointments?: No Do you have trouble paying your heating and electricity bill?: No Do you have trouble taking care of your child, family member or friend?: No Do you have trouble with day-to-day activities such as bathing, preparing meals, shopping, managing finances, etc.?: No Are you currently unemployed and looking for a job?: Yes Are you interested in more education?: Yes Please select the resources that you would like help with: Job search/training Currently or been in a relationship where the following occur: No concerns reported THRIVE Score: 0 AMBER-7 AMB Questionnaire AMBER-7 Date AMBER - 7 assessed: 08/30/24 Source: Developed by Drs. Oleg Torres, Tomeka Bacon, Ranjan Jacob and colleagues, with an educational javier from [employer]. Physical exam (Primary Care) Vital Signs: Last Vital Signs Temp 97.3 F 11/14/24 09:18 Pulse 73 11/14/24 09:18 BP 110/64 11/14/24 09:18 Pulse Ox 98 11/14/24 09:18 Oxygen Delivery Method Room Air 11/14/24 09:18 BMI result Body Mass Index 32.5 Tobacco/Smoking Status: Tobacco use Status Tobacco use date assessed 11/14/24 11/14/24 09:31 Patient Tobacco Use Status Never used Tobacco 11/14/24 09:31 Tobacco use type Cigarette 11/14/24 09:31 e-Cigarette/Vaping Use Never Used 11/14/24 09:31 Thrive Assessment: Date of Thrive Assessment Date Thrive assessed 08/30/24 11/14/24 09:31 Currently or been in a relationship where the following occur: No concerns reported Const General: alert; No acute distress Eyes Conjunctivae: conjunctivae normal Resp Auscultation: clear to auscultation bilaterally Cardio Rate: regular rate Rhythm: regular rhythm GI Inspection: Yes normal to inspection Extrem General: Yes normal to inspection and No edema Results AMB Hemoglobin A1c AMB Hemoglobin A1c 5.8 % Last Edit by RONY Diego on 11/14/24 09:35 Results Reviewed Results Reviewed: Laboratory Last Values Hgb A1c (Clinic) 5.8 % (4.0-6.0) 11/14/24 09:17 Coding Level of Care Code Est Pt Level 4 (58257) Complex EM visit Add On G2211 Diagnoses Type 2 diabetes mellitus with hyperglycemia, with long-term current use of insulin E11.65; Z79.4 Diabetes mellitus sales operations analyst insulin use: with prison use Hypercholesterolemia E78.00 Schizophrenia F20.9 Gastroesophageal reflux disease without esophagitis K21.9 Esophagitis presence: without esophagitis Tubular adenoma of colon D12.6 Obstructive sleep apnea G47.33 Oropharyngeal dysphagia R13.12 Dysphagia type: oropharyngeal phase Assessment & Plan Assessment & Plan (1) Type 2 diabetes mellitus with hyperglycemia: Code(s): E11.65 - Type 2 diabetes mellitus with hyperglycemia Category: Medical Qualifiers: Diabetes mellitus sales operations analyst insulin use: with sales operations analyst use Qualified Code(s): E11.65 - Type 2 diabetes mellitus with hyperglycemia; Z79.4 - USP (current) use of insulin Plan: Decrease the amount of carbohydrate intake, pasta, bread, rice and potatoes are all sugar and that is aside from all the sweet stuff, remember that fruits are good but they are Sweet also. Hemoglobin A1c goal of less than 6.5 patient is at goal on Lantus 10 units once a day metformin 500 mg twice a day (2) Hypercholesterolemia: Code(s): E78.00 - Pure hypercholesterolemia, unspecified Category: Medical Plan: Avoid fried foods, chicken skin, eggs, butter margarine, pastries and meat. Be it pork or beef they have a lot of cholesterol LDL goal of less than 100 and triglyceride of less than 150 on atorvastatin 80 mg once a day (3) Schizophrenia: Code(s): F20.9 - Schizophrenia, unspecified Category: Medical Plan: Continue with counseling and therapy (4) GERD (gastroesophageal reflux disease): Code(s): K21.9 - Gastro-esophageal reflux disease without esophagitis Category: Medical Qualifiers: Esophagitis presence: without esophagitis Qualified Code(s): K21.9 - Gastro-esophageal reflux disease without esophagitis Plan: Avoid the foods that causes that usually spicy foods, tomato products, juices, coffee, soda and foods that your sensitive to. After eating do not lie down, allow 3-4 hours before in lie down. And keep the head of bed above 30 degrees to avoid the acid from going up. (5) Tubular adenoma of colon: Comment: 2020 3-5 years October 2024 5 years Code(s): D12.6 - Benign neoplasm of colon, unspecified Category: Medical Plan: Patient just had colonoscopy and advised recall in 5 years (6) Obstructive sleep apnea: Comment: PER sleep study , GRISELDA was mild, patient is not able to use CPAP. Code(s): G47.33 - Obstructive sleep apnea (adult) (pediatric) Category: Medical Plan: Patient can not tolerate the CPAP but has nocturnal hypoxemia and uses oxygen (7) Dysphagia: Code(s): R13.10 - Dysphagia, unspecified Category: Medical Qualifiers: Dysphagia type: oropharyngeal phase Qualified Code(s): R13.12 - Dysphagia, oropharyngeal phase Plan History of Present Illness The patient is a 59-year-old male presenting for a follow-up visit. The patient has a history of obesity, with a recent weight gain of 3 pounds noted. Despite engaging in physical activity three times a week, the patient struggles with dietary habits, including consuming uncooked meat and accessing food that should be restricted. The patient has a history of anxiety disorder and schizophrenia, for which he is under psychiatric care. He continues to receive counseling and therapy as part of his treatment plan. The patient has hypercholesterolemia, with the last LDL cholesterol level recorded at 67 mg/dL in August 2024, which is within the target range. He is currently on atorvastatin 80 mg once daily to manage his cholesterol levels. The patient has diabetes mellitus, with a hemoglobin A1c level of 5.8, indicating good control. His diabetes management includes Lantus 10 units once daily and metformin 500 mg twice daily. The patient has a history of gastroesophageal reflux disease (GERD) and is currently managing symptoms with lifestyle modifications. The patient has obstructive sleep apnea and uses nocturnal oxygen therapy due to intolerance to CPAP. He follows up with a pump operator for this condition. The patient underwent a colonoscopy in October 2024, which revealed diverticulosis and internal hemorrhoids. He is advised to repeat the colonoscopy in five years. The patient has mild anemia, which is stable and chronic. Health Maintenance - Colonoscopy up to date, next due in 5 years - LDL cholesterol level at 67 mg/dL, within target range - Hemoglobin A1c at 5.8, indicating good diabetes control Social History - Exercise: Engages in physical activity three times a week - Dietary habits: Consumes uncooked meat and accesses restricted food Review of Systems - Respiratory: Reports difficulty tolerating CPAP, uses nocturnal oxygen - Gastrointestinal: Reports choking episodes after eating or drinking Physical Exam - Respiratory: Patient instructed to breathe in and out, lee, and breathe deeply Results - Labs: Hemoglobin A1c at 5.8, indicating good diabetes control - Labs: LDL cholesterol level at 67 mg/dL, within target range - Labs: Mild anemia noted in blood work - Tests: Colonoscopy in October 2024 showing diverticulosis and internal hemorrhoids Plan The patient's diabetes management will continue with Lantus 10 units once daily and metformin 500 mg twice daily, as his hemoglobin A1c is well-controlled at 5.8. For hypercholesterolemia, the patient will remain on atorvastatin 80 mg once daily, with the LDL cholesterol level at 67 mg/dL, which is within the target range. The patient is advised to maintain his current exercise routine of three times a week and to address dietary habits, particularly avoiding uncooked meat and restricted foods, to manage obesity and prevent potential infections. A barium swallow test is recommended to evaluate the reported choking episodes after eating or drinking, with a potential referral to speech and hearing for further assessment if necessary. The patient will continue to follow up with psychiatry for anxiety disorder and schizophrenia management, including counseling and therapy. For obstructive sleep apnea, the patient will continue using nocturnal oxygen therapy and follow up with pulmonology. Preventative care includes a colonoscopy, which is up to date, with the next one due in five years. Patient was informed and verbally consented to the use of an ambient scribe for clinic note documentation during this visit. Discussion Notes During the visit, I discussed the importance of maintaining diabetes control with the patient, emphasizing the continuation of Lantus and metformin as his hemoglobin A1c is well-controlled. We also reviewed his cholesterol management, confirming that atorvastatin is effectively keeping his LDL levels within the target range. I advised the patient to continue his exercise routine and address dietary habits to manage obesity and prevent infections. We discussed the need for a barium swallow test to evaluate his choking episodes, with a potential referral to speech and hearing if necessary. The patient will continue psychiatric follow-up for anxiety disorder and schizophrenia, and pulmonology follow-up for obstructive sleep apnea. Preventative care measures, including the up-to-date colonoscopy, were also reviewed. Patient Instructions - Continue taking Lantus 10 units once daily and metformin 500 mg twice daily for diabetes management. - Continue taking atorvastatin 80 mg once daily for cholesterol management. - Maintain exercise routine of three times a week. - Avoid consuming uncooked meat and restricted foods. - Schedule a barium swallow test to evaluate choking episodes. - Follow up with psychiatry and pulmonology as scheduled. - Ensure colonoscopy is repeated in five years. Orders: Orders AMB Hemoglobin A1c Today E11.65 - Type 2 diabetes mellitus with hyperglycemia, Z79.4 - USP (current) use of insulin FL upper GI series Today R13.10 - Dysphagia, unspecified, R13.12 - Dysphagia, oropharyngeal phase FL barium swallow Today R13.10 - Dysphagia, unspecified, R13.12 - Dysphagia, oropharyngeal phase
[2024-11-14 09:18] VITALS: BP 110/64; PULSE 73; TEMP 36.3; O2SAT 98; BMI 32.5
--- OUTSIDE RECORDS SUMMARY | 2024-11-14 09:32 | XMS_ITS | Clinical Summary ---
Author Organization [address] [facility] Address [address] [place] [address] Phone Care Team Providers Care Truck Caterer Name Role Phone Lindsay Archibald MD Primary Care Provider [phone] Allergies Active Allergy Reactions Criticality Noted Date Comments Lisinopril 01/05/2024 [facility] staff unsure how long he has had [...] 1 diabetes mellitus wit h vascular disease ([facility] V24, [facility] V28) 10/10/2017 Obesity, unspecified 03/31/2006 Schizophreniform disorder in remission ([facility] V24, [facility] V28) 02/23/2005 Overview (01/05/2024): IMO update Type 1 diabetes mellitus ([facility] V24, [facility] V 28) 02/23/2005 Encounters Date Type Department Care Team Description 10/31/2024 10:00 AM EDT Office Visit Orthopedic Surgery - [place] [address] [place] [phone] Ross Rosenbaum, DPM Dermatophytosis of nail (Primary Dx); Tinea pedis of both feet; Type II diabetes mellitus with peripheral circulatory disorder ([facility] V24, [facility] V28); Acquired hammer toe of right foot from [...] Care Team (Late st Contact Info) Description 02/04/2025 10:15 AM EST Office Visit Orthopedic Surgery - [place] [address] [phone] Ross Rosenbaum, DPM [address] [address] Health Maintenance Due Date Last Done Comments Diabetes: Annual Foot Exam 1974 Diabetes: Annual Retina Eye Exam 1974 Zoster Vaccines (1 of 2) 08/21/1983 Diabetes: Annual GFR (Glomerular Filtration Rate) 06/27/2006 06/27/2005 DTaP,Tdap,and Td Vaccines (2 - Td or Tdap) 04/08/2013 04/08/2003 Pneumococcal Vaccine: 50+ Years (2 of 2 - PCV) 04/14/2017 04/14/2016, 01/15/2003 Cholesterol Screening (Lipid Panel) 03/13/2022 06/27/2005 Colorectal Cancer Screening: Colonoscopy 03/13/2022 HIV Screening 03/13/2022 Hepatitis C Screening 03/13/2022 Medicare Annual Wellness Visit 03/13/2022 Social Influencers of Health Screening 03/13/2022 Diabetes: Annual Urine Albumin-Creatinine Ratio (uACR) 03/17/2022 08/04/2004 Diabetes: Blood Sugar Control Test (HGBA1C) 03/17/2022 02/24/2005 Depression Screening 04/03/2024 RSV Immunization Adult Patients (1 - Risk 60-74 years 1-dose series) 2024 Influenza Vaccine (#1) 2024 , 01/14/2023, 01/03/2022, Additional history exists COVID-19 Vaccine (6 - Pfizer risk season) 2024 06/03/2024, 05/12/2023, 08/26/2021, Additional history exists HIB Vaccines Aged Out [...] Test (06/27/2005) Annual BMP Blood Test abstracted [facility] Provider HEALTH MAINTENANCE Final Result * (ABNORMAL) Lipid panel (06/27/2005) [facility] LDL/HDL Ratio 4 0 - 4 Triglycerides 223(A) 0 - 150 mg/dL Cholesterol 192 0 - 200 mg/dL HDL 44 >=40 mg/dL LDL Cholesterol 104(A) 0 - 100 mg/dL Blood Venous blood specimen / Unknown [facility] Provider LAB BLOOD ORDERABLES Carito l Result * Hemoglobin A1c (02/24/2005) [facility] Hemoglobin A1C 5.5 4.0 - 6.0 % Blood Venous blood specimen / Unknown [facility] Provider LAB BLOOD ORDERABLES Carito l Result * Urine Albumin Creatinine Ratio (08/04/2004) [facility] Urine Albumin Creatinine Ratio abstracted [facility] Provider HEALTH MAINTENANCE Final Result from Last 3 Months or Most Recently Relevant to Health Maintenance Insurance MEDICAID - [place] MEDICARE Care Teams Truck Caterer Relationship Specialty Start Date End Date Lindsay Archibald MD [address] [place] [address] Dr [address] [facility] [place] [address] PCP - General Internal Medicine 01/29/16
== END 2024-11-14 10:20 | disposition home or self-care (01) ==
LOC: HO.HMCH 09:08
PROVIDERS: PCP Internal Medicine; Visit Provider Internal Medicine
DX: E11.65 Type 2 diabetes mellitus with hyperglycemia (principal); Z79.4 Long term (current) use of insulin; E78.00 Pure hypercholesterolemia, unspecified; F20.9 Schizophrenia, unspecified; K21.9 Gastro-esophageal reflux disease without esophagitis; D12.6 Benign neoplasm of colon, unspecified; G47.33 Obstructive sleep apnea (adult) (pediatric); R13.12 Dysphagia, oropharyngeal phase

== ENCOUNTER → 2024-11-14 09:03 | Outpatient (BNVA) | payer MEDICARE, MEDICAID, SELFPAY | PROVIDERS: PCP Internal Medicine; Visit Provider Internal Medicine | DX: E11.65 Type 2 diabetes mellitus with hyperglycemia (principal); Z79.4 Long term (current) use of insulin; E78.00 Pure hypercholesterolemia, unspecified; K21.9 Gastro-esophageal reflux disease without esophagitis; F20.9 Schizophrenia, unspecified; D12.6 Benign neoplasm of colon, unspecified; R13.12 Dysphagia, oropharyngeal phase; G47.33 Obstructive sleep apnea (adult) (pediatric) | CPT/HCPCS: 83036; 99212 ==

== ENCOUNTER 2024-12-24 10:42 | Outpatient (AMB) | payer MEDICARE, MEDICAID, SELFPAY ==
--- NOTE | 2024-12-24 11:02 | A.OFFVIS_ITS ---
VS Expanded 12/24/24 11:05 Height 5 ft 10 in Weight 225 lb 1.471 oz BMI 32.3 Intake Visit Reasons: T2DM Allergies lisinopril (LISINOPRIL) Allergy (Intermediate, Verified 11/14/24 09:18) HYPOTENSION Nutrition Presentation Details: Pt presents for MNT for T2DM Pt presents with home staff Pt reports doing well, choosing lower sugar options working on increasing activity, walks on treadmill 20 min 3 x a week Has 3 meal/d and eats out 1 x/wk B: may be 2 eggs with whole wheat toast and coffee with milk , diet sugar L: sand or burger and salad, water D: mashed potato/ chicken, broccoli, water or diet juice snack : yogurt or fruit or crackers with peanut butter or cookies eating out : likes to choose fried foods treadmill 20 minutes 3 times/wk most recent A1c 5.8% on 11/25, denies hypoglycemia PFSH Medical History (Updated 11/14/24 @ 10:08 by Lindsay Archiabld MD) Tinea pedis Hypoxemia Adult general medical exam Screening for prostate cancer Folliculitis Nocturnal hypoxemia Hypoventilation syndrome Obstructive sleep apnea Type 2 diabetes mellitus with hyperglycemia Fatty liver GERD (gastroesophageal reflux disease) Insomnia Hypercholesterolemia Anxiety and depression Obesity (BMI 30-39.9) Vitamin D deficiency Mental and behavioral problem Surgical History (Updated 11/14/24 @ 09:28 by RONY iDego) History of colonoscopy H/O basal cell carcinoma excision History of cataract surgery Family History Father Medical history unknown Myocardial infarct Mother Lung cancer Brain aneurysm Maternal Grandmother Uterine cancer Maternal Grandfather Lung cancer Social History Housing: House Housing Other:: nursing home Alcohol intake: never Patient Tobacco Use Status: Never used Tobacco Tobacco use type: Cigarette e-Cigarette/Vaping Use: Never Used Second Hand Smoke Exposure: No service: No Current occupational status: unemployed and disabled Current occupational exposures/hazards: No Cognitive needs: Yes Hearing needs: No Vision needs: No Assessment & Plan Assessment & Plan (1) Type 2 diabetes mellitus with hyperglycemia: Code(s): E11.65 - Type 2 diabetes mellitus with hyperglycemia Category: Medical Qualifiers: Diabetes mellitus marine oil terminal superintendent insulin use: with [facility] use Qualified Code(s): E11.65 - Type 2 diabetes mellitus with hyperglycemia; Z79.4 - marine oil terminal superintendent (current) use of insulin Plan: Wt: 103 Kg ( 02/24 ), 101 kg (03/26), 102 kg (04/27), 100 kg (06/25), (07/26), 102kg (12/26) Est kcal needs as per MSJ: 2200 (40% carb, 30% protein/fat) Est fluid needs as per 25-30 ml/d: 3100 Est prot per day as per 1 g/kg bw: 103 Recommend fiber intake : 8-10 g per day and gradually increase to 25-28 g per day for women and 35-38 g for men or as tolerated Recommend sodium intake per day : l less than 2300 mg Educated patient on: ( R = reviewed V = verbalizes understanding N/R = needs review N/A = not applicable * Food sources of carbohydrate, adequate serving sizes and its role in various health conditions: R * Differences between complex carbohydrates a simple carbohydrates, role of fiber in diet: R * Lean protein sources of foods: R * Differences between types of fats and role in diet (mono on saturated fat fatty acids, saturated fatty acids, trans fats): R * EAting out food choices (choosing protein , lower calorie option) : R * Food sources of sodium in salt and healthy modifications for heart health in kidney health: R V R/V * Vitamins and minerals: R V N/R * Healthy plate method concept: R V N/R * Physical activity: Benefits a precaution: R * Hypoglycemia protocol (rule of 15): R V , education material was given * Dietary prevention of Hyperglycemia: R Patient Instructions: -Choose fish (baked salmon, broccoli and potato when eating out) with light lemonade, working on choosing omega 3 -share low fat cooking tips with home staff - see print out - weight loss goal by next follow up : 5 lbs less (220lbs) Coding Level of Care Code Nutr Indiv Subseq (83618) Diagnoses Type 2 diabetes mellitus with hyperglycemia, with long-term current use of insulin E11.65; Z79.4 Diabetes mellitus marine oil terminal superintendent insulin use: with marine oil terminal superintendent use Time Spent (min) 30
[2024-12-24 11:05] VITALS: BMI 32.3
--- OUTSIDE RECORDS SUMMARY | 2024-12-24 13:08 | XMS_ITS | Clinical Summary ---
Author Organization 175 [facility] Address 175 [place] [address] Phone Care Team Providers Care Content Development Specialist Name Role Phone Lindsay Archibald MD Primary Care Provider [phone] Allergies Active Allergy Reactions Criticality Noted Date Comments Lisinopril 01/05/2024 jail staff unsure how long he has had [...] 1 diabetes mellitus wit h vascular disease ([facility] V24, [facility] V28) 10/10/2017 Obesity, unspecified 03/31/2006 Schizophreniform disorder in remission ([facility] V24, [facility] V28) 02/23/2005 Overview (01/05/2024): IMO update Type 1 diabetes mellitus ([facility] V24, [facility] V 28) 02/23/2005 Encounters Date Type Department Care Team Description 10/31/2024 10:00 AM EDT Office Visit Orthopedic Surgery - [place] [address] [place] [phone] Ross Rosenbaum, DPM Dermatophytosis of nail (Primary Dx); Tinea pedis of both feet; Type II diabetes mellitus with peripheral circulatory disorder ([facility] V24, [facility] V28); Acquired hammer toe of [...] AM EST Office Visit [facility] Surgery - [place] [address] [phone] Ross Rosenbaum, DPM [address] [phone] Health Maintenance Due Date Last Done Comments [...] Test (06/27/2005) Annual BMP Blood Test abstracted [facility] Provider HEALTH MAINTENANCE Final Result * (ABNORMAL) Lipid panel (06/27/2005) [facility] LDL/HDL Ratio 4 0 - 4 Triglycerides 223(A) 0 - 150 mg/dL Cholesterol 192 0 - 200 mg/dL HDL 44 >=40 mg/dL LDL Cholesterol 104(A) 0 - 100 mg/dL Blood Venous blood specimen / Unknown Result [facility] Provider LAB BLOOD ORDERABLES Carito l Result * Hemoglobin A1c (02/24/2005) [facility] Hemoglobin A1C 5.5 4.0 - 6.0 % Blood Venous blood specimen / Unknown Result [facility] Provider LAB BLOOD ORDERABLES Carito l Result * Urine Albumin Creatinine Ratio (08/04/2004) [facility] Urine Albumin Creatinine Ratio abstracted [facility] Provider HEALTH MAINTENANCE Final Result from Last 3 Months or Most Recently Relevant to Health Maintenance Insurance [place] - [place] MEDICARE Care Teams Content Development Specialist Relationship Specialty Start Date End Date Lindsay Archibald MD [address] [place] [address] [address] [facility] [place] [address] PCP - General Internal Medicine 01/29/16
== END 2024-12-24 11:46 | disposition home or self-care (01) ==
LOC: HO.ENCR 10:43
PROVIDERS: PCP Internal Medicine; Visit Provider Dietitian, Registered
DX: E11.65 Type 2 diabetes mellitus with hyperglycemia (principal); Z79.4 Long term (current) use of insulin

== ENCOUNTER → 2024-12-24 10:42 | Outpatient (BNVA) | payer MEDICARE, MEDICAID, SELFPAY | PROVIDERS: PCP Internal Medicine; Visit Provider Dietitian, Registered | DX: E11.65 Type 2 diabetes mellitus with hyperglycemia (principal); Z79.4 Long term (current) use of insulin; Z71.3 Dietary counseling and surveillance | CPT/HCPCS: 97803 ==

== ENCOUNTER 2025-01-15 11:20 | Outpatient (AMB) | payer MEDICARE, MEDICAID, SELFPAY ==
--- NOTE | 2025-01-15 11:28 | A.OFFPC_ITS ---
Vital Signs 01/15/25 11:29 Height 5 ft 10 in Weight 223 lb 2 oz BMI 32.0 BP 120/66 Blood Pressure Location Lt brachial Position Sitting Pulse 65 Pulse Source Pulse Oximeter Temp 97.3 F Temp Source Temporal Artery Scan Pulse Oximetry (%) 92 Oxygen Delivery Method Room Air Intake Visit Reasons: Headache,bloodshot on eyes Intake Note: Patient complains of Headache, bloodshot in eyes. Flying Shear Operator Required: No Hand Fretted Instrument Maker: Present Accompanied by: staff Allergies lisinopril (LISINOPRIL) Allergy (Intermediate, Verified 01/15/25 11:28) HYPOTENSION Medication List - Last Reconciled 01/15/25 by Louise Shoemaker MD acetaminophen 650 mg (2 x 325 mg) PO Q6H PRN ascorbate calcium (vitamin C) 500 mg PO DAILY atorvastatin 80 mg PO QPM bisacodyl (Dulcolax (bisacodyl)) 20 mg (4 x 5 mg) PO ONCE 1 day bisacodyl (Dulcolax (bisacodyl)) 20 mg (4 x 5 mg) PO ONCE 1 day blood sugar diagnostic (True Metrix Glucose Test Strip) As directed- TID blood-glucose meter (True Metrix Glucose Meter) As directed- TID cholecalciferol (vitamin D3) 25 mcg PO DAILY 90 days dextromethorphan HBr 30 mg PO Q12H PRN escitalopram oxalate (Lexapro) 20 mg PO DAILY escitalopram oxalate 20 mg PO DAILY ferrous fumarate 324 mg PO DAILY glucose (Dex4 Glucose) 4 grams PO Q15M PRN ibuprofen 200 mg PO Q6H PRN inhalational spacing device (Aerochamber MV spacer) As directed insulin glargine (Lantus Solostar U-100 Insulin) 10 units subcut DAILY ketoconazole 2% 1 appl topical 2XW lancets (TRUEplus Lancets) Check blood sugars lanolin-mineral oil-NaCl-w.pet 1 ea topical BID metformin 500 mg PO BIDWMEAL multivitamin 1 tab PO DAILY omeprazole 20 mg PO DAILY@0630 Oxygen Home Use As directed peg 3350-electrolytes 236-22.74-6.74 -5.86 gram 240 mL PO Q10M peg 400-propylene glycol (PF) 0.4-0.3 % (Systane (PF)) 2 drps ophthalmic (eye) QID PRN pen needle, diabetic (Advocate Pen Needle) Use as directed polyethylene glycol 3350 (Miralax) 17 grams PO DAILY 2 weeks promethazine 25 mg PO DAILY PRN risperidone (Risperdal) 2 mg PO BEDTIME Tobacco use date assessed: 01/15/25 Dental Screening Dental Screen Date: 08/30/24 HPI HPI Comments History of Present Illness Details The patient is a 59-year-old male presenting with a headache and possible cold symptoms. The headache was reported as not alleviated by acetaminophen (Tylenol), which is the only medication available to him at the intermediate. He has not tried ibuprofen or any other medication for the headache. The patient may be developing a cold, as suggested by the recent exposure to cold and rainy weather, and the symptoms are consistent with this possibility. There is no mention of any other associated symptoms or prior history of similar episodes. [facility] Medical History (Updated 01/15/25 @ 11:51 by Louise Shoemaker MD) Tinea pedis Hypoxemia Adult general medical exam Screening for prostate cancer Folliculitis Nocturnal hypoxemia Hypoventilation syndrome Obstructive sleep apnea Type 2 diabetes mellitus with hyperglycemia Fatty liver GERD (gastroesophageal reflux disease) Insomnia Hypercholesterolemia Anxiety and depression Obesity (BMI 30-39.9) Vitamin D deficiency Mental and behavioral problem Surgical History History of colonoscopy H/O basal cell carcinoma excision History of cataract surgery Family History Father Medical history unknown Myocardial infarct Mother Lung cancer Brain aneurysm Maternal Grandmother Uterine cancer Maternal Grandfather Lung cancer Social History Housing: House Housing Other:: [facility] Alcohol intake: never Patient Tobacco Use Status: Never used Tobacco Tobacco use type: Cigarette e-Cigarette/Vaping Use: Never Used Second Hand Smoke Exposure: No service: No Current occupational status: unemployed and disabled Current occupational exposures/hazards: No Cognitive needs: Yes Hearing needs: No Vision needs: No Questionnaire Thrive Questionnaire Date Thrive assessed: 08/30/24 I am a: Patient What is your living situation today?: I have a steady place to live Within the past 12 months, did the food you bought not last and you didn't have the money to get more?: Never true Within the past 12 months, did you worry whether your food would run out before you got money to buy more?: Never true Do you have trouble paying for medicines?: No Do you have trouble getting transportation to medical appointments?: No Do you have trouble paying your heating and electricity bill?: No Do you have trouble taking care of your child, family member or friend?: No Do you have trouble with day-to-day activities such as bathing, preparing meals, shopping, managing finances, etc.?: No Are you currently unemployed and looking for a job?: Yes Are you interested in more education?: Yes Please select the resources that you would like help with: Job search/training Currently or been in a relationship where the following occur: No concerns reported THRIVE Score: 0 AMBER-7 AMB Questionnaire AMBER-7 Date AMBER - 7 assessed: 08/30/24 Source: Developed by Drs. Oleg Torres, Tomeka Bacon, Ranjan Jacob and colleagues, with an educational javier from [employer]. Review of Systems Const Details: Positives besides what was mentioned in HPI are in BOLD Constitutional: No Weight Change, No Fever, No Chills, No Night Sweats, No Fatigue, No Malaise ENT/Mouth: No Hearing Changes, No Ear Pain, No Nasal Congestion, No Sinus Pain, No Hoarseness, No sore throat, No Rhinorrhea, No Swallowing Difficulty Eyes: No Eye Pain, No Swelling, No Redness, No Foreign Body, No Discharge, No Vision Changes Cardiovascular: No Chest Pain, No SOB, No PND, No Dyspnea on Exertion, No Orthopnea, No Claudication, No Edema, No Palpitations Respiratory: No Cough, No Sputum, No Wheezing, No Smoke Exposure, No Dyspnea Gastrointestinal: No Nausea, No Vomiting, No Diarrhea, No Constipation, No Pain, No Heartburn, No Anorexia, No Dysphagia, No Hematochezia, No Melena, No Flatulence, No Jaundice Genitourinary: No Dysmenorrhea, No DUB, No Dyspareunia, No Dysuria, No Urinary Frequency, No Hematuria, No Urinary Incontinence, No Urgency, No Flank Pain, No Urinary Flow Changes, No Hesitancy Musculoskeletal: No Arthralgias, No Myalgias, No Joint Swelling, No Joint Stiffness, No Back Pain, No Neck Pain, No Injury History Skin: No Skin Lesions, No Pruritis, No Hair Changes, No Breast/Skin Changes, No Nipple Discharge Neuro: No Weakness, No Numbness, No Paresthesias, No Loss of Consciousness, No Syncope, No Dizziness, No Headache, No Coordination Changes, No Recent Falls Psych: No Anxiety/Panic, No Depression, No Insomnia, No Personality Changes, No Delusions, No Rumination, No SI/HI/AH/VH, No Social Issues, No Memory Changes, No Violence/Abuse Hx., No Eating Concerns Heme/Lymph: No Bruising, No Bleeding, No Transfusions History, No Lymphadenopathy Endocrine: No Polyuria, No Polydipsia, No Temperature Intolerance Physical exam (Primary Care) Vital Signs: Last Vital Signs Temp 97.3 F 01/15/25 11:29 Pulse 65 01/15/25 11:29 BP 120/66 01/15/25 11:29 Pulse Ox 92 01/15/25 11:29 Oxygen Delivery Method Room Air 01/15/25 11:29 BMI result Body Mass Index 32.0 Tobacco/Smoking Status: Tobacco use Status Tobacco use date assessed 01/15/25 01/15/25 11:33 Patient Tobacco Use Status Never used Tobacco 01/15/25 11:33 Tobacco use type Cigarette 01/15/25 11:33 e-Cigarette/Vaping Use Never Used 01/15/25 11:33 Thrive Assessment: Date of Thrive Assessment Date Thrive assessed 08/30/24 01/15/25 11:33 Currently or been in a relationship where the following occur: No concerns reported Const Other: Pertinent findings are in BOLD GENERAL APPEARANCE NAD, activity normal for age, well developed/ well nourished, no cyanosis, pallor, or diaphoresis. EYES lids/conjunctiva normal. EARS/NOSE/THROAT Mucous membranes moist, nares normal, lips/teeth normal uvula midline without oral pharyngeal erythema, exudate or swelling TMs normal bilaterally. No lymphangitis/lymphedema. HEAD/NECK normocephalic atraumatic, no facial trauma, neck is supple. RESPIRATORY respiratory effort normal, speaks in full sentences, no tripod position, no accessory muscle use. Lungs clear to auscultation without rhonchi, wheezes, rales CARDIAC Regular rate and rhythm, no edema. ABDOMINAL Soft, ND/NT. No evidence of fluid wave. No pulsatile masses on exam, rebound tenderness, Montgomery sign or pain over Mcburney's point. MUSCLES/EXTREMITIES No abnormal range of motion, no swelling. SKIN Warm, pink and dry. No rashes, dermatoses, petechiae or lesions. NEUROLOGICAL Speech is clear and appropriate. Normal level of consciousness. Gait and coordination are normal. 5/5 strength in all extremities. PSYCH Normal mood and affect. Judgement/competence is appropriate Coding Level of Care Code Est Pt Level 3 (09588) Diagnoses Headache R51.9 Time Spent (min) 20 Assessment & Plan Assessment & Plan (1) Headache: Code(s): R51.9 - Headache, unspecified Category: Medical Plan: - Prescribed ibuprofen for pain management, to be taken as needed every six hours. Plan I discussed with the patient the likely diagnosis of a headache and a possible cold. Ibuprofen was prescribed for pain management, and the patient was advised to monitor symptoms and use the medication as needed. Follow-up with the primary care physician, Dr. Archibald, is scheduled for the end of the month for further assessment if symptoms persist. Medications: New ibuprofen 200 mg PO Q6H PRN 30 caps 0RF pain
[2025-01-15 11:29] VITALS: BP 120/66; PULSE 65; TEMP 36.3; O2SAT 92; BMI 32.0
--- OUTSIDE RECORDS SUMMARY | 2025-01-15 14:07 | XMS_ITS | Clinical Summary ---
Author Organization 175 [facility] Address [address] [place] [address] Phone Care Team Providers Care Java J2Ee Architect Name Role Phone Lindsay Archibald MD Primary Care Provider [phone] Allergies Active Allergy Reactions Criticality Noted Date Comments Lisinopril 01/05/2024 retirement staff unsure how long he has had [...] 1 diabetes mellitus wit h vascular disease ([facility] V24, [facility] V28) 10/10/2017 Obesity, unspecified 03/31/2006 Schizophreniform disorder in remission ([facility] V24, [facility] V28) 02/23/2005 Overview (01/05/2024): IMO update Type 1 diabetes mellitus ([facility] V24, [facility] V 28) 02/23/2005 Encounters Date Type Department Care Team Description 10/31/2024 10:00 AM EDT Office Visit Orthopedic Surgery - [place] [address] [place] [phone] Ross Rosenbaum, DPM Dermatophytosis of nail (Primary Dx); Tinea pedis of both feet; Type II diabetes mellitus with peripheral circulatory disorder ([facility] V24, [facility] V28); Acquired hammer toe of right foot from Last 3 Months Immunizations Immunization Administration Dates Next Due Influenza trivalent, with [...] AM EST Office Visit Orthopedic Surgery - [place] [address] [phone] Ross Rosenbaum, DPM [address] [phone] Health Maintenance Due Date Last Done Comments Colorectal Cancer Screening: Colonoscopy 1964 Diabetes: Annual Foot Exam 1974 Diabetes: Annual Retina Eye Exam 1974 Zoster Vaccines (1 of 2) 08/21/1983 Diabetes: Annual GFR (Glomerular Filtration Rate) 06/27/2006 06/27/2005 DTaP,Tdap,and Td Vaccines (2 - Td or Tdap) 04/08/2013 04/08/2003 RSV Immunization Adult Patients (1 - Risk 50-74 years 1-dose series) 2014 Pneumococcal Vaccine: 50+ Years (2 of 2 - PCV) 04/14/2017 04/14/2016, 01/15/2003 Cholesterol Screening (Lipid Panel) 03/13/2022 06/27/2005 HIV Screening 03/13/2022 Hepatitis C Screening 03/13/2022 Medicare Annual Wellness Visit 03/13/2022 Social Influencers of Health Screening 03/13/2022 Diabetes: Annual Urine Albumin-Creatinine Ratio (uACR) 03/17/2022 08/04/2004 Diabetes: Blood Sugar Control Test (HGBA1C) 03/17/2022 02/24/2005 Depression Screening 04/03/2024 Influenza Vaccine (#1) 2024 , 01/14/2023, 01/03/2022, [...] Test (06/27/2005) Annual BMP Blood Test abstracted [facility] Provider HEALTH MAINTENANCE Final Result * (ABNORMAL) Lipid panel (06/27/2005) [facility] LDL/HDL Ratio 4 0 - 4 Triglycerides 223(A) 0 - 150 mg/dL Cholesterol 192 0 - 200 mg/dL HDL 44 >=40 mg/dL LDL Cholesterol 104(A) 0 - 100 mg/dL Blood Venous blood specimen / Unknown Result [facility] Provider LAB BLOOD ORDERABLES Carito l Result * Hemoglobin A1c (02/24/2005) [facility] Hemoglobin A1C 5.5 4.0 - 6.0 % Blood Venous blood specimen / Unknown Result [facility] Provider LAB BLOOD ORDERABLES Carito l Result * Urine Albumin Creatinine Ratio (08/04/2004) [facility] Urine Albumin Creatinine Ratio abstracted [facility] Provider HEALTH MAINTENANCE Final Result from Last 3 Months or Most Recently Relevant to Health Maintenance Insurance [place] Care Teams Java J2Ee Architect Relationship Specialty Start Date End Date Lindsay Archibald MD [address] [place] [address] Dr [address] [facility] [place] [address] PCP - General Internal Medicine 01/29/16
== END 2025-01-15 11:45 | disposition home or self-care (01) ==
LOC: HO.HMCH 11:20
PROVIDERS: PCP Internal Medicine; Visit Provider Internal Medicine
DX: R51.9 Headache, unspecified (principal)

== ENCOUNTER → 2025-01-15 11:20 | Outpatient (BNVA) | payer MEDICARE, MEDICAID, SELFPAY | PROVIDERS: PCP Internal Medicine; Visit Provider Internal Medicine | DX: K21.9 Gastro-esophageal reflux disease without esophagitis (principal); R51.9 Headache, unspecified | CPT/HCPCS: 99212 ==

== ENCOUNTER 2025-01-29 09:12 | Outpatient (AMB) | payer MEDICARE, MEDICAID, SELFPAY ==
[2025-01-29 09:14] VITALS: BP 126/74; PULSE 67; TEMP 36.2; O2SAT 93; BMI 31.6
--- NOTE | 2025-01-29 09:14 | A.OFFPC_ITS ---
Vital Signs 01/29/25 09:14 Height 5 ft 10 in Weight 220 lb 8 oz BMI 31.6 BP 126/74 Blood Pressure Location Lt brachial Position Sitting Pulse 67 Pulse Source Pulse Oximeter Temp 97.1 F Temp Source Temporal Artery Scan Pulse Oximetry (%) 93 Oxygen Delivery Method Room Air Intake Visit Reasons: Annual Exam Accompanied by: Machine Filler Shredder Allergies lisinopril (LISINOPRIL) Allergy (Intermediate, Verified 01/29/25 09:17) HYPOTENSION Medication List - Last Reconciled 01/29/25 by Lindsay Archibald MD acetaminophen 650 mg (2 x 325 mg) PO Q6H PRN ascorbate calcium (vitamin C) 500 mg PO DAILY atorvastatin 80 mg PO QPM bisacodyl (Dulcolax (bisacodyl)) 20 mg (4 x 5 mg) PO ONCE 1 day bisacodyl (Dulcolax (bisacodyl)) 20 mg (4 x 5 mg) PO ONCE 1 day blood sugar diagnostic (True Metrix Glucose Test Strip) As directed- TID blood-glucose meter (True Metrix Glucose Meter) As directed- TID cholecalciferol (vitamin D3) 25 mcg PO DAILY 90 days dextromethorphan HBr 30 mg PO Q12H PRN escitalopram oxalate 20 mg PO DAILY ferrous fumarate 324 mg PO DAILY glucose (Dex4 Glucose) 4 grams PO Q15M PRN ibuprofen 200 mg PO Q6H PRN inhalational spacing device (Aerochamber MV spacer) As directed insulin glargine (Lantus Solostar U-100 Insulin) 5 units subcut DAILY ketoconazole 2% 1 appl topical 2XW lancets (TRUEplus Lancets) Check blood sugars lanolin-mineral oil-NaCl-w.pet 1 ea topical BID metformin 500 mg PO BIDWMEAL multivitamin 1 tab PO DAILY omeprazole 20 mg PO DAILY@0630 Oxygen Home Use As directed peg 400-propylene glycol (PF) 0.4-0.3 % (Systane (PF)) 2 drps ophthalmic (eye) QID PRN pen needle, diabetic (Advocate Pen Needle) Use as directed polyethylene glycol 3350 (Miralax) 17 grams PO DAILY 2 weeks promethazine 25 mg PO DAILY PRN risperidone (Risperdal) 2 mg PO BID trazodone 50 mg PO BEDTIME PRN Tobacco use date assessed: 01/29/25 Dental Screening Dental Screen Date: 01/29/25 Did you have a dental visit in the last 12 months?: Yes Did you have a dental problem in the last 6 months where you did not have access to dental care?: No Was dental information given to patient?: Patient has dentist [facility] Medical History Tinea pedis Hypoxemia Adult general medical exam Screening for prostate cancer Folliculitis Nocturnal hypoxemia Hypoventilation syndrome Obstructive sleep apnea Type 2 diabetes mellitus with hyperglycemia Fatty liver GERD (gastroesophageal reflux disease) Insomnia Hypercholesterolemia Anxiety and depression Obesity (BMI 30-39.9) Vitamin D deficiency Mental and behavioral problem Surgical History History of colonoscopy H/O basal cell carcinoma excision History of cataract surgery Family History Father Medical history unknown Myocardial infarct Mother Lung cancer Brain aneurysm Maternal Grandmother Uterine cancer Maternal Grandfather Lung cancer Social History Housing: House Housing Other:: senior care Alcohol intake: never Patient Tobacco Use Status: Never used Tobacco Tobacco use type: Cigarette e-Cigarette/Vaping Use: Never Used Second Hand Smoke Exposure: No service: No Current occupational status: unemployed and disabled Current occupational exposures/hazards: No Cognitive needs: Yes Hearing needs: No Vision needs: No Questionnaire PHQ-9 Over the last 2 weeks, how often have you been bothered by any of the following problems? 1. Little interest or pleasure in doing things: nearly every day 2. Feeling down, depressed, or hopeless: nearly every day 3. Trouble falling or staying asleep, or sleeping too much: nearly every day 4. Feeling tired or having little energy: nearly every day 5. Poor appetite or overeating: not at all 6. Feeling bad about yourself - or that you are a failure or have let yourself or your family down: nearly every day 7. Trouble concentrating on things, such as reading the newspaper or watching television: nearly every day 8. Moving or speaking so slowly that other people could have noticed. Or the opposite - being so fidgety or restless that you have been moving around a lot more than usual: nearly every day 9. Thoughts that you would be better off or of hurting yourself in some way: nearly every day Total score: 24 Depression Screening Interpretation: Positive Depression Screening Follow-up: Existing condition and In treatment Depression Screening Done: Yes Source: Developed by Drs. Oleg Torres, Tomeka Bacon, Ranjan Jacob and colleagues, with an educational javier from [email or web address]. Thrive Questionnaire Date Thrive assessed: 08/30/24 I am a: Patient What is your living situation today?: I have a steady place to live Within the past 12 months, did the food you bought not last and you didn't have the money to get more?: Never true Within the past 12 months, did you worry whether your food would run out before you got money to buy more?: Never true Do you have trouble paying for medicines?: No Do you have trouble getting transportation to medical appointments?: No Do you have trouble paying your heating and electricity bill?: No Do you have trouble taking care of your child, family member or friend?: No Do you have trouble with day-to-day activities such as bathing, preparing meals, shopping, managing finances, etc.?: No Are you currently unemployed and looking for a job?: Yes Are you interested in more education?: Yes Please select the resources that you would like help with: Job search/training Currently or been in a relationship where the following occur: No concerns reported THRIVE Score: 0 AUDIT C Alcohol Use Questionnaire (AUDIT-C) 1. How often do you have a drink containing alcohol?: Never 3. How often do you have six or more drinks on one occasion?: Never Total Score: 0 AMBER-7 AMB Questionnaire AMBER-7 Date AMBER - 7 assessed: 08/30/24 Feeling nervous, anxious, or on edge: 2 = More than half the days Not being able to stop or control worryin = Nearly every day Worrying too much about different things: 3 = Nearly every day Trouble relaxin = Nearly every day Being so restless that it is hard to sit still: 2 = More than half the days Becoming easily annoyed or irritable: 3 = Nearly every day Feeling afraid as if something awful might happen: 0 = Not at all Total AMBER-7 score (0-4 normal; 5-9 mild; 10-14 moderate; 15-21 severe): 16 Source: Developed by Drs. Oleg Torres, Tomeka Bacon, Ranjan Jacob and colleagues, with an educational javier from [email or web address]. Review of Systems Const Denies poor appetite and Denies weakness Eyes Denies no additional complaints ENT Reports Normal hearing present, Denies dizziness, Denies nasal congestion, Denies tinnitus and Denies sore throat Card Denies chest pain, Denies syncope, Denies rapid heart rate and Denies dyspnea Resp Denies cough and Denies dyspnea GI Denies change in stool character, Reports constipation, Denies diarrhea, Denies nausea and Denies vomiting Denies dysuria and Denies urinary frequency Neuro Reports Normal hearing present, Denies confusion, Denies dizziness, Denies syncope and Denies weakness Psych Denies confusion Physical exam (Primary Care) Vital Signs: Last Vital Signs Temp 97.1 F 01/29/25 09:14 Pulse 67 01/29/25 09:14 BP 126/74 01/29/25 09:14 Pulse Ox 93 01/29/25 09:14 Oxygen Delivery Method Room Air 01/29/25 09:14 BMI result Body Mass Index 31.6 Tobacco/Smoking Status: Tobacco use Status Tobacco use date assessed 01/29/25 01/29/25 09:18 Patient Tobacco Use Status Never used Tobacco 01/29/25 09:18 Tobacco use type Cigarette 01/29/25 09:18 e-Cigarette/Vaping Use Never Used 01/29/25 09:18 PHQ-9: PHQ-9 Score PHQ-9: Total score 24 01/29/25 09:36 Depression Screening Interpretation: Positive Depression Screening Follow-up: Existing condition and In treatment Thrive Assessment: Date of Thrive Assessment Date Thrive assessed 08/30/24 01/29/25 09:18 Currently or been in a relationship where the following occur: No concerns reported Const General: No confusion Orientation/consciousness: No confusion HENMT Head: Yes normocephalic Ears: external ears normal and TM's normal bilaterally Face and sinus: Yes normal facial exam Mouth: moist mucous membranes Throat: Yes tonsils normal Eyes Conjunctivae: conjunctivae normal Pupils: Equal, round and reactive pupils present and Pupil accommodation reflex normal Direct Ophthalmoscopy: normal light reflex Neck Neck: No lymphadenopathy Thyroid: Thyroid normal Chest Chest palpation & inspection: normal inspection of the chest Resp Effort & Inspection: normal respiratory effort and no audible wheezes Auscultation: clear to auscultation bilaterally, no crackles, no wheezes and lung sounds not diminished Cardio Rate: regular rate Rhythm: regular rhythm Peripheral pulses: radial pulses present and dorsalis pedis present GI Other: guaiac negative prostate negative Palpation (GI): no masses Auscultation: normal bowel sounds and normoactive bowel sounds Other: pedal pulse and pin prick good has whitish desquamation on the interdigital area and erythematous rash foot Male General Exam: Yes normal external exam Skin General skin exam: no rashes or lesions noted Rashes: no rashes Neuro General: No confusion Cranial nerves: Yes Equal, round and reactive pupils present and Yes Normal hearing present Cognition (Neuro): normal cognition Gait exam (Neuro): Normal gait present Motor exam (neuro): 5/5 motor strength present throughout Deep tendon reflexes (DTR's): Right brachioradialis reflex intensity grade: 2+, Left brachioradialis reflex intensity grade: 2+, Right patellar reflex intensity grade: 2+ and Left patellar reflex intensity grade: 2+ Extrem General: No edema Office Procedures Flu Questionnaire Does the patient have a severe egg allergy?: No Does the patient have severe life threatening allergies?: No Does the patient have a fever or illness today?: No Has the patient ever had Guillain-[place] Syndrome?: No Has the patient ever had any past reaction to a flu shot?: No Immunizations Fluarix [id number] (PF) 45 mcg (15 mcg x 3)/0.5 mL IM syringe Performing Provider: Lindsay Archibald MD Performing Location[facility] [place] [facility] Administered by: Kenyatta Bonner CMA on 01/29/25 09:22 Dose Route Admin Location Dispensed Lot Number Expiration Date [employer] 0.5 mL IM Left Deltoid 0.5 mL [id number] 09/30/25 95459-146-19 [employer] VIS Given Date VIS Provided VIS Publication Date 01/29/25 Single Vaccine 24 Eligibility Eligibility Date Funding Source Not [facility] Eligible 01/29/25 Private Tenivac (PF) 5 Lf unit-2 Lf unit/0.5 mL intramuscular syringe Performing Provider: Lindsay Archibald MD Performing Location: [facility] [place] [facility] Administered by: Kenyatta Bonner CMA on 01/29/25 10:00 Dose Route Admin Location Dispensed Lot Number Expiration Date [facility] Manager [employer] 0.5 mL IM Right Deltoid 0.5 mL [id number] 07/02/26 16885-974-70 [employer] Total Dispensed Waste 0.5 mL 0 % VIS Given Date VIS Provided VIS Publication Date 01/29/25 Single Vaccine 20 Eligibility Eligibility Date Funding Source Not [facility] Eligible 01/29/25 Private Coding Level of Care Code Est Pt Prev Care 40-64y(78693) Diagnoses Annual physical exam Z00.00 Type 2 diabetes mellitus with hyperglycemia, with long-term current use of insulin E11.65; Z79.4 Diabetes mellitus terminal operations manager insulin use: with terminal operations manager use Hypercholesterolemia E78.00 Obesity (BMI 30-39.9) E66.9 Gastroesophageal reflux disease without esophagitis K21.9 Esophagitis presence: without esophagitis Obstructive sleep apnea G47.33 Schizophrenia F20.9 Tinea pedis of both feet B35.3 Laterality: bilateral Assessment & Plan Assessment & Plan (1) Annual physical exam: Code(s): Z00.00 - Encounter for general adult medical examination without abnormal findings Category: Medical Plan: Patient is advised to eat healthy, keep well hydrated, keep active and have adequate sleep. (2) Type 2 diabetes mellitus with hyperglycemia: Code(s): E11.65 - Type 2 diabetes mellitus with hyperglycemia Category: Medical Qualifiers: Diabetes mellitus mcc insulin use: with terminal operations manager use Qualified Code(s): E11.65 - Type 2 diabetes mellitus with hyperglycemia; Z79.4 - emt intermediate (current) use of insulin Plan: Decrease the amount of carbohydrate intake, pasta, bread, rice and potatoes are all sugar and that is aside from all the sweet stuff, remember that fruits are good but they are Sweet also. Hemoglobin A1c goal of less than 6.5. Patient follows up with insurance claim auditor on Lantus 10 units once a day metformin 500 mg twice a day (3) Hypercholesterolemia: Code(s): E78.00 - Pure hypercholesterolemia, unspecified Category: Medical Plan: Avoid fried foods, chicken skin, eggs, butter margarine, pastries and meat. Be it pork or beef they have a lot of cholesterol LDL goal of less than 100 and triglyceride of less than 150 patient on atorvastatin 80 mg once a day August 2024 last blood work (4) Obesity (BMI 30-39.9): Comment: This is a chronic problem. Considering his chronic , mental disorder, it is difficult to expect any weight reduction in his case. Yet he has lost another 4 lb in the last 6 months. Code(s): E66.9 - Obesity, unspecified Category: Medical Plan: Diet and exercise (5) GERD (gastroesophageal reflux disease): Code(s): K21.9 - Gastro-esophageal reflux disease without esophagitis Category: Medical Qualifiers: Esophagitis presence: without esophagitis Qualified Code(s): K21.9 - Gastro-esophageal reflux disease without esophagitis Plan: Avoid the foods that causes that usually spicy foods, tomato products, juices, coffee, soda and foods that your sensitive to. After eating do not lie down, allow 3-4 hours before in lie down. And keep the head of bed above 30 degrees to avoid the acid from going up. (6) Obstructive sleep apnea: Comment: PER sleep study , GRISELDA was mild, patient is not able to use CPAP. Code(s): G47.33 - Obstructive sleep apnea (adult) (pediatric) Category: Medical Plan: Patient can not tolerate CPAP. But is on O2 during the night due to nocturnal hypoxemia (7) Schizophrenia: Code(s): F20.9 - Schizophrenia, unspecified Category: Medical Plan: Continue to follow-up with psychiatry (8) Tinea pedis: Code(s): B35.3 - Tinea pedis Category: Medical Qualifiers: Laterality: bilateral Qualified Code(s): B35.3 - Tinea pedis Plan History of Present Illness The patient is a 59-year-old obese male presenting for a physical exam. He was last seen in November 2024. The patient has a history of schizophrenia and follows with psychiatry. He takes risperidone twice a day. He also has a history of depression, for which he attended therapy twice but was uncooperative, and thus was not rescheduled for follow-up. His chronic medical conditions include type 2 diabetes mellitus, which is controlled with a recent hemoglobin A1c of 5.8. His medication regimen includes Lantus 10 units once a day and metformin 500 mg twice a day. He also has hypercholesterolemia, with a last LDL of 67 in August 2024, and is managed on atorvastatin 80 mg once a day. Other past medical history includes GERD, insomnia, and obstructive sleep apnea, for which he is unable to tolerate CPAP. He has a history of a tubular adenoma of the colon found on a colonoscopy in October 2024. There is a history of chronic mild anemia noted from blood work in August. He was previously seen on January 15 for a headache and was prescribed an anti-inflammatory medication. In terms of health maintenance, the patient follows up with a insurance claim auditor, and a recent weight loss was noted. He reports exercising regularly at a gym. His last eye exam was in June and was normal. Health Maintenance The patient received his influenza vaccine during the visit. His tetanus vaccine was due and also administered. His pneumonia shot is up to date. Recommendation was made to obtain a COVID-19 vaccine at a pharmacy and to consider the shingles vaccine in the future. Social History - Exercise: Patient reports exercising regularly at the gym on [address]. - Nutrition: The patient follows up with a insurance claim auditor. Review of Systems - General: Denies any new diagnoses or surgeries since last visit. - Constitutional: Denies fevers. - Gastrointestinal: Denies nausea, vomiting, or constipation. - Genitourinary: Denies problems with urination. - Respiratory: Denies shortness of breath. - Psychiatric: A x ray developer reports the patient attended therapy for depression but was unwilling to talk, leading to cessation of appointments. Physical Exam General: Cooperative, healthy appearing, comfortable, no acute distress and well developed Orientation: Patient oriented x3 Limitations: No limitations Head: Normal to inspection Ears: Hearing grossly normal bilaterally, slight ear wax present Nose: Normal external nose present Face and sinus: Normal facial exam Eyes: Appearance normal, both eyes and all related structures Neck: Normal visual inspection and Yes full ROM Respiratory: Normal respiratory effort and able to speak in complete sentences. Clear to auscultation bilaterally Cardiovascular: Regular rate and rhythm. Normal S1 and S2 GI: Normal to inspection. Soft to palpation and nontender Skin: Fungal infection noted on feet, especially in interdigital areas Neuro: Patient oriented x3 Extremities: Rash on feet and interdigital areas, fungal infection noted Results - Labs: - Hemoglobin A1c is 5.8. - Last cholesterol check in August 2024 showed LDL of 67. - Blood work from May 5th showed a mild chronic anemia. - Tests and Diagnostics: - A colonoscopy in October 2024 revealed a tubular adenoma of the colon. Plan Patient was informed and verbally consented to the use of an ambient scribe for clinic note documentation during this visit. 1. Diabetes Mellitus, Type 2 The patient's diabetes is well-controlled, with a hemoglobin A1c of 5.8, meeting the goal of less than 6.5. He will continue his current regimen of Lantus 10 units once daily and metformin 500 mg twice daily. The patient will also continue to follow up with his insurance claim auditor and maintain his diet and exercise routine. No new blood work is needed at this time. 2. Hypercholesterolemia The patient's hypercholesterolemia is well-managed, with his last LDL cholesterol at 67 mg/dL, which is below the goal of 100 mg/dL. He will continue taking atorvastatin 80 mg once daily and is encouraged to continue his diet and exercise. 3. Schizophrenia And Depression The patient has a history of schizophrenia and depression. He will continue to follow up with psychiatry. After an unsuccessful attempt at therapy where the patient was non-communicative, a new referral will be placed for a different therapist. 4. Tinea Pedis The patient has a fungal rash on his feet, particularly in the interdigital areas. A prescription for clotrimazole cream has been sent, with instructions to apply it to the feet twice daily for one month. 5. Obstructive Sleep Apnea The patient has obstructive sleep apnea but cannot tolerate CPAP therapy. He currently uses oxygen at night, and this will be continued. Discussion Notes I have reviewed the patient's current health status and recent lab results. I informed the patient that his hemoglobin A1c is excellent at 5.8. I discussed the fungal infection on his feet and prescribed clotrimazole cream to be applied twice daily for one month, emphasizing application between the toes. We discussed immunizations, and I administered the Td vaccine as it was due, after informing him of the potential for pain at the injection site as the primary side effect. I also recommended that he obtain a COVID-19 vaccine at a pharmacy and discussed the shingles vaccine as a future consideration, explaining its purpose and that it is a two-part series. I addressed the patient's x ray developer's concern about depression and prior failed therapy attempts. I agreed to send a new referral for therapy and counseled the patient that for treatment to be effective, he must be willing to talk and engage with the therapist. Patient Instructions - I have sent a prescription for a cream to treat the fungal infection on your feet. - Please apply this cream to both feet, especially between the toes, twice a day for one month. - You received your flu shot and a tetanus shot today. - The tetanus shot is to protect against dirty wounds. - Please get your COVID-19 vaccine at a local pharmacy. - We discussed the shingles vaccine, which I would recommend getting in the future to prevent a painful rash. - I am sending a new referral for you to see a therapist for depression. - It is important that you try your best to talk to them for the therapy to be helpful. - Continue taking all of your current medications as prescribed. - Continue your diet and regular exercise. Orders: Orders Influenza [id number] Immunization Today Z23 - Encounter for immunization Td Immunization Today Z23 - Encounter for immunization Referrals Psychiatry Referral F32.9 - Major depressive disorder, single episode, unspecified, F41.9 - Anxiety disorder, unspecified Medications: New clotrimazole 1% 1 appl topical BID 45 grams 0RF 4 weeks
== END 2025-01-29 10:08 | disposition home or self-care (01) ==
LOC: HO.HMCH 09:13
PROVIDERS: PCP Internal Medicine; Visit Provider Internal Medicine
DX: Z00.00 Encounter for general adult medical examination without abnormal findings (principal); E11.65 Type 2 diabetes mellitus with hyperglycemia; Z79.4 Long term (current) use of insulin; F20.9 Schizophrenia, unspecified; E78.00 Pure hypercholesterolemia, unspecified; K21.9 Gastro-esophageal reflux disease without esophagitis; E66.9 Obesity, unspecified; Z68.31 Body mass index [BMI] 31.0-31.9, adult; G47.33 Obstructive sleep apnea (adult) (pediatric); B35.3 Tinea pedis; Z23 Encounter for immunization

== ENCOUNTER → 2025-01-29 09:12 | Outpatient (BNVA) | payer MEDICARE, MEDICAID, SELFPAY | PROVIDERS: PCP Internal Medicine; Visit Provider Internal Medicine | DX: Z00.00 Encounter for general adult medical examination without abnormal findings (principal); E11.65 Type 2 diabetes mellitus with hyperglycemia; Z79.4 Long term (current) use of insulin; E78.00 Pure hypercholesterolemia, unspecified; E66.9 Obesity, unspecified; K21.9 Gastro-esophageal reflux disease without esophagitis; G47.33 Obstructive sleep apnea (adult) (pediatric); F20.9 Schizophrenia, unspecified; B35.3 Tinea pedis; Z23 Encounter for immunization | CPT/HCPCS: 90471; 90656; 90714; 99396 ==

== ENCOUNTER 2025-02-10 10:00 | Outpatient (AMB) | payer MEDICARE, MEDICAID, SELFPAY ==
[2025-02-10 10:32] VITALS: BP 102/58; PULSE 80; O2SAT 92; BMI 31.9
--- NOTE | 2025-02-10 10:32 | MHC.OFFVIS ---
Vital Signs 02/10/25 10:32 Height 5 ft 10 in Weight 222 lb 10.67 oz BMI 31.9 BP 102/58 L Blood Pressure Location Lt brachial Position Sitting Pulse 80 Pulse Source Pulse Oximeter Pulse Oximetry (%) 92 Oxygen Delivery Method Room Air Intake Visit Reasons: Obstructive sleep apnea Intake Note: pt is here for follow up and using oxygen at night Portfolio Manager Required: No Technology Resource Teacher: Technology Resource Teacher offered & declined Allergies lisinopril (LISINOPRIL) Allergy (Intermediate, Verified 02/10/25 10:51) HYPOTENSION Medication List - Last Reconciled 02/10/25 by Toan Fernando MD acetaminophen 650 mg (2 x 325 mg) PO Q6H PRN ascorbate calcium (vitamin C) 500 mg PO DAILY atorvastatin 80 mg PO QPM bisacodyl (Dulcolax (bisacodyl)) 20 mg (4 x 5 mg) PO ONCE 1 day bisacodyl (Dulcolax (bisacodyl)) 20 mg (4 x 5 mg) PO ONCE 1 day blood sugar diagnostic (True Metrix Glucose Test Strip) As directed- TID blood-glucose meter (True Metrix Glucose Meter) As directed- TID cholecalciferol (vitamin D3) 25 mcg PO DAILY 90 days clotrimazole 1% 1 appl topical BID 4 weeks dextromethorphan HBr 30 mg PO Q12H PRN escitalopram oxalate 20 mg PO DAILY ferrous fumarate 324 mg PO DAILY glucose (Dex4 Glucose) 4 grams PO Q15M PRN ibuprofen 200 mg PO Q6H PRN inhalational spacing device (Aerochamber MV spacer) As directed insulin glargine (Lantus Solostar U-100 Insulin) 5 units subcut DAILY ketoconazole 2% 1 appl topical 2XW lancets (TRUEplus Lancets) Check blood sugars lanolin-mineral oil-NaCl-w.pet 1 ea topical BID metformin 500 mg PO BIDWMEAL multivitamin 1 tab PO DAILY omeprazole 20 mg PO DAILY@0630 Oxygen Home Use As directed peg 400-propylene glycol (PF) 0.4-0.3 % (Systane (PF)) 2 drps ophthalmic (eye) QID PRN pen needle, diabetic (Advocate Pen Needle) Use as directed polyethylene glycol 3350 (Miralax) 17 grams PO DAILY 2 weeks promethazine 25 mg PO DAILY PRN risperidone (Risperdal) 2 mg PO BID trazodone 50 mg PO BEDTIME PRN Do you need a note to return to daycare/school/sports/work: No HPI HPI Obstructive sleep apnea: Details: THIS 59 YEARS OLD GENTLEMAN IS A CASE OF OBSTRUCTIVE SLEEP APNEA WITH NOCTURNAL HYPOXEMIA. HE HAS NOT BEEN ABLE TO USE THE CPAP BUT DOES USE OXYGEN 2 L/MINUTE AT NIGHT. SLEEPS GOOD AND DENIES WAKING UP WITH ANY COUGH OR WHEEZING. DURING THE DAYTIME HAS NO RESPIRATORY PROBLEMS. HE IS NONSMOKER , HE IS BEING TREATED FORSCHIZOPHRENIC DISORDER, ANXIETY AND DEPRESSION, WHICH HAS REMAINED WELL CONTROLLED AND STABLE. [facility] Medical History Tinea pedis Hypoxemia Adult general medical exam Screening for prostate cancer Folliculitis Nocturnal hypoxemia Hypoventilation syndrome Obstructive sleep apnea Type 2 diabetes mellitus with hyperglycemia Fatty liver GERD (gastroesophageal reflux disease) Insomnia Hypercholesterolemia Anxiety and depression Obesity (BMI 30-39.9) Vitamin D deficiency Mental and behavioral problem Surgical History History of colonoscopy H/O basal cell carcinoma excision History of cataract surgery Family History Father Medical history unknown Myocardial infarct Mother Lung cancer Brain aneurysm Maternal Grandmother Uterine cancer Maternal Grandfather Lung cancer Social History Housing: House Housing Other:: shelter Alcohol intake: never Patient Tobacco Use Status: Never used Tobacco Tobacco use type: Cigarette e-Cigarette/Vaping Use: Never Used Second Hand Smoke Exposure: No service: No Current occupational status: unemployed and disabled Current occupational exposures/hazards: No Cognitive needs: Yes Hearing needs: No Vision needs: No Review of Systems Const All systems reviewed & are unremarkable except as noted in HPI and below Eyes Reports no additional complaints ENT Reports no additional complaints Card Denies chest pain, Denies irregular heart rhythm and Denies leg edema Resp Reports as per HPI GI Reports no additional complaints Reports no additional complaints Musc Reports no additional complaints and Reports abnormal gait (Slow, but steady) Skin/Breast Reports system reviewed and no additional complaints, except as documented Neuro Reports abnormal gait (Slow, but steady) Psych Details: Chronic Schizophrenic Disorder Endo Reports no additional complaints Physical Exam Vital Signs: Last Vital Signs Pulse 80 02/10/25 10:32 BP 102/58 L 02/10/25 10:32 Pulse Ox 92 02/10/25 10:32 Oxygen Delivery Method Room Air 02/10/25 10:32 BMI result Body Mass Index 31.9 Const Other: Grossly obese. General: comfortable, no acute distress, alert and awake Orientation/consciousness: patient oriented x3 HEENT Head: Yes normal to inspection General nose exam: No nasal polyps present and No nasal discharge present Face and sinus: Yes sinuses nontender Mouth: oropharynx normal Throat: Yes posterior oropharynx normal Eyes General: appearance normal, both eyes and all related structures Neck Neck: Yes normal visual inspection, Yes no lymphadenopathy, Yes trachea midline and Yes no JVD Thyroid: Thyroid normal Chest Chest palpation & inspection: normal inspection of the chest, normal palpation of entire chest wall and no tenderness Resp Other: Percussion note resonant, breath sounds are slightly distant but equal on both sides. No wheezes rhonchi or crepitations are heard. Cardio Palpation: normal PMI Rate: regular rate Rhythm: regular rhythm Heart sounds: no gallops and no murmurs GI Palpation (GI): Soft to palpation, nontender, No hepatosplenomegaly present, no masses and Other GI palpation findings present (Abdomen is grossly obese and protuberant) Auscultation: normal bowel sounds Back/Spine/Pelvis Thoracic/Lumbar Spine: thoracic and lumbar spine normal to inspection and thoraco-lumbar ROM limited Skin General skin exam: no rashes or lesions noted and Excoriation (Multiple on the scalp due to self scratching) Neuro General: patient oriented x3 and no focal motor deficits Cranial nerves: Yes CN's II-XII intact bilaterally Extrem General: Yes normal to inspection, Yes no clubbing, cyanosis or edema and Yes no calf tenderness Psych Appearance: grossly normal and other (Slow in answering questions) Speech and movement: Normal speech and movement present Assessment & Plan Assessment & Plan (1) Obstructive sleep apnea: Comment: PER sleep study , GRISELDA was mild, patient is not able to use CPAP. He does use O2 at night to overcome nocturnal hypoxemia. Code(s): G47.33 - Obstructive sleep apnea (adult) (pediatric) Category: Medical Plan: Advised to continue using O2 2 L/minute (2) Nocturnal hypoxemia: Comment: Nocturnal hypoxemia is part of obstructive sleep apnea and sleep-related hypoventilation syndrome. He is doing well with use of O2 at night. Code(s): G47.34 - Idiopathic sleep related nonobstructive alveolar hypoventilation Category: Medical Plan: Continue using O2 2 L/minute at night Coding Level of Care Code Est Pt Level 3 (85738) Diagnoses Obstructive sleep apnea G47.33 Nocturnal hypoxemia G47.34
--- OUTSIDE RECORDS SUMMARY | 2025-02-10 11:33 | XMS_ITS | Clinical Summary ---
Author Organization [address] [facility] Address [address] [place] [address] Phone Care Team Providers Care Ironworker Name Role Phone Lindsay Archibald MD Primary Care Provider [phone] Allergies Active Allergy Reactions Criticality Noted Date [...] 1 diabetes mellitus wit h vascular disease ([facility] V24, [facility] V28) 10/10/2017 Obesity, unspecified 03/31/2006 Schizophreniform disorder in remission ([facility] V24, [facility] V28) 02/23/2005 Overview (01/05/2024): IMO update Type 1 diabetes mellitus ([facility] V24, [facility] V 28) 02/23/2005 Encounters Date Type Department Care Team Description 02/04/2025 10:15 AM EST Office Visit Orthopedic Surgery - [address] [address] Ross Rosenbaum, DPM Dermatophytosis of nail (Primary Dx); Tinea pedis of both feet; Type II diabetes mellitus with peripheral circulatory disorder ([facility] V24, [facility] V28); Acquired hammer toe of right foot; Pain in toe of left foot; Pain in toe of right foot from Last 3 [...] Care Team (Late st Contact Info) Description 05/08/2025 10:15 AM EST Office Visit Orthopedic Surgery - [place] [address] [address] Ross Rosenbaum, DPM [address] [phone] Health Maintenance Due Date Last Done Comments Colorectal Cancer Screening: Colonoscopy 1964 Diabetes: Annual Foot Exam 1974 Diabetes: Annual Retina Eye Exam 1974 Zoster Vaccines (1 of 2) 08/21/1983 Diabetes: Annual GFR (Glomerular Filtration Rate) 06/27/2006 06/27/2005 RSV Immunization Adult Patients (1 - Risk [...] Test (HGBA1C) 03/17/2022 02/24/2005 Depression Screening 04/03/2024 COVID-19 Vaccine (6 - Pfizer risk season) 2024 06/03/2024, 05/12/2023, 08/26/2021, Additional history exists DTaP,Tdap,and Td Vaccines (3 - Td or Tdap) 01/29/2035 01/29/2025, 04/08/2003 Influenza Vaccine Completed 01/29/2025, , 01/14/2023, Additional history exists HIB Vaccines Aged Out [...] * Annual BMP Blood Test (06/27/2005) Pathologist [facility] Annual BMP Blood Test abstracted [facility] Provider HEALTH MAINTENANCE Final Result * (ABNORMAL) Lipid panel (06/27/2005) [facility] LDL/HDL Ratio 4 0 - 4 Triglycerides 223(A) 0 - 150 mg/dL Cholesterol 192 0 - 200 mg/dL HDL 44 >=40 mg/dL LDL Cholesterol 104(A) 0 - 100 mg/dL Blood Venous blood specimen / Unknown [facility] Provider LAB BLOOD ORDERABLES Carito l Result * Hemoglobin A1c (02/24/2005) [facility] Hemoglobin A1C 5.5 4.0 - 6.0 % Blood Venous blood specimen / Unknown [facility] Provider LAB BLOOD ORDERABLES Carito l Result * Urine Albumin Creatinine Ratio (08/04/2004) [facility] Urine Albumin Creatinine Ratio abstracted [facility] Provider HEALTH MAINTENANCE Final Result from Last 3 Months or Most Recently Relevant to Health Maintenance Insurance MEDICAID - [place] MEDICARE Care Teams Ironworker Relationship Specialty Start Date End Date Lindsay Archibald MD [address] [place] [address] [address] [facility] [place] [address] PCP - General Internal Medicine 01/29/16
== END 2025-02-10 10:52 | disposition home or self-care (01) ==
LOC: HO.HPS 10:01
PROVIDERS: PCP Internal Medicine; Visit Provider Internal Medicine
DX: G47.33 Obstructive sleep apnea (adult) (pediatric) (principal); G47.34 Idiopathic sleep related nonobstructive alveolar hypoventilation
CPT/HCPCS: 99213

== ENCOUNTER → 2025-02-10 10:00 | Outpatient (BNVA) | payer MEDICARE, MEDICAID, SELFPAY | PROVIDERS: PCP Internal Medicine; Visit Provider Internal Medicine | DX: G47.33 Obstructive sleep apnea (adult) (pediatric) (principal); G47.34 Idiopathic sleep related nonobstructive alveolar hypoventilation; Z99.81 Dependence on supplemental oxygen | CPT/HCPCS: 99212 ==

== ENCOUNTER 2025-03-11 08:52 | Outpatient (AMB) | payer MEDICARE, MEDICAID, SELFPAY ==
--- NOTE | 2025-03-11 09:05 | MHC.PC.OV ---
Vital Signs 03/11/25 09:07 03/11/25 09:49 Height 5 ft 10 in Weight 219 lb BMI 31.4 BP 96/58 L 102/58 L Blood Pressure Location Lt brachial Lt brachial Position Sitting Respiration 18 Pulse 76 Pulse Source Pulse Oximeter Temp 97.7 F Temp Source Temporal Artery Scan Pulse Oximetry (%) 93 Oxygen Delivery Method Room Air Intake Visit Reasons: Dysphagia,dm Chain Maker Required: No Accompanied by: tree care foreman-yohana Allergies lisinopril (LISINOPRIL) Allergy (Intermediate, Verified 03/11/25 09:32) HYPOTENSION Medication List - Last Reconciled 03/11/25 by Ashley Bowling PA-C acetaminophen 650 mg (2 x 325 mg) PO Q6H PRN ascorbate calcium (vitamin C) 500 mg PO DAILY atorvastatin 80 mg PO QPM bisacodyl (Dulcolax (bisacodyl)) 20 mg (4 x 5 mg) PO ONCE 1 day bisacodyl (Dulcolax (bisacodyl)) 20 mg (4 x 5 mg) PO ONCE 1 day blood sugar diagnostic (True Metrix Glucose Test Strip) As directed- TID blood-glucose meter (True Metrix Glucose Meter) As directed- TID cholecalciferol (vitamin D3) 25 mcg PO DAILY 90 days clotrimazole 1% 1 appl topical BID 4 weeks dextromethorphan HBr 30 mg PO Q12H PRN escitalopram oxalate 20 mg PO DAILY ferrous fumarate 324 mg PO DAILY glucose (Dex4 Glucose) 4 grams PO Q15M PRN ibuprofen 200 mg PO Q6H PRN inhalational spacing device (Aerochamber MV spacer) As directed insulin glargine (Lantus Solostar U-100 Insulin) 5 units subcut DAILY ketoconazole 2% 1 appl topical 2XW lancets (TRUEplus Lancets) Check blood sugars lanolin-mineral oil-NaCl-w.pet 1 ea topical BID metformin 500 mg PO BIDWMEAL multivitamin 1 tab PO DAILY omeprazole 20 mg PO DAILY@0630 Oxygen Home Use As directed peg 400-propylene glycol (PF) 0.4-0.3 % (Systane (PF)) 2 drps ophthalmic (eye) QID PRN pen needle, diabetic (Advocate Pen Needle) Use as directed polyethylene glycol 3350 (Miralax) 17 grams PO DAILY 2 weeks promethazine 25 mg PO DAILY PRN risperidone (Risperdal) 2 mg PO BID trazodone 50 mg PO BEDTIME PRN Tobacco use date assessed: 01/29/25 Dental Screening Dental Screen Date: 01/29/25 HPI Dysphagia,dm HPI Details 59-year-old male with past medical history mentally behavioral problem, anxiety, depression, hypercholesterolemia, insomnia, GERD, diabetes mellitus, obstructive sleep apnea, schizophrenia last seen 01/25 coming in for follow up. In review of the notes, patient was seen by pulm 02/2025 continued on nocturnal 02. Presenting for a follow-up visit. He has a history of hypoxemia and continues to use oxygen at nighttime, with which he feels good. Regarding his diabetes, he reports checking his blood sugars at home and states they have been good, with no readings above 150 or below 70. He has a history of dysphagia and reports occasional pain with swallowing food and has a swallow study scheduled for next week. Regarding mental health, a referral for a counselor was previously placed and patient now has a therapist weekly that comes to the house. He has no acute concerns today. [facility] Medical History Tinea pedis Hypoxemia Adult general medical exam Screening for prostate cancer Folliculitis Nocturnal hypoxemia Hypoventilation syndrome Obstructive sleep apnea Type 2 diabetes mellitus with hyperglycemia Fatty liver GERD (gastroesophageal reflux disease) Insomnia Hypercholesterolemia Anxiety and depression Obesity (BMI 30-39.9) Vitamin D deficiency Mental and behavioral problem Surgical History History of colonoscopy H/O basal cell carcinoma excision History of cataract surgery Family History Father Medical history unknown Myocardial infarct Mother Lung cancer Brain aneurysm Maternal Grandmother Uterine cancer Maternal Grandfather Lung cancer Social History Housing: House Housing Other:: [facility] Alcohol intake: never Patient Tobacco Use Status: Never used Tobacco Tobacco use type: Cigarette e-Cigarette/Vaping Use: Never Used Second Hand Smoke Exposure: No service: No Current occupational status: unemployed and disabled Current occupational exposures/hazards: No Cognitive needs: Yes Hearing needs: No Vision needs: No Questionnaire Thrive Questionnaire Date Thrive assessed: 08/30/24 I am a: Patient What is your living situation today?: I have a steady place to live Within the past 12 months, did the food you bought not last and you didn't have the money to get more?: Never true Within the past 12 months, did you worry whether your food would run out before you got money to buy more?: Never true Do you have trouble paying for medicines?: No Do you have trouble getting transportation to medical appointments?: No Do you have trouble paying your heating and electricity bill?: No Do you have trouble taking care of your child, family member or friend?: No Do you have trouble with day-to-day activities such as bathing, preparing meals, shopping, managing finances, etc.?: No Are you currently unemployed and looking for a job?: Yes Are you interested in more education?: Yes Please select the resources that you would like help with: Job search/training Currently or been in a relationship where the following occur: No concerns reported THRIVE Score: 0 AMBER-7 AMB Questionnaire AMBER-7 Date ABMER - 7 assessed: 08/30/24 Source: Developed by Drs. Oleg Torres, Tomeka Bacon, Ranjan Jacob and colleagues, with an educational javier from [employer]. Review of Systems Const Denies body aches, Denies chills and Denies fever(s) Eyes Reports no additional complaints ENT Reports dysphagia, Denies dizziness and Reports odynophagia Card Denies chest pain, Denies edema, Denies lightheadedness and Denies dyspnea Resp Denies cough and Denies dyspnea GI Denies abdominal pain, Reports dysphagia, Denies nausea, Reports odynophagia and Denies vomiting Reports no additional complaints Musc Reports no additional complaints and Denies abnormal gait Skin/Breast Reports system reviewed and no additional complaints, except as documented Neuro Denies abnormal gait and Denies dizziness Psych Reports no additional complaints Physical exam (Primary Care) Vital Signs: Last Vital Signs Temp 97.7 F 03/11/25 09:07 Pulse 76 03/11/25 09:07 Resp 18 03/11/25 09:07 BP 102/58 L 03/11/25 09:49 Pulse Ox 93 03/11/25 09:07 Oxygen Delivery Method Room Air 03/11/25 09:07 BMI result Body Mass Index 31.4 Tobacco/Smoking Status: Tobacco use Status Tobacco use date assessed 01/29/25 03/11/25 09:17 Patient Tobacco Use Status Never used Tobacco 03/11/25 09:17 Tobacco use type Cigarette 03/11/25 09:17 e-Cigarette/Vaping Use Never Used 03/11/25 09:17 Thrive Assessment: Date of Thrive Assessment Date Thrive assessed 08/30/24 03/11/25 09:17 Currently or been in a relationship where the following occur: No concerns reported Const General: cooperative, healthy appearing, comfortable and no acute distress Orientation/consciousness: patient oriented x3 HENMT Head: Yes normocephalic Ears: hearing grossly normal bilaterally General nose exam: Normal external nose present Eyes General: appearance normal, both eyes and all related structures Conjunctivae: conjunctivae normal Resp Effort & Inspection: normal respiratory effort Auscultation: clear to auscultation bilaterally, no crackles, no rales, no rhonchi and no wheezes Cardio Rate: regular rate Rhythm: regular rhythm Skin General skin exam: no rashes or lesions noted Neuro General: patient oriented x3 Gait exam (Neuro): Normal gait present Extrem General: Yes normal to inspection, Yes full ROM and No edema Psych Affect: normal affect Attitude: cooperative Coding Level of Care Code Est Pt Level 3 (93494) Diagnoses Mental and behavioral problem F48.9; F69 Hypercholesterolemia E78.00 Type 2 diabetes mellitus with hyperglycemia, with long-term current use of insulin E11.65; Z79.4 Diabetes mellitus intermediate school teacher insulin use: with intermediate school teacher use Obesity (BMI 30-39.9) E66.9 Obstructive sleep apnea G47.33 Assessment & Plan Assessment & Plan (1) Mental and behavioral problem: Comment: Impulse control disorder Code(s): F48.9 - Nonpsychotic mental disorder, unspecified; F69 - Unspecified disorder of adult personality and behavior Category: Medical Plan: Continue to follow with counselor weekly. (2) Hypercholesterolemia: Code(s): E78.00 - Pure hypercholesterolemia, unspecified Category: Medical Plan: Avoid foods that are high in cholesterol such as red meat, fried foods, eggs and baked goods. Triglyceride goal of less than 150 and LDL goal of less than 70. Ordered for updated blood work. (3) Type 2 diabetes mellitus with hyperglycemia: Code(s): E11.65 - Type 2 diabetes mellitus with hyperglycemia Category: Medical Qualifiers: Diabetes mellitus group home insulin use: with intermediate school teacher use Qualified Code(s): E11.65 - Type 2 diabetes mellitus with hyperglycemia; Z79.4 - terminal press operator (current) use of insulin Plan: Decrease the amount of carbohydrates such as pasta, bread, rice, and potatoes and limit the amount of sweets. Although fruits are generally healthy they should be eaten in moderation as they are still high in sugar. Ordered for updated blood work. (4) Obesity (BMI 30-39.9): Comment: This is a chronic problem. Considering his chronic , mental disorder, it is difficult to expect any weight reduction in his case. Yet he has lost another 4 lb in the last 6 months. Code(s): E66.9 - Obesity, unspecified Category: Medical Plan: Healthy diet and regular exercise is encouraged. (5) Obstructive sleep apnea: Comment: PER sleep study , GRISELDA was mild, patient is not able to use CPAP. He does use O2 at night to overcome nocturnal hypoxemia. Code(s): G47.33 - Obstructive sleep apnea (adult) (pediatric) Category: Medical Plan: Continue to nocturnal oxygen. Plan This note was constructed using voice recognition software. While every effort has been made to ensure accuracy and software sales executive, still areas may have been included sometimes these areas may affect the content or meeting of the given symptoms. Total time spent caring for the patient today was 20 minutes. This includes time spent before the visit reviewing the chart, time spent during the visit, and time spent after the visit and documentation. Patient was informed and verbally consented to the use of an ambient scribe for clinic note documentation during this visit. Orders: Orders Lipid Panel Today E78.00 - Pure hypercholesterolemia, unspecified Hemoglobin A1c Today E11.65 - Type 2 diabetes mellitus with hyperglycemia
[2025-03-11 09:07] VITALS: BP 96/58; PULSE 76; RESP 18; TEMP 36.5; O2SAT 93; BMI 31.4
[2025-03-11 09:49] VITALS: BP 102/58
== END 2025-03-11 09:57 | disposition home or self-care (01) ==
LOC: HO.HMCH 08:53
PROVIDERS: PCP Internal Medicine
DX: E11.65 Type 2 diabetes mellitus with hyperglycemia (principal); Z79.4 Long term (current) use of insulin; E66.9 Obesity, unspecified; Z68.31 Body mass index [BMI] 31.0-31.9, adult; F48.9 Nonpsychotic mental disorder, unspecified; F69 Unspecified disorder of adult personality and behavior; E78.00 Pure hypercholesterolemia, unspecified; G47.33 Obstructive sleep apnea (adult) (pediatric)

== ENCOUNTER → 2025-03-11 08:52 | Outpatient (BNVA) | payer MEDICARE, MEDICAID, SELFPAY | PROVIDERS: PCP Internal Medicine | DX: E11.65 Type 2 diabetes mellitus with hyperglycemia (principal); F48.9 Nonpsychotic mental disorder, unspecified; F69 Unspecified disorder of adult personality and behavior; E78.00 Pure hypercholesterolemia, unspecified; Z79.4 Long term (current) use of insulin; E66.9 Obesity, unspecified; G47.33 Obstructive sleep apnea (adult) (pediatric); Z99.89 Dependence on other enabling machines and devices | CPT/HCPCS: 99212 ==

== ENCOUNTER 2025-03-17 16:43 | Outpatient (AMB) | payer MEDICARE, MEDICAID, SELFPAY ==
--- NOTE | 2025-03-17 17:25 | MHC.PC.OV ---
Vital Signs 03/17/25 17:26 03/17/25 18:00 Height 5 ft 10 in Weight 223 lb 6 oz BMI 32.0 BP 108/58 L 110/60 Blood Pressure Location Lt brachial Position Sitting Pulse 73 Pulse Source Pulse Oximeter Temp 97.3 F Temp Source Temporal Artery Scan Pulse Oximetry (%) 93 Oxygen Delivery Method Room Air Intake Visit Reasons: Chocking Follow Up Carbide Die Maker Required: No Accompanied by: STAFF Allergies lisinopril (LISINOPRIL) Allergy (Intermediate, Verified 03/17/25 17:26) HYPOTENSION Tobacco use date assessed: 01/29/25 Dental Screening Dental Screen Date: 01/29/25 HPI Chocking Follow Up HPI Details complains of having a choking episode at home and was performed by healthcare social worker salma maloney. ? blue thing in mouth. prompting consult HPI Comments History of Present Illness Details History of Present Illness The patient is a 59-year-old obese male presenting for a follow-up visit. His past medical history is significant for sarcopenia, diabetes mellitus, hypertension, hypercholesterolemia, GERD, and mild obstructive sleep apnea. Regarding his diabetes, his last hemoglobin A1c in November was 5.8%. He is currently on Lantus 5 units once a day and metformin. For hypercholesterolemia, his last labs in August 2024 showed an LDL of 67 mg/dL, and he is on atorvastatin 80 mg daily. For his mild obstructive sleep apnea, he was seen by pulmonary in February and uses oxygen nightly as he cannot tolerate CPAP. He has a history of a tubular adenoma of the colon, with his last colonoscopy performed in October 2024. He also has a history of mild anemia. The patient recently had a severe choking episode that caused discoloration, for which the Heimlich maneuver was performed and EMS was called. He has a history of frequently choking on water and other items, raising concerns about his swallowing. His weight was 220 lbs at his last visit and is 223 lbs today. He reports using a treadmill at his program. Health Maintenance - Colonoscopy: Last performed in October 2024 for a history of tubular adenoma of the colon. - Diabetes Management: Target hemoglobin A1c is less than 6.5-7%. - Hypercholesterolemia Management: LDL goal is less than 100 mg/dL and triglyceride goal is less than 150 mg/dL. - Weight Management: Patient was advised to lose weight. Social History - Exercise: The patient uses a treadmill at his program. - Diet: An order was placed for his food to be chopped up thoroughly before being served to him. Results - Labs: - Hemoglobin A1c (November): 5.8% - LDL cholesterol (August): 67 mg/dL - Patient has mild anemia based on prior labs. - Procedures: - Colonoscopy (October 2024): Showed tubular adenoma. [facility] Medical History Tinea pedis Hypoxemia Adult general medical exam Screening for prostate cancer Folliculitis Nocturnal hypoxemia Hypoventilation syndrome Obstructive sleep apnea Type 2 diabetes mellitus with hyperglycemia Fatty liver GERD (gastroesophageal reflux disease) Insomnia Hypercholesterolemia Anxiety and depression Obesity (BMI 30-39.9) Vitamin D deficiency Mental and behavioral problem Surgical History History of colonoscopy H/O basal cell carcinoma excision History of cataract surgery Family History Father Medical history unknown Myocardial infarct Mother Lung cancer Brain aneurysm Maternal Grandmother Uterine cancer Maternal Grandfather Lung cancer Social History Housing: House Housing Other:: care home Alcohol intake: never Patient Tobacco Use Status: Never used Tobacco Tobacco use type: Cigarette e-Cigarette/Vaping Use: Never Used Second Hand Smoke Exposure: No service: No Current occupational status: unemployed and disabled Current occupational exposures/hazards: No Cognitive needs: Yes Hearing needs: No Vision needs: No Questionnaire Thrive Questionnaire Date Thrive assessed: 08/30/24 I am a: Patient What is your living situation today?: I have a steady place to live Within the past 12 months, did the food you bought not last and you didn't have the money to get more?: Never true Within the past 12 months, did you worry whether your food would run out before you got money to buy more?: Never true Do you have trouble paying for medicines?: No Do you have trouble getting transportation to medical appointments?: No Do you have trouble paying your heating and electricity bill?: No Do you have trouble taking care of your child, family member or friend?: No Do you have trouble with day-to-day activities such as bathing, preparing meals, shopping, managing finances, etc.?: No Are you currently unemployed and looking for a job?: Yes Are you interested in more education?: Yes Please select the resources that you would like help with: Job search/training Currently or been in a relationship where the following occur: No concerns reported THRIVE Score: 0 AMBER-7 AMB Questionnaire AMBER-7 Date AMBER - 7 assessed: 08/30/24 Source: Developed by Drs. Oleg Torres, Tomeka aBcon, Ranjan Jacob and colleagues, with an educational javier from [employer]. Review of Systems Narrative Review of Systems - Oropharyngeal: Reports recurrent choking, most recently a severe episode requiring the Heimlich maneuver. - Respiratory: Reports feeling better with nightly oxygen use for obstructive sleep apnea. - Constitutional: Reports weight gain. Physical exam (Primary Care) Vital Signs: Last Vital Signs Temp 97.3 F 03/17/25 17:26 Pulse 73 03/17/25 17:26 BP 110/60 03/17/25 18:00 Pulse Ox 93 03/17/25 17:26 Oxygen Delivery Method Room Air 03/17/25 17:26 BMI result Body Mass Index 32.0 Tobacco/Smoking Status: Tobacco use Status Tobacco use date assessed 01/29/25 03/17/25 17:33 Patient Tobacco Use Status Never used Tobacco 03/17/25 17:33 Tobacco use type Cigarette 03/17/25 17:33 e-Cigarette/Vaping Use Never Used 03/17/25 17:33 Thrive Assessment: Date of Thrive Assessment Date Thrive assessed 08/30/24 03/17/25 17:33 Currently or been in a relationship where the following occur: No concerns reported Narrative Physical Exam - Vitals: Blood pressure is 110/60 mmHg. - Constitutional: Weight is 223 lbs. Const General: alert; No acute distress Eyes Conjunctivae: conjunctivae normal Resp Auscultation: clear to auscultation bilaterally Cardio Rate: regular rate Rhythm: regular rhythm GI Inspection: Yes normal to inspection Extrem General: Yes normal to inspection and No edema Coding Level of Care Code Est Pt Level 4 (14923) Add On Problem Visit Only Diagnoses Type 2 diabetes mellitus with hyperglycemia, with long-term current use of insulin E11.65; Z79.4 Diabetes mellitus termite control technician insulin use: with correction use Hypercholesterolemia E78.00 Gastroesophageal reflux disease without esophagitis K21.9 Esophagitis presence: without esophagitis Nocturnal hypoxemia G47.34 Oropharyngeal dysphagia R13.12 Dysphagia type: oropharyngeal phase Assessment & Plan Assessment & Plan (1) Type 2 diabetes mellitus with hyperglycemia: Code(s): E11.65 - Type 2 diabetes mellitus with hyperglycemia Category: Medical Qualifiers: Diabetes mellitus termite control technician insulin use: with termite control technician use Qualified Code(s): E11.65 - Type 2 diabetes mellitus with hyperglycemia; Z79.4 - skilled nursing (current) use of insulin Plan: Decrease the amount of carbohydrate intake, pasta, bread, rice and potatoes are all sugar and that is aside from all the sweet stuff, remember that fruits are good but they are Sweet also. Hemoglobin A1c goal of less than 6.5. Patient on Lantus 5 units once a day metformin (2) Hypercholesterolemia: Code(s): E78.00 - Pure hypercholesterolemia, unspecified Category: Medical Plan: Avoid fried foods, chicken skin, eggs, butter margarine, pastries and meat. Be it pork or beef they have a lot of cholesterol LDL goal of less than 100 and triglyceride of less than 150 August 2024 last blood work on atorvastatin 80 mg once a day (3) GERD (gastroesophageal reflux disease): Code(s): K21.9 - Gastro-esophageal reflux disease without esophagitis Category: Medical Qualifiers: Esophagitis presence: without esophagitis Qualified Code(s): K21.9 - Gastro-esophageal reflux disease without esophagitis Plan: Avoid the foods that causes that usually spicy foods, tomato products, juices, coffee, soda and foods that your sensitive to. After eating do not lie down, allow 3-4 hours before in lie down. And keep the head of bed above 30 degrees to avoid the acid from going up. (4) Nocturnal hypoxemia: Comment: Nocturnal hypoxemia is part of obstructive sleep apnea and sleep-related hypoventilation syndrome. He is doing well with use of O2 at night. Code(s): G47.34 - Idiopathic sleep related nonobstructive alveolar hypoventilation Category: Medical Plan: Continue with oxygen and follows up with Pulmonary (5) Dysphagia: Code(s): R13.10 - Dysphagia, unspecified Category: Medical Qualifiers: Dysphagia type: oropharyngeal phase Qualified Code(s): R13.12 - Dysphagia, oropharyngeal phase Plan Plan Patient was informed and verbally consented to the use of an ambient scribe for clinic note documentation during this visit. 1. Dysphagia To investigate the recent severe choking episode and history of dysphagia, a barium swallow study will be ordered. This test will evaluate for swallowing dysfunction or a possible stricture. An order has been provided for the patient's food to be chopped thoroughly to prevent further choking incidents while awaiting workup. Patient was advised to chew food properly and not be in a hurry to swallow. 2. Obesity Patient noted to have gained weight since the last visit. The importance of weight loss was reiterated. Patient reports using a treadmill, and is encouraged to continue. 3. Hypertension Patient's blood pressure was 110/60 mmHg in the office. He is not currently on any antihypertensive medications, and with this reading, none will be initiated. 4. Diabetes Mellitus The patient will continue his current regimen of Lantus 5 units daily and metformin. His last A1c was 5.8% in November, which is within the goal of less than 6.5-7%. No new blood work is needed at this time. 5. Hypercholesterolemia The patient will continue taking atorvastatin 80 mg daily. His last LDL was 67 in August, which is within the goal of less than 100. No new lab work is needed at this visit. 6. Mild Obstructive Sleep Apnea The patient is to continue using oxygen at night and will continue to follow up with his registered nurse step down. Discussion Notes I discussed with the patient and his caregiver the concern regarding his recent choking episode. I explained that I will order a barium swallow test, which involves drinking a liquid while x-rays are taken, to evaluate his swallowing function and rule out any blockages. I advised him to chew his food thoroughly and eat slowly. I also provided a written order for his caregivers to chop his food into smaller pieces to reduce choking risk. We reviewed his other chronic conditions, noting his blood pressure, A1c, and cholesterol are well-controlled on his current regimen, and that no medication changes or immediate blood work are necessary. I also reiterated the importance of weight loss. Patient Instructions - A test called a barium swallow has been ordered to check your swallowing. - The imaging center will call you to schedule this appointment. - While you wait for the test, make sure to chew your food very well and do not finnegan when you eat. - An order was given for your caregivers to chop your food into small pieces to help prevent choking. - Continue taking all your regular medications for diabetes, cholesterol, and reflux as prescribed. - Continue using your oxygen at night as directed. - Continue to follow up with your lung doctor (registered nurse step down). - Try to continue your efforts with weight loss. Orders: Orders FL barium swallow Today R13.10 - Dysphagia, unspecified, R13.12 - Dysphagia, oropharyngeal phase FL upper GI series Today R13.10 - Dysphagia, unspecified, R13.12 - Dysphagia, oropharyngeal phase
[2025-03-17 17:26] VITALS: BP 108/58; PULSE 73; TEMP 36.3; O2SAT 93; BMI 32.0
[2025-03-17 18:00] VITALS: BP 110/60
--- OUTSIDE RECORDS SUMMARY | 2025-03-17 22:40 | XMS_ITS | Clinical Summary ---
Author Organization 175 [facility] Address [address] [place] [address] Phone Care Team Providers Care Watershed Program Manager Name Role Phone Lindsay Archibald MD Primary Care Provider [phone] Allergies Active Allergy Reactions Criticality Noted Date [...] AM EST Office Visit Orthopedic Surgery - [address] [address] Ross Rosenbaum, DPM Dermatophytosis of nail (Primary Dx); Tinea pedis of both feet; Type II diabetes mellitus with peripheral circulatory disorder (CMS/HCC V24, CMS/HCC V28); Acquired hammer toe of right foot; [...] on file Sexual Orientation Not on file Last Filed Vital Signs Vital Sign Reading [...] AM EST Office Visit Orthopedic Surgery - [place] [address] [address] Ross Rosenbaum, DPM [address] [address] Health Maintenance Due Date Last [...] 03/17/2022 02/24/2005 Depression Screening 04/03/2024 COVID-19 Vaccine ( season) 2024 06/03/2024, 05/12/2023, 08/26/2021, Additional history [...] * HM Urine Albumin Creatinine Ratio (08/04/2004) Pathologist [facility] HM Urine Albumin Creatinine Ratio abstracted Result [facility] Provider HEALTH MAINTENANCE Final Result from Last 3 Months or Most Recently Relevant to Health Maintenance Insurance [place]ICA[place] - [place] MEDICARE Care Teams Watershed Program Manager Relationship Specialty Start Date End Date Lindsay Archibald MD [address] [place] [address] [address] [facility] KAT[place]N Kumari [phone] PCP - General Internal Medicine 01/29/16
== END 2025-03-17 18:17 | disposition home or self-care (01) ==
LOC: HO.HMCH 16:44
PROVIDERS: PCP Internal Medicine; Visit Provider Internal Medicine
DX: E11.65 Type 2 diabetes mellitus with hyperglycemia (principal); Z79.4 Long term (current) use of insulin; E78.00 Pure hypercholesterolemia, unspecified; K21.9 Gastro-esophageal reflux disease without esophagitis; G47.34 Idiopathic sleep related nonobstructive alveolar hypoventilation; R13.12 Dysphagia, oropharyngeal phase

== ENCOUNTER → 2025-03-17 16:43 | Outpatient (BNVA) | payer MEDICARE, MEDICAID, SELFPAY | PROVIDERS: PCP Internal Medicine; Visit Provider Internal Medicine | DX: I10 Essential (primary) hypertension (principal); E11.65 Type 2 diabetes mellitus with hyperglycemia; Z79.4 Long term (current) use of insulin; E78.00 Pure hypercholesterolemia, unspecified; K21.9 Gastro-esophageal reflux disease without esophagitis; G47.34 Idiopathic sleep related nonobstructive alveolar hypoventilation; R13.12 Dysphagia, oropharyngeal phase; Z79.899 Other long term (current) drug therapy | CPT/HCPCS: 99212 ==

== ENCOUNTER 2025-03-18 08:33 | Outpatient (REF) | payer MEDICARE, MEDICAID, SELFPAY ==
--- NOTE | ~2025-03-18 | FL_ITS ---
EXAMINATION: XR UPPER GI SERIES X-RAY BARIUM SWALLOW CLINICAL INFORMATION: Dysphagia COMPARISON: None available. TECHNIQUE: Study performed with thick and thin barium, effervescent granules. FINDINGS: Normal swallowing mechanism. There is laryngeal penetration. No sam aspiration is seen.. No mass or mucosal lesion is identified. Esophagus demonstrates normal distention and motility. No evidence of stricture, mass or mucosal lesion. Mild-moderate esophageal dysmotility. Stomach demonstrates normal distention. No mass or mucosal lesions are seen. There is normal passage of the barium through the stomach into the proximal small bowel. No hiatal hernia seen. No reflux is seen during the course of the procedure. Patient swallowed a barium tablet which demonstrated normal passage into the stomach. FLUOROSCOPY TIME: 1.03 minutes DOSE AREA PRODUCT: 128 uGy-m2 (microgray-meter squared) FL/FL upper GI w air w Ba Swallow IMPRESSION: 1. Mild-moderate esophageal dysmotility. 2. No evidence of stricture, mass or mucosal lesion. 3. No hiatal hernia. No reflux is seen. 4. There is laryngeal penetration seen. Consider speech pathology consultation/evaluation. Electronically signed by: Wilver Burleson MD 03/19/2025 07:51 AM EST
--- OUTSIDE RECORDS SUMMARY | 2025-03-18 09:06 | XMS_ITS | Clinical Summary ---
Author Organization 175 [facility] Address [address] [place] [address] Phone Care Team Providers Care Industrial Sales Manager Name Role Phone Lindsay Archibald MD Primary Care Provider [phone] Allergies Active Allergy Reactions Criticality Noted Date Comments Lisinopril 01/05/2024 assisted staff unsure how long he has had [...] AM EST Office Visit Orthopedic Surgery - [address] [address] Ross Rosenbaum, DPM Dermatophytosis of [...] AM EST Office Visit Orthopedic Surgery - [place] [address] [address] Ross Rosenbaum, DPM [address] [address] Health Maintenance Due Date Last [...] HM Urine Albumin Creatinine Ratio (08/04/2004) Pathologist [facility] HM Urine Albumin Creatinine Ratio abstracted Result [facility] Provider HEALTH MAINTENANCE Final Result from Last 3 Months or Most Recently Relevant to Health Maintenance Insurance [place] Care Teams Industrial Sales Manager Relationship Specialty Start Date End Date Lindsay Archibald MD [address] [place] [address] [address] [facility] [place] Kumari [phone] PCP - General Internal Medicine 01/29/16
== END 2025-03-18 08:34 | disposition home or self-care (01) ==
LOC: HO.XRAY 08:33
PROVIDERS: PCP Internal Medicine; Visit Provider Internal Medicine
DX: R13.12 Dysphagia, oropharyngeal phase (principal)
CPT/HCPCS: 74246

== ENCOUNTER → 2025-03-18 08:35 | Outpatient (BNV) | payer MEDICARE, MEDICAID, SELFPAY | PROVIDERS: PCP Internal Medicine; Visit Provider Radiology Diagnostic Ultrasound | DX: R13.10 Dysphagia, unspecified (principal); K22.4 Dyskinesia of esophagus | CPT/HCPCS: 74246 ==

== ENCOUNTER 2025-03-25 07:28 | Outpatient (REF) | payer MEDICARE, MEDICAID, SELFPAY ==
--- OUTSIDE RECORDS SUMMARY | 2025-03-25 07:31 | XMS_ITS | Clinical Summary ---
Author Organization 175 [facility] Address [address] [place] [address] Phone Care Team Providers Care Manager Research Development Name Role Phone Lindsay Archibald MD Primary Care Provider [phone] Allergies Active Allergy Reactions Criticality Noted Date [...] AM EST Office Visit Orthopedic Surgery - [address] [address] Ross Rosenbaum, DPM Dermatophytosis of [...] AM EST Office Visit Orthopedic Surgery - [place] [address] [address] Ross Rosenbaum, DPM [address] [address] Health Maintenance Due Date Last [...] Urine Albumin Creatinine Ratio (08/04/2004) Pathologist [facility] HM Urine Albumin Creatinine Ratio abstracted Result [facility] Provider HEALTH MAINTENANCE Final Result from Last 3 Months or Most Recently Relevant to Health Maintenance Insurance [place] - [place] Care Teams Manager Research Development Relationship Specialty Start Date End Date Lindsay Archibald MD [address] [place] [address] [address] [facility] [place] Kumari [phone] PCP - General Internal Medicine 01/29/16
[2025-03-25 07:49] LABS: MANUAL DIFF FLAG NO
[2025-03-25 08:35] LABS: Hematocrit 41.2 % (42.0-52.0); Hemoglobin 13.9 g/dl (14.0-18.0); Imm Gran Abs Auto 0.03 X10*3/uL (0.00-0.03); Imm Gran Pct Auto 0.4 % (0.0-0.4); Lymphocytes Absolute Auto 1.3 X10*3/uL (1.2-4.9); Mean Corpuscular HGB Conc 33.7 g/dl (31.0-36.0); Mean Corpuscular Hemoglobin 30.3 pg (27.0-33.0); Mean Corpuscular Volume 90.0 fL (80.0-98.0); NRBC Abs Auto 0.000 X10*3/uL (0.0-0.012); NRBC Pct Auto 0.0 /100WBC (0.0-0.2); Platelet Count 261 X10*3/uL (160-400); Red Blood Count 4.58 X10*6/uL (4.60-5.80); White Blood Count 7.9 X10*3/uL (4.8-10.8)
[2025-03-25 08:59] LABS: Alanine Aminotransferase 29 U/L (0-40); Albumin Level 4.7 g/dL (3.5-5.0); Alkaline Phosphatase 69 U/L (39-117); Anion Gap 13 (12-20); Aspartate Amino Transferase 23 U/L (5-37); Blood Urea Nitrogen 12 mg/dL (9-16); Calcium 9.9 mg/dL (8.4-10.2); Carbon Dioxide 30 mmol/L (22-29); Chloride 107 mmol/L (96-108); Cholesterol 117 mg/dL (<200); Estimated Glomerular Filt Rate > 60; HDL Cholesterol 38 mg/dL (>40); Potassium 4.1 mmol/L (3.3-5.1); Sodium 146 mmol/L (135-145); Total Protein 6.9 g/dL (6.5-8.0); Triglycerides 78 mg/dL (<150)
[2025-03-25 09:31] LABS: Folate 12.1 ng/mL (> or = 4.0); Vitamin B12 399 pg/mL (200-900)
== END 2025-03-25 07:29 | disposition home or self-care (01) ==
LOC: HO.LAB 07:28
PROVIDERS: PCP Internal Medicine; Visit Provider Internal Medicine
DX: E11.65 Type 2 diabetes mellitus with hyperglycemia (principal); E78.00 Pure hypercholesterolemia, unspecified; Z12.5 Encounter for screening for malignant neoplasm of prostate; Z79.4 Long term (current) use of insulin
CPT/HCPCS: 36415; 80053; 80061; 82607; 82746; 83036; 84153; 85025